=== PATIENT | female | born 1940 | race Caucasian/White ===

== ENCOUNTER 2017-10-08 16:16 | Outpatient (CLI) | payer MEDICARE | END 2017-10-08 16:17 | disposition home or self-care (01) | LOC: BICMAMMO 16:16 | PROVIDERS: ATTEND Internal Medicine Hematology & Oncology | DX: Z12.31 Encounter for screening mammogram for malignant neoplasm of breast (principal); Z85.3 Personal history of malignant neoplasm of breast | CPT/HCPCS: 77063; 77067 ==

== ENCOUNTER 2018-05-03 07:18 | Emergency (ER) | payer MEDICARE ==
[2018-05-03] MEDS ORDERED: Metoclopramide HCl 10 MG/2 ML VIAL ONE (07:42)
[2018-05-03] MEDS ORDERED: diphenhydrAMINE 50 MG/ML VIAL ONE (07:42)
[2018-05-03] MEDS ORDERED: Ketorolac Tromethamine 30 MG/ML VIAL ONE (08:14)
[2018-05-03] MEDS ORDERED: Water For Inject, Bacteriostat 30 ML ONE (08:35)
[2018-05-03] MEDS ORDERED: methylPREDNISolone Sod Succ/PF 125 MG/2 ML VIAL ONE (08:35)
[2018-05-03] MEDS ORDERED: Magnesium Sulfate 2 GM/NS 0.9% 50 ML BAG ONE (08:35)
[2018-05-03] MEDS ORDERED: Acetaminophen 500 MG TAB ONE (09:12)
[2018-05-03] MEDS ORDERED: Valproate Sodium 500 MG/5 ML VIAL ONE (09:13)
== END 2018-05-03 11:00 | disposition home or self-care (01) ==
LOC: SCSER 07:18
DX: R51 Headache (principal); I10 Essential (primary) hypertension; Z79.899 Other long term (current) drug therapy
CPT/HCPCS: 96365; 96367; 96375; J1200; J1885; J2765; J2930; J3475

== ENCOUNTER 2018-10-09 13:57 | Outpatient (CLI) | payer MEDICARE | END 2018-10-09 13:58 | disposition home or self-care (01) | LOC: BICMAMMO 13:57 | PROVIDERS: ATTEND Internal Medicine Hematology & Oncology | DX: Z12.31 Encounter for screening mammogram for malignant neoplasm of breast (principal); Z80.3 Family history of malignant neoplasm of breast; Z85.3 Personal history of malignant neoplasm of breast | CPT/HCPCS: 77063; 77067 ==

== ENCOUNTER 2019-10-11 14:01 | Outpatient (CLI) | payer MEDICARE ==
--- NOTE | 2019-10-14 13:29 | MMO ---
Bilateral MAMMO Bilat Screen [id number]. CLINICAL HISTORY: Patient is 79 years old and is seen for screening. The patient has the following family history of breast cancer: maternal aunt. The patient has a history of right Breast reduction at age 72, left Mastectomy at age 71 - malignant, left Ultrasound Guided Core Biopsy at age 71 - malignant and bilateral Excisional Biopsy at age 55 - benign. VIEWS: The views performed were: right craniocaudal with tomosynthesis and right mediolateral oblique with tomosynthesis. FILMS COMPARED: The present examination has been compared to prior imaging studies performed at [facility] on 07/19/2015, 09/30/2016, 10/08/2017 and 10/09/2018. This study has been interpreted with the assistance of computer-aided detection. MAMMOGRAM FINDINGS: There are scattered fibroglandular densities. Finding 1: There are stable post operative changes seen in the upper-outer region of the right breast. Finding 2: There are stable benign appearing calcifications seen in the right breast. Finding 3: Stable dilated ducts. There are no suspicious masses, suspicious calcifications, or new areas of architectural distortion. IMPRESSION: THERE IS NO MAMMOGRAPHIC EVIDENCE OF MALIGNANCY. A ROUTINE FOLLOW-UP MAMMOGRAM IN 1 YEAR IS RECOMMENDED. THE RESULTS OF THIS EXAM WERE SENT TO THE PATIENT. ACR BI-RADS Category 2 - Benign finding MAMMOGRAPHY NOTE: 1. A negative mammogram report should not delay a biopsy if a dominant of clinically suspicious mass is present. 2. Approximately 10% to 15% of breast cancers are not detected by mammography. 3. Adenosis and dense breasts may obscure an underlying neoplasm. Reported by: RAE MCKNIGHT MD Electonically Signed: [id number]
== END 2019-10-11 14:02 | disposition home or self-care (01) ==
LOC: BICMAMMO 14:01
PROVIDERS: ATTEND Internal Medicine Hematology & Oncology
DX: Z12.31 Encounter for screening mammogram for malignant neoplasm of breast (principal); Z80.3 Family history of malignant neoplasm of breast; Z98.890 Other specified postprocedural states; Z90.12 Acquired absence of left breast and nipple
CPT/HCPCS: 77063; 77067

== ENCOUNTER 2020-08-30 17:16 | Inpatient (IN) | payer MEDICARE, SELFPAY ==
[2020-08-30 18:41] LABS: Hemoglobin 13.8 g/dL (12.0-16.0); Mean Corpuscular HGB CONC 33.1 g/dL (32.0-36.0); Mean Corpuscular Hemoglobin 28.3 pg (27.0-31.0); Mean Corpuscular Volume 85.3 fL (78.0-98.0); RBC Distribution Width 14.8 % (11.5-14.5); Red Blood Cell (RBC) Count 4.86 mill/uL (4.20-5.40); White Blood Cell (WBC) Count 7.4 thou/uL (4.8-10.8)
[2020-08-30 18:52] LABS: ALT (SGPT) 22 U/L (8-55); AST (SGOT) 40 U/L (5-34); Albumin 4.3 g/dL (3.4-4.8); Alkaline Phosphatase 146 U/L (40-110); Anion Gap 16 mmol/L (10-20); BUN (Urea Nitrogen) 19 mg/dL (9.8-20.1); Bilirubin, Total 0.5 mg/dL (0.2-1.2); Calc. Creatinine Clearance 0 mL/min (70-130); Calcium 9.2 mg/dL (7.8-10.44); Carbon Dioxide 23 mmol/L (23-31); Chloride 104 mmol/L (98-107); Globulin 3.2 g/dL (2.4-3.5); Glucose 96 mg/dL (83-110); Potassium 3.9 mmol/L (3.5-5.1); Protein, Total 7.5 g/dL (6.0-8.3); Sodium 139 mmol/L (136-145)
[2020-08-30 19:05] LABS: #Eosinphils 0.1 thou/uL (0.0-0.7); #Neutrophils 5.3 thou/uL (1.40-6.50); %Basophils 0.5 % (0.0-1.0); %Eosinophils 0.8 % (0.0-10.0); %Lymphocytes 13.6 % (21.0-51.0); %Monocytes 14.1 % (0.0-10.0); %Neutrophils 71.1 % (42.0-75.0); Platelet Count 110 thou/uL (130-400)
[2020-08-30 19:09] LABS: Large Platelets SLIGHT; MDiff Complete? YES; Platelet Morphology Comment Appears Decreased; RBC Morphology Normal
--- NOTE | 2020-08-30 20:21 | CT ---
CT BRAIN 08/30/20 PROVIDED CLINICAL HISTORY: Headache. FINDINGS: No comparisons. The ventricular system appears normal in size and morphology. There is no evidence for intracranial h emorrhage or mass effect. The extracranial soft tissues and osseous structures demonstrate an unremar kable CT appearance. IMPRESSION: No evidence for intracranial hemorrhage or mass effect. POS: XAVI
[2020-08-30] MEDS ORDERED: Metoclopramide 10 MG/10 ML UDCUP ONE (21:26)
[2020-08-30] MEDS ORDERED: Metoclopramide HCl 10 MG/2 ML VIAL ONE (21:26)
[2020-08-30] MEDS ORDERED: diphenhydrAMINE 50 MG/ML VIAL ONE (21:26)
[2020-08-30] MEDS ORDERED: Aspirin Chewable 81 MG TAB ONE (21:26)
--- NOTE | 2020-08-30 22:52 | RAD ---
PORTABLE CHEST: 08/30/20 PROVIDED CLINICAL HISTORY: Headache. Altered mental status. FINDINGS: The cardiac and mediastinal silhouette is within normal limits. No focal consolidation, pleural fluid or pneumothorax apparent. IMPRESSION: No evidence for an acute cardiopulmonary process. POS: XAVI
[2020-08-30 23:07] LABS: Troponin I Less than 0.010 ng/mL (< 0.028)
[2020-08-31] MEDS ORDERED: Acetaminophen 650 MG Suppository PR PRN (01:16)
[2020-08-31] MEDS ORDERED: Calcium Carbonate 500 MG ChewTAB PO PRN (01:16)
[2020-08-31] MEDS ORDERED: Ondansetron ODT 4 MG TAB PO PRN (01:16)
--- NOTE | 2020-08-31 01:22 | PDOC.HHP ---
Hospitalist HPI - History of Present Illness l sided weakness History of Present Illness: Case of an 80y/o female with a pmhx of htn and migraines who comes to hospital due to L arm weakness and facil droop. apparently patient was on her usual state of health until this morning around 10 am when she complained of weakeness and numbness of her L arm. apparently at some point that improved and patient later started with L sided facial droop. Patient also noted a headache that has been been ongoing since this morning. also refers that she is not on her neurological base despites been a ox3. during my evaluation still presents with L arm weakness and L facial droop. She has had no fevers chills nausea vomiting diarrhea she has no prior stroke history or TIA history. Hospitalist ROS - Review of Systems All other systems reviewed; all pertinent +/- noted in HPI/Subj Hospitalist History - Past Surgical History Past Surgical History: reports: , Hysterectomy Other Surgical History: b/l mastectomy - Family History Family History: reports: no pertinent history - Social History Smoking Status: Never smoker Alcohol: reports: None Drugs: reports: none - Exam General Appearance: NAD, awake alert Eye: PERRL, anicteric sclera ENT: normocephalic atraumatic, no oropharyngeal lesions ENT - other findings: L facial droop Heart: RRR, no murmur Respiratory: CTAB, no wheezes, no rales Gastrointestinal: soft, non-tender, non-distended Extremities: no cyanosis, no clubbing, no edema Skin: normal turgor, no lesions, no rashes Neurological: cranial nerve grossly intact, normal sensation to touch Musculoskeletal: normal tone, normal strength, no muscle wasting Psychiatric: normal affect, normal behavior, A&O x 3 Hospitalist Results - Labs Result Diagrams: 08/30/20 18:08/30/20 18:19 Lab results: WBC 7.4 thou/uL (4.8-10.8) 08/30/20 18: Hgb 13.8 g/dL (12.0-16.0) 08/30/20 18:19 Hct 41.5 % (36.0-47.0) 08/30/20 18: MCV 85.3 fL (78.0-98.0) 08/30/20 18:19 Plt Count 110 thou/uL (130-400) L 08/30/20 18:19 Neutrophils % 71.1 % (42.0-75.0) 08/30/20 18:19 Sodium 139 mmol/L (136-145) 08/30/20 18:19 Potassium 3.9 mmol/L (3.5-5.1) 08/30/20 18:19 Chloride 104 mmol/L (98-107) 08/30/20 18:19 Carbon Dioxide 23 mmol/L (23-31) 08/30/20 18:19 BUN 19 mg/dL (9.8-20.1) 08/30/20 18:19 Creatinine 0.77 mg/dL (0.6-1.1) 08/30/20 18:19 Glucose 96 mg/dL (83-110) 08/30/20 18:19 Calcium 9.2 mg/dL (7.8-10.44) 08/30/20 18:19 Total Bilirubin 0.5 mg/dL (0.2-1.2) 08/30/20 18:19 AST 40 U/L (5-34) H 08/30/20 18:19 ALT 22 U/L (8-55) 08/30/20 18:19 Alkaline Phosphatase 146 U/L (40-110) H 08/30/20 18:19 Troponin I Less than 0.010 ng/mL (< 0.028) 08/30/20 22:39 Serum Total Protein 7.5 g/dL (6.0-8.3) 08/30/20 18:19 Albumin 4.3 g/dL (3.4-4.8) 08/30/20 18:19 Hospitalist H&P A/P - Problem (1) CVA (cerebral vascular accident) Code(s): I63.9 - CEREBRAL INFARCTION, UNSPECIFIED Status: Acute (2) HTN (hypertension) Code(s): I10 - ESSENTIAL (PRIMARY) HYPERTENSION Status: Acute (3) Hypothyroidism Code(s): E03.9 - HYPOTHYROIDISM, UNSPECIFIED Status: Acute (4) Migraines Code(s): G43.909 - MIGRAINE, UNSP, NOT INTRACTABLE, WITHOUT STATUS MIGRAINOSUS Status: Acute - Plan Plan: case of an 80y/o with the stated pmhx who present with concerns for tia / cva r/ o cva - head ct negative - mri - 2d echo - carotid doppler - neurology evaluation - cardiac monitoring - secondary prevention w asa + statin - evaluation of modifiable risk factor with lipid panel + a1c - pt /ot / st htn -permissive htn hypothyroidism - continue home meds
[2020-08-31 01:48] LABS: Troponin I 0.011 ng/mL (< 0.028)
[2020-08-31] MEDS: Ondansetron PF 4 MG/2 ML Vial IVP PRN ×2 (02:59→19:43)
[2020-08-31 05:19] LABS: SARS-CoV-2 MS2 Positive; SARS-CoV-2 N Gene Negative; SARS-CoV-2 S Gene Negative; SARS-CoV-2 by NAA Not Detected (NotDetected); SARS-CoV-2 orf1ab Negative
[2020-08-31] MEDS: Levothyroxine Sodium 25 MCG TAB PO SCH (05:26)
[2020-08-31 05:27] LABS: Hemoglobin A1c 5.2 % (4.0-6.0)
[2020-08-31 05:28] LABS: Hemoglobin 13.8 g/dL (12.0-16.0); Mean Corpuscular HGB CONC 33.1 g/dL (32.0-36.0); Mean Corpuscular Volume 84.5 fL (78.0-98.0); Mean Platelet Volume 10.5 fL (7.4-10.4); Platelet Count 117 thou/uL (130-400); RBC Distribution Width 14.7 % (11.5-14.5); Red Blood Cell (RBC) Count 4.93 mill/uL (4.20-5.40); White Blood Cell (WBC) Count 8.9 thou/uL (4.8-10.8)
[2020-08-31] MEDS: Acetaminophen 325 MG TAB PO PRN ×4 (05:28→21:50)
[2020-08-31 05:39] LABS: ALT (SGPT) 19 U/L (8-55); AST (SGOT) 42 U/L (5-34); Albumin 4.4 g/dL (3.4-4.8); Alkaline Phosphatase 144 U/L (40-110); Anion Gap 19 mmol/L (10-20); BUN (Urea Nitrogen) 11 mg/dL (9.8-20.1); Bilirubin, Total 0.6 mg/dL (0.2-1.2); Calc. Creatinine Clearance 60 mL/min (70-130); Carbon Dioxide 18 mmol/L (23-31); Cardiac Risk 2.4 (Less than 4.5); Chloride 104 mmol/L (98-107); Cholesterol 166 mg/dl (< 200 Desired); Globulin 3.2 g/dL (2.4-3.5); Glucose 113 mg/dL (83-110); HDL Cholesterol 69 mg/dL (>60 Neg Risk); LDL Cholesterol, Calculated 80 mg/dL; Potassium 3.8 mmol/L (3.5-5.1); Protein, Total 7.6 g/dL (6.0-8.3); Sodium 137 mmol/L (136-145); Triglycerides 83 mg/dL (Less than 150)
[2020-08-31 05:52] LABS: Lymphocytes 15 % (21-51); MDiff Complete? YES; Monocytes 15 % (0-10); Neutrophil 70 % (42-75); Platelet Morphology Comment Appears Adequate; RBC Morphology Normal
[2020-08-31] MEDS: Aspirin 81 mg Enteric Coated Tablet PO SCH (09:26)
[2020-08-31] MEDS: Anastrozole 1 MG TAB PO SCH (09:26)
[2020-08-31] MEDS: Enoxaparin Sodium 40 MG/0.4 ML SYRINGE SC SCH (09:34)
--- NOTE | 2020-08-31 09:36 | PDOC.BPN ---
- Brief Progress Note Encounter Date: 08/31/20 Patient was admitted earlier today on account of left-sided weakness secondary to CVA. She complains of generalized body pain but is generally uncomfortable. Time of my evaluation she was a bit confused which nurse notes have been happening intermittently. We will go ahead and have carotid ultrasound scan, MRI and PT evaluation. Appreciate neurology input
--- NOTE | 2020-08-31 09:38 | ULT ---
Carotid arterial Doppler ultrasound: 08/31/2020 COMPARISON: None HISTORY: Stroke, left-sided paralysis, altered mental status TECHNIQUE: Multiplanar grayscale sonographic imaging of the arterial structures of the neck obtained with Doppler interrogation including color flow and spectral analysis. FINDINGS: Antegrade blood flow and normal arterial waveforms are documented within the carotid and th e vertebral system bilaterally. Peak systolic velocity (centimeters per second) is as follows: Right CCA 106 Right ICA 85 Right ECA 101 Left CCA 118 Left ICA 214 Left ECA 128 The ICA/CCA ratio is 0.8 on the right and 1.8 on the left. IMPRESSION: Elevated velocity within the left internal carotid artery suggesting hemodynamically sign ificant stenosis. Recommend CT angiogram of the neck for full assessment.
--- NOTE | 2020-08-31 13:22 | MRI ---
MRI OF BRAIN PERFORMED WITHOUT CONTRAST ENHANCEMENT: HISTORY: Weakness on entire left side. Unable to move left arm at all. Slurred speech. FINDINGS: There is some mild ventricular and sulcal prominence which is fairly age appropriate. Areas of incre ased T2 and FLAIR signal change within the white matter consistent with some chronic white matter jarrett nge. No hemorrhage or mass effect. On the diffusion weighted sequence, I see no evidence for any acute infarct. IMPRESSION: No acute intracranial abnormalities. POS: AH
--- NOTE | 2020-08-31 13:29 | CON ---
NEUROLOGY CONSULTATION DATE OF CONSULTATION: 08/31/2020 REASON FOR CONSULTATION: Rule out stroke. HISTORY OF PRESENT ILLNESS: Ms. Thacker is a 80-year-old female with medical history significant for hypertension and migraine presented to the hospital because of left upper extremity weakness and right facial droop. The history is obtained from the . The patient seems confused. Per , she was in her usual health until yesterday morning around 10 a.m. when she complained of weakness and paresthesias in her left arm and also had left facial droop. The patient also had headache, which has been ongoing since morning. The symptoms lasted for an hour and when she arrived to the emergency room, most of the symptoms resolved soon afterwards. The patient does have nausea, headache but denies chest pain, blurred vision, double vision, vertigo, dizziness, recent infection or recent exposure to COVID. REVIEW OF SYSTEMS: All systems reviewed and were negative except the pertinent positives and negatives mentioned in the HPI. PAST MEDICAL HISTORY: Hypertension, migraines. PAST SURGICAL HISTORY: section, hysterectomy. FAMILY HISTORY: No significant family history. SOCIAL HISTORY: The patient denies smoking, alcohol, illegal drug use. ALLERGIES: Codeine PHYSICAL EXAMINATION: 142/72 100 16 98 General Appearance: NAD, awake alert Eye: PERRL, anicteric sclera ENT: normocephalic atraumatic, no oropharyngeal lesions ENT - other findings: L facial droop Heart: RRR, no murmur Respiratory: CTAB, no wheezes, no rales Gastrointestinal: soft, non-tender, non-distended Extremities: no cyanosis, no clubbing, no edema Skin: normal turgor, no lesions, no rashes Neurological: Mental status, the patient is alert and oriented to person and place, Recent and remote memory intact. Fund of knowledge is appropriate. Cranial nerves II through XII intact. Motor, muscle tone and bulk are normal. Strength 5/5 bilaterally. Sensory intact. Cerebellar, finger-nose testing intact. Gait deferred due to patient's safety reasons. DATA REVIEWED: I reviewed the labs, which were essentially unremarkable. Lab results: WBC 7.4 thou/uL (4.8-10.8) 08/30/20 18:19 Hgb 13.8 g/dL (12.0-16.0) 08/30/20 18:19 Hct 41.5 % (36.0-47.0) 08/30/20 18:19 MCV 85.3 fL (78.0-98.0) 08/30/20 18:19 Plt Count 110 thou/uL (130-400) L 08/30/20 18:19 Neutrophils % 71.1 % (42.0-75.0) 08/30/20 18:19 Sodium 139 mmol/L (136-145) 08/30/20 18:19 Potassium 3.9 mmol/L (3.5-5.1) 08/30/20 18:19 Chloride 104 mmol/L (98-107) 08/30/20 18:19 Carbon Dioxide 23 mmol/L (23-31) 08/30/20 18:19 BUN 19 mg/dL (9.8-20.1) 08/30/20 18:19 Creatinine 0.77 mg/dL (0.6-1.1) 08/30/20 18:19 Glucose 96 mg/dL (83-110) 08/30/20 18:19 Calcium 9.2 mg/dL (7.8-10.44) 08/30/20 18:19 Total Bilirubin 0.5 mg/dL (0.2-1.2) 08/30/20 18:19 AST 40 U/L (5-34) H 08/30/20 18:19 ALT 22 U/L (8-55) 08/30/20 18:19 Alkaline Phosphatase 146 U/L (40-110) H 08/30/20 18:19 Troponin I Less than 0.010 ng/mL (< 0.028) 08/30/20 22:39 Serum Total Protein 7.5 g/dL (6.0-8.3) 08/30/20 18:19 Albumin 4.3 g/dL (3.4-4.8) 08/30/20 18:19 ASSESSMENT AND PLAN: (1) CVA (cerebral vascular accident) Code(s): I63.9 - CEREBRAL INFARCTION, UNSPECIFIED Status: Acute (2) HTN (hypertension) Code(s): I10 - ESSENTIAL (PRIMARY) HYPERTENSION Status: Acute (3) Hypothyroidism Code(s): E03.9 - HYPOTHYROIDISM, UNSPECIFIED Status: Acute (4) Migraines Code(s): G43.909 - MIGRAINE, UNSP, NOT INTRACTABLE, WITHOUT STATUS MIGRAINOSUS Status: Acute Ms. Thacker is consulted for stroke-like symptoms, which are now resolved, most likely TIA. Continue neuro checks every 4 hours. Continue aspirin, high-intensity statin for secondary stroke prevention. Check hemoglobin A1c, fasting lipid panel, and TSH. Consider MRI of the brain to rule out acute intracranial process. 2D echo to evaluate for left ventricular ejection fraction. Telemetry to rule out arrhythmias. Permissive control of blood pressure at this time. Strict control of blood glucose. Carotid Dopplers completed, which showed hemodynamically significant stenosis in the left internal carotid artery. Consider CTA of the neck for full assessment and consider CV surgery consult for their input. EEG to evaluate for confusion. Continue medical management per primary team. DVT prophylaxis, headache control. We will continue to follow. Thank you for the consult. Plan discussed with the patient and the at bedside. Job ID: [id number] MTDD
--- NOTE | 2020-08-31 18:37 | PDOC.EEG ---
Neurology EEG Report - Report Report: This EEG was performed using 24 channel SVAS Biosana video EEG machine with 24 disc electrodes. This was an extended 2 hours 9 minutes of inpatient video EEG recording. Digital analysis of the EEG was done for spike and seizure detection which revealed no abnormalities. Background: There is a nonsustained posterior background rhythm of 8-9 Hz. Hyperventilation: Not performed. Photic Stimulation: No significant response. Sleep: No stage change is observed. EEG Diagnosis: Occasional irregular theta activity seen during the reording. Nonsustained Posterior background rhythm. Clinical Interpretation: This EEG is consistent with mild to moderate generalized nonspecific cerebral dysfunction.
[2020-08-31] MEDS: Atorvastatin Calcium 40 MG TAB PO SCH (21:51)
[2020-09-01] MEDS: Acetaminophen 325 MG TAB PO PRN (05:27)
[2020-09-01] MEDS: Levothyroxine Sodium 25 MCG TAB PO SCH (05:27)
[2020-09-01] MEDS: Aspirin 81 mg Enteric Coated Tablet PO SCH (08:27)
[2020-09-01] MEDS: Enoxaparin Sodium 40 MG/0.4 ML SYRINGE SC SCH (08:27)
[2020-09-01] MEDS: Anastrozole 1 MG TAB PO SCH (08:27)
--- NOTE | 2020-09-01 08:33 | CT ---
EXAM: CT angiogram of the neck including 3-D rendering: HISTORY: Follow-up abnormal carotid duplex ultrasound COMPARISON: None FINDINGS: There is adequate opacification of the extracranial arterial tree. The origins of the right and left carotid and vertebral arteries demonstrate no significant stenosis. Right common, internal, and external carotid arteries:No evidence for significant stenosis or occlusi ve disease. Left common, internal, and external carotid arteries:There is some minimal focal bending of the left internal carotid artery resulting in a mild, less than 50% stenosis. No associated calcified plaque. Right and left vertebral arteries and basilar artery:No significant stenosis or occlusion. Soft tissue neck demonstrates no evidence for significant adenopathy, mass, or abnormal fluid collect ion. All stenosis measurements use Nascet Criteria. IMPRESSION: Minimal focal bending of the left internal carotid artery resulting in a mild less than 50% stenosis without associated calcified plaque. No evidence for other significant acute process.
--- NOTE | 2020-09-01 09:49 | CON ---
DATE OF CONSULTATION: HISTORY OF PRESENT ILLNESS: A 80-year-old female, who presented with left arm weakness and facial droop. Workup has been rather extensive at this time with initial brain CT scan being negative, carotid ultrasound showing a left carotid stenosis, a normal brain MRI, an unremarkable cardiac echo, and a CT angiogram of the neck showing no atherosclerotic disease of the aortic arch, major branch vessels or either internal carotid artery at any level. She has also had an EEG. EEG was consistent with nonspecific cerebral dysfunction. PAST MEDICAL HISTORY: Notable for a bilateral mastectomy for breast cancer, for which she takes Arimidex. She has no other cardiovascular risk factors. LABORATORY DATA: Laboratory values are relatively unremarkable except for mild decrease in platelet count and negative COVID serology. PHYSICAL EXAMINATION: On examination, she is lethargic and really does not respond to any verbal commands today. Her son is in the room, holding her right arm. The patient's left arm is in a contracted position, and she does not move any extremities at this time. She is breathing comfortably, sitting up in bed with her eyes closed. The patient has no vascular disease that could account for stroke symptoms. Bit confusing as to a normal MRI at least 24 hours into this event; however, we will leave further evaluation to the Neurology Services. There is no indication this is an event related to atherosclerotic vascular disease. Job ID: [id number]
[2020-09-01] MEDS ORDERED: Iopamidol-370 76% 500 ML 1 ML ONE (11:25)
--- NOTE | 2020-09-01 13:44 | PDOC.NEUPN ---
- Subjective Encounter Date: 09/01/20 Subjective: Ms. Thacker continues to have waxing and waning mental status. EEG was completed yesterday which did not reveal any ongoing seizure activity. and son at bedside - Objective Vital Signs & Weight: Vital Signs (12 hours) Temp Pulse Resp BP Pulse Ox 09/01/20 13:01 98.7 F 101 H 14 181/97 H 94 L 09/01/20 09:07 98.2 F 98 14 164/87 H 95 09/01/20 06:34 88 09/01/20 04:00 99.2 F 101 H 20 178/104 H 95 Weight Weight 131 lb 11.2 oz I&O: 08/31/20 09/01/20 09/02/20 06:59 06:59 06:59 Intake Total 300 580 10 Output Total 850 550 Balance -550 30 10 Result Diagrams: 08/31/20 05:03 08/31/20 05:03 Additional Labs: Accuchecks 08/31/20 19:45 POC Glucose 132 H Radiology Reviewed by me: Yes EKG Reviewed by me: Yes ROS - Review of Systems ROS unobtainable: due to mental status (Patient is somnolent but able to answer questions intermittently) - Medication Medications: Active Medications Generic Name Dose Route Start Last Admin Trade Name Freq PRN Reason Stop Dose Admin Acetaminophen 650 mg 08/31/20 01:16 09/01/20 05:27 Acetaminophen 325 Mg Tab PO 650 mg Q4H PRN Administration Headache/Fever/Mild Pain (1-3) Anastrozole 1 mg 08/31/20 09:00 09/01/20 08:27 Anastrozole 1 Mg Tab PO 1 mg DAILY DARIANA Administration Aspirin 81 mg 08/31/20 09:00 09/01/20 08:27 Aspirin 81 Mg Enteric Coated Tablet PO 81 mg DAILY DARIANA Administration Atorvastatin Calcium 40 mg 08/31/20 21:00 08/31/20 21:51 Atorvastatin Calcium 40 Mg Tab PO 40 mg HS DARIANA Administration Enoxaparin Sodium 40 mg 08/31/20 09:00 09/01/20 08:27 Enoxaparin Sodium 40 Mg/0.4 Ml Syringe SC 40 mg 0900 DARIANA Administration Levothyroxine Sodium 25 mcg 08/31/20 06:00 09/01/20 05:27 Levothyroxine Sodium 25 Mcg Tab PO 25 mcg 0600 DARIANA Administration Ondansetron HCl 4 mg 08/31/20 01:16 08/31/20 19:43 Ondansetron Pf 4 Mg/2 Ml Vial IVP 4 mg Q6H PRN Administration Nausea/Vomiting - Exam General Appearance: NAD Eye: PERRL ENT: normocephalic atraumatic Neck: supple Respiratory: CTAB Cardiovascular: RRR Gastrointestinal: soft Extremities: no cyanosis Skin: normal turgor Neurological: no new deficit Musculoskeletal: normal tone, no muscle wasting PSYCH: A&O x 3, somnolent (Patient is somnolent but able to answer questions intermittently and is oriented to person place and year) Results - Labs Result Diagrams: 08/31/20 05:03 08/31/20 05:03 Lab results: WBC 8.9 thou/uL (4.8-10.8) 08/31/20 05:03 Hgb 13.8 g/dL (12.0-16.0) 08/31/20 05:03 Hct 41.7 % (36.0-47.0) 08/31/20 05:03 MCV 84.5 fL (78.0-98.0) 08/31/20 05:03 Plt Count 117 thou/uL (130-400) L 08/31/20 05:03 Neutrophils % 71.1 % (42.0-75.0) 08/30/20 18:19 Sodium 137 mmol/L (136-145) 08/31/20 05:03 Potassium 3.8 mmol/L (3.5-5.1) 08/31/20 05:03 Chloride 104 mmol/L (98-107) 08/31/20 05:03 Carbon Dioxide 18 mmol/L (23-31) L 08/31/20 05:03 BUN 11 mg/dL (9.8-20.1) 08/31/20 05:03 Creatinine 0.72 mg/dL (0.6-1.1) 08/31/20 05:03 Glucose 113 mg/dL (83-110) H 08/31/20 05:03 Calcium 9.0 mg/dL (7.8-10.44) 08/31/20 05:03 Total Bilirubin 0.6 mg/dL (0.2-1.2) 08/31/20 05:03 AST 42 U/L (5-34) H 08/31/20 05:03 ALT 19 U/L (8-55) 08/31/20 05:03 Alkaline Phosphatase 144 U/L (40-110) H 08/31/20 05:03 Troponin I 0.011 ng/mL (< 0.028) 08/31/20 01:04 Serum Total Protein 7.6 g/dL (6.0-8.3) 08/31/20 05:03 Albumin 4.4 g/dL (3.4-4.8) 08/31/20 05:03 - Radiology Interpretation Other Additional Comment: MRI brain did not reveal any acute intracranial pathology. PN A/P (1) CVA (cerebral vascular accident) Code(s): I63.9 - CEREBRAL INFARCTION, UNSPECIFIED Status: Acute (2) HTN (hypertension) Code(s): I10 - ESSENTIAL (PRIMARY) HYPERTENSION Status: Acute (3) Hypothyroidism Code(s): E03.9 - HYPOTHYROIDISM, UNSPECIFIED Status: Acute (4) Migraines Code(s): G43.909 - MIGRAINE, UNSP, NOT INTRACTABLE, WITHOUT STATUS MIGRAINOSUS Status: Acute - Plan Daily Plan: plan discussed w/ family ( and son at bedside), PT/OT, speech therapy, DVT proph w/SCDs Mrs. Thacker is a 80-year-old female with medical history significant for hyper tension, hypothyroidism and migraines presented with left-sided weakness and headache. MRI of the brain reviewed and was negative for acute intracranial pathology. Results were discussed with the . CTA of the head and neck was negative for hemodynamically significant stenosis. Carotid Doppler study showed left carotid artery stenosis but CTA of the neck came back as hemodynamically significant stenosis. Patient has been seen by cardiovascular surgery and they do not feel the need for surgical intervention 2D echo showed left ventricular ejection fraction 60 to 65%. No thrombus or P FO. Neurochecks every 4 hours. Strict control of blood pressure and blood glucose. Continue aspirin and high intensity statin for secondary stroke prevention. Telemetry for rule out arrhythmias. PT/OT/speech. DVT prophylaxis. Continue medical management per primary team. Plan discussed in detail with the patient, patient's son and at bedside and also with the nursing staff.
[2020-09-01] MEDS: Dextrose 5%-Lactated Ringers 1,000 ML IV SCH (15:32)
--- NOTE | 2020-09-01 16:41 | PDOC.HOSPP ---
- Subjective Encounter Date: 09/01/20 Subjective: He was seen and examined in bed. No significant changes overnight. On the time of my evaluation patient was still not communicating. Her son was in the room with her. - Objective Vital Signs & Weight: Vital Signs (12 hours) Temp Pulse Resp BP Pulse Ox 09/01/20 16:00 99.0 F 94 14 157/94 H 96 09/01/20 13:01 98.7 F 101 H 14 181/97 H 94 L 09/01/20 09:07 98.2 F 98 14 164/87 H 95 09/01/20 06:34 88 Weight Weight 131 lb 11.2 oz I&O: 08/31/20 09/01/20 09/02/20 06:59 06:59 06:59 Intake Total 300 580 10 Output Total 850 550 Balance -550 30 10 Result Diagrams: 08/31/20 05:03 08/31/20 05:03 Additional Labs: Accuchecks 08/31/20 19:45 POC Glucose 132 H Hospitalist ROS - Review of Systems ROS unobtainable: due to mental status - Medication Medications: Active Medications Generic Name Dose Route Start Last Admin Trade Name Freq PRN Reason Stop Dose Admin Acetaminophen 650 mg 08/31/20 01:16 09/01/20 05:27 Acetaminophen 325 Mg Tab PO 650 mg Q4H PRN Administration Headache/Fever/Mild Pain (1-3) Anastrozole 1 mg 08/31/20 09:00 09/01/20 08:27 Anastrozole 1 Mg Tab PO 1 mg DAILY DARIANA Administration Aspirin 81 mg 08/31/20 09:00 09/01/20 08:27 Aspirin 81 Mg Enteric Coated Tablet PO 81 mg DAILY DARIANA Administration Atorvastatin Calcium 40 mg 08/31/20 21:00 08/31/20 21:51 Atorvastatin Calcium 40 Mg Tab PO 40 mg HS DARIANA Administration Enoxaparin Sodium 40 mg 08/31/20 09:00 09/01/20 08:27 Enoxaparin Sodium 40 Mg/0.4 Ml Syringe SC 40 mg 0900 DARIANA Administration Dextrose/Lactated Ringer's 1,000 mls @ 100 mls/hr 09/01/20 14:15 09/01/20 15:32 D5 Lr IV 1,000 mls .Q10H DARIANA Administration Levothyroxine Sodium 25 mcg 08/31/20 06:00 09/01/20 05:27 Levothyroxine Sodium 25 Mcg Tab PO 25 mcg 0600 DARIANA Administration Ondansetron HCl 4 mg 08/31/20 01:16 08/31/20 19:43 Ondansetron Pf 4 Mg/2 Ml Vial IVP 4 mg Q6H PRN Administration Nausea/Vomiting - Exam General - other findings: All weeks, not alert and oriented Eye: anicteric sclera Eye - other findings: Pupil reactive symmetrically, will not follow finger movements Neck: supple, symmetric, no JVD, no thyromegaly Heart: RRR, no murmur, no gallops, no rubs Respiratory: CTAB, no wheezes, no rales, no ronchi Gastrointestinal: soft, non-tender, non-distended, normal bowel sounds Extremities: no cyanosis, no clubbing, no edema Neurological - other findings: Mild left facial droop, patient not actively following commands. Psychiatric - other findings: Patient not oriented Hosp A/P - Plan This is a 80-year-old female patient admitted on account of left-sided weakness with concerns for stroke/TIA. CT scan and MRI of her brain however have been negative. EEG also notes no seizure activity. She actually has decline in mental status with no clear etiology with left-sided deficit. Acute encephalopathy Unclear etiology Possible stroke not manifested on MRI We may have to consider repeat MRI TSH within normal limits, B12 ordered Continue monitoring closely. Neurology following Possible stroke Nothing noted on brain imaging Carotid Doppler shows stenosis however CTA showed no significant abnormality. Cardiovascular surgery consultednotes no intervention now. Echocardiogram shows EF of greater than 60 to 65% PT OT evaluation Hypertension Blood pressures controlled Continue home medications. Hypothyroidism Continue levothyroxine Migraines Continue home medications. VT prophylaxis Lovenox CODE STATUS full code
[2020-09-01 17:49] LABS: Bacteria/HPF None Seen HPF (None Seen); Bilirubin Negative (Negative); Blood, Urine Negative (Negative); Calcium Oxalate Crystals 1+ HPF (None Seen); Clarity Clear (Clear); Glucose, Urine (Dipstick) Normal (Negative); Ketone, Urine 100 mg/dL (Negative); Leukocyte Negative Leu/uL (Negative); Nitrite Negative (Negative); Protein, Urine (Dipstick) 100 mg/dL (Neg-Trace); RBC/HPF 0-3 HPF (0-3); Squamous Epithelial 0-3 HPF (0-3); Urobilinogen 3 mg/dL (Less than 2); WBC/HPF 0-3 HPF (0-3); pH, Urine 6.5 (5.0-9.0)
[2020-09-01 17:50] LABS: Specific Gravity, Urine Greater than 1.060 (1.002-1.036)
[2020-09-01 17:52] LABS: Urine Culture Reflex No No
[2020-09-01] MEDS: Atorvastatin Calcium 40 MG TAB PO SCH (20:48)
[2020-09-02] MEDS: Acetaminophen 325 MG TAB PO PRN (00:03)
[2020-09-02] MEDS: Dextrose 5%-Lactated Ringers 1,000 ML IV SCH ×2 (01:33→13:55)
[2020-09-02 05:33] LABS: Anion Gap 15 mmol/L (10-20); BUN (Urea Nitrogen) 14 mg/dL (9.8-20.1); Calc. Creatinine Clearance 59 mL/min (70-130); Calcium 8.6 mg/dL (7.8-10.44); Carbon Dioxide 21 mmol/L (23-31); Chloride 102 mmol/L (98-107); Glucose 127 mg/dL (83-110); Potassium 3.4 mmol/L (3.5-5.1); Sodium 135 mmol/L (136-145)
[2020-09-02] MEDS: Levothyroxine Sodium 25 MCG TAB PO SCH (05:56)
[2020-09-02 06:03] LABS: Band 10 % (5-11); Hemoglobin 12.2 g/dL (12.0-16.0); Lymphocytes 17 % (21-51); MDiff Complete? YES; Mean Corpuscular HGB CONC 32.4 g/dL (32.0-36.0); Mean Corpuscular Volume 83.2 fL (78.0-98.0); Mean Platelet Volume 11.1 fL (7.4-10.4); Monocytes 14 % (0-10); Neutrophil 59 % (42-75); Platelet Count 105 thou/uL (130-400); Platelet Morphology Comment Appears Decreased; RBC Distribution Width 14.8 % (11.5-14.5); Red Blood Cell (RBC) Count 4.51 mill/uL (4.20-5.40); White Blood Cell (WBC) Count 8.3 thou/uL (4.8-10.8)
[2020-09-02] MEDS: Magnesium 2 GM/50 ML 2 GM in Premix Bag 1 BAG IVPB SCH ×2 (06:35→09:13)
[2020-09-02] MEDS ORDERED: Potassium Chloride 20 MEQ in Premix Bag 1 BAG IVPB SCH (07:15)
[2020-09-02] MEDS: Aspirin 81 mg Enteric Coated Tablet PO SCH (09:08)
[2020-09-02] MEDS: Anastrozole 1 MG TAB PO SCH (09:08)
[2020-09-02] MEDS: Enoxaparin Sodium 40 MG/0.4 ML SYRINGE SC SCH (09:08)
[2020-09-02] MEDS ORDERED: diphenhydrAMINE 50 MG/ML VIAL IVP SCH (14:15)
[2020-09-02] MEDS: Ketorolac Tromethamine 30 MG/ML VIAL IVP PRN (14:33)
--- NOTE | 2020-09-02 14:59 | PDOC.NEUPN ---
- Subjective Encounter Date: 09/02/20 Subjective: Kedar continues to remain somnolent and complains of headache. Daughter at bedside. - Objective Vital Signs & Weight: Vital Signs (12 hours) Temp Pulse Resp BP Pulse Ox 09/02/20 11:37 97.6 F 67 16 109/60 97 09/02/20 07:25 98.7 F 81 18 142/76 H 96 09/02/20 03:58 98.9 F 91 20 184/87 H 92 L Weight Weight 131 lb 11.2 oz I&O: 09/01/20 09/02/20 09/03/20 06:59 06:59 06:59 Intake Total 580 929 300 Output Total 550 475 Balance 30 454 300 Result Diagrams: 09/02/20 04:44 09/02/20 04:44 Radiology Reviewed by me: Yes EKG Reviewed by me: Yes ROS - Review of Systems ROS unobtainable: due to mental status (Somnolent) - Medication Medications: Active Medications Generic Name Dose Route Start Last Admin Trade Name Freq PRN Reason Stop Dose Admin Acetaminophen 650 mg 08/31/20 01:16 09/02/20 00:03 Acetaminophen 325 Mg Tab PO 650 mg Q4H PRN Administration Headache/Fever/Mild Pain (1-3) Aspirin 81 mg 08/31/20 09:00 09/02/20 09:08 Aspirin 81 Mg Enteric Coated Tablet PO 81 mg DAILY DARIANA Administration Atorvastatin Calcium 40 mg 08/31/20 21:00 09/01/20 20:48 Atorvastatin Calcium 40 Mg Tab PO 40 mg HS DARIANA Administration Diphenhydramine HCl 25 mg 09/02/20 14:15 09/02/20 14:33 Diphenhydramine 50 Mg/Ml Vial IVP 09/02/20 16:15 25 mg NOW DARIANA Administration Prochlorperazine Edisylate 5 51 mls @ 150 mls/hr 09/02/20 14:04 09/02/20 14:37 mg/ Sodium Chloride IVPB 51 mls Q6H PRN Administration Nausea/Vomiting Ketorolac Tromethamine 15 mg 09/02/20 14:05 09/02/20 14:33 Ketorolac Tromethamine 30 Mg/Ml Vial IVP 09/07/20 14:06 15 mg Q6H PRN Administration Pain Levothyroxine Sodium 25 mcg 08/31/20 06:00 09/02/20 05:56 Levothyroxine Sodium 25 Mcg Tab PO 25 mcg 0600 DARIANA Administration Ondansetron HCl 4 mg 08/31/20 01:16 08/31/20 19:43 Ondansetron Pf 4 Mg/2 Ml Vial IVP 4 mg Q6H PRN Administration Nausea/Vomiting - Exam General Appearance: NAD Eye: PERRL ENT: normocephalic atraumatic Neck: supple Respiratory: CTAB Cardiovascular: RRR Gastrointestinal: soft Extremities: no cyanosis Skin: normal turgor Neurological: no new deficit Musculoskeletal: normal tone, no muscle wasting PSYCH: somnolent, lethargic Results - Labs Result Diagrams: 09/02/20 04:44 09/02/20 04:44 Lab results: WBC 8.3 thou/uL (4.8-10.8) 09/02/20 04:44 Hgb 12.2 g/dL (12.0-16.0) 09/02/20 04:44 Hct 37.5 % (36.0-47.0) 09/02/20 04:44 MCV 83.2 fL (78.0-98.0) 09/02/20 04:44 Plt Count 105 thou/uL (130-400) L 09/02/20 04:44 Neutrophils % 71.1 % (42.0-75.0) 08/30/20 18:19 Band Neuts % (Manual) 10 % (5-11) 09/02/20 04:44 Sodium 135 mmol/L (136-145) L 09/02/20 04:44 Potassium 3.4 mmol/L (3.5-5.1) L 09/02/20 04:44 Chloride 102 mmol/L (98-107) 09/02/20 04:44 Carbon Dioxide 21 mmol/L (23-31) L 09/02/20 04:44 BUN 14 mg/dL (9.8-20.1) 09/02/20 04:44 Creatinine 0.73 mg/dL (0.6-1.1) 09/02/20 04:44 Glucose 127 mg/dL (83-110) H 09/02/20 04:44 Calcium 8.6 mg/dL (7.8-10.44) 09/02/20 04:44 Total Bilirubin 0.6 mg/dL (0.2-1.2) 08/31/20 05:03 AST 42 U/L (5-34) H 08/31/20 05:03 ALT 19 U/L (8-55) 08/31/20 05:03 Alkaline Phosphatase 144 U/L (40-110) H 08/31/20 05:03 Troponin I 0.011 ng/mL (< 0.028) 08/31/20 01:04 Serum Total Protein 7.6 g/dL (6.0-8.3) 08/31/20 05:03 Albumin 4.4 g/dL (3.4-4.8) 08/31/20 05:03 Urine Ketones 100 mg/dL (Negative) A 09/01/20 17:15 Urine Blood Negative (Negative) 09/01/20 17:15 Urine Nitrite Negative (Negative) 09/01/20 17:15 Ur Leukocyte Esterase Negative Kurt/uL (Negative) 09/01/20 17:15 Urine RBC 0-3 HPF (0-3) 09/01/20 17:15 Urine WBC 0-3 HPF (0-3) 09/01/20 17:15 Ur Squamous Epith Cells 0-3 HPF (0-3) 09/01/20 17:15 Urine Bacteria None Seen HPF (None Seen) 09/01/20 17:15 - EKG Interpretation EKG: Normal sinus rhythm - Radiology Interpretation MRI - head Additional Comment: MRI of the head was negative for acute intracranial pathology PN A/P (1) CVA (cerebral vascular accident) Code(s): I63.9 - CEREBRAL INFARCTION, UNSPECIFIED Status: Acute (2) HTN (hypertension) Code(s): I10 - ESSENTIAL (PRIMARY) HYPERTENSION Status: Acute (3) Hypothyroidism Code(s): E03.9 - HYPOTHYROIDISM, UNSPECIFIED Status: Acute (4) Migraines Code(s): G43.909 - MIGRAINE, UNSP, NOT INTRACTABLE, WITHOUT STATUS MIGRAINOSUS Status: Acute - Plan Daily Plan: plan discussed w/ family (Daughter at bedside), PT/OT, speech therapy, DVT proph w/SCDs Mrs. Thacker is a 80-year-old female with medical history significant for hypertension, hypothyroidism and migraines presented with left-sided weakness and headache. She continues to complain of headache and also neck stiffness. Start headache cocktail with Toradol, Benadryl and Compazine x4 doses every 6 hours to abort the migraine. Patient also had fever so consider lumbar puncture to rule out infectious etiology. Patient is on Lovenox so consider holding Lovenox for another 24 hours so spinal tap can be done under fluoroscopy. Repeat MRI of the brain with and without contrast and also MRI of the cervical spine with and without contrast. MRI of the brain reviewed and was negative for acute intracranial pathology. CTA of the head and neck was negative for hemodynamically significant stenosis. Carotid Doppler study showed left carotid artery stenosis but CTA of the neck came back as hemodynamically significant stenosis. Patient has been seen by cardiovascular surgery and they do not feel the need for surgical intervention 2D echo showed left ventricular ejection fraction 60 to 65%. No thrombus or PFO. Neurochecks every 4 hours. Strict control of blood pressure and blood glucose. Continue aspirin and high intensity statin for secondary stroke prevention. Telemetry for rule out arrhythmias. PT/OT/speech. DVT prophylaxis. Continue medical management per primary team. Plan discussed in detail with the patient's daughter and also with the primary attending Dr. Gaitan.
[2020-09-02 16:39] LABS: SARS-CoV-2 IgG Ab Non-Reactive (NonReactive); SARS-CoV-2 IgG Index 0.01 S/CO (< 1.40)
--- NOTE | 2020-09-02 17:42 | PDOC.HOSPP ---
- Subjective Encounter Date: 09/02/20 Encounter Time: 13:00 Subjective: F/u: encephalopathy Patient states that her mother originally had complained of left arm numbness. She then developed severe headache and noticed a left facial droop and came to the emergency room. Her stroke work-up has been negative so far. Patient does complain of a moderate headache. She reports some nausea and some photophobia. She does have a history of chronic migraines for which she has seen multiple neurologist in the past. Reports using a medicine called "Stadol" She spiked fever to 100.5 today - Objective Vital Signs & Weight: Vital Signs (12 hours) Temp Pulse Resp BP Pulse Ox 09/02/20 15:04 98.9 F 79 20 128/71 95 09/02/20 11:37 97.6 F 67 16 109/60 97 09/02/20 07:25 98.7 F 81 18 142/76 H 96 Weight Weight 131 lb 11.2 oz I&O: 09/01/20 09/02/20 09/03/20 06:59 06:59 06:59 Intake Total 580 929 300 Output Total 550 475 Balance 30 454 300 Result Diagrams: 09/02/20 04:44 09/02/20 04:44 Hospitalist ROS - Review of Systems Constitutional: denies: fever, chills - Medication Medications: Active Medications Generic Name Dose Route Start Last Admin Trade Name Freq PRN Reason Stop Dose Admin Acetaminophen 650 mg 08/31/20 01:16 09/02/20 00:03 Acetaminophen 325 Mg Tab PO 650 mg Q4H PRN Administration Headache/Fever/Mild Pain (1-3) Aspirin 81 mg 08/31/20 09:00 09/02/20 09:08 Aspirin 81 Mg Enteric Coated Tablet PO 81 mg DAILY DARIANA Administration Atorvastatin Calcium 40 mg 08/31/20 21:00 09/01/20 20:48 Atorvastatin Calcium 40 Mg Tab PO 40 mg HS DARIANA Administration Prochlorperazine Edisylate 5 51 mls @ 150 mls/hr 09/02/20 14:04 09/02/20 14:37 mg/ Sodium Chloride IVPB 51 mls Q6H PRN Administration Nausea/Vomiting Ketorolac Tromethamine 15 mg 09/02/20 14:05 09/02/20 14:33 Ketorolac Tromethamine 30 Mg/Ml Vial IVP 09/07/20 14:06 15 mg Q6H PRN Administration Pain Levothyroxine Sodium 25 mcg 08/31/20 06:00 09/02/20 05:56 Levothyroxine Sodium 25 Mcg Tab PO 25 mcg 0600 DARIANA Administration Ondansetron HCl 4 mg 08/31/20 01:16 08/31/20 19:43 Ondansetron Pf 4 Mg/2 Ml Vial IVP 4 mg Q6H PRN Administration Nausea/Vomiting - Exam General Appearance: NAD, awake alert Eye: PERRL, anicteric sclera Eye - other findings: Eyes do not track to the left side. ENT: normocephalic atraumatic, no oropharyngeal lesions Neck: no JVD Neck - other findings: Neck appears very tense when turning her head to the left. Heart: RRR, no murmur, no gallops, no rubs Respiratory: CTAB, no wheezes, no rales, no ronchi Gastrointestinal: soft, non-tender, non-distended, normal bowel sounds Extremities: no cyanosis, no clubbing, no edema Skin: normal turgor, no lesions, no rashes Neurological: normal sensation to touch, no weakness, facial droop (Left facial droop), hemiplegia (Left side), speech deficit (Mild dysarthria), vision deficit (Left-sided homonymous hemianopia) Neurological - other findings: She is complete left-sided neglect. Negative Kernig and Brezinski sign Musculoskeletal: normal tone, normal strength, no muscle wasting Hosp A/P - Plan MRI brain: No stroke Echo: Diastolic dysfunction with EF 60 to 65% Carotid Doppler: Left carotid artery stenosis CTA of the neck: Less than 50% stenosis the carotid artery This 80-year-old female who presented with left-sided facial droop and left- sided weakness. MRI brain negative for stroke #Severe headache with left-sided weakness -possibly from complicated migraine ve rsus stroke versus meningitis/encephalitis #Fever -MRI of the brain negative for stroke however has the hemiplegia and visual field deficit which is consistent with a stroke. She did spike a fever to 100.5. Will check MRI of the brain with and without contrast, MRI cervical spine. I discussed this with neurology -We will order lumbar puncture for tomorrow since patient is to be off anticoagulation for 24 hours. Hold aspirin for 24 hours as well Hypothyroidismcontinue levothyroxine Breast cancer-we will discontinue anastrozole due to request from family. She would like to discuss the risks of holding off of this medicine with Dr. Moeller on Friday Hypokalemia - potassium 3.4, replaced, will recheck tomorrow
[2020-09-02 18:27] LABS: SARS-CoV-2 MS2 Positive; SARS-CoV-2 N Gene Negative; SARS-CoV-2 S Gene Negative; SARS-CoV-2 by NAA Not Detected (NotDetected); SARS-CoV-2 orf1ab Negative
[2020-09-02] MEDS: Atorvastatin Calcium 40 MG TAB PO SCH (21:45)
[2020-09-03 05:37] LABS: INR-International Normal Ratio 1.1
[2020-09-03] MEDS: Levothyroxine Sodium 25 MCG TAB PO SCH (05:41)
[2020-09-03 05:43] LABS: Anion Gap 15 mmol/L (10-20); BUN (Urea Nitrogen) 14 mg/dL (9.8-20.1); Calc. Creatinine Clearance 57 mL/min (70-130); Calcium 8.8 mg/dL (7.8-10.44); Carbon Dioxide 21 mmol/L (23-31); Chloride 107 mmol/L (98-107); Glucose 93 mg/dL (83-110); Potassium 3.4 mmol/L (3.5-5.1); Sodium 140 mmol/L (136-145)
[2020-09-03 05:50] LABS: Hemoglobin 12.7 g/dL (12.0-16.0); Mean Corpuscular HGB CONC 32.1 g/dL (32.0-36.0); Mean Platelet Volume 11.3 fL (7.4-10.4); Platelet Count 100 thou/uL (130-400); RBC Distribution Width 14.9 % (11.5-14.5); White Blood Cell (WBC) Count 8.4 thou/uL (4.8-10.8)
[2020-09-03] MEDS: Ketorolac Tromethamine 30 MG/ML VIAL IVP PRN ×3 (05:57→22:53)
[2020-09-03] MEDS ORDERED: Potassium Chloride 10 MEQ in Premix Bag 1 BAG IVPB SCH (09:45)
--- NOTE | 2020-09-03 11:47 | RAD ---
Lumbar puncture fluoroscopic guided HISTORY: Altered mental status. Headache. Fever. FINDINGS: After explaining the procedure and answering all questions, the lower back was prepped and draped in usual sterile fashion. Sterile technique, buffered local anesthesia, fluoroscopic guidance, and a right posterolateral L4-5 approach were used to carefully advance the tip of a 20-gauge spinal needle to the thecal sac. A total of 6 cc clear CSF was collected and submitted to pathology. Patient tolerated the procedure w ell and was returned in unchanged condition. IMPRESSION : Technically successful fluoroscopic guided lumbar puncture.
[2020-09-03] MEDS: Labetalol HCl 100 MG/20 ML VIAL SLOW IVP PRN (12:40)
[2020-09-03 13:34] LABS: CSF, Glucose 51 mg/dl (40-70); CSF, Protein 71 mg/dL (15-40)
--- NOTE | 2020-09-03 14:02 | PDOC.NEUPN ---
- Subjective Encounter Date: 09/03/20 Subjective: No acute events in the last 24 hours. Headache is better and rates it . Headache cocktail did help with the headache per daughter - Objective Vital Signs & Weight: Vital Signs (12 hours) Temp Pulse Resp BP Pulse Ox 09/03/20 13:13 76 177/88 H 09/03/20 12:40 100 09/03/20 12:28 97.6 F 100 16 185/104 H 95 09/03/20 07:48 98.2 F 96 20 176/107 H 97 09/03/20 04:00 98.2 F 80 16 172/81 H 93 L Weight Weight 131 lb 11.2 oz I&O: 09/02/20 09/03/20 09/04/20 06:59 06:59 06:59 Intake Total 929 600 300 Output Total 475 300 Balance 454 300 300 Result Diagrams: 09/03/20 04:48 09/03/20 04:48 Radiology Reviewed by me: Yes EKG Reviewed by me: Yes ROS - Review of Systems ROS unobtainable: due to mental status - Medication Medications: Active Medications Generic Name Dose Route Start Last Admin Trade Name Freq PRN Reason Stop Dose Admin Acetaminophen 650 mg 08/31/20 01:16 09/02/20 00:03 Acetaminophen 325 Mg Tab PO 650 mg Q4H PRN Administration Headache/Fever/Mild Pain (1-3) Atorvastatin Calcium 40 mg 08/31/20 21:00 09/02/20 21:45 Atorvastatin Calcium 40 Mg Tab PO 40 mg HS DARIANA Administration Prochlorperazine Edisylate 5 51 mls @ 150 mls/hr 09/02/20 14:04 09/03/20 06:47 mg/ Sodium Chloride IVPB 51 mls Q6H PRN Administration Nausea/Vomiting Ketorolac Tromethamine 15 mg 09/02/20 14:05 09/03/20 05:57 Ketorolac Tromethamine 30 Mg/Ml Vial IVP 09/07/20 14:06 15 mg Q6H PRN Administration Pain Labetalol HCl 10 mg 09/03/20 09:36 09/03/20 12:40 Labetalol Hcl 100 Mg/20 Ml Vial SLOW IVP 10 mg Q4H PRN Administration SBP Greater Than 180 Levothyroxine Sodium 25 mcg 08/31/20 06:00 09/03/20 05:41 Levothyroxine Sodium 25 Mcg Tab PO 25 mcg 0600 DARIANA Administration Ondansetron HCl 4 mg 08/31/20 01:16 08/31/20 19:43 Ondansetron Pf 4 Mg/2 Ml Vial IVP 4 mg Q6H PRN Administration Nausea/Vomiting - Exam General Appearance: NAD Eye: PERRL ENT: normocephalic atraumatic Neck: supple Respiratory: CTAB Cardiovascular: RRR Gastrointestinal: soft Extremities: no cyanosis Skin: normal turgor Neurological: no new deficit Musculoskeletal: normal tone, no muscle wasting PSYCH: somnolent Results - Labs Result Diagrams: 09/03/20 04:48 09/03/20 04:48 Lab results: WBC 8.4 thou/uL (4.8-10.8) 09/03/20 04:48 Hgb 12.7 g/dL (12.0-16.0) 09/03/20 04:48 Hct 39.5 % (36.0-47.0) 09/03/20 04:48 MCV 84.0 fL (78.0-98.0) 09/03/20 04:48 Plt Count 100 thou/uL (130-400) L 09/03/20 04:48 Neutrophils % 71.1 % (42.0-75.0) 08/30/20 18:19 Band Neuts % (Manual) 10 % (5-11) 09/02/20 04:44 Sodium 140 mmol/L (136-145) 09/03/20 04:48 Potassium 3.4 mmol/L (3.5-5.1) L 09/03/20 04:48 Chloride 107 mmol/L (98-107) 09/03/20 04:48 Carbon Dioxide 21 mmol/L (23-31) L 09/03/20 04:48 BUN 14 mg/dL (9.8-20.1) 09/03/20 04:48 Creatinine 0.75 mg/dL (0.6-1.1) 09/03/20 04:48 Glucose 93 mg/dL (83-110) 09/03/20 04:48 Calcium 8.8 mg/dL (7.8-10.44) 09/03/20 04:48 Total Bilirubin 0.6 mg/dL (0.2-1.2) 08/31/20 05:03 AST 42 U/L (5-34) H 08/31/20 05:03 ALT 19 U/L (8-55) 08/31/20 05:03 Alkaline Phosphatase 144 U/L (40-110) H 08/31/20 05:03 Troponin I 0.011 ng/mL (< 0.028) 08/31/20 01:04 Serum Total Protein 7.6 g/dL (6.0-8.3) 08/31/20 05:03 Albumin 4.4 g/dL (3.4-4.8) 08/31/20 05:03 Urine Ketones 100 mg/dL (Negative) A 09/01/20 17:15 Urine Blood Negative (Negative) 09/01/20 17:15 Urine Nitrite Negative (Negative) 09/01/20 17:15 Ur Leukocyte Esterase Negative Kurt/uL (Negative) 09/01/20 17:15 Urine RBC 0-3 HPF (0-3) 09/01/20 17:15 Urine WBC 0-3 HPF (0-3) 09/01/20 17:15 Ur Squamous Epith Cells 0-3 HPF (0-3) 09/01/20 17:15 Urine Bacteria None Seen HPF (None Seen) 09/01/20 17:15 PN A/P (1) CVA (cerebral vascular accident) Code(s): I63.9 - CEREBRAL INFARCTION, UNSPECIFIED Status: Acute (2) HTN (hypertension) Code(s): I10 - ESSENTIAL (PRIMARY) HYPERTENSION Status: Acute (3) Hypothyroidism Code(s): E03.9 - HYPOTHYROIDISM, UNSPECIFIED Status: Acute (4) Migraines Code(s): G43.909 - MIGRAINE, UNSP, NOT INTRACTABLE, WITHOUT STATUS MIGRAINOSUS Status: Acute - Plan Daily Plan: plan discussed w/ family (Daughter at bedside), PT/OT, speech therapy, DVT proph w/SCDs Mrs. Thacker is a 80-year-old female with medical history significant for hypertension, hypothyroidism and migraines presented with left-sided weakness and headache. She continues to complain of headache and also neck stiffness. Headache is better since the patient received headache cocktail. Continue Toradol Benadryl and Compazine time for 6 doses every 6 hours for another 24 hours to abort the headache Lumbar puncture under fluoroscopy was completed today. We will follow up on the results Repeat MRI of the brain with and without contrast and also MRI of the cervical spine with and without contrast is pending at this time. Previous MRI of the brain reviewed and was negative for acute intracranial pathology. CTA of the head and neck was negative for hemodynamically significant stenosis. Carotid Doppler study showed left carotid artery stenosis but CTA of the neck came back as hemodynamically significant stenosis. Patient has been seen by cardiovascular surgery and they do not feel the need for surgical intervention 2D echo showed left ventricular ejection fraction 60 to 65%. No thrombus or PFO. Neurochecks every 4 hours. Strict control of blood pressure and blood glucose. Continue aspirin and high intensity statin for secondary stroke prevention. Telemetry for rule out arrhythmias. PT/OT/speech. DVT prophylaxis. Continue medical management per primary team. Plan discussed in detail with the patient, patient's daughter and also with the primary attending Dr. Gaitan.
[2020-09-03 14:07] LABS: CSF Source CSF; Clarity Clear (Clear); Tube # EDTA
[2020-09-03 14:15] LABS: Cell Count Non Hematic 16 %; Lymphocytes 8 %; Segmented Neutrophils 76 %
[2020-09-03] MEDS ORDERED: cefTRIAXone\\ROCEPHIN 2 GM in Sodium Chloride 0.9% 100 ML IVPB SCH (15:00)
[2020-09-03] MEDS ORDERED: Vancomycin 1 GM in Premix Bag 1 BAG IVPB SCH ×2 (15:00→15:30)
--- NOTE | 2020-09-03 15:32 | MRI ---
MRI cervical spine without and with gadolinium contrast HISTORY: Neck pain. Fever. Hemiplegia. FINDINGS: There is gentle reversal of the normal lordotic curvature of the cervical spine with desicc ation of all of the discs. Bone marrow is diffusely abnormal, with diminished T1 signal and increased fluid signal. The most conspicuous masslike abnormality involves most of the T3 vertebral b kev, where contrast enhancement is present. There is no significant collapse. The same signal abnormality is scattered, to a lesser degree, throughout the cervical spine. Discogenic endplate veronica ges are superimposed upon the bone marrow abnormality most pronounced at the C5-6 level. C2-3: Osteophytosis. Central canal and neural foramina are patent. C3-4: Posterior osteophyte/disc complex and circumferential degenerative changes. Mild stenosis of th e central canal. Moderate right and mild left foraminal stenoses. C3-4: Disc space narrowing. Minimal degenerative spondylolisthesis. Circumferential degenerative veronica ges. Thecal sac and neural foramina are patent. C5-6: Disc space narrowing. Posterior osteophyte/disc complex and circumferential degenerative change s. Mild stenosis of the central canal. Neural foramina are patent. C6-7: Mild posterior osteophyte/disc complex and circumferential degenerative changes. Thecal sac is patent. Mild stenosis of each neural foramen. C7-T1: Central canal and neural foramina are patent. No focal spinal cord abnormalities are evident. IMPRESSION : Severe bone marrow abnormalities as detailed above, most conspicuous at the T3 vertebral body. Enhanc ement and edema suggestive of diffuse osseous metastatic disease. Degenerative changes throughout the cervical spine as detailed above. No focal nerve root compression or disc herniation.
[2020-09-03] MEDS: diphenhydrAMINE 25 MG CAP PO PRN ×2 (15:54→22:51)
--- NOTE | 2020-09-03 16:04 | MRI ---
MRI brain without and with gadolinium contrast HISTORY: Left and reviewed. Headache. Fever. FINDINGS: There is no evidence of acute intracranial hemorrhage or infarct. Ventricles are unremarkab le. Mild chronic ischemic small vessel disease within the periventricular white matter of each cerebral hemisphere. There is no mass effect or shift of midline structures. No enhancing brain lesions are apparent. Subt le enhancement along the meninges is noted but not felt to be pathologic. Visualized paranasal sinuses are well aerated. Calvarial bone marrow abnormalities are much less conspicuous than on the MRI cervical spine. IMPRESSION : No enhancing brain lesions. No acute abnormalities are demonstrated. Bone marrow abnormality (metastatic disease) is much better visualized on MRI cervical spine.
--- NOTE | 2020-09-03 18:23 | PDOC.HOSPP ---
- Subjective Encounter Date: 09/03/20 Encounter Time: 15:00 Subjective: F/u: headache, weakness The patient still has a headache, states it is about a 9/10. This morning she had toradol prior to her other studies and brought it down to a 6. Yesterday the benadryl brought her headache down to a zero and she is asking for more benadryl. Daughter states the patient is able to look more to the left side with effort. She was able to lift up her left leg today, but still can't lift up left arm LP concerning for 76% neutrophils. MRi cervical spine showing osseous metastatic disease. Patient has a history of breast cancer, but no history of metastases. Dr. Moeller is her oncologist - Objective Vital Signs & Weight: Vital Signs (12 hours) Temp Pulse Resp BP Pulse Ox 09/03/20 15:39 97.6 F 80 20 170/95 H 94 L 09/03/20 13:13 76 177/88 H 09/03/20 12:40 100 09/03/20 12:28 97.6 F 100 16 185/104 H 95 09/03/20 07:48 98.2 F 96 20 176/107 H 97 Weight Weight 131 lb 11.2 oz I&O: 09/02/20 09/03/20 09/04/20 06:59 06:59 06:59 Intake Total 929 600 300 Output Total 475 300 Balance 454 300 300 Result Diagrams: 09/03/20 04:48 09/03/20 04:48 Hospitalist ROS - Review of Systems Constitutional: denies: fever, chills - Medication Medications: Active Medications Generic Name Dose Route Start Last Admin Trade Name Freq PRN Reason Stop Dose Admin Acetaminophen 650 mg 08/31/20 01:16 09/02/20 00:03 Acetaminophen 325 Mg Tab PO 650 mg Q4H PRN Administration Headache/Fever/Mild Pain (1-3) Atorvastatin Calcium 40 mg 08/31/20 21:00 09/02/20 21:45 Atorvastatin Calcium 40 Mg Tab PO 40 mg HS DARIANA Administration Diphenhydramine HCl 25 mg 09/03/20 09:34 09/03/20 15:54 Diphenhydramine 25 Mg Cap PO 25 mg Q6H PRN Administration Fever>101/(Mi/Mod/Sev) Pain Prochlorperazine Edisylate 5 51 mls @ 150 mls/hr 09/02/20 14:04 09/03/20 15:55 mg/ Sodium Chloride IVPB 51 mls Q6H PRN Administration Nausea/Vomiting Ketorolac Tromethamine 15 mg 09/02/20 14:05 09/03/20 15:54 Ketorolac Tromethamine 30 Mg/Ml Vial IVP 09/07/20 14:06 15 mg Q6H PRN Administration Pain Labetalol HCl 10 mg 09/03/20 09:36 09/03/20 12:40 Labetalol Hcl 100 Mg/20 Ml Vial SLOW IVP 10 mg Q4H PRN Administration SBP Greater Than 180 Levothyroxine Sodium 25 mcg 08/31/20 06:00 09/03/20 05:41 Levothyroxine Sodium 25 Mcg Tab PO 25 mcg 0600 DARIANA Administration Ondansetron HCl 4 mg 08/31/20 01:16 08/31/20 19:43 Ondansetron Pf 4 Mg/2 Ml Vial IVP 4 mg Q6H PRN Administration Nausea/Vomiting - Exam General Appearance: NAD, awake alert Eye: PERRL, anicteric sclera Eye - other findings: impaired lateral gaze to the left and cannot see fingers to the left ENT: normocephalic atraumatic, no oropharyngeal lesions Neck: no JVD Heart: RRR, no murmur, no gallops Respiratory: CTAB, no wheezes, no rales, no ronchi Gastrointestinal: soft, non-tender, non-distended, normal bowel sounds Extremities: no cyanosis, no clubbing, no edema Skin: normal turgor, no lesions, no rashes Neurological: facial droop (mild left facial droop), speech deficit (mild dysarthria) Neurological - other findings: mild dysarthria, left arm weakness. Diminished s trength bilaterally Musculoskeletal: normal tone, normal strength, no muscle wasting Psychiatric: A&O x 3 Hosp A/P - Plan MRI brain: No stroke Echo: Diastolic dysfunction with EF 60 to 65% Carotid Doppler: Left carotid artery stenosis CTA of the neck: Less than 50% stenosis the carotid artery MRI cervical spine: severe bone marrow abnormalities, most conspicuous at T3, enhancement and edema consistent with diffuse osseous metastatic disease. Discogenic changes most pronounced at C5-C6 This 80-year-old female who presented with left-sided facial droop and left-marko ed weakness. MRI brain negative for stroke #Severe headache with left-sided weakness -possibly from meningitis/encephalitis vs complicated migraine #Fever -MRI of the brain negative for stroke on two occasions. LP done today shows high protein, 76% neutrophils, glucose of 51. Infectious disease consulted and did not think this was bacterial meningitis - CSF sent for HSV, syphilis, cryptococcus, West Nile Virus. Cytology sent as well . IV acyclovir has been started empirically. - MRI cervical spine showing severe bone marrow abnormality most conspicuous at T3 with enhancement and edema. Will check CT abdomen and CT chest for metastatic workup given patient's history of breast cancer. Consider MRI thoracic spine and L-spine as well, but hold off 24 hours since she got contrast today - continue migraine cocktail with benadryl/compazine/toradol Hypothyroidismcontinue levothyroxine Breast cancer-we will discontinue anastrozole due to request from family. She would like to discuss the risks of holding off of this medicine with Dr. Moeller on Friday Hypokalemia - potassium 3.4, replaced, will recheck tomorrow
[2020-09-03] MEDS ORDERED: Potassium Chloride 20 MEQ TAB PO SCH (18:30)
--- NOTE | 2020-09-03 21:19 | CON ---
DATE OF CONSULTATION: 09/03/2020 REASON FOR CONSULT: Evaluate changes in CSF in association with abnormal neurological exam. HISTORY OF PRESENT ILLNESS: A 80-year-old who has a chronic history of migraine headaches, hypothyroidism. She has been in the past three times to the emergency room for management of migraine headaches. The last one was in May 2018. She presented then with right-sided headache, sharp, constant, which she manages usually with Cambia but ran out of medication. She was moderately hypertensive when she came in with low-grade temperature elevation. Neuro examination was described as normal. She had normal strength, and then this time, she developed sudden left facial droop with left-sided weakness, and the same day, she came to the emergency room, and vascular evaluation was completely normal. The MRI did not show any evidence of stroke. Cerebrospinal fluid evaluation is described below. Currently, Ms. Thacker is back in the room after a 2nd MRI, and she is kind of drowsy, but she is awake, and she has left-sided neglect, and she focuses on her [id number]. She states to me that she is having a headache, which she rates at 9/10. No visual symptoms, sore throat, odynophagia, or dysphagia. She has a hard time in moving her head to the left side. Her voice is kind of halting and monotone and sometimes it is hard to enunciate words. No neck pain. No respiratory symptoms. No abdominal pain. She apparently is hesitant to urinate in her diapers, but she does not feel that she has urine in her bladder. She has weakness on the left side as she is unable to walk anymore, she used to yesterday. Her strength particularly in the left lower extremity has improved overnight, but left upper extremity weakness is quite pronounced. MEDICAL HISTORY: Hypothyroidism, migraine headaches for many years, hypertension. PAST SURGICAL HISTORY: , hysterectomy, mastectomy with breast reconstruction. SOCIAL HISTORY: Never smoker. [place] [address] [place]. ALLERGIES: Codeine (hallucinations not true hypersensitivity reaction) MEDICATION LIST: At the moment includes, 1. Rocephin. 2. Diphenhydramine. 3. Ketorolac. 4. Labetalol. 5. Levothyroxine. 6. Ondansetron. 7. Vancomycin. PHYSICAL EXAMINATION: VITAL SIGNS: With a T-max 100.7, she is now 97.6, BP 170/95, heart rate 80, respiratory rate 20, O2 saturation 94 on room air. She desats to 92 once, that's it. SKIN: No areas of skin breakdown. She has a peripheral IV access, and voiding in the diaper. No lymphadenopathy. HEENT: She has a hard time in conjugate gaze to the left side but is normal to the right. No nystagmus noted. Pupils are equal and reactive. Sclerae white. Oral cavity is moist. Numerous teeth in place with some decay and gum disease. She has a hard time in opening her mouth. She sticks out her tongue a little bit. NECK: Appears to be supple. LUNGS: Symmetric. Clear breath sounds. S1, S2, regular rate without murmurs. No S3 or S4. ABDOMEN: Soft, not distended or tender. No ascites. No organomegaly. There is a question of bladder distention. NEUROLOGIC: No joint inflammatory activity or edema. Pulses 1+ in dorsalis pedis. She has quite pronounced left hemiparesis, though the arm is more involved than the left lower extremity. Right side is normal. Reflexes on the right side are normal. The reflexes on the left side are absent. She has no clonus. She is awake, knows her name, recognized her daughter in-law, but her speech is very limited, halting, kind of speaks with a monotone, and has a hard time in recalling words. LABORATORY DATA: White cell count 7.4, now is 8.4, hemoglobin has been normal throughout. Platelet count is down to 100. Total lymphocyte count is 1.0. INR 1.1, sodium 135, creatinine 0.73, and AST was 42, ALT 144, albumin normal, globulin 3.2. Urinalysis with 0-3 wbc's and CSF with 48 wbc's with predominance of segmented neutrophils and the glucose 51, protein was 71. SARS-CoV-2 PCR x2 negative. Three days apart actually, the SARS-CoV-2 antibody index was 0.01 on September 02. The patient had the first brain MRI and did not show anything of significance. She had a CT angiogram which was not remarkable. Echocardiogram also not remarkable. No PFO or ASD. She had another MRI, which has not yet been read. I have looked at the images. I did not see any restricted diffusion but waiting on the final interpretation. ASSESSMENT: Hypothyroidism, chronic migraines with now new onset of left-sided hemiparesis with abnormal CSF with mild elevation and neutrophil count with mild elevation in protein and a normal MRI with the second one pending interpretation and 2 negative SARS-CoV-2 PCR and antibody test x1 negative. DISCUSSION: The differential diagnosis includes migraine associated with hemiparesis or hemiplegic migraine versus viral infection, for example herpes simplex encephalitis or Cryptococcus neoformans infection. CVA does not appear likely, but we are waiting on the 2nd MRI read out, malignancy less likely, SARS-CoV-2 has been tested and retested. We may want to send another antibody to just be on the safe side in a few days. We will go ahead and start her acyclovir, submit CSF for testing for crypto antigen and HSV DNA PCR. Addendum: the C spine mri shows abnormal marrow density concerning for infiltrative pro- cess, will add CSF cytology to rule out carcinomatous meningitis. Job ID: [id number] MTDD
[2020-09-03] MEDS: Atorvastatin Calcium 40 MG TAB PO SCH (22:48)
[2020-09-04] MEDS: Labetalol HCl 100 MG/20 ML VIAL SLOW IVP PRN ×2 (03:56→22:34)
[2020-09-04] MEDS: Levothyroxine Sodium 25 MCG TAB PO SCH (05:43)
[2020-09-04 05:46] LABS: Anion Gap 15 mmol/L (10-20); BUN (Urea Nitrogen) 13 mg/dL (9.8-20.1); Calc. Creatinine Clearance 59 mL/min (70-130); Calcium 8.5 mg/dL (7.8-10.44); Carbon Dioxide 22 mmol/L (23-31); Chloride 108 mmol/L (98-107); Glucose 103 mg/dL (83-110); Potassium 3.7 mmol/L (3.5-5.1); Sodium 141 mmol/L (136-145)
--- NOTE | 2020-09-04 08:05 | PDOC.NEUPN ---
- Subjective Encounter Date: 09/04/20 Subjective: No acute events overnight. She continues to have left-sided neglect and weakness. Son at bedside. - Objective Vital Signs & Weight: Vital Signs (12 hours) Temp Pulse Resp BP BP Pulse Ox 09/04/20 07:20 99.0 F 72 16 121/61 98 09/04/20 05:44 82 178/90 H 09/04/20 03:56 89 200/88 H 09/04/20 03:16 98.1 F 89 16 200/88 H 98 09/03/20 23:36 98.3 F 82 16 156/84 H 92 L Weight Weight 131 lb 11.2 oz I&O: 09/03/20 09/04/20 09/05/20 06:59 06:59 06:59 Intake Total 600 300 Output Total 300 50 Balance 300 250 Result Diagrams: 09/03/20 04:48 09/04/20 04:52 Radiology Reviewed by me: Yes EKG Reviewed by me: Yes ROS - Review of Systems ROS unobtainable: due to mental status (Somnolent) - Medication Medications: Active Medications Generic Name Dose Route Start Last Admin Trade Name Freq PRN Reason Stop Dose Admin Acetaminophen 650 mg 08/31/20 01:16 09/02/20 00:03 Acetaminophen 325 Mg Tab PO 650 mg Q4H PRN Administration Headache/Fever/Mild Pain (1-3) Atorvastatin Calcium 40 mg 08/31/20 21:00 09/03/20 22:48 Atorvastatin Calcium 40 Mg Tab PO 40 mg HS DARIANA Administration Diphenhydramine HCl 25 mg 09/03/20 09:34 09/03/20 22:51 Diphenhydramine 25 Mg Cap PO 25 mg Q6H PRN Administration Fever>101/(Mi/Mod/Sev) Pain Prochlorperazine Edisylate 5 51 mls @ 150 mls/hr 09/02/20 14:04 09/03/20 23:08 mg/ Sodium Chloride IVPB 51 mls Q6H PRN Administration Nausea/Vomiting Acyclovir Sodium 550 mg/ 111 mls @ 111 mls/hr 09/03/20 18:00 09/04/20 02:42 Sodium Chloride IVPB 111 mls 0200,1000,1800 DARIANA Administration Ketorolac Tromethamine 15 mg 09/02/20 14:05 09/03/20 22:53 Ketorolac Tromethamine 30 Mg/Ml Vial IVP 09/07/20 14:06 15 mg Q6H PRN Administration Pain Labetalol HCl 10 mg 09/03/20 09:36 09/04/20 03:56 Labetalol Hcl 100 Mg/20 Ml Vial SLOW IVP 10 mg Q4H PRN Administration SBP Greater Than 180 Levothyroxine Sodium 25 mcg 08/31/20 06:00 09/04/20 05:43 Levothyroxine Sodium 25 Mcg Tab PO 25 mcg 0600 DARIANA Administration Ondansetron HCl 4 mg 08/31/20 01:16 08/31/20 19:43 Ondansetron Pf 4 Mg/2 Ml Vial IVP 4 mg Q6H PRN Administration Nausea/Vomiting - Exam General Appearance: NAD Eye: PERRL ENT: normocephalic atraumatic Neck: supple Respiratory: CTAB Cardiovascular: RRR Gastrointestinal: soft Extremities: no cyanosis Skin: normal turgor Neurological: no new deficit, facial droop Neurological - other findings: Left-sided weakness and neglect Musculoskeletal: normal tone, no muscle wasting PSYCH: somnolent Results - Labs Result Diagrams: 09/03/20 04:48 09/04/20 04:52 Lab results: WBC 8.4 thou/uL (4.8-10.8) 09/03/20 04:48 Hgb 12.7 g/dL (12.0-16.0) 09/03/20 04:48 Hct 39.5 % (36.0-47.0) 09/03/20 04:48 MCV 84.0 fL (78.0-98.0) 09/03/20 04:48 Plt Count 100 thou/uL (130-400) L 09/03/20 04:48 Neutrophils % 71.1 % (42.0-75.0) 08/30/20 18:19 Band Neuts % (Manual) 10 % (5-11) 09/02/20 04:44 Sodium 141 mmol/L (136-145) 09/04/20 04:52 Potassium 3.7 mmol/L (3.5-5.1) 09/04/20 04:52 Chloride 108 mmol/L (98-107) H 09/04/20 04:52 Carbon Dioxide 22 mmol/L (23-31) L 09/04/20 04:52 BUN 13 mg/dL (9.8-20.1) 09/04/20 04:52 Creatinine 0.73 mg/dL (0.6-1.1) 09/04/20 04:52 Glucose 103 mg/dL (83-110) 09/04/20 04:52 Calcium 8.5 mg/dL (7.8-10.44) 09/04/20 04:52 Total Bilirubin 0.6 mg/dL (0.2-1.2) 08/31/20 05:03 AST 42 U/L (5-34) H 08/31/20 05:03 ALT 19 U/L (8-55) 08/31/20 05:03 Alkaline Phosphatase 144 U/L (40-110) H 08/31/20 05:03 Troponin I 0.011 ng/mL (< 0.028) 08/31/20 01:04 Serum Total Protein 7.6 g/dL (6.0-8.3) 08/31/20 05:03 Albumin 4.4 g/dL (3.4-4.8) 08/31/20 05:03 Urine Ketones 100 mg/dL (Negative) A 09/01/20 17:15 Urine Blood Negative (Negative) 09/01/20 17:15 Urine Nitrite Negative (Negative) 09/01/20 17:15 Ur Leukocyte Esterase Negative Kurt/uL (Negative) 09/01/20 17:15 Urine RBC 0-3 HPF (0-3) 09/01/20 17:15 Urine WBC 0-3 HPF (0-3) 09/01/20 17:15 Ur Squamous Epith Cells 0-3 HPF (0-3) 09/01/20 17:15 Urine Bacteria None Seen HPF (None Seen) 09/01/20 17:15 - EKG Interpretation EKG: NSR - Radiology Interpretation MRI - head Additional Comment: Repeat MRI brain with and without contrast did not show acute intacranial pathology or contrast enhancing lesion. Other Additional Comment: MRI cervical spine showed severe bone marrow abnormalities, most conspicuous at T3, enhancement and edema consistent with diffuse osseous metastatic disease and Discogenic changes most pronounced at C5-C6 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 - SECONDARY MALIGNANT NEOPLASM OF OTH PARTS OF NERVOUS SYSTEM; C80.1 - MALIGNANT (PRIMARY) NEOPLASM, UNSPECIFIED Status: Acute (2) CVA (cerebral vascular accident) Code(s): I63.9 - CEREBRAL INFARCTION, UNSPECIFIED Status: Acute (3) HTN (hypertension) Code(s): I10 - ESSENTIAL (PRIMARY) HYPERTENSION Status: Acute (4) Hypothyroidism Code(s): E03.9 - HYPOTHYROIDISM, UNSPECIFIED Status: Acute (5) Migraines Code(s): G43.909 - MIGRAINE, UNSP, NOT INTRACTABLE, WITHOUT STATUS MIGRAINOSUS Status: Acute - Plan Daily Plan: plan discussed w/ family (Son at bedside), PT/OT, speech therapy, DVT proph w/lovenox Mrs. Thacker is a 80-year-old female with medical history significant for hypertension, hypothyroidism and migraines presented with left-sided weakness and headache. She continues to complain of headache with neck stiffness. Left sided weakness improved briefly on the day of admission with headache treatment and she was able to walk but then worsened with more pronounced left facial droop, left sided focal weakness and left sided neglect associated with severe headache. Initial MRI brain was negative for acute intracranial process but focal left sided deficits continued and she developed fever. Repeated MRI Brain with contrast yesterday which did not reveal any contrast enhancing lesion, or stroke. MRI cervical spine showed severe bone marrow abnormalities, most conspicuous at T3, enhancement and edema consistent with diffuse osseous metastatic disease. Discogenic changes most pronounced at C5-C6 Patient does have history of brain cancer, so consider imaging thoracic and lumbar spine with contrast and consider Oncology input. Lumbar puncture was completed yesterday which showed yesterday which showed elevated protein, 76% neutrophils, glucose of 51. Infectious disease is on board and based on imaging of the cervical spine and concern for metastatic disease, carcinomatous meningitis is in the differential. CSF sent for HSV, syphilis, cryptococcus, West Nile Virus and cytology as per ID recommendations. Continue empiric acyclovir. Continue headache cocktail. CTA of the head and neck was negative for hemodynamically significant stenosis. Carotid Doppler study showed left carotid artery stenosis but CTA of the neck came back as hemodynamically significant stenosis. Patient has been seen by cardiovascular surgery and they do not feel the need for surgical intervention 2D echo showed left ventricular ejection fraction 60 to 65%. No thrombus or PFO. Neurochecks every 4 hours. Strict control of blood pressure and blood glucose. Continue aspirin and high intensity statin for secondary stroke prevention. Continue telemetry for rule out arrhythmias. PT/OT/speech. DVT prophylaxis. Continue medical management per primary team. Plan discussed in detail with the son at bedside and also with the nursing staff.
[2020-09-04] MEDS ORDERED: Amlodipine 5 MG TAB PO SCH (09:30)
[2020-09-04] MEDS: Ketorolac Tromethamine 30 MG/ML VIAL IVP PRN (11:05)
[2020-09-04] MEDS: Sodium Chloride 0.9% 1,000 ML IV SCH (11:05)
[2020-09-04] MEDS ORDERED: Iopamidol 370 76% 100 ML VIAL ONE (12:15)
[2020-09-04] MEDS: Loratadine 10 MG TAB PO PRN (14:38)
--- NOTE | 2020-09-04 15:46 | CT ---
EXAM: CT Chest Abd Pelvis W Con PROVIDED CLINICAL HISTORY: History of breast cancer, bone lesions on cervical spine MRI COMPARISON: 07/09/2013 FINDINGS: The heart, pericardium and great vessels demonstrate an unremarkable CT appearance. There is no evide nce for thoracic lymph node enlargement. The airway appears patent and of normal caliber. The lungs are free of significant opacity. There is no pleural fluid or pneumothorax apparent. The liver, spleen, pancreas, kidneys and adrenal glands demonstrate no significant abnormality, with limitations due to patient respiratory motion. There is no bowel dilatation, inflammatory fat stranding, free fluid or lymph node enlargement apparent. The regional major vascular structures appear unremarkable with the exception of occasional vascular calcification. There are innumerable subcentimeter sclerotic foci throughout the visualized axial skeleton. These ar e new with respect to the prior CT examination. IMPRESSION: 1. Widespread osseous metastatic disease. 2. No additional acute abnormality is evident.
--- NOTE | 2020-09-04 18:01 | PDOC.HOSPP ---
- Subjective Encounter Date: 09/04/20 Encounter Time: 08:00 Subjective: F/u: headache, left sided weakness The patient had difficulty moving her left leg today but per son, she worked with physical therapy and was able to lift her left leg up 6 inches. She cannot lift left arm and still does not look to the left side. Her headache is about 7/10 today The patient failed swallow evaluation, was unable to take oral contrast. CT abdomen/pelvis done with IV contrast, showed no metastatic or cancerous lesions. CSF cytology is pending - Objective Vital Signs & Weight: Vital Signs (12 hours) Temp Pulse Pulse Pulse Resp BP BP 09/04/20 15:44 97.9 F 84 20 09/04/20 11:06 98.8 F 80 20 09/04/20 11:04 80 136/64 09/04/20 09:04 89 84 143/83 H 09/04/20 08:00 09/04/20 07:20 99.0 F 72 16 BP BP Pulse Ox 09/04/20 15:44 144/62 H 97 09/04/20 11:06 136/64 98 09/04/20 11:04 09/04/20 09:04 160/70 H 09/04/20 08:00 98 09/04/20 07:20 121/61 98 Weight Weight 131 lb 11.2 oz I&O: 09/03/20 09/04/20 09/05/20 06:59 06:59 06:59 Intake Total 600 300 Output Total 300 50 Balance 300 250 Result Diagrams: 09/03/20 04:48 09/04/20 04:52 Hospitalist ROS - Review of Systems Constitutional: denies: fever, chills - Medication Medications: Active Medications Generic Name Dose Route Start Last Admin Trade Name Freq PRN Reason Stop Dose Admin Acetaminophen 650 mg 08/31/20 01:16 09/02/20 00:03 Acetaminophen 325 Mg Tab PO 650 mg Q4H PRN Administration Headache/Fever/Mild Pain (1-3) Atorvastatin Calcium 40 mg 08/31/20 21:00 09/03/20 22:48 Atorvastatin Calcium 40 Mg Tab PO 40 mg HS DARIANA Administration Diphenhydramine HCl 25 mg 09/03/20 09:34 09/03/20 22:51 Diphenhydramine 25 Mg Cap PO 25 mg Q6H PRN Administration Fever>101/(Mi/Mod/Sev) Pain Prochlorperazine Edisylate 5 51 mls @ 150 mls/hr 09/02/20 14:04 09/03/20 23:08 mg/ Sodium Chloride IVPB 51 mls Q6H PRN Administration Nausea/Vomiting Acyclovir Sodium 550 mg/ 111 mls @ 111 mls/hr 09/03/20 18:00 09/04/20 17:05 Sodium Chloride IVPB 111 mls 0200,1000,1800 DARIANA Administration Sodium Chloride 1,000 mls @ 50 mls/hr 09/04/20 11:00 09/04/20 11:05 Normal Saline 0.9% IV 1,000 mls .Q20H DARIANA Administration Ketorolac Tromethamine 15 mg 09/02/20 14:05 09/04/20 11:05 Ketorolac Tromethamine 30 Mg/Ml Vial IVP 09/07/20 14:06 15 mg Q6H PRN Administration Pain Labetalol HCl 10 mg 09/03/20 09:36 09/04/20 03:56 Labetalol Hcl 100 Mg/20 Ml Vial SLOW IVP 10 mg Q4H PRN Administration SBP Greater Than 180 Levothyroxine Sodium 25 mcg 08/31/20 06:00 09/04/20 05:43 Levothyroxine Sodium 25 Mcg Tab PO 25 mcg 0600 DARIANA Administration Loratadine 10 mg 09/04/20 14:11 09/04/20 14:38 Loratadine 10 Mg Tab PO 10 mg DAILYPRN PRN Administration Allergies Ondansetron HCl 4 mg 08/31/20 01:16 08/31/20 19:43 Ondansetron Pf 4 Mg/2 Ml Vial IVP 4 mg Q6H PRN Administration Nausea/Vomiting Sodium Chloride 10 ml 08/31/20 01:16 09/04/20 11:11 Flush - Normal Saline 10 Ml Syringe IVF 10 ml PRN PRN Administration Saline Flush - Exam General Appearance: NAD, awake alert Eye: PERRL, anicteric sclera ENT: normocephalic atraumatic, no oropharyngeal lesions Neck: no JVD Heart: RRR, no murmur, no gallops, no rubs Respiratory: CTAB, no wheezes, no rales, no ronchi Gastrointestinal: soft, non-tender, non-distended, normal bowel sounds Extremities: no cyanosis, no clubbing, no edema Neurological: hemiplegia (cannot lift left leg much. Cannot lift left arm.), vision deficit (left homonoymous hemianopia) Musculoskeletal - other findings: decreased strength left leg. 2/5 right leg Psychiatric: A&O x 3 Hosp A/P - Plan MRI brain: No stroke Echo: Diastolic dysfunction with EF 60 to 65% Carotid Doppler: Left carotid artery stenosis CTA of the neck: Less than 50% stenosis the carotid artery MRI cervical spine: severe bone marrow abnormalities, most conspicuous at T3, enhancement and edema consistent with diffuse osseous metastatic disease. Discogenic changes most pronounced at C5-C6 CT chest/abdomen/pelvis: widespread osseous metastatic disease This 80-year-old female who presented with left-sided facial droop and left- sided weakness. MRI brain negative for stroke #Severe headache with left-sided weakness -possibly from meningitis/encephalitis vs complicated migraine #Fever -MRI of the brain negative for stroke on two occasions. LP done today shows high protein, 76% neutrophils, glucose of 51. Infectious disease consulted and did not think this was bacterial meningitis - CSF sent for HSV, syphilis, cryptococcus, West Nile Virus. Cytology is pending. She has been started on IV acyclovir by infectious disease. Continue for now - MRI cervical spine showing severe bone marrow abnormality most conspicuous at T3 with enhancement and edema. CT chest/abdomen/pelvis showed widespread metastatic disease osseous. No other lesions. Check MRI thoracic and lumbar spine - continue migraine cocktail with benadryl/compazine/toradol. Hypothyroidismcontinue levothyroxine Breast cancer-we will discontinue anastrozole due to request from family. She would like to discuss the risks of holding off of this medicine with Dr. Moeller on Friday Hypokalemia - potassium up to 3.7
--- NOTE | 2020-09-04 18:29 | CON ---
DATE OF CONSULTATION: REASON FOR CONSULT: Breast cancer. HISTORY OF PRESENT ILLNESS: Ms. 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 She underwent treatment with Arimidex and radiation. She had a left mastectomy with sentinel node biopsy and reconstruction. She had 3 of 3 nodes positive. She was on Arimidex for the last 9 years and has been in remission. She presented to the hospital on August 30 with hypertension, headache, left arm and facial droop. She has had 2 MRIs that showed no evidence of stroke. She did have a cervical spine MRI that showed possible bone metastatic disease, so she had a CT of the chest, abdomen, and pelvis. There was no evidence of mass or lymphadenopathy, however, she had widespread bone mets. The patient was started on steroids for her headache with improvement in her left extremity weakness. She has also had a lumbar puncture for CSF to rule out meningitis. The patient was seen at bedside. She is somewhat confused. Her family is present. PAST MEDICAL HISTORY: 1. T3, N1, M0, ER/IA positive, HER2 negative breast cancer diagnosed in 2011. 2. Hypothyroidism. 3. Hypertension. 4. Migraine headaches. 5. High cholesterol. 6. Anxiety and depression. PAST SURGICAL HISTORY: 1. . 2. Hysterectomy. 3. Mastectomy. ALLERGIES: TO CODEINE. HOME MEDICATIONS: 1. Anastrozole. 2. Cambia. 3. Lipitor. 4. Reglan. 5. Synthroid. FAMILY HISTORY: Noncontributory. SOCIAL HISTORY: , lives with her spouse, 2 children. No alcohol, tobacco, or illicit drug use. REVIEW OF SYSTEMS: 10-point review of systems is negative except for noted in HPI. PHYSICAL EXAMINATION: VITAL SIGNS: Temperature is 97.9, pulse is 84, respiratory rate 20, blood pressure is 144/62. She is 97% on 2 L. GENERAL: A well-developed, well-nourished female, in no acute distress. HEENT: Normocephalic, atraumatic. Pupils are equal and reactive to light. NECK: Supple. CARDIOVASCULAR: Regular rate and rhythm. LUNGS: Clear. ABDOMEN: Soft. EXTREMITIES: There is no clubbing or cyanosis. SKIN: No rash. NEUROLOGICAL: She has 3/5 strength on her left side, 5/5 on her right, slight confusion. PERTINENT LABORATORY DATA AND X-RAYS: WBCs are 8.4, hemoglobin 12.7, hematocrit 39.5, platelet count is 100,000. PT is 14, INR is 1.1, PTT is 30. Sodium 141, potassium 3.7, chloride 108, CO2 is 22, BUN is 13, creatinine 0.73, calcium 8.5, bilirubin 0.6, AST is 42, ALT is 19, alkaline phosphatase is 144. Serum total protein 7.6, albumin 4.4, globulin 3.2. COVID PCR not detected. RADIOLOGY DATA: Per HPI. ASSESSMENT: 1. History of breast cancer with new metastatic bone disease. 2. Left-sided weakness. DISCUSSION: The patient's weakness has improved with steroids. CSF is currently pending for meningitis as well as malignant CSF. The patient will likely need a biopsy since this is her first recurrence since diagnosis. We will need biochemical markers, including hormone receptors and HER2 positivity. Case has been discussed at length with her son and who understand the plan. Case will be discussed with Dr. Moeller. Thank you for the consult. We will follow along with her hospitalization. Job ID: [id number] [facility]
[2020-09-04] MEDS: Atorvastatin Calcium 40 MG TAB PO SCH (22:32)
[2020-09-05] MEDS: Levothyroxine Sodium 25 MCG TAB PO SCH (05:40)
[2020-09-05 07:21] LABS: Hemoglobin 13.4 g/dL (12.0-16.0); Mean Corpuscular HGB CONC 33.1 g/dL (32.0-36.0); Mean Corpuscular Hemoglobin 27.9 pg (27.0-31.0); Mean Corpuscular Volume 84.2 fL (78.0-98.0); Mean Platelet Volume 11.4 fL (7.4-10.4); Platelet Count 106 thou/uL (130-400); Red Blood Cell (RBC) Count 4.82 mill/uL (4.20-5.40); White Blood Cell (WBC) Count 8.8 thou/uL (4.8-10.8)
[2020-09-05 07:41] LABS: Anion Gap 19 mmol/L (10-20); BUN (Urea Nitrogen) 14 mg/dL (9.8-20.1); Calc. Creatinine Clearance 56 mL/min (70-130); Calcium 8.9 mg/dL (7.8-10.44); Carbon Dioxide 18 mmol/L (23-31); Chloride 109 mmol/L (98-107); Glucose 99 mg/dL (83-110); Potassium 3.6 mmol/L (3.5-5.1); Sodium 142 mmol/L (136-145)
--- NOTE | 2020-09-05 10:10 | MRI ---
MRI thoracic spine with and without contrast: 09/05/2020 HISTORY: 80-year-old female with metastatic breast cancer. Left hemiplegia and fever. "Concern for metastatic disease of thoracic spine" COMPARISON: None FINDINGS: There is diffusely heterogeneous bone marrow signal, with heterogeneous abnormal enhancement, through out the vertebral bodies, pedicles, and posterior elements, as well as ribs, throughout every visualized level. Vertebral body heights are maintained. No bony retropulsion or significant soft tis shubham tumor component encroaching upon spinal canal. No obvious soft tissue mass in the neural foramina or perivertebral spaces. No central spinal canal stenosis or cord impingement at any level. Low-grade discogenic degenerative changes at several levels, including small/tiny disc protrusions mi nimally encroaching upon spinal canal. No signal abnormality, abnormal enhancement, or mass, in the intramedullary, extramedullary-intradura l, or extradural, spaces. IMPRESSION: 1. Severe osseous metastatic disease throughout every level. 2. No pathologic compression fracture, central spinal canal stenosis, or cord impingement, at any lev el.
--- NOTE | 2020-09-05 10:26 | MRI ---
MRI cervical spine with and without contrast: 09/05/2020 HISTORY: 80-year-old female with metastatic breast cancer presents with left hemiplegia, neck stiffness, and f ever. COMPARISON: 09/03/2020 Findings: There is diffusely heterogeneous bone marrow signal, with heterogeneous abnormal enhancement, through out the vertebral bodies, pedicles, and posterior elements, as well as ribs, throughout every visualized level. This also includes the skull base. Vertebral body heights are maintained. No bony r etropulsion or significant soft tissue tumor component encroaching upon spinal canal. No obvious soft tissue mass in the neural foramina or perivertebral spaces. Facet DJD and discogenic degenerative changes at all levels, including high-grade. No signal abnormality, abnormal enhancement, or mass, in the intramedullary, extramedullary-intradura l, or extradural, spaces. Reversal of curvature with apex of kyphosis at approximately C5. Minimal grade 1 anterolisthesis of C3 on C4, and mild grade 1 anterolisthesis of C4 on C5, due to fac et DJD. Mild retrolisthesis of C5 on C6, and C6 on C7 due to degenerative disc disease. Uncinate process osteophytes encroach upon neural foramina causing neural foraminal stenosis of varyi ng degrees. C1-2: No central spinal canal stenosis. C2-3: Moderate right and no left neural foraminal stenosis. No central stenosis. C3-4: Severe bilateral neural foraminal stenosis. Moderate central spinal canal stenosis. The disc-os teophyte complex abuts ventral surface of spinal cord. C4-5: Mild central spinal canal stenosis. Moderate right neural foraminal stenosis. No left neural fo raminal stenosis. C5-6:Severe right and moderate left neural foraminal stenosis. Moderate central spinal canal stenosis . Broad-based disc-osteophyte complex mildly indents ventral surface of spinal chronically. C6-7: Moderate central spinal canal stenosis. Moderate bilateral neural foraminal stenosis. C7-T1: No central spinal canal stenosis. Mild bilateral neural foraminal stenosis. There has been no interval change overall. IMPRESSION: 1. Severe osseous metastatic disease throughout every level. 2. No pathologic compression fracture, central spinal canal stenosis, or rajiv cord compression by tu mor, at any level. 3. High-grade cervical spondylosis, with multilevel degenerative disc disease and facet osteoarthrosi s of varying degrees, including severe. 4. several levels of severe bilateral neural foraminal stenosis. 5. No interval change compared to 2 days ago.
[2020-09-05] MEDS: Sodium Chloride 0.9% 1,000 ML IV SCH (10:41)
[2020-09-05] MEDS: Amlodipine 5 MG TAB PO SCH (10:42)
[2020-09-05] MEDS ORDERED: Magnevist 469MG/ML 20 ML VIAL ONE ×2 (12:56)
[2020-09-05] MEDS ORDERED: Sodium Bicarbonate 2.5 MEQ/5 ML VIAL ONE (14:36)
[2020-09-05] MEDS ORDERED: Fentanyl 100 MCG/2 ML VIAL ONE (14:36)
[2020-09-05] MEDS ORDERED: Midazolam HCl 2 mg/2 ml Vial ONE (14:37)
--- NOTE | 2020-09-05 14:45 | PDOC.NEUPN ---
- Subjective Encounter Date: 09/05/20 Subjective: Patient is somnolent but according to the son she was better this morning and headache is under control. EEG completed today which did not reveal any seizure activity. - Objective Vital Signs & Weight: Vital Signs (12 hours) Temp Pulse Resp BP BP Pulse Ox 09/05/20 13:42 102 H 144/52 H 09/05/20 11:15 98.2 F 93 20 191/77 H 95 09/05/20 10:42 91 191/77 H 09/05/20 07:12 98.5 F 90 16 151/79 H 93 L 09/05/20 04:00 98.2 F 86 20 173/85 H 92 L 09/05/20 03:01 86 16 173/85 H Weight Weight 131 lb 11.2 oz I&O: 09/04/20 09/05/20 09/06/20 06:59 06:59 06:59 Intake Total 300 Output Total 50 500 Balance 250 -500 Result Diagrams: 09/05/20 06:39 09/05/20 06:39 Radiology Reviewed by me: Yes EKG Reviewed by me: Yes ROS - Review of Systems ROS unobtainable: due to mental status (Somnolent) - Medication Medications: Active Medications Generic Name Dose Route Start Last Admin Trade Name Freq PRN Reason Stop Dose Admin Acetaminophen 650 mg 08/31/20 01:16 09/02/20 00:03 Acetaminophen 325 Mg Tab PO 650 mg Q4H PRN Administration Headache/Fever/Mild Pain (1-3) Amlodipine Besylate 5 mg 09/05/20 09:00 09/05/20 10:42 Amlodipine 5 Mg Tab PO 5 mg DAILY DARIANA Administration Atorvastatin Calcium 40 mg 08/31/20 21:00 09/04/20 22:32 Atorvastatin Calcium 40 Mg Tab PO 40 mg HS DARIANA Administration Diphenhydramine HCl 25 mg 09/03/20 09:34 09/03/20 22:51 Diphenhydramine 25 Mg Cap PO 25 mg Q6H PRN Administration Fever>101/(Mi/Mod/Sev) Pain Prochlorperazine Edisylate 5 51 mls @ 150 mls/hr 09/02/20 14:04 09/03/20 23:08 mg/ Sodium Chloride IVPB 51 mls Q6H PRN Administration Nausea/Vomiting Acyclovir Sodium 550 mg/ 111 mls @ 111 mls/hr 09/03/20 18:00 09/05/20 10:32 Sodium Chloride IVPB 111 mls 0200,1000,1800 DARIANA Administration Sodium Chloride 1,000 mls @ 50 mls/hr 09/04/20 11:00 09/05/20 10:41 Normal Saline 0.9% IV 1,000 mls .Q20H DARIANA Administration Ketorolac Tromethamine 15 mg 09/02/20 14:05 09/04/20 11:05 Ketorolac Tromethamine 30 Mg/Ml Vial IVP 09/07/20 14:06 15 mg Q6H PRN Administration Pain Labetalol HCl 10 mg 09/03/20 09:36 09/04/20 22:34 Labetalol Hcl 100 Mg/20 Ml Vial SLOW IVP 10 mg Q4H PRN Administration SBP Greater Than 180 Levothyroxine Sodium 25 mcg 08/31/20 06:00 09/05/20 05:40 Levothyroxine Sodium 25 Mcg Tab PO 25 mcg 0600 DARIANA Administration Loratadine 10 mg 09/04/20 14:11 09/04/20 14:38 Loratadine 10 Mg Tab PO 10 mg DAILYPRN PRN Administration Allergies Ondansetron HCl 4 mg 08/31/20 01:16 08/31/20 19:43 Ondansetron Pf 4 Mg/2 Ml Vial IVP 4 mg Q6H PRN Administration Nausea/Vomiting Sodium Chloride 10 ml 08/31/20 01:16 09/04/20 11:11 Flush - Normal Saline 10 Ml Syringe IVF 10 ml PRN PRN Administration Saline Flush - Exam General Appearance: NAD Eye: PERRL ENT: normocephalic atraumatic Neck: supple Respiratory: CTAB Cardiovascular: RRR Gastrointestinal: soft Extremities: no cyanosis Skin: normal turgor Neurological: no new deficit Neurological - other findings: Left-sided weakness and left facial droop Musculoskeletal: normal tone, no muscle wasting PSYCH: somnolent Results - Labs Result Diagrams: 09/05/20 06:39 09/05/20 06:39 Lab results: WBC 8.8 thou/uL (4.8-10.8) 09/05/20 06:39 Hgb 13.4 g/dL (12.0-16.0) 09/05/20 06:39 Hct 40.5 % (36.0-47.0) 09/05/20 06:39 MCV 84.2 fL (78.0-98.0) 09/05/20 06:39 Plt Count 106 thou/uL (130-400) L 09/05/20 06:39 Neutrophils % 71.1 % (42.0-75.0) 08/30/20 18:19 Band Neuts % (Manual) 10 % (5-11) 09/02/20 04:44 Sodium 142 mmol/L (136-145) 09/05/20 06:39 Potassium 3.6 mmol/L (3.5-5.1) 09/05/20 06:39 Chloride 109 mmol/L (98-107) H 09/05/20 06:39 Carbon Dioxide 18 mmol/L (23-31) L 09/05/20 06:39 BUN 14 mg/dL (9.8-20.1) 09/05/20 06:39 Creatinine 0.77 mg/dL (0.6-1.1) 09/05/20 06:39 Glucose 99 mg/dL (83-110) 09/05/20 06:39 Calcium 8.9 mg/dL (7.8-10.44) 09/05/20 06:39 Total Bilirubin 0.6 mg/dL (0.2-1.2) 08/31/20 05:03 AST 42 U/L (5-34) H 08/31/20 05:03 ALT 19 U/L (8-55) 08/31/20 05:03 Alkaline Phosphatase 144 U/L (40-110) H 08/31/20 05:03 Troponin I 0.011 ng/mL (< 0.028) 08/31/20 01:04 Serum Total Protein 7.6 g/dL (6.0-8.3) 08/31/20 05:03 Albumin 4.4 g/dL (3.4-4.8) 08/31/20 05:03 Urine Ketones 100 mg/dL (Negative) A 09/01/20 17:15 Urine Blood Negative (Negative) 09/01/20 17:15 Urine Nitrite Negative (Negative) 09/01/20 17:15 Ur Leukocyte Esterase Negative Kurt/uL (Negative) 09/01/20 17:15 Urine RBC 0-3 HPF (0-3) 09/01/20 17:15 Urine WBC 0-3 HPF (0-3) 09/01/20 17:15 Ur Squamous Epith Cells 0-3 HPF (0-3) 09/01/20 17:15 Urine Bacteria None Seen HPF (None Seen) 09/01/20 17:15 - Radiology Interpretation MRI - head Additional Comment: MRI head x2 did not reveal acute intracranial pathology 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 - SECONDARY MALIGNANT NEOPLASM OF OTH PARTS OF NERVOUS SYSTEM; C80.1 - MALIGNANT (PRIMARY) NEOPLASM, UNSPECIFIED Status: Acute (2) CVA (cerebral vascular accident) Code(s): I63.9 - CEREBRAL INFARCTION, UNSPECIFIED Status: Acute (3) HTN (hypertension) Code(s): I10 - ESSENTIAL (PRIMARY) HYPERTENSION Status: Acute (4) Hypothyroidism Code(s): E03.9 - HYPOTHYROIDISM, UNSPECIFIED Status: Acute (5) Migraines Code(s): G43.909 - MIGRAINE, UNSP, NOT INTRACTABLE, WITHOUT STATUS MIGRAINOSUS Status: Acute - Plan Daily Plan: plan discussed w/ family (Son at bedside), PT/OT, speech therapy (Son at bedside), DVT proph w/lovenox Mrs. Thacker is a 80-year-old female with medical history significant for hypertension, hypothyroidism and migraines presented with left-sided weakness and headache. She continues to complain of headache with neck stiffness. Left sided weakness improved briefly on the day of admission with headache treatment and she was able to walk but then worsened with more pronounced left facial droop, left sided focal weakness and left sided neglect associated with severe headache. Initial MRI brain was negative for acute intracranial process but focal left sided deficits continued and she developed fever. CT of the abdomen pelvis and chest revealed widespread osseous metastatic disease. Dr. Moeller is on board. Repeated MRI Brain with contrast did not reveal any contrast enhancing lesion, or stroke. MRI cervical spine showed severe bone marrow abnormalities, most conspicuous at T3, enhancement and edema consistent with diffuse osseous metastatic disease. Discogenic changes most pronounced at C5-C6 Patient does have history of brain cancer, so consider imaging thoracic and lumbar spine with contrast and consider Oncology input. Lumbar puncture was completed yesterday which showed yesterday which showed elevated protein, 76% neutrophils, glucose of 51. Infectious disease is on board and based on imaging of the cervical spine and concern for metastatic disease, carcinomatous meningitis is in the differential. However, CSF cytology was essentially unremarkable. Results reviewed CSF sent for HSV, syphilis, cryptococcus, West Nile Virus and cytology as per ID recommendations. Continue empiric acyclovir. Continue headache cocktail. EEG repeated today to rule out cortical irritability or seizure which was negative for seizure activity. CTA of the head and neck was negative for hemodynamically significant stenosis. Carotid Doppler study showed left carotid artery stenosis but CTA of the neck came back as hemodynamically significant stenosis. Patient has been seen by cardiovascular surgery and they do not feel the need for surgical intervention 2D echo showed left ventricular ejection fraction 60 to 65%. No thrombus or PFO. Neurochecks every 4 hours. Strict control of blood pressure and blood glucose. Continue aspirin and high intensity statin for secondary stroke prevention. Continue telemetry for rule out arrhythmias. PT/OT/speech. DVT prophylaxis. Continue medical management per primary team. Plan discussed in detail with the son at bedside and also with the nursing staff.
--- NOTE | 2020-09-05 15:56 | CT ---
EXAM: CT Limited Exam PROVIDED CLINICAL HISTORY: Diffuse osseous metastatic disease in a patient with history of breast cancer. Bone biopsy was reques lee ann. COMPARISON: CT pelvis on 09/04/2020 FINDINGS: This examination was performed prior to CT-guided biopsy of the iliac bones for evaluation of metasta tic disease. However, the patient refused biopsy after initial imaging. Limited images through the pelvis demonstrate multiple subcentimeter sclerotic lesions within the vis ualized osseous structures including bilateral iliac bones, sacrum, and lower lumbar vertebral bodies. There is contrast seen in the most superiorly imaged portion urinary bladder related to recent contra sted exam.. IMPRESSION: 1. Limited examination demonstrating osseous metastatic disease. 2. As noted above, this exam was was scheduled as a bone biopsy of metastatic lesions. However, patie nt refused the biopsy after initial imaging.
--- NOTE | 2020-09-05 16:10 | PDOC.EEG ---
Neurology EEG Report - Report Report: This EEG was performed using 24 channel Pad[employer] video EEG machine with 24 disc electrodes. This was an extended 2 hours 3 minutes of inpatient video EEG recording. Digital analysis of the EEG was done for spike and seizure detection which revealed no abnormalities. Background: There is a nonsustained posterior background rhythm of 8-9 Hz. Hyperventilation: Not performed. Photic Stimulation: No significant response. Sleep: Drowsiness and sleep are observed EEG Diagnosis: Occasional irregular theta activity seen during the reording. Nonsustained Posterior background rhythm. Clinical Interpretation: This EEG is consistent with mild to moderate generalized nonspecific cerebral dysfunction.
--- NOTE | 2020-09-05 16:13 | PDOC.MOPN ---
Interval History: patient in CT getting biopsy. Son and spouse at bedside and updated. - Vital Signs Vital Signs: Vital Signs (12 hours) Temp Pulse Resp BP BP Pulse Ox 09/05/20 15:28 98.9 F 102 H 17 158/81 H 09/05/20 13:42 102 H 144/52 H 09/05/20 11:15 98.2 F 93 20 191/77 H 95 09/05/20 10:42 91 191/77 H 09/05/20 07:12 98.5 F 90 16 151/79 H 93 L Weight Weight 131 lb 11.2 oz - Physical Exam General: Cooperative Neurological: Other (continued weakness left side) - Labs Result Diagrams: 09/05/20 06:39 09/05/20 06:39 Lab results: Laboratory Results - last 24 hr 09/05/20 06:39: WBC 8.8, RBC 4.82, Hgb 13.4, Hct 40.5, MCV 84.2, MCH 27.9, MCHC 33.1, RDW 15.0 H, Plt Count 106 L, MPV 11.4 H 09/05/20 06:39: Sodium 142, Potassium 3.6, Chloride 109 H, Carbon Dioxide 18 L, Anion Gap 19, BUN 14, Creatinine 0.77, Estimated GFR (MDRD) 72, Glucose 99, Calcium 8.9 Status: lab reviewed by me A/P - Problem (1) Hx of breast cancer Current Visit: Yes Code(s): Z85.3 - PERSONAL HISTORY OF MALIGNANT NEOPLASM OF BREAST Status: Acute (2) Metastatic disease Current Visit: Yes Code(s): C79.9 - SECONDARY MALIGNANT NEOPLASM OF UNSPECIFIED SITE Status: Acute - Plan Plan: 1. CSF showed no malignancy 2. need biospy of bone lesion 3. further recs after pathology resulted 4. family updated.
--- NOTE | 2020-09-05 19:28 | PDOC.HOSPP ---
- Subjective Encounter Date: 09/05/20 Encounter Time: 17:00 Subjective: F/u: headaches, left sided weakness THe patient reports no headache today. She was able to look at me on the left side for the first time. She denies nausea or vomiting. She says she was able to walk today. She was moving all four extremities She states she was able to swallow pills in apple sauce today She refused CT guided bone biopsy today but refused when she got down there because she didn't know why she was doing it. She got scared, but will try again tomorrow - Objective Vital Signs & Weight: Vital Signs (12 hours) Temp Pulse Resp BP BP Pulse Ox 09/05/20 15:28 98.9 F 102 H 17 158/81 H 09/05/20 13:42 102 H 144/52 H 09/05/20 11:15 98.2 F 93 20 191/77 H 95 09/05/20 10:42 91 191/77 H Weight Weight 131 lb 11.2 oz I&O: 09/04/20 09/05/20 09/06/20 06:59 06:59 06:59 Intake Total 300 429 Output Total 50 500 550 Balance 250 -500 -121 Result Diagrams: 09/05/20 06:39 09/05/20 06:39 Hospitalist ROS - Review of Systems Constitutional: denies: fever, chills - Medication Medications: Active Medications Generic Name Dose Route Start Last Admin Trade Name Freq PRN Reason Stop Dose Admin Acetaminophen 650 mg 08/31/20 01:16 09/02/20 00:03 Acetaminophen 325 Mg Tab PO 650 mg Q4H PRN Administration Headache/Fever/Mild Pain (1-3) Amlodipine Besylate 5 mg 09/05/20 09:00 09/05/20 10:42 Amlodipine 5 Mg Tab PO 5 mg DAILY DARIANA Administration Atorvastatin Calcium 40 mg 08/31/20 21:00 09/04/20 22:32 Atorvastatin Calcium 40 Mg Tab PO 40 mg HS DARIANA Administration Diphenhydramine HCl 25 mg 09/03/20 09:34 09/03/20 22:51 Diphenhydramine 25 Mg Cap PO 25 mg Q6H PRN Administration Fever>101/(Mi/Mod/Sev) Pain Prochlorperazine Edisylate 5 51 mls @ 150 mls/hr 09/02/20 14:04 09/03/20 23:08 mg/ Sodium Chloride IVPB 51 mls Q6H PRN Administration Nausea/Vomiting Acyclovir Sodium 550 mg/ 111 mls @ 111 mls/hr 09/03/20 18:00 09/05/20 18:14 Sodium Chloride IVPB 111 mls 0200,1000,1800 DARIANA Administration Sodium Chloride 1,000 mls @ 50 mls/hr 09/04/20 11:00 09/05/20 10:41 Normal Saline 0.9% IV 1,000 mls .Q20H DARIANA Administration Ketorolac Tromethamine 15 mg 09/02/20 14:05 09/04/20 11:05 Ketorolac Tromethamine 30 Mg/Ml Vial IVP 09/07/20 14:06 15 mg Q6H PRN Administration Pain Labetalol HCl 10 mg 09/03/20 09:36 09/04/20 22:34 Labetalol Hcl 100 Mg/20 Ml Vial SLOW IVP 10 mg Q4H PRN Administration SBP Greater Than 180 Levothyroxine Sodium 25 mcg 08/31/20 06:00 09/05/20 05:40 Levothyroxine Sodium 25 Mcg Tab PO 25 mcg 0600 DARIANA Administration Loratadine 10 mg 09/04/20 14:11 09/04/20 14:38 Loratadine 10 Mg Tab PO 10 mg DAILYPRN PRN Administration Allergies Ondansetron HCl 4 mg 08/31/20 01:16 08/31/20 19:43 Ondansetron Pf 4 Mg/2 Ml Vial IVP 4 mg Q6H PRN Administration Nausea/Vomiting Sodium Chloride 10 ml 08/31/20 01:16 09/04/20 11:11 Flush - Normal Saline 10 Ml Syringe IVF 10 ml PRN PRN Administration Saline Flush - Exam General Appearance: NAD, awake alert Eye: PERRL, anicteric sclera ENT: normocephalic atraumatic, no oropharyngeal lesions Neck: no JVD Heart: RRR, no murmur, no gallops, no rubs Respiratory: CTAB, no wheezes, no rales, no ronchi Gastrointestinal: soft, non-tender, non-distended, normal bowel sounds, no splenomegaly Extremities: no cyanosis, no clubbing, no edema Neurological: negative: facial droop, hemiplegia, speech deficit, vision deficit Musculoskeletal: normal tone Musculoskeletal - other findings: decreased strength lower extremities Psychiatric: A&O x 3 Hosp A/P - Plan MRI brain: No stroke Echo: Diastolic dysfunction with EF 60 to 65% Carotid Doppler: Left carotid artery stenosis CTA of the neck: Less than 50% stenosis the carotid artery MRI cervical spine: severe bone marrow abnormalities, most conspicuous at T3, enhancement and edema consistent with diffuse osseous metastatic disease. Discogenic changes most pronounced at C5-C6 CT chest/abdomen/pelvis: widespread osseous metastatic disease This 80-year-old female who presented with left-sided facial droop and left- sided weakness. MRI brain negative for stroke #Severe headache with left-sided weakness -possibly from meningitis/encephalitis vs complicated migraine #Fever -MRI of the brain negative for stroke on two occasions. LP done today shows high protein, 76% neutrophils, glucose of 51. Infectious disease consulted and did not think this was bacterial meningitis - CSF sent for HSV, syphilis, cryptococcus, West Nile Virus which is pending. She has been started on IV acyclovir by infectious disease. Will switch to oral valtrex - CSF cytology is negative. MRI cervical spine showing severe bone marrow abnormality most conspicuous at T3 with enhancement and edema. MRI thoracic spine showing diffuse osseous metastases. CT chest/abdomen/pelvis showed wide spread metastatic disease osseous. - bone biopsy has been ordered for tomorrow. -will discontinue benadryl for headache. Try gabapentin for prophylaxis if needed per neurology Hypothyroidismcontinue levothyroxine Breast cancer- treatment is pending bone biopsy results Hypokalemia - potassium up to 3.7
[2020-09-05] MEDS: Atorvastatin Calcium 40 MG TAB PO SCH (21:40)
[2020-09-05] MEDS: Acetaminophen 325 MG TAB PO PRN (21:44)
[2020-09-06] MEDS: valACYclovir 500 MG TAB PO SCH ×3 (00:12→17:01)
[2020-09-06] MEDS: Sodium Chloride 0.9% 1,000 ML IV SCH (05:14)
[2020-09-06] MEDS: Levothyroxine Sodium 25 MCG TAB PO SCH (05:14)
[2020-09-06] MEDS: Amlodipine 5 MG TAB PO SCH (10:11)
--- NOTE | 2020-09-06 10:22 | MRI ---
MRI LUMBAR SPINE WITH AND WITHOUT CONTRAST: DATE: 09/06/2020 HISTORY: 80-year-old female with metastatic breast cancer. Evaluate status of metastatic disease of lumbar spi ne. COMPARISON: 02/15/2011 TECHNIQUE: Multiple sequences obtained in axial and sagittal planes, pre and post IV injection of gadolinium-bas ed contrast agent. FINDINGS: There are 5 lumbar-type vertebrae. Vertebral body heights are maintained. Conus medullaris terminates at L1-2. There is a new finding of heterogeneous bone marrow signal consisting of infiltration of nodular patc hy hypointense signal, with heterogeneous bone marrow enhancement, throughout all visualized osseous structures, including the lumbar spine, iliac bones, and sacrum. There is another new finding of a layer of fluid in the presacral space of the pelvic cavity, incompl etely imaged. Urinary bladder is distended. There is no evidence of soft tissue tumor component in the neural foramina, perivertebral spaces, or spinal canal No abnormal enhancement of the lower intramedullary, extramedullary-intradural, extradural, or perive rtebral, spaces. Cauda equina is arranged in a symmetrical, normal distribution throughout the thecal sac. T12-L1:Disc space maintained. Tiny right paracentral disc protrusion with annular fissure. No central or neural foraminal stenosis. L1-2:Interval significant narrowing, now moderate to severe, of the disc space. New moderate diffuse disc bulge. New superimposed central, left paracentral, and left lateral, moderate size disc extrusion deeply indenting the ventral aspect of the thecal sac. Despite this, the degree of central spinal canal stenosis is only mild. Mild to moderate right and moderate left neural foraminal stenosis. L2-3:Interval worsening of now severe disc space narrowing. Mild retrolisthesis of L2 on L3. Prominen t broad-based disc bulge-osteophytic bar complex indents ventral surface of thecal sac, but only causes mild central spinal canal stenosis. Mild to moderate right and mild left neural foraminal sten osis. L3-4:Moderate to severe disc space narrowing, similar to previous MRI. Minimal retrolisthesis of L3 o n L4. Diffuse disc bulge. No central spinal canal stenosis. Mild right and mild to moderate left neural foraminal stenosis. L4-5:Disc space maintained. Mild disc bulge. Generous caliber of spinal canal and thecal sac. Mild bi lateral neural foraminal stenosis. L5-S1:Disc space maintained. Generous caliber of spinal canal and thecal sac. No neural foraminal anabela nosis. IMPRESSION: 1) very extensive osseous metastatic disease throughout all visualized portions of skeleton. 2) fluid in the presacral space. 3) interval worsening of moderate to severe degenerative disc disease at L1-2, L2-3, and stable degen erative disc disease at L3-4, since 02/15/2011. 4) no pathologic lumbar compression fracture. 5) no high-grade central spinal canal stenosis at any level. 6) moderate sized left paracentral disc herniation at L1-2
[2020-09-06] MEDS ORDERED: Gabapentin 100 MG CAP PO SCH (10:30)
--- NOTE | 2020-09-06 12:30 | PDOC.NEUPN ---
- Subjective Encounter Date: 09/06/20 Subjective: Patient much better, Alert and awake and following commands. Able to lift her left UE and LE and facial froop improved. Headache resolved. - Objective Vital Signs & Weight: Vital Signs (12 hours) Temp Pulse Resp BP Pulse Ox 09/06/20 11:05 98.0 F 90 21 H 146/70 H 93 L 09/06/20 10:11 90 09/06/20 08:00 93 L 09/06/20 07:56 97.9 F 90 16 152/78 H 93 L 09/06/20 03:44 98.0 F 89 16 149/65 H 95 Weight Weight 131 lb 11.2 oz I&O: 09/05/20 09/06/20 09/07/20 06:59 06:59 06:59 Intake Total 679 Output Total 500 950 Balance -500 -271 Result Diagrams: 09/05/20 06:39 09/05/20 06:39 Radiology Reviewed by me: Yes EKG Reviewed by me: Yes ROS - Review of Systems Constitutional: denies: fever, chills, sweats, weakness, malaise, other Gastrointestinal: denies: nausea, vomiting, abdominal pain, diarrhea, constipation, melena, hematochezia, other Genitourinary: denies: dysuria, frequency, incontinence, hematuria, retention, other Musculoskeletal: denies: neck pain, shoulder pain, arm pain, back pain, hand pain, leg pain, foot pain, other - Medication Medications: Active Medications Generic Name Dose Route Start Last Admin Trade Name Freq PRN Reason Stop Dose Admin Acetaminophen 650 mg 08/31/20 01:16 09/05/20 21:44 Acetaminophen 325 Mg Tab PO 650 mg Q4H PRN Administration Headache/Fever/Mild Pain (1-3) Amlodipine Besylate 5 mg 09/05/20 09:00 09/06/20 10:11 Amlodipine 5 Mg Tab PO 5 mg DAILY DARIANA Administration Atorvastatin Calcium 40 mg 08/31/20 21:00 09/05/20 21:40 Atorvastatin Calcium 40 Mg Tab PO 40 mg HS DARIANA Administration Gabapentin 100 mg 09/06/20 10:30 09/06/20 11:57 Gabapentin 100 Mg Cap PO 09/06/20 12:30 100 mg NOW DARIANA Administration Prochlorperazine Edisylate 5 51 mls @ 150 mls/hr 09/02/20 14:04 09/03/20 23:08 mg/ Sodium Chloride IVPB 51 mls Q6H PRN Administration Nausea/Vomiting Sodium Chloride 1,000 mls @ 50 mls/hr 09/04/20 11:00 09/06/20 05:14 Normal Saline 0.9% IV 1,000 mls .Q20H DARIANA Administration Ketorolac Tromethamine 15 mg 09/02/20 14:05 09/04/20 11:05 Ketorolac Tromethamine 30 Mg/Ml Vial IVP 09/07/20 14:06 15 mg Q6H PRN Administration Pain Labetalol HCl 10 mg 09/03/20 09:36 09/04/20 22:34 Labetalol Hcl 100 Mg/20 Ml Vial SLOW IVP 10 mg Q4H PRN Administration SBP Greater Than 180 Levothyroxine Sodium 25 mcg 08/31/20 06:00 09/06/20 05:14 Levothyroxine Sodium 25 Mcg Tab PO 25 mcg 0600 DARIANA Administration Loratadine 10 mg 09/04/20 14:11 09/04/20 14:38 Loratadine 10 Mg Tab PO 10 mg DAILYPRN PRN Administration Allergies Ondansetron HCl 4 mg 08/31/20 01:16 08/31/20 19:43 Ondansetron Pf 4 Mg/2 Ml Vial IVP 4 mg Q6H PRN Administration Nausea/Vomiting Sodium Chloride 10 ml 08/31/20 01:16 09/04/20 11:11 Flush - Normal Saline 10 Ml Syringe IVF 10 ml PRN PRN Administration Saline Flush Valacyclovir HCl 1,000 mg 09/05/20 23:59 09/06/20 10:10 Valacyclovir 500 Mg Tab PO 1,000 mg 0800,1600,2359 DARIANA Administration - Exam General Appearance: awake alert Eye: PERRL ENT: normocephalic atraumatic Neck: supple Respiratory: CTAB Cardiovascular: RRR Gastrointestinal: soft Extremities: no cyanosis Skin: normal turgor Neurological: no new deficit Neurological - other findings: weakness improved PSYCH: normal affect, normal behavior, oriented to person, oriented to place Results - Labs Result Diagrams: 09/05/20 06:39 09/05/20 06:39 Lab results: WBC 8.8 thou/uL (4.8-10.8) 09/05/20 06:39 Hgb 13.4 g/dL (12.0-16.0) 09/05/20 06:39 Hct 40.5 % (36.0-47.0) 09/05/20 06:39 MCV 84.2 fL (78.0-98.0) 09/05/20 06:39 Plt Count 106 thou/uL (130-400) L 09/05/20 06:39 Neutrophils % 71.1 % (42.0-75.0) 08/30/20 18:19 Band Neuts % (Manual) 10 % (5-11) 09/02/20 04:44 Sodium 142 mmol/L (136-145) 09/05/20 06:39 Potassium 3.6 mmol/L (3.5-5.1) 09/05/20 06:39 Chloride 109 mmol/L (98-107) H 09/05/20 06:39 Carbon Dioxide 18 mmol/L (23-31) L 09/05/20 06:39 BUN 14 mg/dL (9.8-20.1) 09/05/20 06:39 Creatinine 0.77 mg/dL (0.6-1.1) 09/05/20 06:39 Glucose 99 mg/dL (83-110) 09/05/20 06:39 Calcium 8.9 mg/dL (7.8-10.44) 09/05/20 06:39 Total Bilirubin 0.6 mg/dL (0.2-1.2) 08/31/20 05:03 AST 42 U/L (5-34) H 08/31/20 05:03 ALT 19 U/L (8-55) 08/31/20 05:03 Alkaline Phosphatase 144 U/L (40-110) H 08/31/20 05:03 Troponin I 0.011 ng/mL (< 0.028) 08/31/20 01:04 Serum Total Protein 7.6 g/dL (6.0-8.3) 08/31/20 05:03 Albumin 4.4 g/dL (3.4-4.8) 08/31/20 05:03 Urine Ketones 100 mg/dL (Negative) A 09/01/20 17:15 Urine Blood Negative (Negative) 09/01/20 17:15 Urine Nitrite Negative (Negative) 09/01/20 17:15 Ur Leukocyte Esterase Negative Kurt/uL (Negative) 09/01/20 17:15 Urine RBC 0-3 HPF (0-3) 09/01/20 17:15 Urine WBC 0-3 HPF (0-3) 09/01/20 17:15 Ur Squamous Epith Cells 0-3 HPF (0-3) 09/01/20 17:15 Urine Bacteria None Seen HPF (None Seen) 09/01/20 17:15 - Radiology Interpretation Other Additional Comment: Lumbar spine MRI showed osseus metastatic disease. 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 - SECONDARY MALIGNANT NEOPLASM OF OTH PARTS OF NERVOUS SYSTEM; C80.1 - MALIGNANT (PRIMARY) NEOPLASM, UNSPECIFIED Status: Acute (2) CVA (cerebral vascular accident) Code(s): I63.9 - CEREBRAL INFARCTION, UNSPECIFIED Status: Acute (3) HTN (hypertension) Code(s): I10 - ESSENTIAL (PRIMARY) HYPERTENSION Status: Acute (4) Hypothyroidism Code(s): E03.9 - HYPOTHYROIDISM, UNSPECIFIED Status: Acute (5) Migraines Code(s): G43.909 - MIGRAINE, UNSP, NOT INTRACTABLE, WITHOUT STATUS MIGRAINOSUS Status: Acute - Plan Daily Plan: plan discussed w/ family (Daughter at bedside.), PT/OT, speech therapy, DVT proph w/lovenox Mrs. Thacker is a 80-year-old female with medical history significant for hyp ertension, hypothyroidism and migraines presented with left-sided weakness and headache. She continues to complain of headache with neck stiffness. Left sided weakness improved briefly on the day of admission with headache treatment and she was able to walk but then worsened with more pronounced left facial droop, left sided focal weakness and left sided neglect associated with severe headache. Initial MRI brain was negative for acute intracranial process but focal left sided deficits continued and she developed fever. Patient much better today. Weakness improved and following commands appropriately. Headache resolved. Discontinue VENTURA cocktail. Repeated MRI Brain with contrast did not reveal any contrast enhancing lesion, or stroke. MRI cervical spine showed severe bone marrow abnormalities, most conspicuous at T3, enhancement and edema consistent with diffuse osseous metastatic disease. Discogenic changes most pronounced at C5-C6 CT of the abdomen pelvis and chest revealed widespread osseous metastatic disease. and also lumabar spine MRI Dr. Moeller is on board.Awaiting bone biopsy Lumbar puncture was completed which showed elevated protein, 76% neutrophils, glucose of 51. Infectious disease is on board and based on imaging of the cervical spine and concern for metastatic disease, carcinomatous meningitis is in the differential. However, CSF cytology was essentially unremarkable. Results reviewed CSF sent for HSV, syphilis, cryptococcus, West Nile Virus and cytology as per ID recommendations. ID on board EEG repeated today to rule out cortical irritability or seizure which was negative for seizure activity. CTA of the head and neck was negative for hemodynamically significant stenosis. Carotid Doppler study showed left carotid artery stenosis but CTA of the neck came back as hemodynamically significant stenosis. Patient has been seen by cardiovascular surgery and they do not feel the need for surgical intervention 2D echo showed left ventricular ejection fraction 60 to 65%. No thrombus or PFO. Neurochecks every 4 hours. Strict control of blood pressure and blood glucose. Continue aspirin and high intensity statin for secondary stroke prevention. Continue telemetry for rule out arrhythmias. PT/OT/speech. DVT prophylaxis. Continue medical management per primary team. Plan discussed in detail with the patient, daughter at bedside and also with the nursing staff.
[2020-09-06] MEDS ORDERED: Midazolam HCl 2 mg/2 ml Vial ONE (12:49)
[2020-09-06] MEDS ORDERED: Fentanyl 100 MCG/2 ML VIAL ONE (12:50)
[2020-09-06] MEDS ORDERED: Magnevist 469MG/ML 20 ML VIAL ONE (13:17)
--- NOTE | 2020-09-06 14:02 | CT ---
CT GUIDED RIGHT ILIAC BONE MARROW ASPIRATION AND BIOPSY: CLINICAL HISTORY: Innumerable subcentimeter sclerotic metastatic lesions throughout the osseous stru ctures including pelvis/iliac bones.. PROCEDURE: The procedure including the risks and complications were explained to the patient, and informed conse nt was obtained. The patient was placed on the CT scan table in the prone position. Noncontrasted CT images were obtained through the pelvis. An area was marked overlying the RIGHT kevin c bone, and the area was meticulously prepped and draped in usual sterile fashion. The skin and subcutaneous tissues were infiltrated with buffered 1% lidocaine for local anesthesia. After a small skin incision was made, an 11-gauge needle was advanced and positioning was confirmed w ith axial CT images. Approximately 10 milliliters of bone marrow aspirate was obtained. The needle was then further advanced, and a bone marrow biopsy was performed. The needle was removed, and hemost asis was achieved with direct pressure. The patient tolerated the procedure well and without immediate complication. The patient was transported to radiology nurses holding area for further carrie toring prior to discharge. IMPRESSION: Technically successful percutaneous bone marrow aspiration and biopsy. Pathology results are pending.
[2020-09-06 14:15] LABS: West Nile Virus IgG Ab - CSF Positive (Negative); West Nile Virus IgM Ab - CSF Negative (Negative)
--- NOTE | 2020-09-06 17:21 | PDOC.HOSPP ---
- Subjective Encounter Date: 09/06/20 Encounter Time: 09:00 Subjective: F/u: headache, left sided weakness THe patient has a headache again today about 04/10. She is asking for diclofenac. Discussed that this is not prophylactic and she needs something more preventative. Denies nausea or vomiting. She is moving her left arm and tracking to the left side Daughter in law was wondering whether gabapentin had been tried before for migraines. Per Dr. Sesay, only depakote, topamax and ellabell have been tried . 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 I discussed that this can cause migraines Osseous mets - patient scheduled for bone biopsy today . She denies significant back pain - Objective Vital Signs & Weight: Vital Signs (12 hours) Temp Pulse Pulse Resp BP BP Pulse Ox 09/06/20 16:07 98.0 F 95 19 168/61 H 97 09/06/20 14:40 91 167/79 H 09/06/20 11:05 98.0 F 90 21 H 146/70 H 93 L 09/06/20 10:11 90 09/06/20 08:00 93 L 09/06/20 07:56 97.9 F 90 16 152/78 H 93 L Weight Weight 131 lb 11.2 oz I&O: 09/05/20 09/06/20 09/07/20 06:59 06:59 06:59 Intake Total 679 Output Total 500 950 Balance -500 -271 Result Diagrams: 09/05/20 06:39 09/05/20 06:39 Hospitalist ROS - Review of Systems Constitutional: denies: fever, chills - Medication Medications: Active Medications Generic Name Dose Route Start Last Admin Trade Name Freq PRN Reason Stop Dose Admin Acetaminophen 650 mg 08/31/20 01:16 09/05/20 21:44 Acetaminophen 325 Mg Tab PO 650 mg Q4H PRN Administration Headache/Fever/Mild Pain (1-3) Amlodipine Besylate 5 mg 09/05/20 09:00 09/06/20 10:11 Amlodipine 5 Mg Tab PO 5 mg DAILY DARIANA Administration Atorvastatin Calcium 40 mg 08/31/20 21:00 09/05/20 21:40 Atorvastatin Calcium 40 Mg Tab PO 40 mg HS DARIANA Administration Prochlorperazine Edisylate 5 51 mls @ 150 mls/hr 09/02/20 14:04 09/03/20 23:08 mg/ Sodium Chloride IVPB 51 mls Q6H PRN Administration Nausea/Vomiting Sodium Chloride 1,000 mls @ 50 mls/hr 09/04/20 11:00 09/06/20 05:14 Normal Saline 0.9% IV 1,000 mls .Q20H DARIANA Administration Ketorolac Tromethamine 15 mg 09/02/20 14:05 09/04/20 11:05 Ketorolac Tromethamine 30 Mg/Ml Vial IVP 09/07/20 14:06 15 mg Q6H PRN Administration Pain Labetalol HCl 10 mg 09/03/20 09:36 09/04/20 22:34 Labetalol Hcl 100 Mg/20 Ml Vial SLOW IVP 10 mg Q4H PRN Administration SBP Greater Than 180 Levothyroxine Sodium 25 mcg 08/31/20 06:00 09/06/20 05:14 Levothyroxine Sodium 25 Mcg Tab PO 25 mcg 0600 DARIANA Administration Loratadine 10 mg 09/04/20 14:11 09/04/20 14:38 Loratadine 10 Mg Tab PO 10 mg DAILYPRN PRN Administration Allergies Ondansetron HCl 4 mg 08/31/20 01:16 08/31/20 19:43 Ondansetron Pf 4 Mg/2 Ml Vial IVP 4 mg Q6H PRN Administration Nausea/Vomiting Sodium Chloride 10 ml 08/31/20 01:16 09/04/20 11:11 Flush - Normal Saline 10 Ml Syringe IVF 10 ml PRN PRN Administration Saline Flush Valacyclovir HCl 1,000 mg 09/05/20 23:59 09/06/20 17:01 Valacyclovir 500 Mg Tab PO 1,000 mg 0800,1600,2359 DARIANA Administration - Exam General Appearance: NAD, awake alert Eye: PERRL, anicteric sclera ENT: normocephalic atraumatic, no oropharyngeal lesions Neck: no JVD Heart: RRR, no murmur, no gallops, no rubs Respiratory: CTAB, no wheezes, no rales, no ronchi Gastrointestinal: soft, non-tender, non-distended, normal bowel sounds, no palpable masses, no hepatomegaly, no splenomegaly, no bruit Extremities: no cyanosis, no clubbing, no edema Skin: normal turgor, no lesions, no rashes Neurological: normal sensation to touch, no weakness Neurological - other findings: 5/5 strenth upper and lower extremities Hosp A/P - Plan MRI brain: No stroke Echo: Diastolic dysfunction with EF 60 to 65% Carotid Doppler: Left carotid artery stenosis CTA of the neck: Less than 50% stenosis the carotid artery MRI cervical spine: severe bone marrow abnormalities, most conspicuous at T3, enhancement and edema consistent with diffuse osseous metastatic disease. Discogenic changes most pronounced at C5-C6 CT chest/abdomen/pelvis: widespread osseous metastatic disease MRI lumbar spine: very extensive osseous metastatic disease. Worsening of moderate to severe degenerative changes at L1-L2, L2-L3 and stable disease at L3-L4. Left paracentral disc herniation at L1-L2 This 80-year-old female who presented with left-sided facial droop and left- sided weakness. MRI brain negative for stroke #Severe headache with left-sided weakness -possibly from meningitis/encephalitis vs complicated migraine #Fever -MRI of the brain negative for stroke on two occasions. LP done today shows high protein, 76% neutrophils, glucose of 51. Infectious disease consulted and did not think this was bacterial meningitis - CSF sent for HSV, syphilis, West Nile Virus which is pending. Cryptococcus is negative. CSF cytology negative - she was on IV acyclovir empirically, converted to oral valtrex 1000 mg TID /. - MRI cervical spine showing severe bone marrow abnormality most conspicuous at T3 with enhancement and edema. MRI thoracic spine showing diffuse osseous metastases. CT chest/abdomen/pelvis showed widespread metastatic disease osseous. MRI lumbar spine showing DJD and diffuse osseous metastases - bone biopsy ordered today , will await pathology results - start gabapentin 100 mg bid for headache prophylaxis. Continue migraine cocktail prn . Possibly d/c tomorrow? Appreciate PT re-evaluation to see whether she still needs rehab Hypothyroidismcontinue levothyroxine Breast cancer- treatment is pending bone biopsy results Hypokalemia - potassium up to 3.7
[2020-09-06] MEDS: Atorvastatin Calcium 40 MG TAB PO SCH (21:16)
[2020-09-07] MEDS: valACYclovir 500 MG TAB PO SCH ×4 (00:52→23:38)
[2020-09-07] MEDS: Levothyroxine Sodium 25 MCG TAB PO SCH (05:47)
[2020-09-07] MEDS: Gabapentin 100 MG CAP PO SCH (08:23)
[2020-09-07] MEDS: Amlodipine 5 MG TAB PO SCH (08:24)
--- NOTE | 2020-09-07 10:51 | CT ---
CT GUIDED RIGHT ILIAC BONE MARROW ASPIRATION AND BIOPSY: CLINICAL HISTORY: Innumerable subcentimeter sclerotic metastatic lesions throughout the osseous stru ctures including pelvis/iliac bones.. PROCEDURE: The procedure including the risks and complications were explained to the patient, and informed conse nt was obtained. The patient was placed on the CT scan table in the prone position. Noncontrasted CT images were obtained through the pelvis. An area was marked overlying the RIGHT kevin c bone, and the area was meticulously prepped and draped in usual sterile fashion. The skin and subcutaneous tissues were infiltrated with buffered 1% lidocaine for local anesthesia. After a small skin incision was made, an 11-gauge needle was advanced and positioning was confirmed w ith axial CT images. Approximately 10 milliliters of bone marrow aspirate was obtained. The needle was then further advanced, and a bone marrow biopsy was performed. The needle was removed, and hemost asis was achieved with direct pressure. The patient tolerated the procedure well and without immediate complication. The patient was transported to radiology nurses holding area for further carrie toring prior to discharge. IMPRESSION: Technically successful percutaneous bone marrow aspiration and biopsy. Pathology results are pending. Transcribed Date/Time: 09/07/2020 10:51 AM
[2020-09-07] MEDS: Sodium Chloride 0.9% 1,000 ML IV SCH (10:56)
[2020-09-07 14:14] LABS: VDRL, CSF Non Reactive (Non Rea:<1:1)
--- NOTE | 2020-09-07 14:27 | PDOC.MOPN ---
Interval History: patient alert, improved left sided weakness - Vital Signs Vital Signs: Vital Signs (12 hours) Temp Pulse Resp BP BP Pulse Ox 09/07/20 12:00 97.9 F 94 16 159/67 H 97 09/07/20 08:24 97 165/85 H 09/07/20 08:23 96 09/07/20 08:00 98.2 F 98 16 165/85 H 96 09/07/20 04:46 98.4 F 90 18 143/75 H 94 L Weight Admit Weight 131 lb 11.2 oz Weight 131 lb 11.2 oz - Physical Exam General: Alert HEENT: Atraumatic Lungs: Clear to auscultation Cardiovascular: Regular rate Abdomen: Normal bowel sounds Neurological: Normal speech Psych/Mental Status: Mental status NL - Labs Result Diagrams: 09/05/20 06:39 09/05/20 06:39 Lab results: Laboratory Results - last 24 hr 09/03/20 11:12: CSF VDRL Non Reactive 09/03/20 11:12: HSV I DNA PCR Negative, HSV II DNA PCR Negative Status: lab reviewed by me A/P - Problem (1) Hx of breast cancer Current Visit: Yes Code(s): Z85.3 - PERSONAL HISTORY OF MALIGNANT NEOPLASM OF BREAST Status: Acute (2) Metastatic disease Current Visit: Yes Code(s): C79.9 - SECONDARY MALIGNANT NEOPLASM OF UNSPECIFIED SITE Status: Acute - Plan Plan: Bone biopsy shows metastatic breast cancer, await breast profile ok to go to rehab from our perspective she will follow-up in clinic to discuss treatment options.
--- NOTE | 2020-09-07 15:25 | PDOC.HOSPP ---
- Subjective Encounter Date: 09/07/20 Encounter Time: 10:30 Subjective: F/U: severe headache, left sided weakness Mrs. Thacker states her headache is "fair" today and that it is better than normal. Movement is intact and she was able to walk. Discussed positive West Nile Virus IgG and negative IgM in CSF. Patient and family denied any recent travel or known tick bite, but did note some mosquitos in home. Patient and family interested in inpatient rehab options. Discussed options. Osseous mets: bone biopsy pathology pending. Per nursing, while ambulating she would lean over to one side - Objective Vital Signs & Weight: Vital Signs (12 hours) Temp Pulse Resp BP BP Pulse Ox 09/07/20 12:00 97.9 F 94 16 159/67 H 97 09/07/20 08:24 97 165/85 H 09/07/20 08:23 96 09/07/20 08:00 98.2 F 98 16 165/85 H 96 09/07/20 04:46 98.4 F 90 18 143/75 H 94 L Weight Admit Weight 131 lb 11.2 oz Weight 131 lb 11.2 oz I&O: 09/06/20 09/07/20 09/08/20 06:59 06:59 06:59 Intake Total 679 640 Output Total 950 300 Balance -271 340 Result Diagrams: 09/05/20 06:39 09/05/20 06:39 Hospitalist ROS - Review of Systems Constitutional: denies: fever, chills - Medication Medications: Active Medications Generic Name Dose Route Start Last Admin Trade Name Freq PRN Reason Stop Dose Admin Acetaminophen 650 mg 08/31/20 01:16 09/05/20 21:44 Acetaminophen 325 Mg Tab PO 650 mg Q4H PRN Administration Headache/Fever/Mild Pain (1-3) Amlodipine Besylate 5 mg 09/05/20 09:00 09/07/20 08:24 Amlodipine 5 Mg Tab PO 5 mg DAILY DARIANA Administration Atorvastatin Calcium 40 mg 08/31/20 21:00 09/06/20 21:16 Atorvastatin Calcium 40 Mg Tab PO 40 mg HS DARIANA Administration Gabapentin 100 mg 09/07/20 09:00 09/07/20 08:23 Gabapentin 100 Mg Cap PO 100 mg DAILY DARIANA Administration Prochlorperazine Edisylate 5 51 mls @ 150 mls/hr 09/02/20 14:04 09/03/20 23:08 mg/ Sodium Chloride IVPB 51 mls Q6H PRN Administration Nausea/Vomiting Sodium Chloride 1,000 mls @ 50 mls/hr 09/04/20 11:00 09/07/20 10:56 Normal Saline 0.9% IV 1,000 mls .Q20H DARIANA Administration Labetalol HCl 10 mg 09/03/20 09:36 09/04/20 22:34 Labetalol Hcl 100 Mg/20 Ml Vial SLOW IVP 10 mg Q4H PRN Administration SBP Greater Than 180 Levothyroxine Sodium 25 mcg 08/31/20 06:00 09/07/20 05:47 Levothyroxine Sodium 25 Mcg Tab PO 25 mcg 0600 DARIANA Administration Loratadine 10 mg 09/04/20 14:11 09/04/20 14:38 Loratadine 10 Mg Tab PO 10 mg DAILYPRN PRN Administration Allergies Ondansetron HCl 4 mg 08/31/20 01:16 08/31/20 19:43 Ondansetron Pf 4 Mg/2 Ml Vial IVP 4 mg Q6H PRN Administration Nausea/Vomiting Sodium Chloride 10 ml 08/31/20 01:16 09/04/20 11:11 Flush - Normal Saline 10 Ml Syringe IVF 10 ml PRN PRN Administration Saline Flush Valacyclovir HCl 1,000 mg 09/05/20 23:59 09/07/20 08:24 Valacyclovir 500 Mg Tab PO 1,000 mg 0800,1600,2359 DARIANA Administration - Exam General Appearance: NAD, awake alert Eye: PERRL, anicteric sclera ENT: normocephalic atraumatic, no oropharyngeal lesions Neck: no JVD Heart: RRR, no murmur, no gallops, no rubs Respiratory: CTAB, no wheezes, no rales, no ronchi Gastrointestinal: soft, non-tender, non-distended, normal bowel sounds Extremities: no cyanosis, no clubbing, no edema Skin: normal turgor, no lesions, no rashes Neurological: normal sensation to touch, no weakness Neurological - other findings: 5/5 strength all extremities, some spasticity & pronator drift in left arm Hosp A/P - Plan MRI brain: No stroke Echo: Diastolic dysfunction with EF 60 to 65% Carotid Doppler: Left carotid artery stenosis CTA of the neck: Less than 50% stenosis the carotid artery MRI cervical spine: severe bone marrow abnormalities, most conspicuous at T3, enhancement and edema consistent with diffuse osseous metastatic disease. Discogenic changes most pronounced at C5-C6 CT chest/abdomen/pelvis: widespread osseous metastatic disease MRI lumbar spine: very extensive osseous metastatic disease. Worsening of moderate to severe degenerative changes at L1-L2, L2-L3 and stable disease at L3-L4. Left paracentral disc herniation at L1-L2 This 80-year-old female who presented with left-sided facial droop and left- sided weakness. MRI brain negative for stroke #Severe headache with left-sided weakness -possibly from meningitis/encephalitis vs complicated migraine #Fever -MRI of the brain negative for stroke on two occasions. LP done 09/03/20 shows high protein, 76% neutrophils, glucose of 51. Infectious disease consulted and did not think this was bacterial meningitis - CSF negative for HSV and syphilis. Cryptococcus is negative. CSF cytology negative. Positive for West Nile Virus IgG Antibodies and negative for IgM Antibodies. - she was on IV acyclovir empirically, converted to oral valtrex 1000 mg TID on 09/05. Will continue for total of 7 days -given gabapentin 100 mg bid for headache prophylaxis. Continue migraine cocktail prn . - PT had recommended rehab . Case management consulted for rehab options #Diffuse osseous bone metastases - MRI cervical spine showing severe bone marrow abnormality most conspicuous at T3 with enhancement and edema. MRI thoracic spine showing diffuse osseous metastases. CT chest/abdomen/pelvis showed widespread metastatic disease osseous. MRI lumbar spine showing DJD and diffuse osseous metastases - Awaiting results of bone biopsy done 09/06/20 PAT/Vtach noted on telemetry -Asymptomatic, prior Echo on 08/31/20 found no concerns -will monitor electrolytes Hypothyroidismcontinue levothyroxine Breast cancer- treatment is pending bone biopsy results Hypokalemia - potassium up to 3.6 Attending attestation: I have seen and examined patient with the medical student and agree with the plan Patient reports mild headache. She does have some weakness on left arm but can lift it up which she wasn't able to do on admission. She is still weak ambulating. She still has poor appetite Neuro: left pronator drift, left arm slightly flaccid. Can lift right arm higher than left. EOMI. Reflexes 1+ patella bilaterally. Strength 5/5 in upper and lower extremities Impression: 1. Meningitis vs complicated migraine 2. Diffuse osseous bone metastases 3. History of breast cancer Plan: will await bone biopsy results and will place case management consult for rehab
[2020-09-07] MEDS: Atorvastatin Calcium 40 MG TAB PO SCH (20:32)
[2020-09-08] MEDS: Levothyroxine Sodium 25 MCG TAB PO SCH (05:16)
[2020-09-08] MEDS: valACYclovir 500 MG TAB PO SCH ×2 (08:40→17:12)
[2020-09-08] MEDS: Amlodipine 5 MG TAB PO SCH (08:40)
[2020-09-08] MEDS: Gabapentin 100 MG CAP PO SCH (08:40)
[2020-09-08] MEDS: Sodium Chloride 0.9% 1,000 ML IV SCH (09:56)
[2020-09-08 12:14] LABS: CSF IgG Index 0.4 (0.0-0.7); CSF IgG Synthesis Rate -3.3 mg/day (-9.9 TO +3.3); IgG/Alb CSF 0.07 (0.00-0.25)
[2020-09-08] MEDS ORDERED: Ketorolac Tromethamine 30 MG/ML VIAL IVP PRN (17:42)
--- NOTE | 2020-09-08 17:45 | PDOC.HOSPP ---
- Subjective Encounter Date: 09/08/20 Encounter Time: 08:00 Subjective: F/u: meningitis, headache, weakness The patient has zero headache this am. She denies nausea or vomiting. She is able to lift all four arms and legs. She is interested in rehab. [facility] Referral is pending - Objective Vital Signs & Weight: Vital Signs (12 hours) Temp Pulse Resp BP Pulse Ox 09/08/20 16:00 98.0 F 86 14 153/70 H 96 09/08/20 11:24 98.3 F 88 16 147/63 H 96 09/08/20 08:33 87 162/71 H 09/08/20 07:26 97.6 F 80 20 145/60 H 95 Weight Admit Weight 131 lb 11.2 oz Weight 131 lb 11.2 oz I&O: 09/07/20 09/08/20 09/09/20 06:59 06:59 06:59 Intake Total 640 1750 480 Output Total 300 Balance 340 1750 480 Result Diagrams: 09/05/20 06:39 09/05/20 06:39 Hospitalist ROS - Review of Systems Constitutional: denies: fever, chills - Medication Medications: Active Medications Generic Name Dose Route Start Last Admin Trade Name Freq PRN Reason Stop Dose Admin Acetaminophen 650 mg 08/31/20 01:16 09/05/20 21:44 Acetaminophen 325 Mg Tab PO 650 mg Q4H PRN Administration Headache/Fever/Mild Pain (1-3) Amlodipine Besylate 5 mg 09/05/20 09:00 09/08/20 08:40 Amlodipine 5 Mg Tab PO 5 mg DAILY DARIANA Administration Atorvastatin Calcium 40 mg 08/31/20 21:00 09/07/20 20:32 Atorvastatin Calcium 40 Mg Tab PO 40 mg HS DARIANA Administration Gabapentin 100 mg 09/07/20 09:00 09/08/20 08:40 Gabapentin 100 Mg Cap PO 100 mg DAILY DARIANA Administration Prochlorperazine Edisylate 5 51 mls @ 150 mls/hr 09/02/20 14:04 09/03/20 23:08 mg/ Sodium Chloride IVPB 51 mls Q6H PRN Administration Nausea/Vomiting Labetalol HCl 10 mg 09/03/20 09:36 09/04/20 22:34 Labetalol Hcl 100 Mg/20 Ml Vial SLOW IVP 10 mg Q4H PRN Administration SBP Greater Than 180 Levothyroxine Sodium 25 mcg 08/31/20 06:00 09/08/20 05:16 Levothyroxine Sodium 25 Mcg Tab PO 25 mcg 0600 DARIANA Administration Loratadine 10 mg 09/04/20 14:11 09/04/20 14:38 Loratadine 10 Mg Tab PO 10 mg DAILYPRN PRN Administration Allergies Ondansetron HCl 4 mg 08/31/20 01:16 08/31/20 19:43 Ondansetron Pf 4 Mg/2 Ml Vial IVP 4 mg Q6H PRN Administration Nausea/Vomiting Sodium Chloride 10 ml 08/31/20 01:16 09/04/20 11:11 Flush - Normal Saline 10 Ml Syringe IVF 10 ml PRN PRN Administration Saline Flush Valacyclovir HCl 1,000 mg 09/05/20 23:59 09/08/20 17:12 Valacyclovir 500 Mg Tab PO 1,000 mg 0800,1600,2359 DARIANA Administration - Exam General Appearance: NAD, awake alert Eye: PERRL, anicteric sclera ENT: normocephalic atraumatic, no oropharyngeal lesions Neck: supple, no JVD Heart: RRR, no murmur, no gallops, no rubs Respiratory: CTAB, no rales Gastrointestinal: non-tender, normal bowel sounds Extremities: no cyanosis, no clubbing, no edema Skin: normal turgor, no lesions, no rashes Neurological - other findings: 5/5 strength upper and lower extremities. Mild weakness left arm Psychiatric: normal affect, normal behavior, A&O x 3 Hosp A/P - Plan MRI brain: No stroke Echo: Diastolic dysfunction with EF 60 to 65% Carotid Doppler: Left carotid artery stenosis CTA of the neck: Less than 50% stenosis the carotid artery MRI cervical spine: severe bone marrow abnormalities, most conspicuous at T3, enhancement and edema consistent with diffuse osseous metastatic disease. Discogenic changes most pronounced at C5-C6 CT chest/abdomen/pelvis: widespread osseous metastatic disease MRI lumbar spine: very extensive osseous metastatic disease. Worsening of moderate to severe degenerative changes at L1-L2, L2-L3 and stable disease at L 3-L4. Left paracentral disc herniation at L1-L2 This 80-year-old female who presented with left-sided facial droop and left- sided weakness. MRI brain negative for stroke #Severe headache with left-sided weakness -possibly from viral meningitis/encephalitis vs complicated migraine #Fever -MRI of the brain negative for stroke on two occasions. LP done 09/03/20 shows high protein, 76% neutrophils, glucose of 51. Infectious disease consulted and did not think this was bacterial meningitis - CSF negative for HSV and syphilis. Cryptococcus is negative. CSF cytology neg ative. Positive for West Nile Virus IgG Antibodies and negative for IgM Anti bodies. - she was on IV acyclovir empirically, converted to oral valtrex 1000 mg TID on 09/05. Will continue for total of 7 days -given gabapentin 100 mg bid for headache prophylaxis. Continue toradol, compazine prn for migraines - 09/07: CSF myelin basic protein is elevated , but no oligoclonal bands. Per neurology, unlikely MS but can follow up with a neuroimmunologist as an outpatient - PT had recommended rehab . Pending placement currently #Metastatic breast cancer with osseous bone metastases - MRI cervical spine showing severe bone marrow abnormality most conspicuous at T3 with enhancement and edema. MRI thoracic spine showing diffuse osseous metastases. CT chest/abdomen/pelvis showed widespread metastatic disease osseous. MRI lumbar spine showing DJD and diffuse osseous metastases -Bone biopsy done shows metastatic breast cancer. Discussed with oncology. They will follow up with her as an outpatient. Recommended not restarting irimidex currently PAT/Vtach noted on telemetry -Asymptomatic, prior Echo on 08/31/20 found no concerns -will check magnesium level Hypothyroidismcontinue levothyroxine
[2020-09-08] MEDS: Loratadine 10 MG TAB PO PRN (18:02)
[2020-09-08 19:17] LABS: Hemoglobin 12.7 g/dL (12.0-16.0); Mean Corpuscular HGB CONC 32.6 g/dL (32.0-36.0); Mean Corpuscular Hemoglobin 27.1 pg (27.0-31.0); Mean Corpuscular Volume 83.1 fL (78.0-98.0); Mean Platelet Volume 10.9 fL (7.4-10.4); Platelet Count 120 thou/uL (130-400); RBC Distribution Width 14.8 % (11.5-14.5); Red Blood Cell (RBC) Count 4.68 mill/uL (4.20-5.40); White Blood Cell (WBC) Count 7.9 thou/uL (4.8-10.8)
[2020-09-08 19:38] LABS: Anion Gap 15 mmol/L (10-20); BUN (Urea Nitrogen) 8 mg/dL (9.8-20.1); Calc. Creatinine Clearance 67 mL/min (70-130); Calcium 8.7 mg/dL (7.8-10.44); Carbon Dioxide 20 mmol/L (23-31); Chloride 108 mmol/L (98-107); Glucose 99 mg/dL (83-110); Magnesium 1.9 mg/dL (1.6-2.6); Sodium 140 mmol/L (136-145)
[2020-09-08 20:09] LABS: Potassium 2.9 mmol/L (3.5-5.1)
[2020-09-08] MEDS ORDERED: Potassium Chloride 20 MEQ TAB PO SCH (20:45)
[2020-09-08] MEDS: Atorvastatin Calcium 40 MG TAB PO SCH (20:48)
[2020-09-08] MEDS ORDERED: Potassium Phosphate 30 MMOL in Sodium Chloride 0.9% 250 ML 250 ML IVPB SCH (21:00)
[2020-09-09] MEDS: valACYclovir 500 MG TAB PO SCH ×3 (00:01→16:18)
[2020-09-09] MEDS: Levothyroxine Sodium 25 MCG TAB PO SCH (05:09)
[2020-09-09 05:37] LABS: Anion Gap 16 mmol/L (10-20); BUN (Urea Nitrogen) 11 mg/dL (9.8-20.1); Calc. Creatinine Clearance 67 mL/min (70-130); Calcium 8.2 mg/dL (7.8-10.44); Carbon Dioxide 19 mmol/L (23-31); Chloride 112 mmol/L (98-107); Glucose 89 mg/dL (83-110); Potassium 3.9 mmol/L (3.5-5.1); Sodium 143 mmol/L (136-145)
[2020-09-09 05:46] LABS: Hemoglobin 13.1 g/dL (12.0-16.0); Mean Corpuscular HGB CONC 33.1 g/dL (32.0-36.0); Mean Corpuscular Hemoglobin 27.9 pg (27.0-31.0); Mean Corpuscular Volume 84.4 fL (78.0-98.0); Platelet Count 103 thou/uL (130-400); RBC Distribution Width 14.9 % (11.5-14.5); Red Blood Cell (RBC) Count 4.68 mill/uL (4.20-5.40); White Blood Cell (WBC) Count 6.8 thou/uL (4.8-10.8)
[2020-09-09] MEDS: Amlodipine 5 MG TAB PO SCH (08:19)
[2020-09-09] MEDS: Gabapentin 100 MG CAP PO SCH (08:19)
[2020-09-09] MEDS: Loratadine 10 MG TAB PO PRN (12:40)
--- NOTE | 2020-09-09 14:45 | PDOC.HOSPP ---
- Subjective Encounter Date: 09/09/20 Encounter Time: 12:00 Subjective: F/u: The patient is doing well. SHe has only a mild headache. No nausea or vomiting. No photophobia. She is still pending a bed - Objective Vital Signs & Weight: Vital Signs (12 hours) Temp Pulse Resp BP Pulse Ox 09/09/20 12:00 98.5 F 90 16 131/66 99 09/09/20 07:23 98 F 85 14 133/66 96 09/09/20 03:33 97.5 F L 86 20 122/55 L 94 L Weight Admit Weight 131 lb 11.2 oz Weight 131 lb 11.2 oz I&O: 09/08/20 09/09/20 09/10/20 06:59 06:59 06:59 Intake Total 1750 840 30 Balance 1750 840 30 Result Diagrams: 09/09/20 05:16 09/09/20 05:16 Hospitalist ROS - Review of Systems Constitutional: denies: fever, chills - Medication Medications: Active Medications Generic Name Dose Route Start Last Admin Trade Name Freq PRN Reason Stop Dose Admin Acetaminophen 650 mg 08/31/20 01:16 09/05/20 21:44 Acetaminophen 325 Mg Tab PO 650 mg Q4H PRN Administration Headache/Fever/Mild Pain (1-3) Amlodipine Besylate 5 mg 09/05/20 09:00 09/09/20 08:19 Amlodipine 5 Mg Tab PO 5 mg DAILY DARIANA Administration Atorvastatin Calcium 40 mg 08/31/20 21:00 09/08/20 20:48 Atorvastatin Calcium 40 Mg Tab PO 40 mg HS DARIANA Administration Gabapentin 100 mg 09/07/20 09:00 09/09/20 08:19 Gabapentin 100 Mg Cap PO 100 mg DAILY DARIANA Administration Prochlorperazine Edisylate 5 51 mls @ 150 mls/hr 09/02/20 14:04 09/03/20 23:08 mg/ Sodium Chloride IVPB 51 mls Q6H PRN Administration Nausea/Vomiting Ketorolac Tromethamine 15 mg 09/08/20 17:42 09/08/20 18:02 Ketorolac Tromethamine 30 Mg/Ml Vial IVP 09/13/20 18:01 15 mg Q6HR PRN Administration Headache Labetalol HCl 10 mg 09/03/20 09:36 09/04/20 22:34 Labetalol Hcl 100 Mg/20 Ml Vial SLOW IVP 10 mg Q4H PRN Administration SBP Greater Than 180 Levothyroxine Sodium 25 mcg 08/31/20 06:00 09/09/20 05:09 Levothyroxine Sodium 25 Mcg Tab PO 25 mcg 0600 DARIANA Administration Loratadine 10 mg 09/04/20 14:11 09/09/20 12:40 Loratadine 10 Mg Tab PO 10 mg DAILYPRN PRN Administration Allergies Ondansetron HCl 4 mg 08/31/20 01:16 08/31/20 19:43 Ondansetron Pf 4 Mg/2 Ml Vial IVP 4 mg Q6H PRN Administration Nausea/Vomiting Sodium Chloride 10 ml 08/31/20 01:16 09/04/20 11:11 Flush - Normal Saline 10 Ml Syringe IVF 10 ml PRN PRN Administration Saline Flush Valacyclovir HCl 1,000 mg 09/05/20 23:59 09/09/20 08:19 Valacyclovir 500 Mg Tab PO 1,000 mg 0800,1600,2359 DARIANA Administration - Exam General Appearance: NAD, awake alert Eye: PERRL, anicteric sclera ENT: normocephalic atraumatic, no oropharyngeal lesions Neck: no JVD Heart: RRR, no murmur, no gallops, no rubs Respiratory: CTAB, no wheezes, no rales, no ronchi Gastrointestinal: negative: soft, non-tender, non-distended, normal bowel sounds, no palpable masses, no hepatomegaly, no splenomegaly, no bruit, no guarding, no rigidity, tender to palpation, distended, diminished bowl sounds, voluntary guarding Extremities: no cyanosis, no clubbing, no edema Neurological: cranial nerve grossly intact, normal sensation to touch Musculoskeletal: normal tone, normal strength, no muscle wasting Psychiatric: normal affect, normal behavior, A&O x 3 Hosp A/P - Plan MRI brain: No stroke Echo: Diastolic dysfunction with EF 60 to 65% Carotid Doppler: Left carotid artery stenosis CTA of the neck: Less than 50% stenosis the carotid artery MRI cervical spine: severe bone marrow abnormalities, most conspicuous at T3, enhancement and edema consistent with diffuse osseous metastatic disease. Discogenic changes most pronounced at C5-C6 CT chest/abdomen/pelvis: widespread osseous metastatic disease MRI lumbar spine: very extensive osseous metastatic disease. Worsening of moderate to severe degenerative changes at L1-L2, L2-L3 and stable disease at L3-L4. Left paracentral disc herniation at L1-L2 This 80-year-old female who presented with left-sided facial droop and left- sided weakness. MRI brain negative for stroke #Severe headache with left-sided weakness -possibly from viral meningitis/encephalitis vs complicated migraine #Fever -MRI of the brain negative for stroke on two occasions. LP done 09/03/20 shows high protein, 76% neutrophils, glucose of 51. Infectious disease consulted and did not think this was bacterial meningitis - CSF negative for HSV and syphilis. Cryptococcus is negative. CSF cytology ne gative. Positive for West Nile Virus IgG Antibodies and negative for IgM Ant ibodies. - she was on IV acyclovir empirically, converted to oral valtrex 1000 mg TID on 09/05. Will continue for total of 7 days -given gabapentin 100 mg bid for headache prophylaxis. Continue toradol, compazine prn for migraines - 09/07: CSF myelin basic protein is elevated , but no oligoclonal bands. Per neurology, unlikely MS but can follow up with a neuroimmunologist as an outpatient - PT had recommended rehab . Pending placement currently #Metastatic breast cancer with osseous bone metastases - MRI cervical spine showing severe bone marrow abnormality most conspicuous at T3 with enhancement and edema. MRI thoracic spine showing diffuse osseous metastases. CT chest/abdomen/pelvis showed widespread metastatic disease osseous. MRI lumbar spine showing DJD and diffuse osseous metastases -Bone biopsy done shows metastatic breast cancer. Discussed with oncology. They will follow up with her as an outpatient. Recommended not restarting irimidex currently PAT/Vtach noted on telemetry -Asymptomatic, prior Echo on 08/31/20 found no concerns -magnesium level normal Hypothyroidismcontinue levothyroxine
[2020-09-09] MEDS: Atorvastatin Calcium 40 MG TAB PO SCH (20:51)
[2020-09-10] MEDS: valACYclovir 500 MG TAB PO SCH ×4 (00:06→23:31)
[2020-09-10] MEDS: Levothyroxine Sodium 25 MCG TAB PO SCH (06:09)
[2020-09-10] MEDS: Amlodipine 5 MG TAB PO SCH (09:25)
[2020-09-10] MEDS: Gabapentin 100 MG CAP PO SCH (09:26)
--- NOTE | 2020-09-10 14:05 | PDOC.HOSPP ---
- Subjective Encounter Date: 09/10/20 Subjective: Patient reports she is doing very well. She has no headache presently. Does not have significant amount of weakness at this time. She was able to get up and ambulate about 250 feet with therapy. - Objective Vital Signs & Weight: Vital Signs (12 hours) Temp Pulse Resp BP Pulse Ox 09/10/20 12:00 97.9 F 91 16 126/63 97 09/10/20 09:25 79 09/10/20 08:00 97.2 F L 81 17 145/68 H 96 09/10/20 04:00 97.7 F 79 16 139/69 99 Weight Admit Weight 131 lb 11.2 oz Weight 131 lb 11.2 oz I&O: 09/09/20 09/10/20 09/11/20 06:59 06:59 06:59 Intake Total 840 650 Balance 840 650 Result Diagrams: 09/09/20 05:16 09/09/20 05:16 Hospitalist ROS - Medication Medications: Active Medications Generic Name Dose Route Start Last Admin Trade Name Freq PRN Reason Stop Dose Admin Acetaminophen 650 mg 08/31/20 01:16 09/05/20 21:44 Acetaminophen 325 Mg Tab PO 650 mg Q4H PRN Administration Headache/Fever/Mild Pain (1-3) Amlodipine Besylate 5 mg 09/05/20 09:00 09/10/20 09:25 Amlodipine 5 Mg Tab PO 5 mg DAILY DARIANA Administration Atorvastatin Calcium 40 mg 08/31/20 21:00 09/09/20 20:51 Atorvastatin Calcium 40 Mg Tab PO 40 mg HS DARIANA Administration Gabapentin 100 mg 09/07/20 09:00 09/10/20 09:26 Gabapentin 100 Mg Cap PO 100 mg DAILY DARIANA Administration Prochlorperazine Edisylate 5 51 mls @ 150 mls/hr 09/02/20 14:04 09/03/20 23:08 mg/ Sodium Chloride IVPB 51 mls Q6H PRN Administration Nausea/Vomiting Ketorolac Tromethamine 15 mg 09/08/20 17:42 09/08/20 18:02 Ketorolac Tromethamine 30 Mg/Ml Vial IVP 09/13/20 18:01 15 mg Q6HR PRN Administration Headache Labetalol HCl 10 mg 09/03/20 09:36 09/04/20 22:34 Labetalol Hcl 100 Mg/20 Ml Vial SLOW IVP 10 mg Q4H PRN Administration SBP Greater Than 180 Levothyroxine Sodium 25 mcg 08/31/20 06:00 09/10/20 06:09 Levothyroxine Sodium 25 Mcg Tab PO 25 mcg 0600 DARIANA Administration Loratadine 10 mg 09/04/20 14:11 09/09/20 12:40 Loratadine 10 Mg Tab PO 10 mg DAILYPRN PRN Administration Allergies Ondansetron HCl 4 mg 08/31/20 01:16 08/31/20 19:43 Ondansetron Pf 4 Mg/2 Ml Vial IVP 4 mg Q6H PRN Administration Nausea/Vomiting Sodium Chloride 10 ml 08/31/20 01:16 09/04/20 11:11 Flush - Normal Saline 10 Ml Syringe IVF 10 ml PRN PRN Administration Saline Flush Valacyclovir HCl 1,000 mg 09/05/20 23:59 09/10/20 09:25 Valacyclovir 500 Mg Tab PO 1,000 mg 0800,1600,2359 DARIANA Administration - Exam General Appearance: NAD, awake alert Heart: RRR, no murmur, no gallops, no rubs, normal peripheral pulses Respiratory: CTAB, no wheezes, no rales, no ronchi, normal chest expansion, no tachypnea, normal percussion Gastrointestinal: soft, non-tender, non-distended, normal bowel sounds, no palpable masses, no hepatomegaly, no splenomegaly, no bruit Extremities: no cyanosis, no clubbing, no edema Skin: normal turgor, no lesions, no rashes Neurological: cranial nerve grossly intact, normal sensation to touch, no weakness, no focal deficits, no new deficit Musculoskeletal: normal tone Psychiatric: normal affect, normal behavior, A&O x 3 Hosp A/P (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 - SECONDARY MALIGNANT NEOPLASM OF OTH PARTS OF NERVOUS SYSTEM; C80.1 - MALIGNANT (PRIMARY) NEOPLASM, UNSPECIFIED Status: Acute (2) Metastatic breast cancer Code(s): C50.919 - MALIGNANT NEOPLASM OF UNSP SITE OF UNSPECIFIED FEMALE BREAST Status: Acute (3) HTN (hypertension) Code(s): I10 - ESSENTIAL (PRIMARY) HYPERTENSION Status: Acute (4) Hypothyroidism Code(s): E03.9 - HYPOTHYROIDISM, UNSPECIFIED Status: Acute - Plan MRI brain: No stroke Echo: Diastolic dysfunction with EF 60 to 65% Carotid Doppler: Left carotid artery stenosis CTA of the neck: Less than 50% stenosis the carotid artery MRI cervical spine: severe bone marrow abnormalities, most conspicuous at T3, enhancement and edema consistent with diffuse osseous metastatic disease. Discogenic changes most pronounced at C5-C6 CT chest/abdomen/pelvis: widespread osseous metastatic disease MRI lumbar spine: very extensive osseous metastatic disease. Worsening of moderate to severe degenerative changes at L1-L2, L2-L3 and stable disease at L3-L4. Left paracentral disc herniation at L1-L2 This 80-year-old female who presented with left-sided facial droop and left- sided weakness. Carcinomatous meningitis: -MRI of the brain negative for stroke on two occasions. LP done 09/03/20 shows high protein, 76% neutrophils, glucose of 51. Infectious disease consulted and did not think this was bacterial meningitis -CSF negative for HSV and syphilis. Cryptococcus is negative. CSF cytology negative. Positive for West Nile Virus IgG Antibodies and negative for IgM Antibodies. - she was on IV acyclovir empirically, converted to oral valtrex 1000 mg TID on 09/05. Will continue for total of 7 days -given gabapentin 100 mg bid for headache prophylaxis. Continue toradol, co mpazine prn for migraines - 09/07: CSF myelin basic protein is elevated , but no oligoclonal bands. 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 Appears to be significantly improved symptomatically. Metastatic breast cancer with osseous bone metastases: - MRI cervical spine showing severe bone marrow abnormality most conspicuous at T3 with enhancement and edema. MRI thoracic spine showing diffuse osseous metastases. CT chest/abdomen/pelvis showed widespread metastatic disease osseous. MRI lumbar spine showing DJD and diffuse osseous metastases -Bone biopsy done shows metastatic breast cancer. Discussed with oncology. They will follow up with her as an outpatient. Recommended not restarting irimidex currently PAT/Vtach noted on telemetry: -Asymptomatic, prior Echo on 08/31/20 found no concerns -magnesium level normal Hypothyroidism: continue levothyroxine Disposition: Patient was able to ambulate pretty well with physical therapy. Had a long conversation with with her and her who is at the bedside today. Discussed potential options for disposition including home with home health and physical therapy. Currently the patient and her are between homes. They are waiting on their new place to be finished. They will discuss their potential options as they will likely be going to a hotel in the interim.
[2020-09-10] MEDS: Atorvastatin Calcium 40 MG TAB PO SCH (20:15)
[2020-09-10] MEDS: Loratadine 10 MG TAB PO PRN (20:15)
[2020-09-11] MEDS: Levothyroxine Sodium 25 MCG TAB PO SCH (05:37)
[2020-09-11] MEDS: Acetaminophen 325 MG TAB PO PRN (06:13)
[2020-09-11] MEDS: Gabapentin 100 MG CAP PO SCH (08:07)
[2020-09-11] MEDS: Amlodipine 5 MG TAB PO SCH (08:08)
[2020-09-11] MEDS: valACYclovir 500 MG TAB PO SCH ×2 (10:40→18:01)
--- NOTE | 2020-09-11 10:50 | PDOC.HOSPP ---
- Subjective Encounter Date: 09/11/20 Subjective: Continues to feel very well. She has some mild headache that resolves fairly quickly with modest treatments. - Objective Vital Signs & Weight: Vital Signs (12 hours) Temp Pulse Resp BP Pulse Ox 09/11/20 07:30 98.2 F 82 15 143/67 H 95 09/11/20 03:51 98.0 F 93 16 117/73 96 09/10/20 23:32 88 18 122/53 L Weight Admit Weight 131 lb 11.2 oz Weight 123 lb 3.2 oz I&O: 09/10/20 09/11/20 09/12/20 06:59 06:59 06:59 Intake Total 650 680 Balance 650 680 Result Diagrams: 09/09/20 05:16 09/09/20 05:16 Hospitalist ROS - Medication Medications: Active Medications Generic Name Dose Route Start Last Admin Trade Name Freq PRN Reason Stop Dose Admin Acetaminophen 650 mg 08/31/20 01:16 09/11/20 06:13 Acetaminophen 325 Mg Tab PO 650 mg Q4H PRN Administration Headache/Fever/Mild Pain (1-3) Amlodipine Besylate 5 mg 09/05/20 09:00 09/11/20 08:08 Amlodipine 5 Mg Tab PO 5 mg DAILY DARIANA Administration Atorvastatin Calcium 40 mg 08/31/20 21:00 09/10/20 20:15 Atorvastatin Calcium 40 Mg Tab PO 40 mg HS DARIANA Administration Gabapentin 100 mg 09/07/20 09:00 09/11/20 08:07 Gabapentin 100 Mg Cap PO 100 mg DAILY DARIANA Administration Prochlorperazine Edisylate 5 51 mls @ 150 mls/hr 09/02/20 14:04 09/03/20 23:08 mg/ Sodium Chloride IVPB 51 mls Q6H PRN Administration Nausea/Vomiting Ketorolac Tromethamine 15 mg 09/08/20 17:42 09/08/20 18:02 Ketorolac Tromethamine 30 Mg/Ml Vial IVP 09/13/20 18:01 15 mg Q6HR PRN Administration Headache Labetalol HCl 10 mg 09/03/20 09:36 09/04/20 22:34 Labetalol Hcl 100 Mg/20 Ml Vial SLOW IVP 10 mg Q4H PRN Administration SBP Greater Than 180 Levothyroxine Sodium 25 mcg 08/31/20 06:00 09/11/20 05:37 Levothyroxine Sodium 25 Mcg Tab PO 25 mcg 0600 DARIANA Administration Loratadine 10 mg 09/04/20 14:11 09/10/20 20:15 Loratadine 10 Mg Tab PO 10 mg DAILYPRN PRN Administration Allergies Ondansetron HCl 4 mg 08/31/20 01:16 08/31/20 19:43 Ondansetron Pf 4 Mg/2 Ml Vial IVP 4 mg Q6H PRN Administration Nausea/Vomiting Sodium Chloride 10 ml 08/31/20 01:16 09/04/20 11:11 Flush - Normal Saline 10 Ml Syringe IVF 10 ml PRN PRN Administration Saline Flush Valacyclovir HCl 1,000 mg 09/05/20 23:59 09/10/20 23:31 Valacyclovir 500 Mg Tab PO 1,000 mg 0800,1600,2359 DARIANA Administration - Exam General Appearance: NAD, awake alert Heart: RRR, no murmur, no gallops, no rubs, normal peripheral pulses Respiratory: CTAB, no wheezes, no rales, no ronchi, normal chest expansion, no tachypnea, normal percussion Gastrointestinal: soft, non-tender, non-distended, normal bowel sounds, no palpable masses, no hepatomegaly, no splenomegaly, no bruit Extremities: no cyanosis, no clubbing, no edema Skin: normal turgor Neurological: cranial nerve grossly intact, normal sensation to touch, no weakness, no focal deficits, no new deficit Musculoskeletal: normal tone, normal strength Psychiatric: normal affect, normal behavior, A&O x 3 Hosp A/P (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 - SECONDARY MALIGNANT NEOPLASM OF OTH PARTS OF NERVOUS SYSTEM; C80.1 - MALIGNANT (PRIMARY) NEOPLASM, UNSPECIFIED Status: Acute (2) Metastatic breast cancer Code(s): C50.919 - MALIGNANT NEOPLASM OF UNSP SITE OF UNSPECIFIED FEMALE BREAST Status: Acute (3) HTN (hypertension) Code(s): I10 - ESSENTIAL (PRIMARY) HYPERTENSION Status: Acute (4) Hypothyroidism Code(s): E03.9 - HYPOTHYROIDISM, UNSPECIFIED Status: Acute - Plan MRI brain: No stroke Echo: Diastolic dysfunction with EF 60 to 65% Carotid Doppler: Left carotid artery stenosis CTA of the neck: Less than 50% stenosis the carotid artery MRI cervical spine: severe bone marrow abnormalities, most conspicuous at T3, enhancement and edema consistent with diffuse osseous metastatic disease. Dis cogenic changes most pronounced at C5-C6 CT chest/abdomen/pelvis: widespread osseous metastatic disease MRI lumbar spine: very extensive osseous metastatic disease. Worsening of moderate to severe degenerative changes at L1-L2, L2-L3 and stable disease at L3-L4. Left paracentral disc herniation at L1-L2 This 80-year-old female who presented with left-sided facial droop and left- sided weakness. Carcinomatous meningitis: -MRI of the brain negative for stroke on two occasions. LP done 09/03/20 shows high protein, 76% neutrophils, glucose of 51. Infectious disease consulted and did not think this was bacterial meningitis -CSF negative for HSV and syphilis. Cryptococcus is negative. CSF cytology negat delgado. Positive for West Nile Virus IgG Antibodies and negative for IgM Antibodies. - she was on IV acyclovir empirically, converted to oral valtrex 1000 mg TID on 09/05. Will continue for total of 7 days -given gabapentin 100 mg bid for headache prophylaxis. Continue toradol, compazine prn for migraines - 09/07: CSF myelin basic protein is elevated , but no oligoclonal bands. Per neurology, unlikely MS. -With the findings of significant metastatic disease to the spine this most likely represents carcinomatous meningitis. Appears to be significantly improved symptomatically. Metastatic breast cancer with osseous bone metastases: -MRI cervical spine showing severe bone marrow abnormality most conspicuous at T3 with enhancement and edema. MRI thoracic spine showing diffuse osseous metastases. CT chest/abdomen/pelvis showed widespread metastatic disease osseous. MRI lumbar spine showing DJD and diffuse osseous metastases Bone biopsy done shows metastatic breast cancer. Discussed with oncology. They will follow up with her as an outpatient. Recommended not restarting irimidex currently PAT/Vtach noted on telemetry: Asymptomatic, prior Echo on 08/31/20 found no concerns magnesium level normal Hypothyroidism: continue levothyroxine Disposition: Awaiting approval for rehab.
[2020-09-11 11:37] LABS: Lyme IgG/IgM AB <0.91 ISR (0.00-0.90)
--- NOTE | 2020-09-11 15:38 | PDOC.MOPN ---
Interval History: dozing, no distress - Vital Signs Vital Signs: Vital Signs (12 hours) Temp Pulse Pulse Pulse Resp BP BP 09/11/20 14:02 81 90 132/63 139/57 L 09/11/20 11:45 97.7 F 82 20 09/11/20 07:30 98.2 F 82 15 09/11/20 03:51 98.0 F 93 16 BP Pulse Ox 09/11/20 14:02 09/11/20 11:45 137/67 95 09/11/20 07:30 143/67 H 95 09/11/20 03:51 117/73 96 Weight Admit Weight 131 lb 11.2 oz Weight 123 lb 3.2 oz - Physical Exam General: No acute distress HEENT: Atraumatic Lungs: Clear to auscultation Cardiovascular: Regular rate Psych/Mental Status: Mental status NL - Labs Result Diagrams: 09/09/20 05:16 09/09/20 05:16 Lab results: Laboratory Results - last 24 hr 09/07/20 11:13: Lyme Disease IgG/IgM <0.91 09/03/20 11:12: CSF Myelin Basic Protein 6.3 H Status: lab reviewed by me A/P - Problem (1) Hx of breast cancer Current Visit: Yes Code(s): Z85.3 - PERSONAL HISTORY OF MALIGNANT NEOPLASM OF BREAST Status: Acute (2) Metastatic disease Current Visit: Yes Code(s): C79.9 - SECONDARY MALIGNANT NEOPLASM OF UNSPECIFIED SITE Status: Acute - Plan Plan: 1. bone biopsy shows metastatic breast cancer 2. ER+/DC-/HER2- 3. will resume Arimidex 4. To rehab to get stronger prior to starting new treatment 5. Follow-up in Clinic with Dr. Moeller.
[2020-09-11] MEDS: Atorvastatin Calcium 40 MG TAB PO SCH (21:24)
[2020-09-12] MEDS: Loratadine 10 MG TAB PO PRN (01:00)
[2020-09-12] MEDS: valACYclovir 500 MG TAB PO SCH ×4 (01:00→23:28)
[2020-09-12] MEDS: Levothyroxine Sodium 25 MCG TAB PO SCH (05:56)
[2020-09-12] MEDS: Gabapentin 100 MG CAP PO SCH (10:25)
[2020-09-12] MEDS: Amlodipine 5 MG TAB PO SCH (10:26)
[2020-09-12] MEDS: Anastrozole 1 MG TAB PO SCH (10:27)
--- NOTE | 2020-09-12 10:40 | PDOC.HOSPP ---
- Subjective Encounter Date: 09/12/20 Subjective: Well. No complaints. Denies any headache. - Objective Vital Signs & Weight: Vital Signs (12 hours) Temp Pulse Resp BP BP Pulse Ox 09/12/20 10:26 89 132/60 09/12/20 07:39 98.2 F 88 16 114/71 97 09/12/20 04:00 98.2 F 82 16 122/54 L 95 09/12/20 00:00 98.2 F 87 17 129/63 97 Weight Admit Weight 131 lb 11.2 oz Weight 123 lb 3.2 oz I&O: 09/11/20 09/12/20 09/13/20 06:59 06:59 06:59 Intake Total 680 120 Balance 680 120 Result Diagrams: 09/09/20 05:16 09/09/20 05:16 Hospitalist ROS - Medication Medications: Active Medications Generic Name Dose Route Start Last Admin Trade Name Freq PRN Reason Stop Dose Admin Acetaminophen 650 mg 08/31/20 01:16 09/11/20 06:13 Acetaminophen 325 Mg Tab PO 650 mg Q4H PRN Administration Headache/Fever/Mild Pain (1-3) Amlodipine Besylate 5 mg 09/05/20 09:00 09/12/20 10:26 Amlodipine 5 Mg Tab PO 5 mg DAILY DARIANA Administration Anastrozole 1 mg 09/12/20 09:00 09/12/20 10:27 Anastrozole 1 Mg Tab PO 1 mg DAILY DARIANA Administration Atorvastatin Calcium 40 mg 08/31/20 21:00 09/11/20 21:24 Atorvastatin Calcium 40 Mg Tab PO 40 mg HS DARIANA Administration Gabapentin 100 mg 09/07/20 09:00 09/12/20 10:25 Gabapentin 100 Mg Cap PO 100 mg DAILY DARIANA Administration Prochlorperazine Edisylate 5 51 mls @ 150 mls/hr 09/02/20 14:04 09/03/20 23:08 mg/ Sodium Chloride IVPB 51 mls Q6H PRN Administration Nausea/Vomiting Ketorolac Tromethamine 15 mg 09/08/20 17:42 09/08/20 18:02 Ketorolac Tromethamine 30 Mg/Ml Vial IVP 09/13/20 18:01 15 mg Q6HR PRN Administration Headache Labetalol HCl 10 mg 09/03/20 09:36 01/04/21 22:34 Labetalol Hcl 100 Mg/20 Ml Vial SLOW IVP 10 mg Q4H PRN Administration SBP Greater Than 180 Levothyroxine Sodium 25 mcg 08/31/20 06:00 09/12/20 05:56 Levothyroxine Sodium 25 Mcg Tab PO 25 mcg 0600 DARIANA Administration Loratadine 10 mg 09/04/20 14:11 09/12/20 01:00 Loratadine 10 Mg Tab PO 10 mg DAILYPRN PRN Administration Allergies Ondansetron HCl 4 mg 08/31/20 01:16 08/31/20 19:43 Ondansetron Pf 4 Mg/2 Ml Vial IVP 4 mg Q6H PRN Administration Nausea/Vomiting Sodium Chloride 10 ml 08/31/20 01:16 09/04/20 11:11 Flush - Normal Saline 10 Ml Syringe IVF 10 ml PRN PRN Administration Saline Flush Valacyclovir HCl 1,000 mg 09/05/20 23:59 09/12/20 10:25 Valacyclovir 500 Mg Tab PO 1,000 mg 0800,1600,2359 DARIANA Administration - Exam General Appearance: NAD, awake alert Neck: supple, symmetric, no JVD, no thyromegaly, no lymphadenopathy, no carotid bruit Heart: RRR, no murmur, no gallops, no rubs, normal peripheral pulses Respiratory: CTAB, no wheezes, no rales, no ronchi, normal chest expansion, no tachypnea, normal percussion Gastrointestinal: soft, non-tender, non-distended, normal bowel sounds, no pal pable masses, no hepatomegaly, no splenomegaly, no bruit Extremities: no cyanosis, no clubbing, no edema Neurological: no focal deficits Musculoskeletal: normal strength Psychiatric: normal affect, normal behavior, A&O x 3 Hosp A/P (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 - SECONDARY MALIGNANT NEOPLASM OF OTH PARTS OF NERVOUS SYSTEM; C80.1 - MALIGNANT (PRIMARY) NEOPLASM, UNSPECIFIED Status: Acute (2) Metastatic breast cancer Code(s): C50.919 - MALIGNANT NEOPLASM OF UNSP SITE OF UNSPECIFIED FEMALE BREAST Status: Acute (3) HTN (hypertension) Code(s): I10 - ESSENTIAL (PRIMARY) HYPERTENSION Status: Acute (4) Hypothyroidism Code(s): E03.9 - HYPOTHYROIDISM, UNSPECIFIED Status: Acute - Plan MRI brain: No stroke Echo: Diastolic dysfunction with EF 60 to 65% Carotid Doppler: Left carotid artery stenosis CTA of the neck: Less than 50% stenosis the carotid artery MRI cervical spine: severe bone marrow abnormalities, most conspicuous at T3, enhancement and edema consistent with diffuse osseous metastatic disease. Discogenic changes most pronounced at C5-C6 CT chest/abdomen/pelvis: widespread osseous metastatic disease MRI lumbar spine: very extensive osseous metastatic disease. Worsening of mode rate to severe degenerative changes at L1-L2, L2-L3 and stable disease at L3-L4. Left paracentral disc herniation at L1-L2 This 80-year-old female who presented with left-sided facial droop and left- sided weakness. Carcinomatous meningitis: -MRI of the brain negative for stroke on two occasions. LP done 09/03/20 shows high protein, 76% neutrophils, glucose of 51. Infectious disease consulted and did not think this was bacterial meningitis -CSF negative for HSV and syphilis. Cryptococcus is negative. CSF cytology negative. Positive for West Nile Virus IgG Antibodies and negative for IgM Antibodies. - she was on IV acyclovir empirically, converted to oral valtrex 1000 mg TID on 09/05. Will continue for total of 7 days -given gabapentin 100 mg bid for headache prophylaxis. Continue toradol, compazine prn for migraines - 09/07: CSF myelin basic protein is elevated , but no oligoclonal bands. Per neurology, unlikely MS. -With the findings of significant metastatic disease to the spine this most likely represents carcinomatous meningitis. Appears to be significantly improved symptomatically. Metastatic breast cancer with osseous bone metastases: -MRI cervical spine showing severe bone marrow abnormality most conspicuous at T3 with enhancement and edema. MRI thoracic spine showing diffuse osseous m etastases. CT chest/abdomen/pelvis showed widespread metastatic disease osseous. MRI lumbar spine showing DJD and diffuse osseous metastases Bone biopsy done shows metastatic breast cancer. Discussed with oncology. They will follow up with her as an outpatient. Her breast panel did return indicating ER positive, CO negative, HER-2 negative. Arimidex has been reinitiated. PAT/Vtach noted on telemetry: Asymptomatic, prior Echo on 08/31/20 found no concerns magnesium level normal Hypothyroidism: continue levothyroxine Disposition: Awaiting approval for rehab.
[2020-09-12] MEDS ORDERED: Ibuprofen 200 MG TAB PO PRN (11:30)
--- NOTE | 2020-09-12 17:10 | RAD ---
Portable frontal chest radiograph: 09/12/2020 COMPARISON: 08/30/2020 HISTORY: Shortness of breath FINDINGS: Heart and mediastinal contours are stable. Stable postoperative clips overlie the left ches t. No pneumothorax or pleural fluid. No focal consolidation or alveolar edema. IMPRESSION: Stable appearance of the chest-no acute findings.
--- NOTE | 2020-09-12 18:12 | PDOC.EVN ---
Event Note - Event Note Event Note: Was notified this morning patient had some PAT. Said a bit of that previously. She also had a short run of nonsustained V. tach this evening. It appears to be narrow complex and monomorphic. She has had an echocardiogram showing essentially normal ventricular function with only some evidence of diastolic dysfunction. She did have an episode of hypokalemia a few days ago. I will repeat a CBC and BMP now. I do not see any medications that she is on right now that would likely precipitate any arrhythmias.
[2020-09-12 19:06] LABS: #Eosinphils 0.1 thou/uL (0.0-0.7); #Lymphocytes 1.4 thou/uL (1.20-3.40); #Monocytes 1.4 thou/uL (0.11-0.59); #Neutrophils 6.5 thou/uL (1.40-6.50); %Basophils 0.4 % (0.0-1.0); %Eosinophils 1.4 % (0.0-10.0); %Lymphocytes 14.8 % (21.0-51.0); %Monocytes 14.7 % (0.0-10.0); %Neutrophils 68.6 % (42.0-75.0); Hemoglobin 12.6 g/dL (12.0-16.0); Mean Corpuscular HGB CONC 33.1 g/dL (32.0-36.0); Mean Corpuscular Hemoglobin 27.7 pg (27.0-31.0); Mean Corpuscular Volume 83.6 fL (78.0-98.0); Mean Platelet Volume 10.5 fL (7.4-10.4); Platelet Count 136 thou/uL (130-400); RBC Distribution Width 15.3 % (11.5-14.5); Red Blood Cell (RBC) Count 4.55 mill/uL (4.20-5.40); White Blood Cell (WBC) Count 9.5 thou/uL (4.8-10.8)
[2020-09-12 19:18] LABS: Anion Gap 13 mmol/L (10-20); BUN (Urea Nitrogen) 13 mg/dL (9.8-20.1); Calc. Creatinine Clearance 47 mL/min (70-130); Calcium 9.1 mg/dL (7.8-10.44); Carbon Dioxide 22 mmol/L (23-31); Chloride 109 mmol/L (98-107); Glucose 126 mg/dL (83-110); Potassium 3.3 mmol/L (3.5-5.1); Sodium 141 mmol/L (136-145)
[2020-09-12] MEDS: Atorvastatin Calcium 40 MG TAB PO SCH (21:10)
[2020-09-13] MEDS: Levothyroxine Sodium 25 MCG TAB PO SCH (06:19)
[2020-09-13 08:57] LABS: #Eosinphils 0.2 thou/uL (0.0-0.7); #Monocytes 1.2 thou/uL (0.11-0.59); #Neutrophils 6.7 thou/uL (1.40-6.50); %Basophils 0.4 % (0.0-1.0); %Eosinophils 1.7 % (0.0-10.0); %Lymphocytes 10.9 % (21.0-51.0); %Monocytes 13.6 % (0.0-10.0); %Neutrophils 73.4 % (42.0-75.0); Hemoglobin 12.1 g/dL (12.0-16.0); Mean Corpuscular HGB CONC 32.6 g/dL (32.0-36.0); Mean Corpuscular Hemoglobin 27.2 pg (27.0-31.0); Mean Corpuscular Volume 83.4 fL (78.0-98.0); Mean Platelet Volume 10.7 fL (7.4-10.4); Platelet Count 135 thou/uL (130-400); RBC Distribution Width 15.2 % (11.5-14.5); Red Blood Cell (RBC) Count 4.45 mill/uL (4.20-5.40); White Blood Cell (WBC) Count 9.1 thou/uL (4.8-10.8)
[2020-09-13 09:18] LABS: Anion Gap 14 mmol/L (10-20); BUN (Urea Nitrogen) 12 mg/dL (9.8-20.1); Calc. Creatinine Clearance 52 mL/min (70-130); Calcium 9.2 mg/dL (7.8-10.44); Carbon Dioxide 23 mmol/L (23-31); Chloride 111 mmol/L (98-107); Glucose 124 mg/dL (83-110); Magnesium 1.9 mg/dL (1.6-2.6); Potassium 3.5 mmol/L (3.5-5.1); Sodium 144 mmol/L (136-145)
[2020-09-13] MEDS: valACYclovir 500 MG TAB PO SCH (10:37)
[2020-09-13] MEDS: Anastrozole 1 MG TAB PO SCH (10:38)
[2020-09-13] MEDS: Amlodipine 5 MG TAB PO SCH (10:38)
[2020-09-13] MEDS: Gabapentin 100 MG CAP PO SCH (10:39)
[2020-09-13 14:10] VITALS: BMI 21.1
--- NOTE | 2020-09-13 14:32 | CON ---
DATE OF CONSULTATION: HISTORY OF PRESENT ILLNESS: Denise Thacker is a 80-year-old white female patient with previous history of breast cancer, however, she has appeared to be disease free over the last 11 years until now. She presented complaining of left arm weakness and left-sided facial droop. She also complained of headache. She was admitted on August 30 and has undergone extensive evaluation. 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 On the monitor, she has been noted to have episodes of tachycardia. Some of these certainly appear to be a paroxysmal atrial tachycardia. Also at times there is some aberrancy and I feel that this is probably aberrancy with the PAT and not ventricular tachycardia. Ms. Thacker states she has never had problems with feeling rapid heartbeat or palpitations. PAST MEDICAL HISTORY: History of breast cancer and hypertension, hypothyroidism, hypercholesterolemia. ALLERGIES: MONOSODIUM GLUTAMATE AND CODEINE. OPERATIONS: Hysterectomy, , mastectomy. SOCIAL HISTORY: She does not smoke or drink. PHYSICAL EXAMINATION: VITAL SIGNS: Blood pressure 120/56, pulse of 84. HEENT: PERRL. NECK: Supple. CHEST: Clear. CARDIAC: S1 and S2 normal without any S3, S4, or murmurs. ABDOMEN: Normal bowel sounds without tenderness or organomegaly. EXTREMITIES: Revealed no clubbing, cyanosis, or edema. NEUROLOGIC: Grossly intact. SKIN: Warm and dry. LABORATORY DATA: EKG reveals normal sinus rhythm with nonspecific T-wave changes. CBC is unremarkable. Sodium 144, potassium 3.5, chloride 111, carbon dioxide 23, BUN 12, creatinine 0.77. TSH and free T4 are normal. Cholesterol 166, triglycerides 83, HDL 69, LDL 80. IMPRESSION: 1. Recurrence of metastatic breast CA to the bone. 2. Carcinomatous meningitis. 3. Episodes of paroxysmal atrial tachycardia, which are asymptomatic. At times, she has aberrancy with this. 4. Hypertension. 5. Hypercholesterolemia. 6. Hypothyroidism. RECOMMENDATIONS: Amlodipine dose will be reduced and she will be placed on low- dose beta haley. She will undergo adenosine Cardiolite testing to rule out significant coronary artery disease. If the nuclear scan is unremarkable, I feel that she may be discharged and we will place a 30-day monitor to continue to watch her arrhythmia. Once again, she is totally asymptomatic with this. Job ID: [id number] MTDD
--- NOTE | 2020-09-13 14:48 | PDOC.HOSPP ---
- Subjective Encounter Date: 09/13/20 Subjective: Patient is feeling well this morning. Overnight event marked by paroxysmal atrial tachycardia. - Objective Vital Signs & Weight: Vital Signs (12 hours) Temp Pulse Pulse Pulse Resp BP BP 09/13/20 12:22 98.1 F 84 16 09/13/20 10:38 85 09/13/20 09:10 86 84 136/63 138/61 09/13/20 07:44 97.9 F 86 16 09/13/20 04:00 97.8 F 78 16 BP Pulse Ox 09/13/20 12:22 120/56 L 99 09/13/20 10:38 09/13/20 09:10 09/13/20 07:44 136/66 98 09/13/20 04:00 136/56 L 95 Weight Admit Weight 131 lb 11.2 oz Weight 123 lb 3.2 oz I&O: 09/12/20 09/13/20 09/14/20 06:59 06:59 06:59 Intake Total 120 285 240 Balance 120 285 240 Result Diagrams: 09/13/20 08:47 09/13/20 08:47 Hospitalist ROS - Medication Medications: Active Medications Generic Name Dose Route Start Last Admin Trade Name Freq PRN Reason Stop Dose Admin Acetaminophen 650 mg 08/31/20 01:16 09/11/20 06:13 Acetaminophen 325 Mg Tab PO 650 mg Q4H PRN Administration Headache/Fever/Mild Pain (1-3) Anastrozole 1 mg 09/12/20 09:00 09/13/20 10:38 Anastrozole 1 Mg Tab PO 1 mg DAILY DARIANA Administration Atorvastatin Calcium 40 mg 08/31/20 21:00 09/12/20 21:10 Atorvastatin Calcium 40 Mg Tab PO 40 mg HS DARIANA Administration Gabapentin 100 mg 09/07/20 09:00 09/13/20 10:39 Gabapentin 100 Mg Cap PO 100 mg DAILY DARIANA Administration Prochlorperazine Edisylate 5 51 mls @ 150 mls/hr 09/02/20 14:04 09/03/20 23:08 mg/ Sodium Chloride IVPB 51 mls Q6H PRN Administration Nausea/Vomiting Labetalol HCl 10 mg 09/03/20 09:36 09/04/20 22:34 Labetalol Hcl 100 Mg/20 Ml Vial SLOW IVP 10 mg Q4H PRN Administration SBP Greater Than 180 Levothyroxine Sodium 25 mcg 08/31/20 06:00 09/13/20 06:19 Levothyroxine Sodium 25 Mcg Tab PO 25 mcg 0600 DARIANA Administration Loratadine 10 mg 09/04/20 14:11 09/12/20 01:00 Loratadine 10 Mg Tab PO 10 mg DAILYPRN PRN Administration Allergies Ondansetron HCl 4 mg 08/31/20 01:16 08/31/20 19:43 Ondansetron Pf 4 Mg/2 Ml Vial IVP 4 mg Q6H PRN Administration Nausea/Vomiting Pantoprazole Sodium 40 mg 09/13/20 09:00 09/13/20 10:39 Pantoprazole 40 Mg Tab PO 40 mg DAILY DARIANA Administration Sodium Chloride 10 ml 08/31/20 01:16 09/04/20 11:11 Flush - Normal Saline 10 Ml Syringe IVF 10 ml PRN PRN Administration Saline Flush - Exam General Appearance: NAD, awake alert Eye: PERRL, anicteric sclera ENT: normocephalic atraumatic Neck: supple, symmetric Heart: RRR, no murmur Respiratory: CTAB, no wheezes, no rales, no ronchi Gastrointestinal: soft, non-tender, non-distended, normal bowel sounds Extremities: no cyanosis, no clubbing, no edema Neurological: cranial nerve grossly intact Neurological - other findings: 5/5 STRENGHT in all 4 extremity Musculoskeletal: normal tone, normal strength Psychiatric: normal affect, normal behavior Hosp A/P (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 - SECONDARY MALIGNANT NEOPLASM OF OTH PARTS OF NERVOUS SYSTEM; C80.1 - MALIGNANT (PRIMARY) NEOPLASM, UNSPECIFIED Status: Acute (2) HTN (hypertension) Code(s): I10 - ESSENTIAL (PRIMARY) HYPERTENSION Status: Acute (3) Hx of breast cancer Code(s): Z85.3 - PERSONAL HISTORY OF MALIGNANT NEOPLASM OF BREAST Status: Acute (4) Metastatic breast cancer Code(s): C50.919 - MALIGNANT NEOPLASM OF UNSP SITE OF UNSPECIFIED FEMALE BREAST Status: Acute (5) Metastatic disease Code(s): C79.9 - SECONDARY MALIGNANT NEOPLASM OF UNSPECIFIED SITE Status: Acute - Plan Assessment Patient is a 80 year old female with a known PMH of breast cancer diagnosed 10 years ago, s/p L mastectomy and XRT, followed by breast implant which had to be removed and replaced due to an infection. She presented to the hospital with acute Left arm weakness and facial numbness. She underwent an extensive work up which include MRI of brain and total spine. CVA was ruled out and CSF analysis was without malignant cells. Additional work up included a 2-D echo, carotid dopplers also could not explain her presentation. However, MRI spine showed osseous metastatic disease at most notable at T3 and extensive in the lumbar spine. She also had bone osseous disease to her R iliac bone. Bone marrow biopsy and pathology was consistent with metastatic breast cancer. She has been resumed on Arimidex by Oncology. She is ER (+), [place] (-) and HER-2 negative. Her neurological function is back to baseline PENDING acceptance to [facility] rehab. On 09/13, she developed paroxysmal atrial tachycardia. Cardiology has been consulted PLAN: Cardiology recommends adenosine cardiolite to r/o significant CAD Also recommends cutting back on norvasc and introducing beta blockers. She is currently on norvasc 2.5 mg and Toprol 50 mg. Continue telemetry monitoring Continue Arimedex Arrange for outpatient follow up with Oncology upon discharge Otherwise, PT/OT while in house Patient has been accepted to [facility] pending medical clearance
[2020-09-13] MEDS: Atorvastatin Calcium 40 MG TAB PO SCH (20:33)
[2020-09-14] MEDS: Levothyroxine Sodium 25 MCG TAB PO SCH (05:59)
[2020-09-14] MEDS: Anastrozole 1 MG TAB PO SCH (09:02)
[2020-09-14] MEDS: Loratadine 10 MG TAB PO PRN (09:02)
[2020-09-14] MEDS: Gabapentin 100 MG CAP PO SCH (09:02)
[2020-09-14] MEDS: Amlodipine 5 MG TAB PO SCH (09:02)
--- NOTE | 2020-09-14 13:08 | NM ---
EXAM: CARDIAC SPECT HISTORY: Short runs of paroxysmal atrial tachycardia and ventricular tachycardia. Hypertension, hypot hyroidism. TECHNIQUE: A myocardial perfusion scan was performed using the single isotope 1 day protocol with ortiz hnetium 99m sestamibi. [10 mCi] was injected intravenously for the rest exam followed by 30 mCi for the stress study. Pharmacologic stress with adenosine was monitored and interpreted by Dr. Monge FINDINGS: There is a small fixed defect in the distal anteroseptal wall with normal contractility and wall thickening. This is most likely artifactual. A small reversible defect is seen in the anterolateral wall. The TID ratio measures 1.43. Gated SPECT LVEF: 83% Wall motion exam: Normal IMPRESSION: 1. Findings are suspicious for small area of reversible anterolateral wall ischemia 2. TID ratio is 1.43.
[2020-09-14] MEDS ORDERED: ADENOSINE 60 MG/20 ML VIAL ONE (13:22)
[2020-09-14] MEDS ORDERED: Communication Order-Pharmacy FS SCH (15:45)
--- NOTE | 2020-09-14 15:59 | PDOC.HOSPP ---
- Subjective Encounter Date: 09/14/20 Subjective: Patient seen after her stress test. Comfortable without cardiopulmonary symptoms. - Objective Vital Signs & Weight: Vital Signs (12 hours) Temp Pulse Resp BP BP Pulse Ox 09/14/20 13:00 97.2 F L 09/14/20 12:00 78 20 98/58 L 98 09/14/20 09:02 79 135/66 09/14/20 07:50 98.7 F 79 16 135/66 97 Weight Admit Weight 131 lb 11.2 oz Weight 123 lb 3.2 oz I&O: 09/13/20 09/14/20 09/15/20 06:59 06:59 06:59 Intake Total 285 620 Balance 285 620 Result Diagrams: 09/13/20 08:47 09/13/20 08:47 Hospitalist ROS - Medication Medications: Active Medications Generic Name Dose Route Start Last Admin Trade Name Freq PRN Reason Stop Dose Admin Acetaminophen 650 mg 08/31/20 01:16 09/11/20 06:13 Acetaminophen 325 Mg Tab PO 650 mg Q4H PRN Administration Headache/Fever/Mild Pain (1-3) Amlodipine Besylate 2.5 mg 09/14/20 09:00 09/14/20 09:02 Amlodipine 5 Mg Tab PO 2.5 mg DAILY DARIANA Administration Anastrozole 1 mg 09/12/20 09:00 09/14/20 09:02 Anastrozole 1 Mg Tab PO 1 mg DAILY DARIANA Administration Atorvastatin Calcium 40 mg 08/31/20 21:00 09/13/20 20:33 Atorvastatin Calcium 40 Mg Tab PO 40 mg HS DARIANA Administration Gabapentin 100 mg 09/07/20 09:00 09/14/20 09:02 Gabapentin 100 Mg Cap PO 100 mg DAILY DARIANA Administration Prochlorperazine Edisylate 5 51 mls @ 150 mls/hr 09/02/20 14:04 09/03/20 23:08 mg/ Sodium Chloride IVPB 51 mls Q6H PRN Administration Nausea/Vomiting Labetalol HCl 10 mg 09/03/20 09:36 09/04/20 22:34 Labetalol Hcl 100 Mg/20 Ml Vial SLOW IVP 10 mg Q4H PRN Administration SBP Greater Than 180 Levothyroxine Sodium 25 mcg 08/31/20 06:00 09/14/20 05:59 Levothyroxine Sodium 25 Mcg Tab PO 25 mcg 0600 DARIANA Administration Loratadine 10 mg 09/04/20 14:11 09/14/20 09:02 Loratadine 10 Mg Tab PO 10 mg DAILYPRN PRN Administration Allergies Metoprolol Succinate 50 mg 09/14/20 09:00 09/14/20 09:02 Metoprolol Succinate Xl 50 Mg Tab PO 50 mg DAILY DARIANA Administration Ondansetron HCl 4 mg 08/31/20 01:16 08/31/20 19:43 Ondansetron Pf 4 Mg/2 Ml Vial IVP 4 mg Q6H PRN Administration Nausea/Vomiting Pantoprazole Sodium 40 mg 09/13/20 09:00 09/14/20 09:02 Pantoprazole 40 Mg Tab PO 40 mg DAILY DARIANA Administration Sodium Chloride 10 ml 08/31/20 01:16 09/04/20 11:11 Flush - Normal Saline 10 Ml Syringe IVF 10 ml PRN PRN Administration Saline Flush - Exam General Appearance: NAD, awake alert Eye: anicteric sclera Neck: supple, symmetric Heart: no murmur, no gallops, no rubs Respiratory: CTAB, no wheezes, no rales, no ronchi Gastrointestinal: soft, non-tender, non-distended, normal bowel sounds Extremities: no cyanosis, no clubbing, no edema Neurological: cranial nerve grossly intact Musculoskeletal: normal tone, normal strength Psychiatric: normal affect, normal behavior Hosp A/P (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 - SECONDARY MALIGNANT NEOPLASM OF OTH PARTS OF NERVOUS SYSTEM; C80.1 - MALIGNANT (PRIMARY) NEOPLASM, UNSPECIFIED Status: Acute (2) HTN (hypertension) Code(s): I10 - ESSENTIAL (PRIMARY) HYPERTENSION Status: Acute (3) Hx of breast cancer Code(s): Z85.3 - PERSONAL HISTORY OF MALIGNANT NEOPLASM OF BREAST Status: Acute (4) Metastatic breast cancer Code(s): C50.919 - MALIGNANT NEOPLASM OF UNSP SITE OF UNSPECIFIED FEMALE BREAST Status: Acute (5) Metastatic disease Code(s): C79.9 - SECONDARY MALIGNANT NEOPLASM OF UNSPECIFIED SITE Status: Acute - Plan Assessment Patient is a 80 year old female with a known PMH of breast cancer diagnosed 10 years ago, s/p L mastectomy and XRT, followed by breast implant wh ich had to be removed and replaced due to an infection. She presented to the hospital with acute Left arm weakness and facial numbness. She underwent an extensive work up which include MRI of brain and total spine. CVA was ruled out and CSF analysis was without malignant cells. Additional work up included a 2-D echo, carotid dopplers also could not explain her presentation. However, MRI spine showed osseous metastatic disease at most notable at T3 and extensive in the lumbar spine. She also had bone osseous disease to her R iliac bone. Bone marrow biopsy and pathology was consistent with metastatic breast cancer. She has been resumed on Arimidex by Oncology. She is ER (+), [place] (-) and HER-2 negative. Her neurological function is back to baseline PENDING acceptance to [facility] reh. On 09/13, she developed paroxysmal atrial tachycardia. Stress test on 09/14 showed a small area of reversible ischemia in the anterolateral region. PLAN: Follow up cardiology recommendations Continue norvasc 2.5 mg and Toprol 50 mg. Continue telemetry monitoring Continue Arimedex as MedOnc Arrange for outpatient follow up with Oncology upon discharge Otherwise, PT/OT while in house Patient has been accepted to [facility] pending medical clearance
[2020-09-14] MEDS: Atorvastatin Calcium 40 MG TAB PO SCH (20:57)
[2020-09-15] MEDS: Gabapentin 100 MG CAP PO SCH (05:24)
[2020-09-15] MEDS: Amlodipine 5 MG TAB PO SCH (05:25)
[2020-09-15] MEDS: Levothyroxine Sodium 25 MCG TAB PO SCH (05:25)
[2020-09-15] MEDS: Anastrozole 1 MG TAB PO SCH (05:27)
[2020-09-15 05:28] LABS: Anion Gap 19 mmol/L (10-20); BUN (Urea Nitrogen) 18 mg/dL (9.8-20.1); Calc. Creatinine Clearance 44 mL/min (70-130); Calcium 9.4 mg/dL (7.8-10.44); Carbon Dioxide 21 mmol/L (23-31); Chloride 108 mmol/L (98-107); Glucose 97 mg/dL (83-110); Potassium 3.8 mmol/L (3.5-5.1); Sodium 144 mmol/L (136-145)
[2020-09-15] MEDS ORDERED: Sodium Chloride 0.9% 1,000 ML IV SCH (06:00)
[2020-09-15] MEDS ORDERED: Fentanyl 100 MCG/2 ML VIAL ONE (07:16)
[2020-09-15] MEDS ORDERED: Midazolam HCl 2 mg/2 ml Vial ONE (07:16)
[2020-09-15] MEDS ORDERED: Heparin 10,000 UNITS/ 10 ML VIAL ONE (07:21)
[2020-09-15] MEDS ORDERED: Protamine Sulfate 50 MG/5 ML VIAL ONE (07:41)
[2020-09-15] MEDS ORDERED: Nitroglycerin 0.4 MG TAB (25 Tab Bottle) SL PRN (07:54)
[2020-09-15] MEDS ORDERED: Sodium Chloride 0.9% 200 ML IV PRN (07:54)
[2020-09-15 11:32] VITALS: BP 102/77; TEMP 97.7
[2020-09-15] MEDS: Acetaminophen 325 MG TAB PO PRN (11:38)
--- NOTE | 2020-09-15 11:50 | PDOC.DS.DS ---
Provider - Provider Date of Admission: 08/30/20 21:51 Admitting Provider: Silvio Perea Consultations: Cardiology Primary Care Physician: Dulce Pinedo Course - Hospital Course Hospital Course: Patient is a 80 year old female with a known PMH of breast cancer diagnosed 10 years ago, s/p L mastectomy and XRT, followed by breast implant which had to be removed and replaced due to an infection. She presented to the hospital with acute Left arm weakness and facial numbness. She underwent an extensive work up which included MRI of brain and total spine. CVA was ruled out and CSF analysis was without malignant cells to suggest leptomeningeal di sease. However, MRI spine showed osseous metastatic disease at most notable at T3 and extensive in the lumbar spine. She also had osseous disease to her R iliac bone, which was biopsied. Bone marrow biopsy and pathology was consistent with metastatic breast cancer. She has been resumed on Arimidex by Oncology. She is ER (+), [place] (-) and HER-2 negative. The rest of her hospital course was complicated by episodes of paroxysmal atrial tachycardia. Cardiology recommended nuclear stress test which showed a small area of reversible ischemia in the anterolateral region. She underwent coronary angiogram on 09/15 which ruled out CAD. . Resuscitation Status: 08/31/20 01:16 Resuscitation Status Routine Resuscitation Status: FULL: Full Resuscitation - Labs Lab Results: 09/13/20 08:47 09/15/20 04:45 Abnormal Lab Results - Last 48 hrs 09/15/20 04:45: Chloride 108 H, Carbon Dioxide 21 L Microbiology - Entire Visit 09/03/20 16:47 Venous blood - Right Hand Blood Culture - Final NO GROWTH IN 5 DAYS 09/03/20 16:47 Venous blood - Left Hand Blood Culture - Final NO GROWTH IN 5 DAYS 09/03/20 09:36 Spinal Fluid Body Fluid Culture - Final 09/03/20 16:00 Spinal Fluid Culture Cryptococcal Antigen - Final - Physical Exam Vitals: Vital Signs (12 hours) Temp Pulse Resp BP BP BP Pulse Ox 09/15/20 11:31 97.7 F 77 20 102/77 99 09/15/20 08:11 98.1 F 72 16 133/55 L 97 09/15/20 07:54 73 16 133/55 L 09/15/20 05:25 74 09/15/20 03:49 98.1 F 74 22 H 128/63 97 09/15/20 00:00 98.2 F 72 16 132/69 97 Weight Admit Weight 131 lb 11.2 oz Weight 123 lb 3.2 oz Physical Exam: The patient was seen and examined on the day of discharge. General: Not in acute distress. Alert and awake HEENT: Head atraumatic, normocephalic. EOM intact Pulmonary: Lungs are clear to auscultation bilaterally CVS: Normal S1 and S2. Regular rate. Abdomen: Soft, nontender, nondistended Extremities: Without edema. Good range of motion in all extremities Skin: Warm and well perfused Psych: Mood and affect appropriate. 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 - SECONDARY MALIGNANT NEOPLASM OF OTH PARTS OF NERVOUS SYSTEM; C80.1 - MALIGNANT (PRIMARY) NEOPLASM, UNSPECIFIED Status: Acute (2) HTN (hypertension) Code(s): I10 - ESSENTIAL (PRIMARY) HYPERTENSION Status: Acute (3) Hx of breast cancer Code(s): Z85.3 - PERSONAL HISTORY OF MALIGNANT NEOPLASM OF BREAST Status: Acute (4) Metastatic breast cancer Code(s): C50.919 - MALIGNANT NEOPLASM OF UNSP SITE OF UNSPECIFIED FEMALE BREAST Status: Acute (5) Metastatic disease Code(s): C79.9 - SECONDARY MALIGNANT NEOPLASM OF UNSPECIFIED SITE Status: Acute Plan - Discharge Medications Prescriptions: Aspirin [Aspirin EC] 81 mg PO DAILY #30 tablet.dr Home Medications: Medication Instructions Recorded Confirmed Type Anastrozole 1 mg PO DAILY 08/31/20 08/31/20 History Atorvastatin Calcium [Lipitor] 10 mg PO HS 08/31/20 08/31/20 History Diclofenac Potassium [Cambia] 50 mg PO BID PRN 08/31/20 08/31/20 History Levothyroxine Sodium [Synthroid] 25 mcg PO DAILY 08/31/20 08/31/20 History Metoclopramide HCl 10 mg PO Q8HR PRN 08/31/20 08/31/20 History Acetaminophen [Tylenol Regular 650 mg PO Q4H PRN tab 09/13/20 Rx Strength] Amlodipine [Norvasc] 5 mg PO DAILY tab 09/13/20 Rx Anastrozole [Arimidex] 1 mg PO DAILY tab 09/13/20 Rx Atorvastatin Calcium [Lipitor] 40 mg PO HS tab 09/13/20 Rx Calcium Carbonate [Tums] 1,000 mg PO Q4H PRN tab 09/13/20 Rx Gabapentin [Neurontin] 100 mg PO DAILY cap 09/13/20 Rx Loratadine [Claritin] 10 mg PO DAILYPRN PRN tab 09/13/20 Rx Pantoprazole [Protonix] 40 mg PO DAILY tab 09/13/20 Rx valACYclovir [Valtrex] 1,000 mg PO 0800,1600,2359 #15 tab 09/13/20 Rx Amlodipine [Norvasc] 2.5 mg PO DAILY tab 09/15/20 Rx Aspirin [Aspirin EC] 81 mg PO DAILY #30 tablet.dr 09/15/20 Rx Metoprolol Succinate [Toprol XL] 50 mg PO DAILY tab 09/15/20 Rx Nitroglycerin [Nitrostat] 0.4 mg SL Q5MIN PRN tab 09/15/20 Rx Allergies: monosodium glutamate Allergy (Mild, Verified 09/11/20 08:12) headache codeine Allergy (Verified 08/31/20 00:30) - Follow up Plan Referrals: [facility] [Outside] Theresa Bethea MD [Primary Care Provider] - Disposition: SNF FACILITY Quality - Care Measures CORE MEASURES:: Stroke/TIA, N/A - Stroke/TIA Did you prescribe antithrombotic therapy?: Yes Did you prescribe anticoagulant for A Fib/Flutter?: No Specify reason for no DC anticoagulant: Treatment not indicated Did you prescribe a statin medication?: Yes
[2020-09-15] MEDS ORDERED: Ketorolac Tromethamine 30 MG/ML VIAL IVP SCH (14:00)
--- NOTE | 2020-09-19 12:39 | PQF ---
CLINICAL DOCUMENTATION CLARIFICATION FORM: Dear : Prince Terry Fuller MD Date / Time: 09/19/2020 Please exercise your independent, professional judgment in responding to the clarification form. Clinical indicators are provided on the bottom of this form for your review Please check appropriate box(es): [ ] Encephalopathy: Type: [x] Acute [ ] Subacute [ ] Chronic Etiology: [ ] Hypertensive [x] Metabolic [ ] Toxic [ ] Hepatic with Coma [ ] Hepatic w/o Coma [ ] Hypoxic [ ] Septic [ ] Wernickes [ ] Drug induced: [ ] In the setting of underlying dementia [ ] Unspecified [ ] Other (please specify) [ ] Other diagnosis (Please specify if any) [ ] Unable to determine In addition, please specify: Present on Admission (POA): [x] Yes [ ] No [ ] Unable to determine Physician Signature: Date/Time: For continuity of documentation, please document condition throughout progress notes and discharge summary. Thank You. To be completed by CDI/Coding staff for physician review: Present Clinical Indicators - Signs / Symptoms / Labs Results and Location in Medical Record [ ] Altered mental status / confusion (i.e.: improving once underlying cause is corrected) [x] She is lethargic & really does not respond to any verbal commands today Consult on 09/01 [x] Acute encephalopathy Hospitalist PN on 09/01 [x] Metabolic / electrolyte abnormality -Hypokalemia Hospitalist PN on 09/03 [ ] Hypoxia for prolonged period [ ] Sepsis/Infectious process [ ] Severe Hypertension [ ] IV meds that can cause altered mental state [ ] Cerebral Edema [ ] Severe malnutrition [ ] EEG Present Risk Factors Results and Location in Medical Record [ ] Hypertension - uncontrolled [ ] Toxic substances / poisoning [ ] Cirrhosis/ Liver disease [x] Meningitis Neurology PN on 09/05 [ ] Brain tumor / elevated ICP [ ] DKA or hypoglycemia Present Treatments Results and Location in Medical Record [x] Neuro checks for every 4 hours Neurology PN on 09/03 [x] Neuro consult Consult on 08/31 [ ] Underlying cause corrected, encephalopathy resolved [ ] Antihypertensives (IV) [ ] Lactulose and Liver studies [ ] Oxygen therapy [ ] Nutritional supplements-TPN/TF [x] Potassium chloride Medication on 09/03 [ ] IV antibiotics CDS/Wood Sawyer Signature: AAS Phone #: Date/Time: 09/19/2020 This is a permanent part of the Medical Record [facility]
--- NOTE | 2020-10-28 20:24 | STRESS ---
Acquisition Time: 2020-09-14 11:07:43 Total Exercise Time: 00:04:00 Test Indications: SHORT RUNS OF TONY DE LA O Medications: Protocol: ADENOSINE Max HR: 097 BPM 68% of Pred: 141 BPM Max BP: 120/076 mmHG Max Work Load: 1.0 METS RESTING ECG: NORMAL SINUSRHYTHM WITH NON SPECIFIC ST SEGMENT T WAVE CHANGES AT 77 BPM SYMPTONS: SHORTNESS OF BREATH NORMAL BP RESPONSE ECTOPY: NONE ECG STRESS: NO SIGNIFICANT CHANGES INTERPRETAION: INDETERMINATE/ AWAIT NUCLEAR IMAGES FOR DEFINITIVE DIAGNOSIS Confirmed by SUKHWINDER NERI M.D. ([id number]) on 10/28/2020 8:23:54 PM Referred By: MD Charisse JOSEPH Confirmed By:SUKHWINDER NERI M.D.
== END 2020-09-15 14:27 | DRG 542 ==
LOC: ERS 17:16 → 2SE 21:51 → OBSVTOIN 21:51
PROVIDERS: ADMIT Internal Medicine; ATTEND Internal Medicine
PROC: 009U3ZX Drainage of Spinal Canal, Percutaneous Approach, Diagnostic (ICD-10-PCS; 2020-09-03)
PROC: B01BZZZ Fluoroscopy of Spinal Cord (ICD-10-PCS; 2020-09-03)
PROC: 07DR3ZX Extraction of Iliac Bone Marrow, Percutaneous Approach, Diagnostic (ICD-10-PCS; 2020-09-03)
PROC: B2111ZZ Fluoroscopy of Multiple Coronary Arteries using Low Osmolar Contrast (ICD-10-PCS; principal; 2020-09-15)
PROC: B2151ZZ Fluoroscopy of Left Heart using Low Osmolar Contrast (ICD-10-PCS; 2020-09-15)
PROC: 4A023N7 Measurement of Cardiac Sampling and Pressure, Left Heart, Percutaneous Approach (ICD-10-PCS; 2020-09-15)
DX: C79.51 Secondary malignant neoplasm of bone (principal); G03.8 Meningitis due to other specified causes; G93.41 Metabolic encephalopathy; G45.9 Transient cerebral ischemic attack, unspecified; G93.40 Encephalopathy, unspecified; G81.94 Hemiplegia, unspecified affecting left nondominant side; I47.2 Ventricular tachycardia; I10 Essential (primary) hypertension; R29.810 Facial weakness; G43.909 Migraine, unspecified, not intractable, without status migrainosus; E03.9 Hypothyroidism, unspecified; Z20.822 Contact with and (suspected) exposure to COVID-19; E87.6 Hypokalemia; E78.00 Pure hypercholesterolemia, unspecified; F41.9 Anxiety disorder, unspecified; F32.9 Major depressive disorder, single episode, unspecified; Z90.710 Acquired absence of both cervix and uterus; Z90.13 Acquired absence of bilateral breasts and nipples; Z79.899 Other long term (current) drug therapy; Z88.6 Allergy status to analgesic agent; Z88.8 Allergy status to other drugs, medicaments and biological substances; Z85.3 Personal history of malignant neoplasm of breast; C50.912 Malignant neoplasm of unspecified site of left female breast; Z17.0 Estrogen receptor positive status [ER+]
CPT/HCPCS: 20225; 36415; 36416; 62270; 70450; 70498; 70551; 70553; 71045; 71260; 72156; 72157; 72158; 74177; 76380; 77012; 78452; 80048; 80053; 80061; 81001; 82040; 82042; 82607; 82784; 82945; 83036; 83735; 83873; 83916; 84157; 84443; 84484; 85007; 85025; 85027; 85060; 85097; 85347; 85610; 85730; 86592; 86618; 86769; 86788; 86789; 87040; 87070; 87205; 87529; 87635; 87899; 88112; 88305; 88311; 88313; 88341; 88342; 88361; 89051; 90471; 90732; 93005; 93017; 93306; 93458; 93880; 94760; 95712; 95819; 95957; 96365; 96372; 96375; 99152; A9500; A9579; G0009; G0378; J0133; J0153; J0780; J1200; J1644; J1650; J1885; J2250; J2405; J2720; J2765; J3010; J3475; J3480; J3490; J7050; Q0162; Q0163; Q9967; U0003

== ENCOUNTER 2020-09-16 14:26 | Inpatient (IN) | payer MEDICARE ==
[~2020-09-16 14:26] MED LIST: Magnevist 469MG/ML 20 ML VIAL ONE
[2020-09-16 14:54] LABS: #Eosinphils 0.1 thou/uL (0.0-0.7); #Lymphocytes 1.7 thou/uL (1.20-3.40); #Monocytes 1.7 thou/uL (0.11-0.59); #Neutrophils 8.6 thou/uL (1.40-6.50); %Basophils 0.2 % (0.0-1.0); %Eosinophils 0.6 % (0.0-10.0); %Lymphocytes 13.9 % (21.0-51.0); %Neutrophils 71.3 % (42.0-75.0); Hemoglobin 13.1 g/dL (12.0-16.0); Mean Corpuscular HGB CONC 33.3 g/dL (32.0-36.0); Mean Corpuscular Hemoglobin 27.8 pg (27.0-31.0); Mean Corpuscular Volume 83.5 fL (78.0-98.0); Mean Platelet Volume 10.7 fL (7.4-10.4); Platelet Count 153 thou/uL (130-400); White Blood Cell (WBC) Count 12.1 thou/uL (4.8-10.8)
[2020-09-16 14:58] LABS: INR-International Normal Ratio 1.1; PTT 30.6 sec (22.9-36.1)
[2020-09-16 15:05] LABS: ALT (SGPT) 18 U/L (8-55); AST (SGOT) 42 U/L (5-34); Albumin 4.1 g/dL (3.4-4.8); Alkaline Phosphatase 168 U/L (40-110); Anion Gap 21 mmol/L (10-20); BUN (Urea Nitrogen) 11 mg/dL (9.8-20.1); Bilirubin, Total 0.7 mg/dL (0.2-1.2); CK (CPK) 48 U/L (29-168); Calc. Creatinine Clearance 0 mL/min (70-130); Calcium 9.6 mg/dL (7.8-10.44); Carbon Dioxide 21 mmol/L (23-31); Chloride 102 mmol/L (98-107); Globulin 3.3 g/dL (2.4-3.5); Glucose 110 mg/dL (83-110); Potassium 4.3 mmol/L (3.5-5.1); Protein, Total 7.4 g/dL (6.0-8.3); Sodium 140 mmol/L (136-145)
--- NOTE | 2020-09-16 15:05 | CT ---
CT HEAD WITHOUT IV CONTRAST COMPARISON: 08/30/2020 HISTORY: Altered mental status. TECHNIQUE: Axial CT imaging at 5 mm intervals from vertex through skull base without contrast FINDINGS: Mild cerebral volume loss is present not unexpected for patient's age. Scattered low attenuation area s are seen in periventricular white matter which are nonspecific but likely reflective of mild chronic small vessel ischemic changes. There is no evidence of an acute infarction, hemorrhage, mass effect, or midline shift. The ventricular system is normal in size, shape, and position. Skull base has a normal CT appearance. Visualized paranasal sinuses are clear. Few subcentimeter sclerotic densities are seen in the clivus.No other interval change from prior exam . IMPRESSION: 1. No acute intracranial abnormality demonstrated. 2. Subcentimeter sclerotic densities in the region of the clivus not seen on prior exam and suspiciou s for multiple tiny sclerotic metastatic lesions.
[2020-09-16 15:44] LABS: Bilirubin Negative (Negative); Blood, Urine Negative (Negative); Clarity Clear (Clear); Glucose, Urine (Dipstick) Normal (Negative); Ketone, Urine Negative (Negative); Leukocyte Negative Leu/uL (Negative); Nitrite Negative (Negative); Protein, Urine (Dipstick) 10 mg/dL (Neg-Trace); Specific Gravity, Urine 1.019 (1.002-1.036); Urobilinogen Normal mg/dL (Less than 2)
--- NOTE | 2020-09-16 16:15 | RAD ---
EXAM: CHEST ONE VIEW HISTORY: Altered mental status. COMPARISON: 09/12/2020 FINDINGS: The cardiac silhouette and pulmonary vasculature are within normal limits. The lungs are clear. Surgi laura clips again overlie the left chest and medial left arm. Chest is overall stable compared to prior exam. IMPRESSION: No acute cardiopulmonary process.
--- NOTE | 2020-09-16 17:27 | PDOC.HHP ---
Hospitalist HPI - History of Present Illness Altered mental status History of Present Illness: Patient is a 80-year-old female with a past medical history of breast cancer previously treated with left mastectomy and radiation therapy. She returns to the hospital with altered mental status 1 day after discharge following a prolonged hospitalization for stroke-like symptoms. She was admitted from August 30 to September 15. She underwent extensive work-up including MRI brain and lumbar puncture. Results were negative for the most part, and could not explain her presentation. She had no malignant cells on CSF analysis. Her symptoms resolved spontaneously. Additional work-up, however, revealed incidental findings of metastatic disease notable at T3 and extensively in the lumbar spine. She also had metastatic disease to the right iliac bone, which was biopsied and was consistent with metastatic breast cancer. She has been on Arimidex as per recommendation from medical oncology. Her hospital course was complicated by paroxysmal atrial tachycardia for which he underwent a nuclear test. Due to presence of a small region of reversible ischemia, a coronary angiogram was done on September 15, 2020 and revealed clean coronaries. Since her discharge on September 15 to [facility] rehab, patient's mental status has declined. She is awake but not answering questions ap propriately. She is answering thank you to all questions. She is inattentive and incoherent. ED Course: Arrived in the ER hemodynamically stable. She is awake and alert but confused CT head in the ER showed new subcentimeter sclerotic density in the region of the clivus Chest x-ray and urine analysis are within normal limits Hospitalist History - Past Surgical History Past Surgical History: reports: , Hysterectomy - Social History Alcohol: reports: None Drugs: reports: none - Exam General - other findings: Confused Eye: anicteric sclera ENT: normocephalic atraumatic Heart: RRR, no murmur, no gallops Respiratory: CTAB, no wheezes, no rales, no ronchi Gastrointestinal: soft, non-tender, non-distended Extremities: no clubbing, no edema Neurological - other findings: Confused Hospitalist Results - Labs Result Diagrams: 09/16/20 14:34 09/16/20 14:34 Lab results: WBC 12.1 thou/uL (4.8-10.8) H 09/16/20 14:34 Hgb 13.1 g/dL (12.0-16.0) 09/16/20 14:34 Hct 39.3 % (36.0-47.0) 09/16/20 14:34 MCV 83.5 fL (78.0-98.0) 09/16/20 14:34 Plt Count 153 thou/uL (130-400) 09/16/20 14:34 Neutrophils % 71.3 % (42.0-75.0) 09/16/20 14:34 Sodium 140 mmol/L (136-145) 09/16/20 14:34 Potassium 4.3 mmol/L (3.5-5.1) 09/16/20 14:34 Chloride 102 mmol/L (98-107) 09/16/20 14:34 Carbon Dioxide 21 mmol/L (23-31) L 09/16/20 14:34 BUN 11 mg/dL (9.8-20.1) 09/16/20 14:34 Creatinine 0.94 mg/dL (0.6-1.1) 09/16/20 14:34 Glucose 110 mg/dL (83-110) 09/16/20 14:34 Lactic Acid 1.7 mmol/L (0.5-2.2) 09/16/20 14:57 Calcium 9.6 mg/dL (7.8-10.44) 09/16/20 14:34 Total Bilirubin 0.7 mg/dL (0.2-1.2) 09/16/20 14:34 AST 42 U/L (5-34) H 09/16/20 14:34 ALT 18 U/L (8-55) 09/16/20 14:34 Alkaline Phosphatase 168 U/L (40-110) H 09/16/20 14:34 Creatine Kinase 48 U/L (29-168) 09/16/20 14:34 Troponin I 0.016 ng/mL (< 0.028) 09/16/20 14:34 Serum Total Protein 7.4 g/dL (6.0-8.3) 09/16/20 14:34 Albumin 4.1 g/dL (3.4-4.8) 09/16/20 14:34 Urine Ketones Negative mg/dL (Negative) 09/16/20 15:18 Urine Blood Negative (Negative) 09/16/20 15:18 Urine Nitrite Negative (Negative) 09/16/20 15:18 Ur Leukocyte Esterase Negative Kurt/uL (Negative) 09/16/20 15:18 Hospitalist H&P A/P - Problem (1) Metabolic encephalopathy Code(s): G93.41 - METABOLIC ENCEPHALOPATHY Status: Acute (2) HTN (hypertension) Code(s): I10 - ESSENTIAL (PRIMARY) HYPERTENSION Status: Acute (3) Hypothyroidism Code(s): E03.9 - HYPOTHYROIDISM, UNSPECIFIED Status: Acute (4) Metastatic breast cancer Code(s): C50.919 - MALIGNANT NEOPLASM OF UNSP SITE OF UNSPECIFIED FEMALE BREAST Status: Acute (5) Metastatic disease Code(s): C79.9 - SECONDARY MALIGNANT NEOPLASM OF UNSPECIFIED SITE Status: Acute (6) Migraines Code(s): G43.909 - MIGRAINE, UNSP, NOT INTRACTABLE, WITHOUT STATUS MIGRAINOSUS Status: Acute - Plan Plan: Assessment Patient is a 80-year-old female with a known past medical history of breast cancer with metastasis to thoracolumbar spine and the right iliac bone. She presents to the hospital with altered mental status 1 day after discharge following a prolonged hospitalization during which she presented with left arm weakness and facial numbness. She underwent extensive work-up including MRI of brain and lumbar puncture. No acute findings on MRI or malignant cells found in CSF analysis to suggest leptomeningeal disease. However, her spine MRI showed metastatic disease notable at T3 and extensively in the lumbar spine. She also had osseous disease of her right iliac bone with subsequent biopsy confirming metastatic breast disease. Her hospital course at that time was complicated by paroxysmal atrial tachycardia for which she underwent a nuclear stress test which was positive a small area of reversible ischemia. She underwent a coronary angiogram on 09/15 which revealed clean coronaries. She was discharged but returned 1 day after with altered mental status. Work-up in the ER is c oncerning for multiple lesions on CT head. I am suspecting an embolic CVA rather than metastatic brain disease given her recent procedure and negative MRI during her recent hospitalization. UA is negative. Prolactin is negative. Metabolic encephalopathy Possible embolic CVA versus metastatic disease Metastatic breast cancer with the thoracolumbar spine and right iliac bone Plan: Obtain MRI brain with contrast to better characterize the abnormal findings Continue telemetry monitoring I will also obtain a baseline EKG for underlying rhythm Start patient on IV Keppra seizure prophylaxis I will resume her dose of Arimidex as was recommended by oncology Resume Norvasc 2.5 mg and Toprol 50 mg Follow-up urine toxicology Will also go ahead and reorder PT/OT/speech therapy
[2020-09-16] MEDS ORDERED: DICLOFENAC POTASSIUM 50 MG PO PRN (17:40)
--- NOTE | 2020-09-16 19:25 | MRI ---
MRI OF THE BRAIN WITH AND WITHOUT IV CONTRAST: 09/16/20 HISTORY: Altered mental status. COMPARISON: MRI of 09/03/20. CORRELATION: CT brain from earlier today. FINDINGS: Exam is somewhat limited due to motion artifact. No restricted diffusion is seen. Changes of mild cortical atrophy and chronic small vessel ischemic d isease are again seen. No evidence of infarct, hemorrhage, mass, midline shift, or abnormal extra-axi al fluid collections are seen. The ventricular size is normal and the basilar cisterns patent. The vi sualized paranasal sinuses and mastoid air cells are well aerated. Calvarial bone marrow abnormalitie s are much less conspicuous than on the MRIs of the cervical spine of 09/03/20 and 09/05/20. IMPRESSION: No evidence of acute intracranial process or brain metastases. POS: OFF
[2020-09-16] MEDS: levETIRAcetam in NS 500 MG in Premix Bag 1 BAG IVPB SCH (20:51)
[2020-09-16] MEDS: Atorvastatin Calcium 10 MG TAB PO SCH (21:46)
[2020-09-17 02:30] LABS: Amphetamine Not Detected (NotDetected); Barbiturates Screen Not Detected (NotDetected); Benzodiazepine Screen Not Detected (NotDetected); Cocaine Metabolite Screen Not Detected (NotDetected); Medtox Control Line Valid? VALID (VALID); Medtox Reader # READER 4; Methadone Not Detected (NotDetected); Methamphetamine Not Detected (NotDetected); Opiate Screen Not Detected (NotDetected); Oxycodone Screen Not Detected (NotDetected); Phencyclidine (PCP) Not Detected (NotDetected); THC/Cannabinoid Screen Not Detected (NotDetected); Tricyclic Screen Not Detected (NotDetected)
[2020-09-17] MEDS ORDERED: Acetaminophen 325 MG TAB PO PRN (04:05)
[2020-09-17] MEDS: Levothyroxine Sodium 25 MCG TAB PO SCH (04:50)
[2020-09-17] MEDS: levETIRAcetam in NS 500 MG in Premix Bag 1 BAG IVPB SCH (05:10)
[2020-09-17 05:36] LABS: Hemoglobin 11.4 g/dL (12.0-16.0); Mean Corpuscular HGB CONC 34.2 g/dL (32.0-36.0); Mean Corpuscular Hemoglobin 28.2 pg (27.0-31.0); Mean Corpuscular Volume 82.6 fL (78.0-98.0); Mean Platelet Volume 10.5 fL (7.4-10.4); Platelet Count 139 thou/uL (130-400); RBC Distribution Width 15.7 % (11.5-14.5); Red Blood Cell (RBC) Count 4.03 mill/uL (4.20-5.40)
[2020-09-17 05:44] LABS: Band 4 % (5-11); Lymphocytes 10 % (21-51); MDiff Complete? YES; Metamyelocyte 3 % (0-0); Monocytes 12 % (0-10); Myelocyte 1 % (0-0); Neutrophil 70 % (42-75)
[2020-09-17] MEDS: Acetaminophen 650 MG Suppository PR PRN ×2 (08:23→14:22)
[2020-09-17 08:26] LABS: Lactic Acid 1.2 mmol/L (0.5-2.2)
[2020-09-17] MEDS: Amlodipine 5 MG TAB PO SCH (10:01)
[2020-09-17] MEDS: Anastrozole 1 MG TAB PO SCH (10:02)
[2020-09-17] MEDS: Aspirin 81 mg Enteric Coated Tablet PO SCH (10:02)
--- NOTE | 2020-09-17 13:04 | PDOC.HOSPP ---
- Subjective Encounter Date: 09/17/20 Subjective: Multiple fever spikes overnight with Tmax 101.9 degrees. Patient is drowsy this morning. Sleeping for the most part. Also received IV keppra last evening and this morning - Objective Vital Signs & Weight: Vital Signs (12 hours) Temp Pulse Resp BP Pulse Ox 09/17/20 11:47 101 F H 97 24 H 134/68 94 L 09/17/20 09:20 100.6 F H 09/17/20 08:23 101.9 F H 09/17/20 07:50 101.9 F H 98 24 H 122/65 99 09/17/20 04:45 98.4 F 09/17/20 03:51 101.8 F H 99 22 H 124/78 90 L Weight Weight 123 lb 9.6 oz I&O: 09/16/20 09/17/20 09/18/20 06:59 06:59 06:59 Output Total 125 Balance -125 Result Diagrams: 09/17/20 04:06 09/16/20 14:34 Hospitalist ROS - Medication Medications: Active Medications Generic Name Dose Route Start Last Admin Trade Name Freq PRN Reason Stop Dose Admin Acetaminophen 650 mg 09/17/20 04:05 09/17/20 08:23 Acetaminophen 650 Mg Suppository SC 650 mg Q6H PRN Administration Headache/Fever or Pain Amlodipine Besylate 2.5 mg 09/17/20 09:00 09/17/20 10:01 Amlodipine 5 Mg Tab PO Not Given DAILY DARIANA Anastrozole 1 mg 09/17/20 09:00 09/17/20 10:02 Anastrozole 1 Mg Tab PO Not Given DAILY DARIANA Aspirin 81 mg 09/17/20 09:00 09/17/20 10:02 Aspirin 81 Mg Enteric Coated Tablet PO Not Given DAILY DARIANA Atorvastatin Calcium 10 mg 09/16/20 21:00 09/16/20 21:46 Atorvastatin Calcium 10 Mg Tab PO Not Given HS DARIANA Levothyroxine Sodium 25 mcg 09/17/20 06:00 09/17/20 04:50 Levothyroxine Sodium 25 Mcg Tab PO Not Given 0600 DARIANA Metoprolol Succinate 50 mg 09/17/20 09:00 09/17/20 10:02 Metoprolol Succinate Xl 50 Mg Tab PO Not Given DAILY DARIANA Pantoprazole Sodium 40 mg 09/17/20 09:00 09/17/20 10:03 Pantoprazole 40 Mg Tab PO Not Given DAILY DARIANA - Exam General - other findings: Somnolent Eye: PERRL ENT: normocephalic atraumatic Heart: RRR, no murmur, no gallops Respiratory: CTAB, no wheezes, no rales, no ronchi Gastrointestinal: soft, non-tender, non-distended, normal bowel sounds Extremities: no clubbing, no edema Psychiatric: somnolent Hosp A/P (1) Metabolic encephalopathy Code(s): G93.41 - METABOLIC ENCEPHALOPATHY Status: Acute (2) HTN (hypertension) Code(s): I10 - ESSENTIAL (PRIMARY) HYPERTENSION Status: Acute (3) Hypothyroidism Code(s): E03.9 - HYPOTHYROIDISM, UNSPECIFIED Status: Acute (4) Metastatic breast cancer Code(s): C50.919 - MALIGNANT NEOPLASM OF UNSP SITE OF UNSPECIFIED FEMALE BREAST Status: Acute (5) Metastatic disease Code(s): C79.9 - SECONDARY MALIGNANT NEOPLASM OF UNSPECIFIED SITE Status: Acute (6) Migraines Code(s): G43.909 - MIGRAINE, UNSP, NOT INTRACTABLE, WITHOUT STATUS MIGRAINOSUS Status: Acute - Plan Assessment Denise Thacker is a 80-year-old female with a known past medical history of breast cancer with metastasis to thoracolumbar spine and right iliac bone. She returned to the hospital with AMS 1 day after discharge following a prolonged hospitalization during which she presented with left arm weakness and facial numbness. During her last hospitalization (Aug 30 - 09/15), she had a negative MRI Brain. LP was performed and CSF analysis was significant for IgG west jay virus, myelin protein and elevated protein. No malignant cells to suggest leptomeningeal carcinomatosis. She is now back with altered mental status and having multiple fever on HD#1. MRI brain was repeated on this admission because her CT head on presentation was concerning for new widespread sclerotic lesions in the region of clivus. Therefore, keppra was ordered for seizure prophylaxis until MRI brain for better characterization. MRI brain was without intracranial abnormalities. Work up underway will focus on infectious (encephalitis) and non-infectious etiologies (auto-immune encephalitis vs. Drug fever). OF NOTE, patient's is also suspicious of the medications given during her angiogram. She has a historically of post angiogram adverse reactions, as well as her father. Possible sepsis Metabolic encephalopathy Possible embolic CVA versus metastatic disease Metastatic breast cancer with the thoracolumbar spine and right iliac bone Plan: Discontinue Keppra LP puncture with Radiology CSF orders placed. 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
--- NOTE | 2020-09-17 13:45 | RAD ---
XR Lumbar Punct Only W/Fluoro History: Encephalitis Comparison: Lumbar puncture September 03, 2020 Findings: Patient was brought to the fluoroscopy suite. Informed consent was artery performed. The patient's back was prepped and draped in normal sterile fashion. After adequate local anesthesia with lidocaine, the L4/L5 interspaces accessed with a 22-gauge spinal needle. 12 mL of clear CSF was removed. The opening pressure was 11 cm of water. Impression: 1. Technically successful lumbar puncture with removal of 12 mL clear CSF. 2. Opening pressure 11 cm water.
[2020-09-17 14:39] LABS: Color Of CSF Supernatant COLORLESS (Colorless); Unspun CSF Color COLORLESS (Colorless)
[2020-09-17 14:40] LABS: Tube # 1
[2020-09-17 14:51] LABS: CSF, Glucose 41 mg/dl (40-70); CSF, Protein 68 mg/dL (15-40)
[2020-09-17 14:55] LABS: CSF Source CSF; Clarity Clear (Clear); Tube # 4
[2020-09-17 14:58] LABS: Cell Count Non Hematic 28 %; Lymphocytes 25 %
[2020-09-17 15:03] LABS: Segmented Neutrophils 47 %
[2020-09-17] MEDS: Dextrose 5 %-0.45 % NaCl 1,000 ML IV SCH (15:46)
[2020-09-17] MEDS ORDERED: Prochlorperazine Edisylate 10 MG in Sodium Chloride 0.9% 50 ML IVPB SCH (18:30)
[2020-09-17] MEDS ORDERED: Ketorolac Tromethamine 30 MG/ML VIAL IVP SCH (18:30)
[2020-09-17] MEDS ORDERED: diphenhydrAMINE 12.5 MG in Sodium Chloride 0.9% 50 ML IVPB SCH (18:30)
[2020-09-17] MEDS: Atorvastatin Calcium 10 MG TAB PO SCH (19:32)
[2020-09-17] MEDS: Acyclovir Sodium 600 MG in Sodium Chloride 0.9% 100 ML IVPB SCH (20:13)
[2020-09-18] MEDS: Acyclovir Sodium 600 MG in Sodium Chloride 0.9% 100 ML IVPB SCH ×2 (05:09→13:13)
[2020-09-18] MEDS: Dextrose 5 %-0.45 % NaCl 1,000 ML IV SCH ×2 (05:12→20:32)
[2020-09-18] MEDS: Levothyroxine Sodium 25 MCG TAB PO SCH (05:13)
[2020-09-18 05:46] LABS: Band 5 % (5-11); Eosinophils 2 % (0-10); Hemoglobin 10.8 g/dL (12.0-16.0); Lymphocytes 11 % (21-51); MDiff Complete? YES; Mean Corpuscular HGB CONC 33.2 g/dL (32.0-36.0); Mean Corpuscular Hemoglobin 27.5 pg (27.0-31.0); Mean Platelet Volume 10.6 fL (7.4-10.4); Metamyelocyte 1 % (0-0); Monocytes 27 % (0-10); Myelocyte 1 % (0-0); Neutrophil 53 % (42-75); Platelet Count 130 thou/uL (130-400); RBC Distribution Width 15.5 % (11.5-14.5); Red Blood Cell (RBC) Count 3.93 mill/uL (4.20-5.40); White Blood Cell (WBC) Count 12.1 thou/uL (4.8-10.8)
[2020-09-18] MEDS: Aspirin 81 mg Enteric Coated Tablet PO SCH (09:42)
[2020-09-18] MEDS: Amlodipine 5 MG TAB PO SCH (09:42)
[2020-09-18] MEDS: Anastrozole 1 MG TAB PO SCH (09:42)
[2020-09-18 11:39] LABS: Sodium 138 mmol/L (136-145)
[2020-09-18 11:40] LABS: Anion Gap 15 mmol/L (10-20); BUN (Urea Nitrogen) 22 mg/dL (9.8-20.1); Calc. Creatinine Clearance 27 mL/min (70-130); Calcium 8.7 mg/dL (7.8-10.44); Carbon Dioxide 23 mmol/L (23-31); Chloride 103 mmol/L (98-107); Glucose 114 mg/dL (83-110); Potassium 3.2 mmol/L (3.5-5.1)
[2020-09-18] MEDS: Pantoprazole 40 MG VIAL IVP SCH (13:07)
--- NOTE | 2020-09-18 16:09 | PDOC.HOSPP ---
- Subjective Encounter Date: 09/18/20 Subjective: Patient is slightly more alert today. She is still not interacting verbally. She is not cooperating with simple tasks like opening her mouth. However, she is doing some things by herself like lifting her arm to scratch her head if she needs to. - Objective Vital Signs & Weight: Vital Signs (12 hours) Temp Pulse Resp BP BP Pulse Ox 09/18/20 14:06 146/79 H 09/18/20 11:48 98.3 F 85 18 131/68 98 09/18/20 07:51 98.4 F 79 17 145/66 H 92 L Weight Admit Weight 123 lb 9.6 oz Weight 123 lb 9.6 oz I&O: 09/17/20 09/18/20 09/19/20 06:59 06:59 06:59 Intake Total 300 Output Total 125 550 Balance -125 -250 Result Diagrams: 09/18/20 04:09 09/18/20 10:39 Hospitalist ROS - Medication Medications: Active Medications Generic Name Dose Route Start Last Admin Trade Name Freq PRN Reason Stop Dose Admin Acetaminophen 650 mg 09/17/20 04:05 09/17/20 14:22 Acetaminophen 650 Mg Suppository [place] 650 mg Q6H PRN Administration Headache/Fever or Pain Amlodipine Besylate 2.5 mg 09/17/20 09:00 09/18/20 09:42 Amlodipine 5 Mg Tab PO Not Given DAILY [facility] Anastrozole 1 mg 09/17/20 09:00 09/18/20 09:42 Anastrozole 1 Mg Tab PO Not Given DAILY [facility] Aspirin 81 mg 09/17/20 09:00 09/18/20 09:42 Aspirin 81 Mg Enteric Coated Tablet PO Not Given DAILY [facility] Atorvastatin Calcium 10 mg 09/16/20 21:00 09/17/20 19:32 Atorvastatin Calcium 10 Mg Tab PO Not Given HS [facility] Dextrose/Sodium Chloride 1,000 mls @ 75 mls/hr 09/17/20 15:15 09/18/20 05:12 D5 1/2 Ns IV 1,000 mls .[id number] DARIANA Administration Levothyroxine Sodium 25 mcg 09/17/20 06:00 09/18/20 05:13 Levothyroxine Sodium 25 Mcg Tab PO Not Given 0600 [facility] Metoprolol Succinate 50 mg 09/17/20 09:00 09/18/20 09:42 Metoprolol Succinate Xl 50 Mg Tab PO Not Given DAILY [facility] Pantoprazole Sodium 40 mg 09/18/20 09:00 09/18/20 13:07 Pantoprazole 40 Mg Vial IVP 40 mg DAILY [facility] Administration - Exam General - other findings: More awake but still lethargic. Nonverbal. Slightly pale Eye: anicteric sclera ENT: normocephalic atraumatic Heart: RRR, no murmur, no gallops, no rubs Respiratory: CTAB, no wheezes, no rales, no ronchi Gastrointestinal: soft, non-tender, non-distended, normal bowel sounds Extremities: no clubbing, no edema Psychiatric: flat affect Hosp A/P (1) Metabolic encephalopathy Code(s): G93.41 - METABOLIC ENCEPHALOPATHY Status: Acute (2) HTN (hypertension) Code(s): I10 - ESSENTIAL (PRIMARY) HYPERTENSION Status: Acute (3) Hypothyroidism Code(s): E03.9 - HYPOTHYROIDISM, UNSPECIFIED Status: Acute (4) Metastatic breast cancer Code(s): C50.919 - MALIGNANT NEOPLASM OF UNSP SITE OF UNSPECIFIED FEMALE BREAST Status: Acute (5) Metastatic disease Code(s): C79.9 - SECONDARY MALIGNANT NEOPLASM OF UNSPECIFIED SITE Status: Acute (6) Migraines Code(s): G43.909 - MIGRAINE, UNSP, NOT INTRACTABLE, WITHOUT STATUS MIGRAINOSUS Status: Acute - Plan Assessment Denise Thacker is a 80-year-old female with a known past medical history of breast cancer with metastasis to thoracolumbar spine and right iliac bone. She returned to the hospital with AMS 1 day after discharge following a prolonged hospitalization during which she presented with left arm weakness and facial numbness. During her last hospitalization (Aug 30 - 09/15), she had a negative MRI Brain. LP was performed and CSF analysis was significant for IgG west jay virus, myelin protein and elevated protein. No definite malignant cells to suggest leptomeningeal carcinomatosis. She is now back with altered mental status and having multiple fever on HD#1. MRI brain was repeated on this admission because her CT head on presentation was concerning for new widespread sclerotic lesions in the region of clivus. It was negative. Work up underway will focus on infectious (encephalitis) and non-infectious etiologies (auto- immune encephalitis vs. Drug fever). OF NOTE, patient's is also suspicious of the medications given during her angiogram. She has a history of post angiogram adverse reactions, which also happen in her father. Repeat lumbar puncture during this admission showed total cell count of 10, with 47% neutrophils, total protein of 68 and glucose of 41. She has been afebrile for the past 24 hours. I had a conversation with infectious disease and was told that she tested negative for HSV. Family inquired about paraneoplastic and autoimmune encephalitis. I have yet to test for them. They are most likely a send-out lab and will need to have a discussion with oncology and neurology regarding how to proceed with testing. Possible sepsis Metabolic encephalopathy BARRIE Metastatic breast cancer with the thoracolumbar spine and right iliac bone Plan: Discontinue acyclovir Continue volume repletion with D5 half NS until she passes swallow evaluation Ordered repeat cytology of CSF analysis Ketorolac for headache As needed IV labetalol for blood pressure control Keep NPO for now until mental status improves PT/OT/speech therapy have been ordered
[2020-09-18] MEDS ORDERED: Labetalol HCl 100 MG/20 ML VIAL SLOW IVP PRN (16:24)
[2020-09-18] MEDS ORDERED: Ketorolac Tromethamine 30 MG/ML VIAL IVP SCH (18:00)
[2020-09-18] MEDS ORDERED: diphenhydrAMINE 50 MG/ML VIAL IVP SCH (19:00)
[2020-09-18] MEDS: Atorvastatin Calcium 10 MG TAB PO SCH (20:32)
[2020-09-18] MEDS ORDERED: methylPREDNISolone Sod Succ/PF 125 MG/2 ML VIAL IVP SCH (21:00)
--- NOTE | 2020-09-18 21:35 | CON ---
DATE OF CONSULTATION: 09/18/2020 REASON FOR CONSULTATION: Altered mental state recurrence. HISTORY OF PRESENT ILLNESS: A 80-year-old whom I had seen recently at the beginning of September 2020 when she presented with a history of migraine headaches, hypothyroidism, and breast cancer. She arrived with right-sided headache, constant and low-grade temperature elevation and then developed sudden left facial droop and left-sided weakness, came to the emergency room. Vascular evaluation was completely normal. The MRI did not show any evidence of CVA. The CSF showed 48 WBCs with predominance of lymphocytes. When I saw her, she was drowsy, but awake, had a left-sided neglect, and was focusing on her daughter and wall. She rated her headache at 9/10. She will her voice was kind of halting and monotone, sometimes hard to enunciate words. She did not have any neck issues. White cell count 7.4 and hemoglobin was normal. The impression was hypothyroidism, chronic migraines, new onset of left-sided hemiparesis with abnormal CSF, mild elevation of neutrophil count and borderline glucose and SARS-CoV PCR negative, so the patient had an infectious workup including HSV DNA PCR, West Nile, cryptococcus antigen, all those were negative except West Nile IgG positive, which is likely to represent old infection and not new. The C-spine MRI showed abnormal marrow density, so we will also add CSF cytology to rule out carcinomatous meningitis. The CSF evaluation was not conclusive and there were some cells that were too degenerated to be able to be interpreted, but the pathologist could not give a conclusive statement as to the presence or absence of carcinomatous meningitis. In the end, there was a clear- cut evidence of widespread bone metastatic disease from breast cancer, so she got actually improved. She was treated with various medications including gabapentin, Keppra. She received Versed for 2 doses and anti-inflammatories, did not receive corticosteroids though, so she improved and was able to walk around and she was pretty much back to baseline as her [id number] states and then she had a catheterization, which was followed by somewhat recrudescence of altered mental state not to the full extent that she had presented initially. So, she was transferred that way to, I believe, to rehab and came right back and returned with mental state changes again and very confused. She was breathing well though, did not have any O2 saturation problems, and initial exam showed BP 120/80, heart rate 90, respirations 18, and O2 saturation 95%, and she was confused, responsive to verbal stimuli, and she had no pain on palpation. Lungs, heart exam, abdomen examination normal. The neuro examination is partly described here in the note. The gait was described as abnormal, unable to ambulate, that is the extent of neuro examination. MRI of the brain was performed and that showed no evidence of acute intracranial process or brain metastasis. She had another CSF evaluation, which showed a total WBC count of 10 with a glucose of 41, protein 68, and creatinine 1.47, which is a bit higher than her baseline. Her bilirubin normal, AST 42, ALT 18, alkaline phosphatase 168, CK 48, albumin 4.1. The HSV DNA PCR from the previous CSF evaluation was negative again as I stated before. Currently, Ms. Thacker is awake. Has her neck turned towards the left side and neck is too stiff and there is no way that one can turn her head to the right side or even to the midline or neutral position. She does not seem to have nystagmus. She seems to be aware of things, but has a hard time communicating. She has diffuse stiffness of upper and lower extremities. She seems to have motion in all 4 extremities. Other elements of the review of systems are of limited information potential because of her mental state, but she has not had diarrhea. No respiratory symptoms identified. PAST MEDICAL HISTORY: Includes hypothyroidism, migraine headaches, breast cancer in remission, but now with recurrence with widespread bone metastatic disease, hypertension, hysterectomy, mastectomy, breast reconstruction, and now there are recurrent episodes of abnormal mental state with some motion abnormalities. SOCIAL HISTORY: Never smoker. She lives in [facility]. ALLERGIES: CODEINE. CURRENT MEDICATIONS: 1. Norvasc. 2. Anastrozole. 3. Aspirin. 4. Atorvastatin. 5. Diphenhydramine. 6. Metoprolol. 7. Diclofenac. 8. Pantoprazole. FAMILY HISTORY: Noncontributory. PHYSICAL EXAMINATION: CURRENT VITAL SIGNS: She had a temperature 102.2 on arrival, she is now down to 98.3, and BP is 140/70, heart rate 94, saturating 99% on room air. GENERAL: When I saw her in the room, she has her neck turned to the left side and is stiff in position. It is impossible to mobilize her neck towards the neutral or to the right side. The sternocleidomastoid is obviously tense on visualization. All 4 extremities are stiff. It is hard to flex the muscles of the extremities. She has a peripheral IV access, and voiding looks like in the diaper. The ocular movements have deviation to left side or the preferable side, but I think she is able to move them around. Oral cavity was hard to evaluate. She would not open her mouth. LUNGS: Symmetric. Clear breath sounds. HEART: S1 and S2. Regular rate. ABDOMEN: Soft, not distended or tender. No ascites. No bladder distention. EXTREMITIES: No joint inflammatory activity. Pulses 1+ in dorsalis pedis. NEUROLOGIC: She is awake, but unable to interact with examiner. She appears to be somewhat either drowsy or had a hard time to understand questions or even follow simple commands and more motility abnormality noted. Diffuse stiffness. LABORATORY DATA: Sodium 140, creatinine 0.94. The other findings have been discussed. Prolactin 4.83. INR 1.1. White cell count was 12.1, hemoglobin 13, platelets 153. Urinalysis was normal. Two sets of blood cultures pending. Cryptococcus antigen was negative in the latest spinal fluid evaluation. IMAGING STUDIES: Noted above. The patient had a chest x-ray on admission, which demonstrated no acute cardiopulmonary process. ASSESSMENT: Migraine headaches with recurrent episodes of abnormal mental state with motility abnormalities associated with normal MRI x3 and evidence of widespread metastatic disease to bone and a nonconclusive CSF examination for carcinomatous meningitis. She has diffuse stiffness particularly center around the neck area, but also in the appendicular structures. DISCUSSION: The differential diagnosis includes a still not yet ruled out carcinomatous meningitis versus stiff-person syndrome caused by paraneoplastic syndrome associated with breast cancer. In this case, associated with amphiphysin antibodies. This syndrome is typically manifested in older women with recrudescence of breast cancer and with stiffness pattern with particular cervical involvement. In this case, the management with benzodiazepines or high-dose corticosteroids or obviously effective chemotherapy usually produce marked clinical improvement, so I am going to give her short of Solu-Medrol IV for a couple of days and see if that helps. I would encourage also submission of tests for amphiphysin autoantibodies and more samples of CSF were submitted for repeat cytology also, which will be helpful. Infectious syndrome is unlikely in this case. She was febrile and that is why she needs to have the usual workup and antimicrobial coverage until this is clarified. Job ID: [id number] MARVIN
[2020-09-19] MEDS: Levothyroxine Sodium 25 MCG TAB PO SCH (00:28)
--- NOTE | 2020-09-19 03:46 | PDOC.EVN ---
Event Note - Event Note Event Note: Nursing called, multiple blood clots from nares during shift. Now reports continuous bleeding after discharging blood clot. Patient appears to be swallowing blood? Discussed holding pressure bridge nose. Discussed BP readings. Will hold pressure and give 1 dose afrin if bleeding does not stop with manual pressure. INR and platelets WNL. If bleeding persists, may consider ENT consultation. morning labs ordered.
[2020-09-19 04:29] LABS: #Lymphocytes 0.3 thou/uL (1.20-3.40); #Monocytes 0.4 thou/uL (0.11-0.59); #Neutrophils 10.6 thou/uL (1.40-6.50); %Basophils 0.1 % (0.0-1.0); %Eosinophils 0.3 % (0.0-10.0); %Lymphocytes 2.6 % (21.0-51.0); %Monocytes 3.5 % (0.0-10.0); %Neutrophils 93.5 % (42.0-75.0); Mean Corpuscular HGB CONC 33.8 g/dL (32.0-36.0); Mean Corpuscular Hemoglobin 27.8 pg (27.0-31.0); Mean Corpuscular Volume 82.2 fL (78.0-98.0); Mean Platelet Volume 10.7 fL (7.4-10.4); Platelet Count 128 thou/uL (130-400); RBC Distribution Width 15.8 % (11.5-14.5); Red Blood Cell (RBC) Count 4.32 mill/uL (4.20-5.40); White Blood Cell (WBC) Count 11.3 thou/uL (4.8-10.8)
[2020-09-19] MEDS ORDERED: Oxymetazoline HCl 0.05% (30 ML BOT) NS SCH ×2 (04:30→10:15)
--- NOTE | 2020-09-19 08:31 | RAD ---
XR Chest 1 View History: Evaluate for aspiration Comparison: Radiograph September 16, 2020 Findings: Lungs are clear. No pneumothorax or effusion. Iliac silhouette and mediastinal contours are within normal limits. No acute osseous abnormality. Impression: No acute intrathoracic abnormality.
[2020-09-19] MEDS ORDERED: methylPREDNISolone Sod Succ/PF 125 MG/2 ML VIAL IVP SCH (09:00)
[2020-09-19] MEDS: Amlodipine 5 MG TAB PO SCH (09:07)
[2020-09-19] MEDS: Pantoprazole 40 MG VIAL IVP SCH (09:07)
[2020-09-19] MEDS: Aspirin 81 mg Enteric Coated Tablet PO SCH (09:07)
[2020-09-19] MEDS: Anastrozole 1 MG TAB PO SCH (09:07)
[2020-09-19] MEDS ORDERED: diphenhydrAMINE 50 MG/ML VIAL IVP SCH (10:15)
[2020-09-19] MEDS ORDERED: Sodium Chloride 0.65% Nasal 44 ML BOT EA NARE SCH (11:15)
--- NOTE | 2020-09-19 12:04 | PDOC.HOSPP ---
- Subjective Encounter Date: 09/19/20 Subjective: Episodes of epistaxis overnight and this morning. Patient failed nasal compression and Afrin therapy. ENT consulted. Changes over the last 24 hours of of ketorolac injections overnight for headache and trial of Solu-Medrol for possible stiff person syndrome - Objective Vital Signs & Weight: Vital Signs (12 hours) Temp Pulse Resp BP Pulse Ox 09/19/20 04:55 99 175/88 H 09/19/20 04:00 98.5 F 100 18 186/85 H 97 Weight Admit Weight 123 lb 9.6 oz Weight 123 lb 9.6 oz I&O: 09/18/20 09/19/20 09/20/20 06:59 06:59 06:59 Intake Total 300 Output Total 550 700 Balance -250 -700 Result Diagrams: 09/19/20 04:18 09/18/20 10:39 Hospitalist ROS - Medication Medications: Active Medications Generic Name Dose Route Start Last Admin Trade Name Freq PRN Reason Stop Dose Admin Acetaminophen 650 mg 09/17/20 04:05 09/17/20 14:22 Acetaminophen 650 Mg Suppository [place] 650 mg Q6H PRN Administration Headache/Fever or Pain Amlodipine Besylate 2.5 mg 09/17/20 09:00 09/19/20 09:07 Amlodipine 5 Mg Tab PO Not Given DAILY [facility] Anastrozole 1 mg 09/17/20 09:00 09/19/20 09:07 Anastrozole 1 Mg Tab PO Not Given DAILY [facility] Aspirin 81 mg 09/17/20 09:00 09/19/20 09:07 Aspirin 81 Mg Enteric Coated Tablet PO Not Given DAILY [facility] Atorvastatin Calcium 10 mg 09/16/20 21:00 09/18/20 20:32 Atorvastatin Calcium 10 Mg Tab PO Not Given HS [facility] Dextrose/Sodium Chloride 1,000 mls @ 75 mls/hr 09/17/20 15:15 09/18/20 20:32 D5 1/2 Ns IV 1,000 mls .[id number] DARIANA Administration Levothyroxine Sodium 25 mcg 09/17/20 06:00 09/19/20 00:28 Levothyroxine Sodium 25 Mcg Tab PO Not Given 0600 [facility] Methylprednisolone Sodium Succinate 125 mg 09/18/20 21:00 09/18/20 20:30 Methylprednisolone Sod Succ/Pf 125 Mg/2 Ml Vial IVP 125 mg HS DAR[facility]NA Administration Metoprolol Succinate 50 mg 09/17/20 09:00 09/19/20 09:08 Metoprolol Succinate Xl 50 Mg Tab PO Not Given DAILY [facility] Pantoprazole Sodium 40 mg 09/18/20 09:00 09/19/20 09:07 Pantoprazole 40 Mg Vial IVP 40 mg DAILY [facility] Administration Sodium Chloride 10 ml 09/19/20 09:00 09/19/20 09:04 Flush - Normal Saline 10 Ml Syringe IVF 10 ml Q12HR DARIANA Administration - Exam General - other findings: Awake but not verbally interacting ENT: normocephalic atraumatic Neck - other findings: Torticollis Heart: RRR, no murmur, no gallops, no rubs Respiratory: CTAB, no wheezes, no rales, no ronchi Gastrointestinal: soft, non-tender, non-distended, normal bowel sounds Extremities: no clubbing, no edema Skin - other findings: Pale Psychiatric: flat affect Hosp A/P (1) Metabolic encephalopathy Code(s): G93.41 - METABOLIC ENCEPHALOPATHY Status: Acute (2) HTN (hypertension) Code(s): I10 - ESSENTIAL (PRIMARY) HYPERTENSION Status: Acute (3) Hypothyroidism Code(s): E03.9 - HYPOTHYROIDISM, UNSPECIFIED Status: Acute (4) Metastatic breast cancer Code(s): C50.919 - MALIGNANT NEOPLASM OF UNSP SITE OF UNSPECIFIED FEMALE BREAST Status: Acute (5) Metastatic disease Code(s): C79.9 - SECONDARY MALIGNANT NEOPLASM OF UNSPECIFIED SITE Status: Acute (6) Migraines Code(s): G43.909 - MIGRAINE, UNSP, NOT INTRACTABLE, WITHOUT STATUS MIGRAINOSUS Status: Acute - Plan Assessment Denise Thacker is a 80-year-old female with a known past medical history of breast cancer with metastasis to thoracolumbar spine and right iliac bone. She returned to the hospital with AMS 1 day after discharge following a prolonged hospitalization during which she presented with left arm weakness and facial numbness. During her last hospitalization (Aug 30 - 09/15), she had a negative MRI Brain. LP was performed and CSF analysis was significant for IgG west jay virus, myelin protein and elevated protein. She was negative for oligoclonal bands. No definite malignant cells to suggest leptomeningeal carcinomatosis. She however had a trial of acyclovir then transition to valacyclovir. She also was given migraine cocktail for headache. Her symptoms improved and her mental status returned to baseline. She was well for several days until the day she underwent coronary angiogram. At that time she was having paroxysmal atrial tachycardia for which cardiology was consulted. She underwent a nuclear stress test which showed a small region of reversible ischemia. A subsequent coronary angiogram revealed patent vessels. Since her angiogram, patient has been very lethargic and aphasic. OF NOTE, patient's is also suspicious of the medications given during her angiogram. She has a history of post angiogram adverse reactions, which also happen in her father. She is now back on 09/16/2020 with altered mental status and had multiple fever spikes on HD#1. MRI brain ruled out intracranial abnormalities. Repeat lumbar puncture during this admission showed total cell count of 10, with 47% neutrophils, total protein of 68 and glucose of 41. Acyclovir was discontinued due to negative HSV PCR. This was per ID recommendation. There has been a concern for autoimmune encephalitis versus paraneoplastic syndrome. Infectious disease is concerned about stiff person syndrome which is a paraneoplastic disease is very common in elderly female with breast cancer. Started a trial of Solu-Medrol on 09/18. Over the past 24 hours patient has had epistaxis as described in the subjective portion of the above. She was also being given ketorolac for headache. Epistaxis Acute blood loss anemia Metabolic encephalopathy Torticollis BARRIE -resolved Metastatic breast cancer with the thoracolumbar spine and right iliac bone Possible sepsis -ruled out Plan: Hold Solu-Medrol, hold ketorolac Give a dose of Afrin Consult ENT for persistent epistaxis Hold chemoprophylaxis with Lovenox Repeat CBC in the afternoon and transfuse if hemoglobin is less than 7 Continue volume repletion with D5 half NS until she passes swallow evaluation Patient is getting another trial of Benadryl today which seems to be helping with her dystonic reaction. I believe she is having this from a Compazine, which was part of the migraine cocktail. Follow-up repeat cell cytology on CSF analysis Continue as needed IV labetalol for blood pressure control Keep NPO for now until mental status improves PT/OT/speech therapy have been ordered Note: I have also discussed the patient's case with Dr. Carl Sesay from neurology, and Dr. Jorgito Guerrero and Charline Aparicio from oncology. Please feel free to reach out if you have questions
[2020-09-19] MEDS: Dextrose 5 %-0.45 % NaCl 1,000 ML IV SCH ×2 (12:48→21:08)
[2020-09-19] MEDS: CEFAZOLIN 0.5 GM in Sodium Chloride 0.9% 100 ML IVPB SCH ×2 (12:49→21:08)
[2020-09-19 14:31] LABS: Anion Gap 16 mmol/L (10-20); BUN (Urea Nitrogen) 29 mg/dL (9.8-20.1); Calc. Creatinine Clearance 22 mL/min (70-130); Carbon Dioxide 22 mmol/L (23-31); Chloride 109 mmol/L (98-107); Glucose 116 mg/dL (83-110); Potassium 3.5 mmol/L (3.5-5.1); Sodium 143 mmol/L (136-145)
[2020-09-19 14:34] LABS: Anisocytosis SLIGHT = 6-15 cells (100X) (0-5/hpf); Band 14 % (5-11); Helmet Cells SLIGHT = 2-5 cells (100X) (0-1/hpf); Hemoglobin 10.8 g/dL (12.0-16.0); Hypochromia SLIGHT = 6-15 cells (100X) (0-5/hpf); Lymphocytes 3 % (21-51); MDiff Complete? YES; Mean Corpuscular HGB CONC 33.6 g/dL (32.0-36.0); Mean Corpuscular Hemoglobin 28.2 pg (27.0-31.0); Mean Corpuscular Volume 83.8 fL (78.0-98.0); Mean Platelet Volume 10.5 fL (7.4-10.4); Metamyelocyte 1 % (0-0); Monocytes 14 % (0-10); Neutrophil 68 % (42-75); Platelet Count 134 thou/uL (130-400); Platelet Morphology Comment Appears Adequate; Polychromasia MODERATE = 3-4 cells (100X) (0-2/hpf); RBC Distribution Width 15.6 % (11.5-14.5); Red Blood Cell (RBC) Count 3.83 mill/uL (4.20-5.40); Schistocytes SLIGHT = 2-5 cells (100X) (0-1/hpf); Tear Drops SLIGHT = 2-5 cells (100X) (0-1/hpf); White Blood Cell (WBC) Count 14.1 thou/uL (4.8-10.8)
[2020-09-19 14:40] LABS: West Nile Virus IgG Ab - CSF Positive (Negative); West Nile Virus IgM Ab - CSF Negative (Negative)
--- NOTE | 2020-09-19 16:48 | CON ---
DATE OF CONSULTATION: REASON FOR CONSULTATION: Breast cancer. HISTORY OF PRESENT ILLNESS: Ms. Thacker is a 80-year-old female who was diagnosed with stage IIIA, ER/GA positive, HER-2 negative lobular carcinoma in 2011. She underwent treatment with Arimidex and radiation. She had a mastectomy with sentinel node biopsy. She has been in remission on Arimidex for the last 9 years. She presented to the hospital early this month with confusion and facial droop. She underwent evaluation for a stroke with multiple scans, all were negative. She had a lumbar puncture to rule out encephalitis. All workup was negative. During her scanning, she was noted to have some abnormalities in her bone and underwent a biopsy of her right iliac bone. It was positive for recurrent breast cancer, had a low Ki67 of 13.7, ER positive, GA negative, HER-2 negative. She underwent a cardiac workup during her previous stay and then went to the [facility] where she once again developed altered mental status and was brought back to this facility. She was confused and had an MRI of the brain, which again showed no evidence of intracranial process. She had another lumbar puncture, cytology currently pending. She did have elevated neutrophils and protein in both samples. She was seen at bedside with her and son present. She is somnolent, but apparently has been given some Benadryl. Family states she has not eaten in several days. PAST MEDICAL HISTORY: 1. Recurrent breast cancer with bone metastatic disease. 2. Hypothyroidism. 3. Hypertension. 4. Migraine headaches. 5. High cholesterol. 6. Anxiety and depression. PAST SURGICAL HISTORY: 1. . 2. Hysterectomy. 3. Mastectomy. 4. Lumbar puncture. ALLERGIES: CODEINE. CURRENT MEDICATIONS: 1. Norvasc. 2. Arimidex. 3. Ecotrin. 4. Lipitor. 5. Cefazolin. 6. Synthroid. 7. Solu-Medrol. 8. Toprol. 9. Cambia. 10. Protonix. FAMILY HISTORY: Noncontributory. SOCIAL HISTORY: , lives with her spouse and 2 children. No alcohol, tobacco, or illicit drug use. REVIEW OF SYSTEMS: Unable to obtain secondary to somnolence. PHYSICAL EXAMINATION: VITAL SIGNS: Temperature 98.9, pulse 102, respiratory rate 20, blood pressure is 154/90, and she is 100% on room air. GENERAL: This is a frail female, in no acute distress. HEENT: Normocephalic and atraumatic. CV: Regular rate and rhythm. LUNGS: Respirations are unlabored. ABDOMEN: Soft. EXTREMITIES: There is no clubbing or cyanosis. PERTINENT LABORATORY DATA AND X-RAYS: WBCs 14.1, hemoglobin 10.8, hematocrit 32.1, platelet count 134,000, 68% neutrophils, 14% bands, 3% lymphocytes, and 14% monocytes. PT is 14, INR is 1.1, and PTT is 30.6. Sodium 143, potassium 3.5, chloride 109, CO2 is 22, BUN is 29, creatinine 1.86, and calcium 9. Bilirubin 0.7, AST is 42, ALT is 18, and alkaline phosphatase is 168. Creatine kinase is 48 and troponin is negative. Serum total protein is 7.4, albumin 4.1, and globulin 3.3. Urine is negative. CSF showed 47% neutrophils, 25% lymphocytes, total protein of 68. COVID PCR negative. Radiology per HPI. ASSESSMENT: 1. Recurrent metastatic breast cancer with bone mets. 2. Intermittent altered mental status. DISCUSSION: The patient is undergoing workup for possible stiff-person syndrome. She has been started on high-dose steroids. The plan is to start oral chemotherapy with Ibrance once she has recovered. Recommend feeding tube for nutrition. I discussed with the family that all care is palliative. I am concerned with her quick decline. They wish to be aggressive with care. Will rule out infectious process and treat neurological symptoms. Case has been discussed with Dr. Moeller. Thank you for the consult. Job ID: [id number] [facility]
[2020-09-19 17:09] LABS: VDRL, CSF Non Reactive (Non Rea:<1:1)
[2020-09-19] MEDS: Sodium Chloride 0.65% Nasal 44 ML BOT EA NARE SCH ×2 (17:18→21:13)
--- NOTE | 2020-09-19 18:31 | CON ---
NEUROLOGY CONSULTATION DATE OF CONSULTATION: 09/19/2020 REASON FOR CONSULTATION: Altered mental status. HISTORY OF PRESENT ILLNESS: Ms. Thacker is a 80-year-old female with medical history significant for breast cancer with metastasis to the bones, status post left mastectomy and radiation therapy, presented again to the hospital with altered mental status one day after discharge from a prolonged hospitalization because of stroke-like symptoms characterized by waxing and waning mental status and also left-sided weakness with left facial droop with headache, which completely resolved at the time of discharge. She was admitted to the [facility] from August 30 to September 15 and underwent extensive workup including MRI of the brain which was negative and CSF cytology was also negative. Her symptoms improved and she was also found to have metastatic disease at T3 and extensive involvement of right iliac bone, which were biopsied and was consistent with metastatic breast cancer. She has been on Arimidex per Medical Oncology recommendation, but at this time she had a cardiac catheterization and according to the son since then she has been stiffness of the left and the right side which alternates and she does not follow commands . She was admitted on 09/16/2020 and in the emergency room, head CT was done, which did not reveal acute intracranial pathology. LP repeated and CSF cytology is pending. REVIEW OF SYSTEMS: Unobtainable due to the patient's mental status. PAST SURGICAL HISTORY: section, hysterectomy. PAST MEDICAL HISTORY: Significant for breast cancer, metastasis to the bones, left mastectomy. SOCIAL HISTORY: The patient lives in a long-term facility. Denies smoking, alcohol, or illegal drug use. ALLERGIES: Monosodium glutamate and codeine. Objective Vital Signs & Weight: Vital Signs (12 hours) Temp Pulse Resp BP Pulse Ox 09/19/20 04:55 99 175/88 H 09/19/20 04:00 98.5 F 100 18 186/85 H 97 Weight Admit Weight 123 lb 9.6 oz Weight 123 lb 9.6 oz I&O: 09/18/20 09/19/20 09/20/20 06:59 06:59 06:59 Intake Total 300 Output Total 550 700 Balance -250 -700 Active Medications Generic Name Dose Route Start Last Admin Trade Name Freq PRN Reason Stop Dose Admin Acetaminophen 650 mg 09/17/20 04:05 09/17/20 14:22 Acetaminophen 650 Mg Suppository [place] 650 mg Q6H PRN Administration Headache/Fever or Pain Amlodipine Besylate 2.5 mg 09/17/20 09:00 09/19/20 09:07 Amlodipine 5 Mg Tab PO Not Given DAILY [facility] Anastrozole 1 mg 09/17/20 09:00 09/19/20 09:07 Anastrozole 1 Mg Tab PO Not Given DAILY [facility] Aspirin 81 mg 09/17/20 09:00 09/19/20 09:07 Aspirin 81 Mg Enteric Coated Tablet PO Not Given DAILY [facility] Atorvastatin Calcium 10 mg 09/16/20 21:00 09/18/20 20:32 Atorvastatin Calcium 10 Mg Tab PO Not Given HS DARIANA Dextrose/Sodium Chloride 1,000 mls @ 75 mls/hr 09/17/20 15:15 09/18/20 20:32 D5 1/2 Ns IV 1,000 mls .[id number] DARIANA Administration Levothyroxine Sodium 25 mcg 09/17/20 06:00 09/19/20 00:28 Levothyroxine Sodium 25 Mcg Tab PO Not Given 0600 [facility] Methylprednisolone Sodium Succinate 125 mg 09/18/20 21:00 09/18/20 20:30 Methylprednisolone Sod Succ/Pf 125 Mg/2 Ml Vial IVP 125 mg HS DARIANA Administration Metoprolol Succinate 50 mg 09/17/20 09:00 09/19/20 09:08 Metoprolol Succinate Xl 50 Mg Tab PO Not Given DAILY [facility] Pantoprazole Sodium 40 mg 09/18/20 09:00 09/19/20 09:07 Pantoprazole 40 Mg Vial IVP 40 mg DAILY [facility] Administration Sodium Chloride 10 ml 09/19/20 09:00 09/19/20 09:04 Flush - Normal Saline 10 Ml Syringe IVF 10 ml Q12HR DARIANA Administration PHYSICAL EXAMINATION: General - other findings: Awake but not verbally interacting ENT: normocephalic atraumatic Neck - other findings: Torticollis Heart: RRR, no murmur, no gallops, no rubs Respiratory: CTAB, no wheezes, no rales, no ronchi Gastrointestinal: soft, non-tender, non-distended, normal bowel sounds Extremities: no clubbing, no edema Skin - other findings: Pale Psychiatric: flat affect Neurological: Mental status: she does not follow commands. She does not maintain eye contact. Does not follow commands. Cranial nerves; pupils 4 mm, round and reactive to light. Face symmetric. Tongue midline. Strength :. Motor; muscle tone is increased. Bulk is normal. Sensory; withdraws to nailbed pressure bilaterally. Cerebellar; did not follow commands. Gait; deferred due to the patient's safety. DATA REVIEWED: I reviewed the labs, which are essentially unremarkable. ASSESSMENT AND PLAN: (1) Metabolic encephalopathy Code(s): G93.41 - METABOLIC ENCEPHALOPATHY Status: Acute (2) HTN (hypertension) Code(s): I10 - ESSENTIAL (PRIMARY) HYPERTENSION Status: Acute (3) Hypothyroidism Code(s): E03.9 - HYPOTHYROIDISM, UNSPECIFIED Status: Acute (4) Metastatic breast cancer Code(s): C50.919 - MALIGNANT NEOPLASM OF UNSP SITE OF UNSPECIFIED FEMALE BREAST Status: Acute (5) Metastatic disease Code(s): C79.9 - SECONDARY MALIGNANT NEOPLASM OF UNSPECIFIED SITE Status: Acute (6) Migraines Code(s): G43.909 - MIGRAINE, UNSP, NOT INTRACTABLE, WITHOUT STATUS MIGRAINOSUS Status: Acute Ms. Denise Thacker is a 80-year-old female well known to us from the last admission with medical history significant for the breast cancer with bone metastasis, presented with altered mental status and focal stiffness, which has fluctuated from the right to the left side. This is totally different presentation for the last time, where she has focal left-sided weakness with left facial droop, which resolved on its own. She already had MRI brain done, which did not reveal any acute intracranial pathology and current CSF cytology is pending. Consider paraneoplastic syndrome and oncology input regarding further testing. Stiff person is also in the differential.Will proceed with further testing. Neuro checks every 4 hours. Continue Keppra for seizure prophylaxis. EEG to rule out underlying cortical irritability. Continue medical management per Primary Team. PT/OT/Speech. We will continue to follow. Plan discussed in detail with the patient's son at bedside. Thank you for the consult. Job ID: [id number] [facility]
--- NOTE | 2020-09-19 18:37 | RAD ---
KUB: 09/19/20 HISTORY: Abdominal pain. The bowel gas pattern is nonobstructive. Marked arthritic changes of the spine are seen. No renal laura culi. IMPRESSION: No acute findings. POS: OFF
[2020-09-19 19:12] LABS: Lactic Acid 1.3 mmol/L (0.5-2.2)
--- NOTE | 2020-09-19 20:27 | CT ---
CT ABDOMEN AND PELVIS PERFORMED WITHOUT CONTRAST ENHANCEMENT: 09/19/20 HISTORY: GI bleed. History of breast cancer and bone metastases. The lung bases are clear of any infiltrative process. No pulmonary nodules are identified. A left calin ast prosthesis is partially visualized. The liver and spleen are within normal limits of size. There is a vague hypodensity within the latera l segment of the left lobe. This may just represent some breathing artifact. In reviewing a CT exami nation of 09/04/20, I do not see a definite abnormality in this region on the contrast study. The pancreas and gallbladder regions appear unremarkable. Right and left adrenal glands are normal. Right and left kidneys are normal in size. Punctate calcifi cation is seen in the upper pole region of the right kidney. Right extrarenal pelvis is prominent but this is a similar finding to the previous exam with no obstructing calculi. No significant periaorti c or mesenteric adenopathy. I do no appreciate any bowel wall edema changes or evidence for obstructi on. CT OF PELVIS PERFORMED WITHOUT CONTRAST ENHANCEMENT: No adenopathy, mass or free fluid. Review of osseous structures show diffuse bony metastatic disease. IMPRESSION: 1. Osseous metastases. 2. No acute findings of the abdomen or pelvis. POS: OFF
[2020-09-19] MEDS: Atorvastatin Calcium 10 MG TAB PO SCH (21:07)
[2020-09-20 01:43] LABS: Band 3 % (5-11); Hemoglobin 10.3 g/dL (12.0-16.0); Lymphocytes 11 % (21-51); MDiff Complete? YES; Mean Corpuscular Hemoglobin 28.1 pg (27.0-31.0); Mean Corpuscular Volume 82.6 fL (78.0-98.0); Mean Platelet Volume 11.4 fL (7.4-10.4); Metamyelocyte 1 % (0-0); Monocytes 16 % (0-10); Myelocyte 1 % (0-0); Neutrophil 68 % (42-75); Nucleated RBC 1 % (0); Platelet Count 84 thou/uL (130-400); Platelet Morphology Comment Appears Decreased; RBC Distribution Width 15.7 % (11.5-14.5); Red Blood Cell (RBC) Count 3.68 mill/uL (4.20-5.40); White Blood Cell (WBC) Count 12.2 thou/uL (4.8-10.8)
[2020-09-20] MEDS: CEFAZOLIN 0.5 GM in Sodium Chloride 0.9% 100 ML IVPB SCH ×3 (04:00→21:28)
[2020-09-20] MEDS: Levothyroxine Sodium 25 MCG TAB PO SCH (04:04)
[2020-09-20] MEDS: Amlodipine 5 MG TAB PO SCH (08:17)
[2020-09-20] MEDS: Anastrozole 1 MG TAB PO SCH (08:18)
[2020-09-20] MEDS: Aspirin 81 mg Enteric Coated Tablet PO SCH (08:18)
[2020-09-20] MEDS: Sodium Chloride 0.65% Nasal 44 ML BOT EA NARE SCH ×3 (08:35→21:48)
[2020-09-20] MEDS: Pantoprazole 40 MG VIAL IVP SCH ×2 (08:35→21:47)
[2020-09-20 08:59] LABS: Mean Corpuscular HGB CONC 31.3 g/dL (32.0-36.0); Mean Corpuscular Hemoglobin 25.9 pg (27.0-31.0); Mean Corpuscular Volume 82.9 fL (78.0-98.0); Platelet Count 125 thou/uL (130-400); RBC Distribution Width 15.8 % (11.5-14.5); Red Blood Cell (RBC) Count 3.84 mill/uL (4.20-5.40); White Blood Cell (WBC) Count 11.1 thou/uL (4.8-10.8)
[2020-09-20] MEDS ORDERED: methylPREDNISolone Sod Succ/PF 125 MG/2 ML VIAL IVP SCH (09:00)
[2020-09-20] MEDS ORDERED: Bacteriostatic Water 30 ML VIAL FS PRN (09:15)
[2020-09-20] MEDS: methylPREDNISolone Sod Succ/PF 125 MG/2 ML VIAL IVP SCH (10:20)
[2020-09-20] MEDS: Dextrose 5 %-0.45 % NaCl 1,000 ML IV SCH ×2 (10:34→22:43)
[2020-09-20 11:16] LABS: Band 7 % (5-11); Bite Cells SLIGHT = 2-5 cells (100X) (0-1/hpf); Eosinophils 1 % (0-10); Lymphocytes 9 % (21-51); MDiff Complete? YES; Monocytes 16 % (0-10); Neutrophil 68 % (42-75); Nucleated RBC 1 % (0); Platelet Morphology Comment Appears Decreased; Polychromasia SLIGHT = 2-3 cells (100X) (0-2/hpf)
--- NOTE | 2020-09-20 12:02 | CON ---
DATE OF CONSULTATION: CHIEF COMPLAINT: Profuse epistaxis. HISTORY OF PRESENT ILLNESS: A 80-year-old female patient presenting with past medical history of metastatic breast cancer with metastases to the thoracolumbar spine and the right iliac. She was brought into the hospital with altered mental status and discharged after hospitalization. However, she developed weakness and left facial numbness. Given current altered mental status, she was brought into the hospital for continual workup. During her workup, she has been placed on aspirin and ketorolac and developed overnight profuse bleeding that was focused on the left side. The patient has had a significant drop in hemoglobin and bedside guaiac stool that was negative for GI bleeding. Given her nasal bleeding and given her need for blood transfusion, ENT consultation was placed in order to stop nasal bleeding. PAST SURGICAL HISTORY: and hysterectomy. PAST MEDICAL HISTORY: Please see HPI. Otherwise, migraines, hypothyroidism, hypertension. SOCIAL HISTORY: Alcohol, tobacco, or drug use denies. Currently, son is at bedside. REVIEW OF SYSTEMS: Unable to obtain given the patient's mental status. PHYSICAL EXAMINATION: GENERAL: The patient is alert and responsive to noxious stimuli or sound, however, is nonverbal. HEAD AND FACE: Normocephalic, atraumatic. No facial skin lesions. No maxillary swelling, frontal sinus swelling or parotid gland masses or tenderness or swelling. EYES: Pupils are equally round and reactive to light. Extraocular movements are intact. However, the patient is not following commands. EARS: Right and left pinnae are intact. EACs are clear. No evidence of infection or purulent drainage. NOSE: External nose is normal. On the right side, nasal mucosa is healthy. There is no significant bleeding. On the left side, there is a large clot obstructing the nasal cavity. ORAL CAVITY: Mucous membranes are tacky. Tongue is soft. Lips, teeth and tongue were normal without erythema or edema. The oropharynx is clear. NECK: No significant lymphadenopathy. Trachea is midline. Thyroid appears to be normal in size. NEURO: The patient has altered mental status, is not responsive. PROCEDURE: Nasal packing placed first. The left nasal clot was removed and a suction was used to remove some of the blood in the nasal cavity. Afrin was sprayed in the nasal cavity and then more blood was suctioned. There was a slow drip of blood and given the patient's mental status, aspirin and ketorolac use, a left-sided Merocel nonabsorbable packing was placed and inserted and then Afrin spray used to dilate the foam. ASSESSMENT AND PLAN: A 80-year-old female patient with active bleeding with aspirin and ketorolac, altered mental status and history of metastatic breast cancer. Continuing further workup with anemia and an active bleed. Given the patient's mental status, need for further workup and possible anticoagulation, recommend nonabsorbable nasal packing in the left side remain for a minimum of 5 days. Given nonabsorbable packing placement, we will recommend IV Ancef for gram-positive coverage as prophylaxis to avoid staphylococcal scalded skin syndrome or other sinus infections or cellulitis. Recommend that the nasal packing stay moist with nasal saline sprays bilaterally 3 to 5 times a day and 3 to 5 sprays in each naris. Recommend all O2 be humidified and then recommend decreasing antiplatelet and anticoagulation as much as possible. Also recommend continuing monitoring hemoglobin and hematocrit. Given patient's significant issues, if any other questions arise, please do not hesitate to call. If the patient is to be hospitalized further past day 5, the nasal packing may be removed by simply pulling the string attached at the left side of the face without any other intervention and antibiotics may be discontinued, but nasal saline sprays should continue in order to keep the nasal cavity moist and avoid future bleeding. If the patient has any other bleeding, please notify the ENT service. Job ID: [id number]
--- NOTE | 2020-09-20 13:40 | PDOC.NEUPN ---
- Subjective Encounter Date: 09/20/20 Subjective: Mrs. Thacker is awake today and feels better per son at bedside. - Objective Vital Signs & Weight: Vital Signs (12 hours) Temp Pulse Resp BP Pulse Ox 09/20/20 12:22 98.7 F 95 18 143/85 H 94 L 09/20/20 08:00 98.1 F 84 18 163/77 H 99 09/20/20 03:52 98.1 F 81 16 119/67 99 Weight Admit Weight 123 lb 9.6 oz Weight 123 lb 9.6 oz I&O: 09/19/20 09/20/20 09/21/20 06:59 06:59 06:59 Intake Total 900 Output Total 700 999 Balance -700 -99 Result Diagrams: 09/20/20 08:20 09/19/20 14:01 Radiology Reviewed by me: Yes EKG Reviewed by me: Yes ROS - Review of Systems ROS unobtainable: due to mental status - Medication Medications: Active Medications Generic Name Dose Route Start Last Admin Trade Name Freq PRN Reason Stop Dose Admin Acetaminophen 650 mg 09/17/20 04:05 09/17/20 14:22 Acetaminophen 650 Mg Suppository [place] 650 mg Q6H PRN Administration Headache/Fever or Pain Amlodipine Besylate 2.5 mg 09/17/20 09:00 09/20/20 08:17 Amlodipine 5 Mg Tab PO Not Given DAILY [facility] Anastrozole 1 mg 09/17/20 09:00 09/20/20 08:18 Anastrozole 1 Mg Tab PO Not Given DAILY [facility] Aspirin 81 mg 09/17/20 09:00 09/20/20 08:18 Aspirin 81 Mg Enteric Coated Tablet PO Not Given DAILY [facility] Atorvastatin Calcium 10 mg 09/16/20 21:00 09/19/20 21:07 Atorvastatin Calcium 10 Mg Tab PO 10 mg HS DARIANA Administration Dextrose/Sodium Chloride 1,000 mls @ 75 mls/hr 09/17/20 15:15 09/20/20 10:34 D5 1/2 Ns IV Not Given .[id number] [facility] Cefazolin Sodium 0.5 gm/ 100 mls @ 200 mls/hr 09/19/20 12:00 09/20/20 12:23 Sodium Chloride IVPB 100 mls Q8H D[facility]IA[facility] Administration Levothyroxine Sodium 25 mcg 09/17/20 06:00 09/20/20 04:04 Levothyroxine Sodium 25 Mcg Tab PO Not Given 0600 [facility] Methylprednisolone Sodium Succinate 125 mg 09/20/20 09:00 09/20/20 10:20 Methylprednisolone Sod Succ/Pf 125 Mg/2 Ml Vial IVP 125 mg DAILY [facility] Administration Metoprolol Succinate 50 mg 09/17/20 09:00 09/20/20 08:18 Metoprolol Succinate Xl 50 Mg Tab PO Not Given DAILY [facility] Pantoprazole Sodium 40 mg 09/18/20 09:00 09/20/20 08:35 Pantoprazole 40 Mg Vial IVP 40 mg DAILY [facility] Administration Sodium Chloride 10 ml 09/19/20 09:00 09/20/20 08:35 Flush - Normal Saline 10 Ml Syringe IVF 10 ml Q12HR D[facility] Administration Sodium Chloride 0 ml 09/19/20 15:00 09/20/20 08:35 Sodium Chloride 0.65% Nasal 44 Ml Bot EA NARE 5 spr TID DARIANA Administration Sterile Water 1 ml 09/20/20 09:15 09/20/20 10:25 Bacteriostatic Water 30 Ml Vial FS 1 ml PRN PRN Administration RECONSTITUTION - Exam General Appearance: NAD Eye: PERRL ENT: normocephalic atraumatic Neck: supple Respiratory: CTAB Cardiovascular: RRR Gastrointestinal: soft Extremities: no cyanosis Skin: normal turgor Neurological: no focal deficits, no new deficit Musculoskeletal: normal tone, no muscle wasting PSYCH: flat affect Results - Labs Result Diagrams: 09/20/20 08:20 09/19/20 14:01 Lab results: WBC 11.1 thou/uL (4.8-10.8) H 09/20/20 08:20 Hgb 10.0 g/dL (12.0-16.0) L 09/20/20 08:20 Hct 31.8 % (36.0-47.0) L 09/20/20 08:20 MCV 82.9 fL (78.0-98.0) 09/20/20 08:20 Plt Count 125 thou/uL (130-400) L 09/20/20 08:20 Neutrophils % 93.5 % (42.0-75.0) H 09/19/20 04:18 Band Neuts % (Manual) 7 % (5-11) 09/20/20 08:20 Sodium 143 mmol/L (136-145) 09/19/20 14:01 Potassium 3.5 mmol/L (3.5-5.1) 09/19/20 14:01 Chloride 109 mmol/L (98-107) H 09/19/20 14:01 Carbon Dioxide 22 mmol/L (23-31) L 09/19/20 14:01 BUN 29 mg/dL (9.8-20.1) H 09/19/20 14:01 Creatinine 1.86 mg/dL (0.6-1.1) H 09/19/20 14:01 Glucose 116 mg/dL (83-110) H 09/19/20 14:01 Lactic Acid 1.3 mmol/L (0.5-2.2) 09/19/20 18:48 Calcium 9.0 mg/dL (7.8-10.44) 09/19/20 14:01 Total Bilirubin 0.7 mg/dL (0.2-1.2) 09/16/20 14:34 AST 42 U/L (5-34) H 09/16/20 14:34 ALT 18 U/L (8-55) 09/16/20 14:34 Alkaline Phosphatase 168 U/L (40-110) H 09/16/20 14:34 Creatine Kinase 48 U/L (29-168) 09/16/20 14:34 Troponin I 0.016 ng/mL (< 0.028) 09/16/20 14:34 Serum Total Protein 7.4 g/dL (6.0-8.3) 09/16/20 14:34 Albumin 4.1 g/dL (3.4-4.8) 09/16/20 14:34 Urine Ketones Negative mg/dL (Negative) 09/16/20 15:18 Urine Blood Negative (Negative) 09/16/20 15:18 Urine Nitrite Negative (Negative) 09/16/20 15:18 Ur Leukocyte Esterase Negative Kurt/uL (Negative) 09/16/20 15:18 - Radiology Interpretation MRI - head Additional Comment: MRI of the brain did not reveal any acute intracranial pathology PN A/P (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 - OTHER DISORDERS OF NERVOUS SYSTEM; C80.1 - MALIGNANT (PRIMARY) NEOPLASM, UNSPECIFIED Status: Acute (2) Metabolic encephalopathy Code(s): G93.41 - METABOLIC ENCEPHALOPATHY Status: Acute (3) Seizure Code(s): R56.9 - UNSPECIFIED CONVULSIONS Status: Acute (4) HTN (hypertension) Code(s): I10 - ESSENTIAL (PRIMARY) HYPERTENSION Status: Acute (5) Hx of breast cancer Code(s): Z85.3 - PERSONAL HISTORY OF MALIGNANT NEOPLASM OF BREAST Status: Acute (6) Hypothyroidism Code(s): E03.9 - HYPOTHYROIDISM, UNSPECIFIED Status: Acute (7) Metastatic breast cancer Code(s): C50.919 - MALIGNANT NEOPLASM OF UNSP SITE OF UNSPECIFIED FEMALE BREAST Status: Acute (8) Metastatic disease Code(s): C79.9 - SECONDARY MALIGNANT NEOPLASM OF UNSPECIFIED SITE Status: Acute (9) Migraines Code(s): G43.909 - MIGRAINE, UNSP, NOT INTRACTABLE, WITHOUT STATUS MIGRAINOSUS Status: Acute - Plan Daily Plan: plan discussed w/ family (Son at bedside), PT/OT, speech therapy Mrs. Thacker is a 80-year-old female with history significant for breast cancer with metastasis to the bone presented with altered mental status with stiffness initially on the left side of the body but then shifted to right sided focal states stiffness seems to be resolved today. 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 Repeat MRI brain did not show any evidence of acute intracranial pathology or signs of infection. EEG performed today showed sharps emanating from the left and 1 clinical seizure witnessed by the son. We will start her on Keppra 1 g IV every 12 hours to suppress cortical irritability and prevent seizures. Neurochecks every 4 hours. Observe seizure precautions. Ativan 2 mg IV for seizure greater than 2 minutes. Continue home medications. Concern about stiff person syndrome so antigad antibodies and paraneoplastic panel sent. Continue medical management per primary team, oncology and ID PT/OT/speech DVT prophylaxis. Plan discussed in detail with the patient and the son at bedside including the test results.
--- NOTE | 2020-09-20 14:24 | RAD ---
Exam: Abdomen one view COMPARISON: 09/19/2020 HISTORY: Tube placement verification. FINDINGS: There is a Dobbhoff feeding tube with the distal tip in the gastric antrum. Nonspecific bow el gas pattern. IMPRESSION: Dobbhoff feeding tube terminating in the gastric antrum. Advancement is recommended.
[2020-09-20 14:51] LABS: Ref Lab Test Ordered PAVAL
--- NOTE | 2020-09-20 14:59 | PDOC.EEG ---
Neurology EEG Report - Report Report: This EEG was performed using 24 channel OpenEd video EEG machine with 24 disc electrodes. This was an extended 2 hours 7 minutes of inpatient video EEG recording. Digital analysis of the EEG was done for spike and seizure detection which revealed no abnormalities. Background: The posterior background rhythm is not observed. Hyperventilation: Not performed. Photic Stimulation: No significant response. Sleep: No stage change is observed. EEG Diagnosis: Occasional sharps which does not involve seen emanating from the left frontal parietal and occipital region. Generalized irregular theta delta activity seen during the recording. Absence of posterior background rhythm. Clinical Interpretation: This EEG is consistent interictal expression of epilepsy in the setting of moderate generalized nonspecific cerebral dysfunction. No electrographic seizures captured during the recording
[2020-09-20 15:14] LABS: Myelin Basic Protein, CSF 3.3 ng/mL (0.0-5.6)
--- NOTE | 2020-09-20 15:35 | RAD ---
EXAM: XR Abdomen 1 View/KUB PROVIDED CLINICAL HISTORY: Post tube placement. COMPARISON: 09/20/2020 at 1410 hours. FINDINGS: There is been interval advancement of the Dobbhoff feeding tube. The tip of the Dobbhoff feeding tube overlies the expected location of the first portion of the duodenum. Gaseous distention of loops of bowel are seen, but the bowel gas pattern is overall nonspecific. No other interval change. IMPRESSION: Interval mild advancement of the Dobbhoff feeding tube with tip overlying expected location of the fi rst portion of the duodenum.
--- NOTE | 2020-09-20 15:50 | PDOC.MOPN ---
Interval History: eyes open today, not tracking. - Vital Signs Vital Signs: Vital Signs (12 hours) Temp Pulse Resp BP Pulse Ox 09/20/20 12:22 98.7 F 95 18 143/85 H 94 L 09/20/20 08:00 98.1 F 84 18 163/77 H 99 09/20/20 03:52 98.1 F 81 16 119/67 99 Weight Admit Weight 123 lb 9.6 oz Weight 123 lb 9.6 oz - Physical Exam General: No acute distress Lungs: Clear to auscultation Cardiovascular: Regular rate Neurological: Other - Labs Result Diagrams: 09/20/20 08:20 09/19/20 14:01 Lab results: Laboratory Results - last 24 hr 09/20/20 13:43: Miscellaneous Test [facility], Ref Lab Test Name ANGÉLICA 09/20/20 08:20: WBC 11.1 H, RBC 3.84 L, Hgb 10.0 L, Hct 31.8 L, MCV 82.9, MCH 25.9 L, MCHC 31.3 L, RDW 15.8 H, Plt Count 125 L, MPV 11.0 H, Neutrophils % (Manual) 68, Band Neuts % (Manual) 7, Lymphocytes % (Manual) 9 L, Monocytes % (Manual) 16 H, Eosinophils % (Manual) 1, Lymphocytes # Not Reportable, Nucleated RBCs # (Man) 1 H, Plt Morphology Comment Appears Decreased L, Polychromasia SLIGHT = 2-3 cells, Bite Cells SLIGHT = 2-5 cells 09/20/20 00:54: WBC 12.2 H, RBC 3.68 L, Hgb 10.3 L, Hct 30.4 L, MCV 82.6, MCH 28.1, MCHC 34.0, RDW 15.7 H, Plt Count 84 L, MPV 11.4 H, Neutrophils % (Manual) 68, Band Neuts % (Manual) 3 L, Lymphocytes % (Manual) 11 L, Monocytes % (Manual) 16 H, Metamyelocytes % (Man) 1 H, Myelocytes % 1 H, Nucleated RBCs # (Man) 1 H, Plt Morphology Comment Appears Decreased L 09/19/20 18:48: Lactic Acid 1.3 09/19/20 18:21: Blood Type A POSITIVE 09/19/20 17:55: Blood Type A POSITIVE, Antibody Screen NEGATIVE, Crossmatch See Detail 09/17/20 13:13: CSF Myelin Basic Protein 3.3, CSF VDRL Non Reactive 09/17/20 13:10: Herpes Simplex Culture Status: lab reviewed by me A/P - Problem (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 Patient awake today but does not track with eyes 2. CSF negative for malignancy 3. 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 agree with transfer to [facility] for their opinion and treatment.
--- NOTE | 2020-09-20 17:13 | PDOC.HOSPP ---
- Subjective Encounter Date: 09/20/20 Encounter Time: 09:45 Subjective: Up in bed speaks a few words however unable to have a conversation - Objective Vital Signs & Weight: Vital Signs (12 hours) Temp Pulse Resp BP Pulse Ox 09/20/20 16:35 89 18 164/74 H 98 09/20/20 12:22 98.7 F 95 18 143/85 H 94 L 09/20/20 08:00 98.1 F 84 18 163/77 H 99 Weight Admit Weight 123 lb 9.6 oz Weight 123 lb 9.6 oz I&O: 09/19/20 09/20/20 09/21/20 06:59 06:59 06:59 Intake Total 900 220 Output Total 700 999 Balance -700 -99 220 Result Diagrams: 09/20/20 08:20 09/19/20 14:01 Hospitalist ROS - Review of Systems Other: Unable to obtain - Medication Medications: Active Medications Generic Name Dose Route Start Last Admin Trade Name Freq PRN Reason Stop Dose Admin Acetaminophen 650 mg 09/17/20 04:05 09/17/20 14:22 Acetaminophen 650 Mg Suppository MT 650 mg Q6H PRN Administration Headache/Fever or Pain Amlodipine Besylate 2.5 mg 09/17/20 09:00 09/20/20 08:17 Amlodipine 5 Mg Tab PO Not Given DAILY DARIANA Anastrozole 1 mg 09/17/20 09:00 09/20/20 08:18 Anastrozole 1 Mg Tab PO Not Given DAILY DARIANA Aspirin 81 mg 09/17/20 09:00 09/20/20 08:18 Aspirin 81 Mg Enteric Coated Tablet PO Not Given DAILY DARIANA Atorvastatin Calcium 10 mg 09/16/20 21:00 09/19/20 21:07 Atorvastatin Calcium 10 Mg Tab PO 10 mg HS DARIANA Administration Dextrose/Sodium Chloride 1,000 mls @ 75 mls/hr 09/17/20 15:15 09/20/20 10:34 D5 1/2 Ns IV Not Given .[id number] DARIANA Cefazolin Sodium 0.5 gm/ 100 mls @ 200 mls/hr 09/19/20 12:00 09/20/20 12:23 Sodium Chloride IVPB 100 mls Q8H DARIANA Administration Levothyroxine Sodium 25 mcg 09/17/20 06:00 09/20/20 04:04 Levothyroxine Sodium 25 Mcg Tab PO Not Given 0600 DARIANA Methylprednisolone Sodium Succinate 125 mg 09/20/20 09:00 09/20/20 10:20 Methylprednisolone Sod Succ/Pf 125 Mg/2 Ml Vial IVP 125 mg DAILY DARIANA Administration Metoprolol Succinate 50 mg 09/17/20 09:00 09/20/20 08:18 Metoprolol Succinate Xl 50 Mg Tab PO Not Given DAILY DARIANA Pantoprazole Sodium 40 mg 09/18/20 09:00 09/20/20 08:35 Pantoprazole 40 Mg Vial IVP 40 mg DAILY DARIANA Administration Sodium Chloride 10 ml 09/19/20 09:00 09/20/20 08:35 Flush - Normal Saline 10 Ml Syringe IVF 10 ml Q12HR DARIANA Administration Sodium Chloride 0 ml 09/19/20 15:00 09/20/20 16:43 Sodium Chloride 0.65% Nasal 44 Ml Bot EA NARE 3 spr TID DARIANA Administration Sterile Water 1 ml 09/20/20 09:15 09/20/20 10:25 Bacteriostatic Water 30 Ml Vial FS 1 ml PRN PRN Administration RECONSTITUTION - Exam Neck: negative: supple, symmetric, no JVD, no thyromegaly, no lymphadenopathy, no carotid bruit, JVD Heart: negative: RRR, no murmur, no gallops, no rubs, normal peripheral pulses, irregular, diminshed peripheral pulses, murmur present, II/IV, III/IV Respiratory: negative: CTAB, no wheezes, no rales, no ronchi, normal chest expansion, no tachypnea, normal percussion, rales, rhonchi, tachypneic, wheezes Gastrointestinal: negative: soft, non-tender, non-distended, normal bowel sounds, no palpable masses, no hepatomegaly, no splenomegaly, no bruit, no guarding, no rigidity, tender to palpation, distended, diminished bowl sounds, voluntary guarding Hosp A/P (1) Metabolic encephalopathy Code(s): G93.41 - METABOLIC ENCEPHALOPATHY Status: Acute (2) Seizure Code(s): R56.9 - UNSPECIFIED CONVULSIONS Status: Acute (3) HTN (hypertension) Code(s): I10 - ESSENTIAL (PRIMARY) HYPERTENSION Status: Acute (4) Hx of breast cancer Code(s): Z85.3 - PERSONAL HISTORY OF MALIGNANT NEOPLASM OF BREAST Status: Acute (5) Metastatic breast cancer Code(s): C50.919 - MALIGNANT NEOPLASM OF UNSP SITE OF UNSPECIFIED FEMALE BREAST Status: Acute (6) Metastatic disease Code(s): C79.9 - SECONDARY MALIGNANT NEOPLASM OF UNSPECIFIED SITE Status: Acute - Plan Three 10-year-old female with a history of lobular left breast cancer about 10 years ago status post mastectomy and radiation therapy currently on Arimidex pr esents to the hospital with change in mental status. Patient was initially hospitalized from August 30 2 September 15 for left arm weakness. At that time her MRI brain was negative. She had atrial tachycardia at this time cardiology was consulted. Patient underwent a cardiac catheterization which indicated normal coronaries. Patient was then discharged. Comes back the following day with change in mental status. Per patient's family prior to her cardiac cath she was talking and walking. LP done x2 - I did speak with MD Judge however they declined the transfer. Try and see if we can transfer this patient to [facility] or [facility].
--- NOTE | 2020-09-20 17:59 | PRG ---
DATE OF SERVICE: 09/20/2020 SUBJECTIVE: The patient has seemingly improved since admission. She is now able to respond somewhat to her . She smiles sometimes and her neck is not turn to the left in a tense stiff position, it had been before. She is able to turn towards the right and her eyes do not have a gaze preference anymore like they did. She will smile from time to time. Still not able to fully engage the examiner and she will follow some commands. OBJECTIVE: HEENT: Pupils are reactive. LUNGS: Clear. HEART: S1 and S2. Regular rate. ABDOMEN: Soft. She seems to be able to move extremities. VITAL SIGNS: The patient has defervesced, BP 160/74, heart rate 89, respiratory rate 18, and O2 saturation 98. LABORATORY STUDIES: White cell count is 11.1, hemoglobin 10, and platelets 125,000, and 68% neutrophils. Chemistry, creatinine 1.86 and apparently she is being transferred to [facility], [place] for further evaluation and management. ASSESSMENT AND DISCUSSION: Migraine headaches, recurrent episodes of abnormal mental state, motility abnormalities with stiffness, normal MRI x3 and evidence of widespread metastatic disease to bone from likely breast cancer. CSF did not show any evidence of carcinomatosis meningitis and the work up for infectious etiologies was negative, so the possibility of paraneoplastic syndrome is at the top of the list of the differential diagnosis and corticosteroids were started and there seemed to be a response, so she is going to continue on it and then have an MD Alfie evaluate her further there, hopefully. Job ID: [id number] MTDD
[2020-09-20] MEDS: Atorvastatin Calcium 10 MG TAB PO SCH (21:47)
[2020-09-20] MEDS: levETIRAcetam in NS 1,000 MG in Premix Bag 1 BAG IVPB SCH (21:47)
[2020-09-21] MEDS: CEFAZOLIN 0.5 GM in Sodium Chloride 0.9% 100 ML IVPB SCH ×2 (03:28→14:32)
[2020-09-21 04:43] LABS: ALT (SGPT) 13 U/L (8-55); AST (SGOT) 46 U/L (5-34); Albumin 3.6 g/dL (3.4-4.8); Alkaline Phosphatase 125 U/L (40-110); Anion Gap 16 mmol/L (10-20); BUN (Urea Nitrogen) 31 mg/dL (9.8-20.1); Bilirubin, Total 0.4 mg/dL (0.2-1.2); Calc. Creatinine Clearance 31 mL/min (70-130); Calcium 8.3 mg/dL (7.8-10.44); Carbon Dioxide 18 mmol/L (23-31); Chloride 110 mmol/L (98-107); Globulin 2.9 g/dL (2.4-3.5); Glucose 91 mg/dL (83-110); Magnesium 1.8 mg/dL (1.6-2.6); Phosphorus 2.7 mg/dL (2.3-4.7); Protein, Total 6.5 g/dL (6.0-8.3); Sodium 141 mmol/L (136-145)
[2020-09-21 04:44] LABS: Potassium 2.8 mmol/L (3.5-5.1)
[2020-09-21] MEDS: Potassium Chloride 20 MEQ in Premix Bag 1 BAG IVPB SCH ×2 (04:58→09:03)
[2020-09-21] MEDS ORDERED: Magnesium 2 GM/50 ML 2 GM in Premix Bag 1 BAG IVPB SCH (05:00)
[2020-09-21 05:44] LABS: Band 9 % (5-11); Hemoglobin 10.7 g/dL (12.0-16.0); Lymphocytes 4 % (21-51); MDiff Complete? YES; Mean Corpuscular Hemoglobin 27.4 pg (27.0-31.0); Mean Corpuscular Volume 83.2 fL (78.0-98.0); Mean Platelet Volume 10.5 fL (7.4-10.4); Monocytes 8 % (0-10); Neutrophil 79 % (42-75); Platelet Count 119 thou/uL (130-400); Platelet Morphology Comment Appears Decreased; RBC Distribution Width 15.9 % (11.5-14.5); Red Blood Cell (RBC) Count 3.91 mill/uL (4.20-5.40); White Blood Cell (WBC) Count 14.1 thou/uL (4.8-10.8)
[2020-09-21] MEDS: Levothyroxine Sodium 25 MCG TAB PO SCH (07:11)
--- NOTE | 2020-09-21 08:13 | RAD ---
Exam: 1 view abdomen COMPARISON: 09/20/2020 HISTORY: Confirm Dobbhoff feeding tube placement FINDINGS: Portable supine view of the abdomen demonstrates a Dobbhoff feeding tube. Dobbhoff feeding tube is curled in the gastric cardia. Repositioning and advancement is recommended IMPRESSION: Dobbhoff feeding tube in the gastric cardia. Repositioning and advancement is recommended .
[2020-09-21] MEDS ORDERED: Electrolyte Replacement Protocol 1 EACH FS SCH (08:45)
[2020-09-21] MEDS: methylPREDNISolone Sod Succ/PF 125 MG/2 ML VIAL IVP SCH (09:03)
[2020-09-21] MEDS: levETIRAcetam in NS 1,000 MG in Premix Bag 1 BAG IVPB SCH ×2 (09:03→21:37)
[2020-09-21] MEDS: Sodium Chloride 0.65% Nasal 44 ML BOT EA NARE SCH ×3 (09:04→22:50)
[2020-09-21] MEDS: Pantoprazole 40 MG VIAL IVP SCH ×2 (09:04→21:37)
--- NOTE | 2020-09-21 09:34 | RAD ---
KUB INDICATION: NG tube placement COMPARISON: Prior exam dated September 21, 2020 at 3:56 AM FINDINGS: Bowel gas: Gas-filled loops of small and large bowel appear similar. The Dobbhoff feeding tube is now coiled in the region of the gastric body with the tip projecting in the region of the fundus. Lung bases: Clear. Additional findings: Surgical clips within the left axillary region and right axillary region are sta ble Osseous structures: There is scattered degenerative and osteoarthritic change present. IMPRESSION: 1. Dobbhoff feeding tube as above
[2020-09-21 11:43] LABS: Reference Lab Name LABCORP
--- NOTE | 2020-09-21 13:39 | PDOC.NEUPN ---
- Subjective Encounter Date: 09/21/20 Subjective: Mrs. Thacker seems better today and is sitting up in bed. She still has some baseline confusion. at bedside. - Objective Vital Signs & Weight: Vital Signs (12 hours) Temp Pulse Resp BP Pulse Ox 09/21/20 12:00 98.1 F 81 18 164/70 H 95 09/21/20 08:00 100 09/21/20 07:43 97.7 F 80 19 133/63 100 09/21/20 03:42 97.3 F L 79 24 H 125/68 100 Weight Admit Weight 123 lb 9.6 oz Weight 123 lb 9.6 oz I&O: 09/20/20 09/21/20 09/22/20 06:59 06:59 06:59 Intake Total 900 3305 Output Total 999 1450 Balance -99 1855 Result Diagrams: 09/21/20 04:11 09/21/20 04:11 Radiology Reviewed by me: Yes EKG Reviewed by me: Yes ROS - Review of Systems ROS unobtainable: due to mental status - Medication Medications: Active Medications Generic Name Dose Route Start Last Admin Trade Name Freq PRN Reason Stop Dose Admin Acetaminophen 650 mg 09/17/20 04:05 09/17/20 14:22 Acetaminophen [address] 650 mg Q6H PRN Administration Headache/Fever or Pain Amlodipine Besylate 2.5 mg 09/17/20 09:00 09/20/20 08:17 Amlodipine 5 Mg Tab PO Not Given DAILY DARIANA Anastrozole 1 mg 09/17/20 09:00 09/20/20 08:18 Anastrozole 1 Mg Tab PO Not Given DAILY DARINAA Aspirin 81 mg 09/17/20 09:00 09/20/20 08:18 Aspirin 81 Mg Enteric Coated Tablet PO Not Given DAILY DARIANA Atorvastatin Calcium 10 mg 09/16/20 21:00 09/20/20 21:47 Atorvastatin Calcium 10 Mg Tab PO 10 mg HS DARIANA Administration Dextrose/Sodium Chloride 1,000 mls @ 75 mls/hr 09/17/20 15:15 09/20/20 22:43 D5 1/2 Ns IV 1,000 mls .[id number] DARIANA Administration Cefazolin Sodium 0.5 gm/ 100 mls @ 200 mls/hr 09/19/20 12:00 09/21/20 03:28 Sodium Chloride IVPB 100 mls Q8H DARIANA Administration Levetiracetam 1,000 mg/ Device 100 mls @ 200 mls/hr 09/20/20 21:00 09/21/20 09:03 IVPB 100 mls BID DARIANA Administration Levothyroxine Sodium 25 mcg 09/17/20 06:00 09/21/20 07:11 Levothyroxine Sodium 25 Mcg Tab PO Not Given 0600 DARIANA Methylprednisolone Sodium Succinate 125 mg 09/20/20 09:00 09/21/20 09:03 Methylprednisolone Sod Succ/Pf 125 Mg/2 Ml Vial IVP 125 mg DAILY DARIANA Administration Metoprolol Succinate 50 mg 09/17/20 09:00 09/20/20 08:18 Metoprolol Succinate Xl 50 Mg Tab PO Not Given DAILY DARIANA Pantoprazole Sodium 40 mg 09/20/20 21:00 09/21/20 09:04 Pantoprazole 40 Mg Vial IVP 40 mg BID DARIANA Administration Sodium Chloride 10 ml 09/19/20 09:00 09/20/20 21:56 Flush - Normal Saline 10 Ml Syringe IVF Not Given Q12HR DARIANA Sodium Chloride 0 ml 09/19/20 15:00 09/21/20 09:04 Sodium Chloride 0.65% Nasal 44 Ml Bot EA NARE 5 spr TID DARIANA Administration Sterile Water 1 ml 09/20/20 09:15 09/20/20 10:25 Bacteriostatic Water 30 Ml Vial FS 1 ml PRN PRN Administration RECONSTITUTION - Exam General Appearance: NAD Eye: PERRL ENT: normocephalic atraumatic Neck: supple Respiratory: CTAB Cardiovascular: RRR Gastrointestinal: soft Extremities: no cyanosis Skin: normal turgor Neurological: no new deficit Musculoskeletal: normal tone PSYCH: flat affect Results - Labs Result Diagrams: 09/21/20 04:11 09/21/20 04:11 Lab results: WBC 14.1 thou/uL (4.8-10.8) H 09/21/20 04:11 Hgb 10.7 g/dL (12.0-16.0) L 09/21/20 04:11 Hct 32.5 % (36.0-47.0) L 09/21/20 04:11 MCV 83.2 fL (78.0-98.0) 09/21/20 04:11 Plt Count 119 thou/uL (130-400) L 09/21/20 04:11 Neutrophils % 93.5 % (42.0-75.0) H 09/19/20 04:18 Band Neuts % (Manual) 9 % (5-11) 09/21/20 04:11 Sodium 141 mmol/L (136-145) 09/21/20 04:11 Potassium 2.8 mmol/L (3.5-5.1) L* 09/21/20 04:11 Chloride 110 mmol/L (98-107) H 09/21/20 04:11 Carbon Dioxide 18 mmol/L (23-31) L 09/21/20 04:11 BUN 31 mg/dL (9.8-20.1) H 09/21/20 04:11 Creatinine 1.30 mg/dL (0.6-1.1) H 09/21/20 04:11 Glucose 91 mg/dL (83-110) 09/21/20 04:11 Lactic Acid 1.3 mmol/L (0.5-2.2) 09/19/20 18:48 Calcium 8.3 mg/dL (7.8-10.44) 09/21/20 04:11 Total Bilirubin 0.4 mg/dL (0.2-1.2) 09/21/20 04:11 AST 46 U/L (5-34) H 09/21/20 04:11 ALT 13 U/L (8-55) 09/21/20 04:11 Alkaline Phosphatase 125 U/L (40-110) H 09/21/20 04:11 Creatine Kinase 48 U/L (29-168) 09/16/20 14:34 Troponin I 0.016 ng/mL (< 0.028) 09/16/20 14:34 Serum Total Protein 6.5 g/dL (6.0-8.3) 09/21/20 04:11 Albumin 3.6 g/dL (3.4-4.8) 09/21/20 04:11 Urine Ketones Negative mg/dL (Negative) 09/16/20 15:18 Urine Blood Negative (Negative) 09/16/20 15:18 Urine Nitrite Negative (Negative) 09/16/20 15:18 Ur Leukocyte Esterase Negative Kurt/uL (Negative) 09/16/20 15:18 - Radiology Interpretation MRI - head Additional Comment: No acute intracranial pathology PN A/P (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 - OTHER DISORDERS OF NERVOUS SYSTEM; C80.1 - MALIGNANT (PRIMARY) NEOPLASM, UNSPECIFIED Status: Acute (2) Metabolic encephalopathy Code(s): G93.41 - METABOLIC ENCEPHALOPATHY Status: Acute (3) Seizure Code(s): R56.9 - UNSPECIFIED CONVULSIONS Status: Acute (4) HTN (hypertension) Code(s): I10 - ESSENTIAL (PRIMARY) HYPERTENSION Status: Acute (5) Hx of breast cancer Code(s): Z85.3 - PERSONAL HISTORY OF MALIGNANT NEOPLASM OF BREAST Status: Acute (6) Hypothyroidism Code(s): E03.9 - HYPOTHYROIDISM, UNSPECIFIED Status: Acute (7) Metastatic breast cancer Code(s): C50.919 - MALIGNANT NEOPLASM OF UNSP SITE OF UNSPECIFIED FEMALE BREAST Status: Acute (8) Metastatic disease Code(s): C79.9 - SECONDARY MALIGNANT NEOPLASM OF UNSPECIFIED SITE Status: Acute (9) Migraines Code(s): G43.909 - MIGRAINE, UNSP, NOT INTRACTABLE, WITHOUT STATUS MIGRAINOSUS Status: Acute - Plan Daily Plan: plan discussed w/ family ( at bedside), PT/OT, speech therapy, DVT proph w/SCDs Mrs. Thacker is a 80-year-old female with history significant for breast cancer with metastasis to the bone presented with altered mental status with stiffness initially on the left side of the body but then shifted to right sided focal states stiffness seems to be resolved today. 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 Repeat MRI brain did not show any evidence of acute intracranial pathology or signs of infection. EEG repeated today which showed interval improvement. Yesterday EEG showed sharps emanating from the left and 1 clinical seizure witnessed by the son. She was started on Keppra 1 g IV every 12 hours to suppress cortical irritability and prevent seizures yesterday which she tolerated well. Neurochecks every 4 hours. Observe seizure precautions. Ativan 2 mg IV for seizure greater than 2 minutes. Continue home medications. Concern about stiff person syndrome so antigad antibodies and paraneoplastic panel sent. Continue medical management per primary team, oncology and ID PT/OT/speech DVT prophylaxis. Plan discussed in detail with the patient and the at bedside including the test results. Awaiting transfer to another hospital in [place].
--- NOTE | 2020-09-21 13:40 | PDOC.HOSPP ---
- Subjective Encounter Date: 09/21/20 Encounter Time: 09:00 Subjective: pt up in bed awake but unable to have a conversation with me. she does mumble at times. - Objective Vital Signs & Weight: Vital Signs (12 hours) Temp Pulse Resp BP Pulse Ox 09/21/20 12:00 98.1 F 81 18 164/70 H 95 09/21/20 08:00 100 09/21/20 07:43 97.7 F 80 19 133/63 100 09/21/20 03:42 97.3 F L 79 24 H 125/68 100 Weight Admit Weight 123 lb 9.6 oz Weight 123 lb 9.6 oz I&O: 09/20/20 09/21/20 09/22/20 06:59 06:59 06:59 Intake Total 900 3305 Output Total 999 1450 Balance -99 1855 Result Diagrams: 09/21/20 04:11 09/21/20 04:11 Hospitalist ROS - Review of Systems Other: unable to obtain - Medication Medications: Active Medications Generic Name Dose Route Start Last Admin Trade Name Freq PRN Reason Stop Dose Admin Acetaminophen 650 mg 09/17/20 04:05 09/17/20 14:22 Acetaminophen 650 Mg Suppository [place] 650 mg Q6H PRN Administration Headache/Fever or Pain Amlodipine Besylate 2.5 mg 09/17/20 09:00 09/20/20 08:17 Amlodipine 5 Mg Tab PO Not Given DAILY [facility] Anastrozole 1 mg 09/17/20 09:00 09/20/20 08:18 Anastrozole 1 Mg Tab PO Not Given DAILY DARIANA Aspirin 81 mg 09/17/20 09:00 09/20/20 08:18 Aspirin 81 Mg Enteric Coated Tablet PO Not Given DAILY DARIANA Atorvastatin Calcium 10 mg 09/16/20 21:00 09/20/20 21:47 Atorvastatin Calcium 10 Mg Tab PO 10 mg HS DARIANA Administration Dextrose/Sodium Chloride 1,000 mls @ 75 mls/hr 09/17/20 15:15 09/20/20 22:43 D5 1/2 Ns IV 1,000 mls .[id number] DARIANA Administration Cefazolin Sodium 0.5 gm/ 100 mls @ 200 mls/hr 09/19/20 12:00 09/21/20 03:28 Sodium Chloride IVPB 100 mls Q8H DARIANA Administration Levetiracetam 1,000 mg/ Device 100 mls @ 200 mls/hr 09/20/20 21:00 09/21/20 09:03 IVPB 100 mls BID DARIANA Administration Levothyroxine Sodium 25 mcg 09/17/20 06:00 09/21/20 07:11 Levothyroxine Sodium 25 Mcg Tab PO Not Given 0600 DARIANA Methylprednisolone Sodium Succinate 125 mg 09/20/20 09:00 09/21/20 09:03 Methylprednisolone Sod Succ/Pf 125 Mg/2 Ml Vial IVP 125 mg DAILY DARIANA Administration Metoprolol Succinate 50 mg 09/17/20 09:00 09/20/20 08:18 Metoprolol Succinate Xl 50 Mg Tab PO Not Given DAILY DARIANA Pantoprazole Sodium 40 mg 09/20/20 21:00 09/21/20 09:04 Pantoprazole 40 Mg Vial IVP 40 mg BID DARIANA Administration Sodium Chloride 10 ml 09/19/20 09:00 09/20/20 21:56 Flush - Normal Saline 10 Ml Syringe IVF Not Given Q12HR DARIANA Sodium Chloride 0 ml 09/19/20 15:00 09/21/20 09:04 Sodium Chloride 0.65% Nasal 44 Ml Bot EA NARE 5 spr TID DARIANA Administration Sterile Water 1 ml 09/20/20 09:15 09/20/20 10:25 Bacteriostatic Water 30 Ml Vial FS 1 ml PRN PRN Administration RECONSTITUTION - Exam Neck: negative: supple, symmetric, no JVD, no thyromegaly, no lymphadenopathy, no carotid bruit, JVD Heart: negative: RRR, no murmur, no gallops, no rubs, normal peripheral pulses, irregular, diminshed peripheral pulses, murmur present, II/IV, III/IV Respiratory: negative: CTAB, no wheezes, no rales, no ronchi, normal chest expansion, no tachypnea, normal percussion, rales, rhonchi, tachypneic, wheezes Gastrointestinal: negative: soft, non-tender, non-distended, normal bowel sounds, no palpable masses, no hepatomegaly, no splenomegaly, no bruit, no guar ding, no rigidity, tender to palpation, distended, diminished bowl sounds, voluntary guarding Neurological - other findings: awake but does not follow commands Hosp A/P (1) Metabolic encephalopathy Code(s): G93.41 - METABOLIC ENCEPHALOPATHY Status: Acute (2) Seizure Code(s): R56.9 - UNSPECIFIED CONVULSIONS Status: Acute (3) HTN (hypertension) Code(s): I10 - ESSENTIAL (PRIMARY) HYPERTENSION Status: Acute (4) Hx of breast cancer Code(s): Z85.3 - PERSONAL HISTORY OF MALIGNANT NEOPLASM OF BREAST Status: Acute (5) Metastatic breast cancer Code(s): C50.919 - MALIGNANT NEOPLASM OF UNSP SITE OF UNSPECIFIED FEMALE BREAST Status: Acute (6) Metastatic disease Code(s): C79.9 - SECONDARY MALIGNANT NEOPLASM OF UNSPECIFIED SITE Status: Acute - Plan Three 10-year-old female with a history of lobular left breast cancer about 10 years ago status post mastectomy and radiation therapy currently on Arimidex presents to the hospital with change in mental status. Patient was initially hospitalized from August 30 2 September 15 for left arm weakness. At that time her MRI brain was negative. She had atrial tachycardia at this time cardiology was consulted. Patient underwent a cardiac catheterization which indicated normal coronaries. Patient was then discharged. Comes back the following day with change in mental status. Per patient's family prior to her cardiac cath she was talking and walking. LP done x2 - I did speak with MD Judge however they declined the transfer. Try and see if we can transfer this patient to [facility]. 09/21 will continue steroids for now. she is awake but does not follow commands. will order paraneoplastic syndrome workup. MD Judge refused the transfer will transfer pt to [facility]. Pt tolerating tube feeds well.
[2020-09-21] MEDS: Anastrozole 1 MG TAB PO SCH (14:11)
[2020-09-21] MEDS: Amlodipine 5 MG TAB PO SCH (14:11)
[2020-09-21] MEDS: Aspirin 81 mg Enteric Coated Tablet PO SCH (14:11)
--- NOTE | 2020-09-21 14:20 | PDOC.EEG ---
Neurology EEG Report - Report Report: This EEG was performed using 24 channel [employer] video EEG machine with 24 disc ana laura ctrodes. This was an extended 2 hours 6 minutes of inpatient video EEG recording. Digital analysis of the EEG was done for spike and seizure detection which revealed no abnormalities. Background: The posterior background rhythm is not observed. Hyperventilation: Not performed. Photic Stimulation: No significant response. Sleep: No stage change is observed. EEG Diagnosis: Occasional sharps which does not evolve seen emanating from left occipital region. Generalized irregular theta delta activity seen during the recording. Absence of posterior background rhythm. Clinical Interpretation: This EEG is consistent interictal expression of epilepsy in the setting of moderate generalized nonspecific cerebral dysfunction. No electrographic seizures captured during the recording. There is interval improvement from the prior study.
--- NOTE | 2020-09-21 14:56 | RAD ---
Exam: 1 view abdomen HISTORY: Status post NG tube placement COMPARISON: 09/21/2020 at 9:12 AM FINDINGS: Dobbhoff feeding tube has been repositioned. Distal tip is now the gastric antrum. Nonspeci fic bowel gas pattern. IMPRESSION: Dobbhoff feeding tube terminates in the gastric antrum. Consider advancement.
[2020-09-21] MEDS: Dextrose 5 %-0.45 % NaCl 1,000 ML IV SCH (16:31)
[2020-09-21 17:57] LABS: SARS-CoV-2 PCR by NAA DETECTED (NotDetected)
--- NOTE | 2020-09-21 19:41 | PRG ---
DATE OF SERVICE: 09/21/2020 SUBJECTIVE: Ms. Thacker is still confused. She is awake though, will mumble things that are not intelligible. Sometimes they are intelligible, though but very short limited answers and the patient's temperature has been normal. She did have some temperature elevation at beginning of admission, but now she has defervesced and she is saturating 100% on room air, not tachycardic, not tachypneic. OBJECTIVE: LUNGS: Clear to auscultation and percussion. HEART: S1 and S2 regular rate. ABDOMEN: Soft, not distended. LABORATORY DATA: White cell count is at 14, probably from steroid effect; platelets 119,000; 79% neutrophils. Potassium 2.8, creatinine 1.3. As part of the procedure to allow transfer, she had SARS-CoV repeated. SARS-CoV RT-PCR at this time was positive, which was somewhat surprising. Her last chest x-ray on this admission was done on September 19, was completely normal without any infiltrates. ASSESSMENT AND DISCUSSION: History of breast cancer, previously in remission and then recurrent episodes of confusional state, some motility disorder with stiffness, waxing and waning. She was admitted for similar presentation last time recovered, pretty much to her baseline according to her [id number] and then has had recrudescence of the symptoms. She has been tested for SARS-CoV two PCR in the recent past, had antibody test oral negative. Her CSF evaluation showed [id number] pleocytosis, neutrophilic. The glucose was within normal limits. Protein was little bit elevated. The assay thus far submitted include Herpes simplex, West Nile, cryptococcus antigen, those were not remarkable. Pending assays include Mycobacterium tuberculosis, histoplasma capsulatum, and coccidioidomycosis, although that is some likely vis-a-vis CSF results and clinical course. I do not think the SARS-CoV has any relationship to her neurological abnormalities in view of her negative antibodies recently, this must be a recent infection acquired in the facility that she had been transferred to. She is at risk for progression. So, at this point, I probably would discontinue corticosteroids. I do not know if this is going to prevent the transfer. I think it is prudent to withhold corticosteroids in view of this new development. Job ID: [id number]
[2020-09-21] MEDS: Atorvastatin Calcium 10 MG TAB PO SCH (21:37)
[2020-09-22] MEDS: CEFAZOLIN 0.5 GM in Sodium Chloride 0.9% 100 ML IVPB SCH ×4 (00:13→21:37)
--- NOTE | 2020-09-22 01:38 | PDOC.EVN ---
Event Note - Event Note Event Note: Nursing called, 21 beats non sustained VT, asymptomatic, VSS. K and Mag low, but replaced yesterday. Will repeat labs in am.
[2020-09-22 05:04] LABS: INR-International Normal Ratio 1.1; Prothrombin Time 13.9 sec (12.0-14.7)
[2020-09-22] MEDS: Labetalol HCl 100 MG/20 ML VIAL SLOW IVP PRN (05:11)
[2020-09-22 05:29] LABS: Anion Gap 17 mmol/L (10-20); BUN (Urea Nitrogen) 22 mg/dL (9.8-20.1); CRP (Inflammatory) 1.13 mg/dL (= or < 0.5); Calc. Creatinine Clearance 43 mL/min (70-130); Carbon Dioxide 17 mmol/L (23-31); Chloride 110 mmol/L (98-107); Glucose 120 mg/dL (83-110); Magnesium 1.9 mg/dL (1.6-2.6); Sodium 141 mmol/L (136-145)
[2020-09-22 05:31] LABS: Potassium 2.7 mmol/L (3.5-5.1)
[2020-09-22 05:50] LABS: Band 2 % (5-11); Hypochromia SLIGHT = 6-15 cells (100X) (0-5/hpf); Lymphocytes 10 % (21-51); MDiff Complete? YES; Mean Corpuscular Hemoglobin 26.7 pg (27.0-31.0); Mean Corpuscular Volume 83.7 fL (78.0-98.0); Mean Platelet Volume 11.1 fL (7.4-10.4); Monocytes 15 % (0-10); Neutrophil 73 % (42-75); Nucleated RBC 2 % (0); Platelet Count 131 thou/uL (130-400); Platelet Morphology Comment Appears Adequate; RBC Distribution Width 16.3 % (11.5-14.5); Red Blood Cell (RBC) Count 3.75 mill/uL (4.20-5.40); White Blood Cell (WBC) Count 16.2 thou/uL (4.8-10.8)
[2020-09-22 06:12] VITALS: BMI 22.4
[2020-09-22] MEDS ORDERED: Magnesium 2 GM/50 ML 2 GM in Premix Bag 1 BAG IVPB SCH (06:15)
[2020-09-22] MEDS: Levothyroxine Sodium 25 MCG TAB PO SCH (06:21)
[2020-09-22] MEDS: Dextrose 5 %-0.45 % NaCl 1,000 ML IV SCH ×2 (06:22→13:31)
[2020-09-22] MEDS: Pantoprazole 40 MG VIAL IVP SCH (09:49)
[2020-09-22] MEDS: Potassium Chloride 20 MEQ TAB PO SCH ×2 (09:49→13:30)
[2020-09-22] MEDS: Anastrozole 1 MG TAB PO SCH (09:50)
[2020-09-22] MEDS: Aspirin 81 mg Enteric Coated Tablet PO SCH (09:50)
[2020-09-22] MEDS: Amlodipine 5 MG TAB PO SCH (09:50)
[2020-09-22] MEDS: levETIRAcetam in NS 1,000 MG in Premix Bag 1 BAG IVPB SCH ×2 (09:51→23:58)
[2020-09-22] MEDS: Sodium Chloride 0.65% Nasal 44 ML BOT EA NARE SCH ×2 (13:33→15:20)
[2020-09-22] MEDS ORDERED: Sodium Bicarbonate Tab 325 MG TAB PER TUBE PRN (13:45)
[2020-09-22] MEDS ORDERED: Pancrelipase DR 12,000 1 CAP FS PRN (13:45)
--- NOTE | 2020-09-22 15:03 | PDOC.HOSPP ---
- Subjective Encounter Date: 09/22/20 Encounter Time: 10:30 Subjective: Up in bed still confused does not follow commands. - Objective Vital Signs & Weight: Vital Signs (12 hours) Temp Pulse Resp BP BP BP Pulse Ox 09/22/20 13:31 97.8 F 94 18 150/72 H 96 09/22/20 09:51 97 09/22/20 09:50 180/77 H 09/22/20 05:11 91 09/22/20 05:04 97.1 F L 91 18 180/77 H 97 Weight Admit Weight 123 lb 9.6 oz Weight 122 lb 6.4 oz I&O: 09/21/20 09/22/20 09/23/20 06:59 06:59 06:59 Intake Total 3305 1520 Output Total 1450 Balance 1855 1520 Result Diagrams: 09/22/20 04:25 09/22/20 04:25 Hospitalist ROS - Review of Systems Other: Unable to obtain - Medication Medications: Active Medications Generic Name Dose Route Start Last Admin Trade Name Freq PRN Reason Stop Dose Admin Acetaminophen 650 mg 09/17/20 04:05 09/17/20 14:22 Acetaminophen 650 Mg Suppository NV 650 mg Q6H PRN Administration Headache/Fever or Pain Amlodipine Besylate 2.5 mg 09/17/20 09:00 09/22/20 09:50 Amlodipine 5 Mg Tab PO 2.5 mg DAILY DARIANA Administration Anastrozole 1 mg 09/17/20 09:00 09/22/20 09:50 Anastrozole 1 Mg Tab PO 1 mg DAILY DARIANA Administration Aspirin 81 mg 09/17/20 09:00 09/22/20 09:50 Aspirin 81 Mg Enteric Coated Tablet PO 81 mg DAILY DARIANA Administration Atorvastatin Calcium 10 mg 09/16/20 21:00 09/21/20 21:37 Atorvastatin Calcium 10 Mg Tab PO 10 mg HS DARIANA Administration Dextrose/Sodium Chloride 1,000 mls @ 75 mls/hr 09/17/20 15:15 09/22/20 13:31 D5 1/2 Ns IV 1,000 mls .[id number] DARIANA Administration Cefazolin Sodium 0.5 gm/ 100 mls @ 200 mls/hr 09/19/20 12:00 09/22/20 13:31 Sodium Chloride IVPB 100 mls Q8H DARIANA Administration Levetiracetam 1,000 mg/ Device 100 mls @ 200 mls/hr 09/20/20 21:00 09/22/20 09:51 IVPB 100 mls BID DARIANA Administration Labetalol HCl 10 mg 09/19/20 07:48 09/22/20 05:11 Labetalol Hcl 100 Mg/20 Ml Vial SLOW IVP 4 ml Q4H PRN Administration SBP GREATER THAN 160 Levothyroxine Sodium 25 mcg 09/17/20 06:00 09/22/20 06:21 Levothyroxine Sodium 25 Mcg Tab PO 25 mcg 0600 DARIANA Administration Metoprolol Succinate 50 mg 09/17/20 09:00 09/22/20 09:50 Metoprolol Succinate Xl 50 Mg Tab PO 50 mg DAILY DARIANA Administration Pantoprazole Sodium 40 mg 09/20/20 21:00 09/22/20 09:49 Pantoprazole 40 Mg Vial IVP 40 mg BID DARIANA Administration Sodium Chloride 10 ml 09/19/20 09:00 09/22/20 09:51 Flush - Normal Saline 10 Ml Syringe IVF Not Given Q12HR DARIANA Sodium Chloride 0 ml 09/19/20 15:00 09/22/20 13:33 Sodium Chloride 0.65% Nasal 44 Ml Bot EA NARE Not Given TID DARIANA Sterile Water 1 ml 09/20/20 09:15 09/20/20 10:25 Bacteriostatic Water 30 Ml Vial FS 1 ml PRN PRN Administration RECONSTITUTION - Exam Heart: negative: RRR, no murmur, no gallops, no rubs, normal peripheral pulses, irregular, diminshed peripheral pulses, murmur present, II/IV, III/IV Respiratory: negative: CTAB, no wheezes, no rales, no ronchi, normal chest expansion, no tachypnea, normal percussion, rales, rhonchi, tachypneic, wheezes Gastrointestinal: negative: soft, non-tender, non-distended, normal bowel sounds, no palpable masses, no hepatomegaly, no splenomegaly, no bruit, no guarding, no rigidity, tender to palpation, distended, diminished bowl sounds, voluntary guarding Extremities: 1+ LE edema Hosp A/P (1) Metabolic encephalopathy Code(s): G93.41 - METABOLIC ENCEPHALOPATHY Status: Acute (2) Seizure Code(s): R56.9 - UNSPECIFIED CONVULSIONS Status: Acute (3) HTN (hypertension) Code(s): I10 - ESSENTIAL (PRIMARY) HYPERTENSION Status: Acute (4) Hx of breast cancer Code(s): Z85.3 - PERSONAL HISTORY OF MALIGNANT NEOPLASM OF BREAST Status: Acute (5) Metastatic breast cancer Code(s): C50.919 - MALIGNANT NEOPLASM OF UNSP SITE OF UNSPECIFIED FEMALE BREAST Status: Acute (6) Metastatic disease Code(s): C79.9 - SECONDARY MALIGNANT NEOPLASM OF UNSPECIFIED SITE Status: Acute - Plan Three 10-year-old female with a history of lobular left breast cancer about 10 years ago status post mastectomy and radiation therapy currently on Arimidex presents to the hospital with change in mental status. Patient was initially hospitalized from August 30 2 September 15 for left arm weakness. At that time her MRI brain was negative. She had atrial tachycardia at this time cardiology was consulted. Patient underwent a cardiac catheterization which indicated normal coronaries. Patient was then discharged. Comes back the following day with change in mental status. Per patient's family prior to her cardiac cath she was talking and walking. LP done x2 - I did speak with MD Judge however they declined the transfer. Try and see if we can transfer this patient to [place] or [facility]. 09/21 will continue steroids for now. she is awake but does not follow commands. will order paraneoplastic syndrome workup. MD Judge refused the transfer will transfer pt to [place] or [facility]. Pt tolerating tube feeds well. 09/22 patient's Covid test is positive. Updated patient's son and patient's hus band. Plans continue to transfer the patient to [facility]. We will continue tube feedings. Steroids were stopped. We will start patient back on DVT prophylaxis with Lovenox. She currently has SCDs on. Her platelets have improved. Patient had some SVT last night however her potassium is low we will replace it we will recheck labs in the morning.
[2020-09-22] MEDS ORDERED: Enoxaparin Sodium 40 MG/0.4 ML SYRINGE SC SCH (21:00)
[2020-09-23] MEDS: Atorvastatin Calcium 10 MG TAB PO SCH (03:27)
[2020-09-23] MEDS: Pantoprazole 40 MG VIAL IVP SCH ×2 (03:27→13:32)
[2020-09-23] MEDS: Sodium Chloride 0.65% Nasal 44 ML BOT EA NARE SCH ×3 (03:27→15:12)
[2020-09-23] MEDS: Dextrose 5 %-0.45 % NaCl 1,000 ML IV SCH ×2 (03:28→11:21)
[2020-09-23] MEDS: CEFAZOLIN 0.5 GM in Sodium Chloride 0.9% 100 ML IVPB SCH ×2 (03:47→18:40)
[2020-09-23 05:59] LABS: ALT (SGPT) 13 U/L (8-55); AST (SGOT) 38 U/L (5-34); Albumin 3.1 g/dL (3.4-4.8); Alkaline Phosphatase 130 U/L (40-110); Anion Gap 16 mmol/L (10-20); BUN (Urea Nitrogen) 12 mg/dL (9.8-20.1); Bilirubin, Total 0.5 mg/dL (0.2-1.2); Calc. Creatinine Clearance 54 mL/min (70-130); Carbon Dioxide 21 mmol/L (23-31); Chloride 109 mmol/L (98-107); Globulin 2.4 g/dL (2.4-3.5); Glucose 97 mg/dL (83-110); Protein, Total 5.5 g/dL (5.8-8.1); Sodium 143 mmol/L (136-145)
[2020-09-23 06:06] LABS: Potassium 2.7 mmol/L (3.5-5.1)
[2020-09-23] MEDS ORDERED: Potassium Chloride 20 MEQ TAB PO SCH (06:30)
[2020-09-23 06:52] LABS: Band 5 % (5-11); Hemoglobin 9.1 g/dL (12.0-16.0); Lymphocytes 10 % (21-51); MDiff Complete? YES; Mean Corpuscular HGB CONC 32.5 g/dL (32.0-36.0); Mean Corpuscular Hemoglobin 27.1 pg (27.0-31.0); Mean Corpuscular Volume 83.4 fL (78.0-98.0); Mean Platelet Volume 10.9 fL (7.4-10.4); Metamyelocyte 2 % (0-0); Monocytes 5 % (0-10); Neutrophil 78 % (42-75); Platelet Count 92 thou/uL (130-400); Platelet Morphology Comment Appears Decreased; RBC Distribution Width 16.3 % (11.5-14.5); Red Blood Cell (RBC) Count 3.36 mill/uL (4.20-5.40); White Blood Cell (WBC) Count 10.8 thou/uL (4.8-10.8)
[2020-09-23] MEDS: Levothyroxine Sodium 25 MCG TAB PO SCH (07:38)
[2020-09-23 09:15] LABS: Lyme IgG/IgM AB <0.91 ISR (0.00-0.90)
[2020-09-23] MEDS: Potassium Chloride 20 MEQ in Premix Bag 1 BAG IVPB SCH ×3 (11:21→18:42)
[2020-09-23] MEDS: levETIRAcetam in NS 1,000 MG in Premix Bag 1 BAG IVPB SCH (11:22)
--- NOTE | 2020-09-23 11:53 | RAD ---
Portable frontal chest radiograph: 09/23/2020 COMPARISON: 09/19/2020 HISTORY: Short of breath FINDINGS: There is mild hazy horizontally oriented increased density within the right lung base/right infrahilar region. No pneumothorax or focal consolidation. No large volume pleural effusion. Punctate sclerotic foci overlie the right humeral head which may signify osseous metastatic disease. IMPRESSION: Hazy new horizontally oriented increased density within the right lung base which may sig nify volume loss or infectious pneumonitis/aspiration. Recommend follow-up imaging to document resolution.
[2020-09-23] MEDS: Aspirin 81 mg Enteric Coated Tablet PO SCH (15:11)
[2020-09-23] MEDS: Anastrozole 1 MG TAB PO SCH (15:11)
[2020-09-23] MEDS: Amlodipine 5 MG TAB PO SCH (15:11)
--- NOTE | 2020-09-23 16:35 | PDOC.HOSPP ---
- Subjective Encounter Date: 09/23/20 Encounter Time: 11:15 Subjective: Patient up in bed appears confused. - Objective Vital Signs & Weight: Vital Signs (12 hours) Temp Pulse Resp BP Pulse Ox 09/23/20 11:22 97.6 F 80 16 143/67 H 97 09/23/20 08:25 98.3 F 82 18 144/77 H 96 09/23/20 07:48 98 Weight Admit Weight 123 lb 9.6 oz Weight 123 lb I&O: 09/22/20 09/23/20 09/24/20 06:59 06:59 06:59 Intake Total 1520 1192 503 Balance 1520 1192 503 Result Diagrams: 09/23/20 05:16 09/23/20 05:16 Hospitalist ROS - Review of Systems Other: Unable to obtain - Medication Medications: Active Medications Generic Name Dose Route Start Last Admin Trade Name Freq PRN Reason Stop Dose Admin Acetaminophen 650 mg 09/17/20 04:05 09/17/20 14:22 Acetaminophen 650 Mg Suppository MS 650 mg Q6H PRN Administration Headache/Fever or Pain Amlodipine Besylate 2.5 mg 09/17/20 09:00 09/23/20 15:11 Amlodipine 5 Mg Tab PO Not Given DAILY DARIANA Anastrozole 1 mg 09/17/20 09:00 09/23/20 15:11 Anastrozole 1 Mg Tab PO Not Given DAILY DARIANA Aspirin 81 mg 09/17/20 09:00 09/23/20 15:11 Aspirin 81 Mg Enteric Coated Tablet PO Not Given DAILY DARIANA Atorvastatin Calcium 10 mg 09/16/20 21:00 09/23/20 03:27 Atorvastatin Calcium 10 Mg Tab PO Not Given HS DARIANA Enoxaparin Sodium 40 mg 09/22/20 21:00 09/22/20 21:37 Enoxaparin Sodium 40 Mg/0.4 Ml Syringe SC 40 mg 2100 DARIANA Administration Dextrose/Sodium Chloride 1,000 mls @ 75 mls/hr 09/17/20 15:15 09/23/20 11:21 D5 1/2 Ns IV Not Given .[id number] DARIANA Cefazolin Sodium 0.5 gm/ 100 mls @ 200 mls/hr 09/19/20 12:00 09/23/20 03:47 Sodium Chloride IVPB 100 mls Q8H ADRIANA Administration Levetiracetam 1,000 mg/ Device 100 mls @ 200 mls/hr 09/20/20 21:00 09/23/20 11:22 IVPB 100 mls BID DARIANA Administration Labetalol HCl 10 mg 09/19/20 07:48 09/22/20 05:11 Labetalol Hcl 100 Mg/20 Ml Vial SLOW IVP 4 ml Q4H PRN Administration SBP GREATER THAN 160 Levothyroxine Sodium 25 mcg 09/17/20 06:00 09/23/20 07:38 Levothyroxine Sodium 25 Mcg Tab PO Not Given 0600 DARIANA Metoprolol Succinate 50 mg 09/17/20 09:00 09/23/20 15:11 Metoprolol Succinate Xl 50 Mg Tab PO Not Given DAILY DARIANA Pantoprazole Sodium 40 mg 09/20/20 21:00 09/23/20 03:27 Pantoprazole 40 Mg Vial IVP 40 mg BID DARIANA Administration Sodium Chloride 10 ml 09/19/20 09:00 09/23/20 13:19 Flush - Normal Saline 10 Ml Syringe IVF Not Given Q12HR DARIANA Sodium Chloride 0 ml 09/19/20 15:00 09/23/20 15:12 Sodium Chloride 0.65% Nasal 44 Ml Bot EA NARE Not Given TID DARIANA Sterile Water 1 ml 09/20/20 09:15 09/20/20 10:25 Bacteriostatic Water 30 Ml Vial FS 1 ml PRN PRN Administration RECONSTITUTION - Exam Heart: negative: RRR, no murmur, no gallops, no rubs, normal peripheral pulses, irregular, diminshed peripheral pulses, murmur present, II/IV, III/IV Respiratory: negative: CTAB, no wheezes, no rales, no ronchi, normal chest expansion, no tachypnea, normal percussion, rales, rhonchi, tachypneic, wheezes Gastrointestinal: negative: soft, non-tender, non-distended, normal bowel sounds, no palpable masses, no hepatomegaly, no splenomegaly, no bruit, no guarding, no rigidity, tender to palpation, distended, diminished bowl sounds, voluntary guarding Neurological - other findings: Patient awake however does not follow commands. Hosp A/P (1) Metabolic encephalopathy Code(s): G93.41 - METABOLIC ENCEPHALOPATHY Status: Acute (2) Seizure Code(s): R56.9 - UNSPECIFIED CONVULSIONS Status: Acute (3) HTN (hypertension) Code(s): I10 - ESSENTIAL (PRIMARY) HYPERTENSION Status: Acute (4) Hx of breast cancer Code(s): Z85.3 - PERSONAL HISTORY OF MALIGNANT NEOPLASM OF BREAST Status: Acute (5) Metastatic breast cancer Code(s): C50.919 - MALIGNANT NEOPLASM OF UNSP SITE OF UNSPECIFIED FEMALE BREAST Status: Acute (6) Metastatic disease Code(s): C79.9 - SECONDARY MALIGNANT NEOPLASM OF UNSPECIFIED SITE Status: Acute - Plan Three 10-year-old female with a history of lobular left breast cancer about 10 years ago status post mastectomy and radiation therapy currently on Arimidex presents to the hospital with change in mental status. Patient was initially hospitalized from August 30 2 September 15 for left arm weakness. At that time her MRI brain was negative. She had atrial tachycardia at this time cardiology was consulted. Patient underwent a cardiac catheterization which indicated normal coronaries. Patient was then discharged. Comes back the following day with change in mental status. Per patient's family prior to her cardiac cath she was talking and walking. LP done x2 - I did speak with MD Judge however they declined the transfer. Try and see if we can transfer this patient to [place] or [facility]. 09/21 will continue steroids for now. she is awake but does not follow commands. will order paraneoplastic syndrome workup. MD Judge refused the transfer will transfer pt to [place] or [facility]. Pt tolerating tube feeds well. 09/22 patient's Covid test is positive. Updated patient's son and patient's hus band. Plans continue to transfer the patient to [facility]. We will continue tube feedings. Steroids were stopped. We will start patient back on DVT prophylaxis with Lovenox. She currently has SCDs on. Her platelets have improved. Patient had some SVT last night however her potassium is low we will replace it we will recheck labs in the morning. 09/23 spoke with [facility] physician and report was given. Awaiting follow-up BMP for hypokalemia. If hypokalemia resolves patient may be transferred tonight. Patient son called and updated. Patient's antigad negative. Patient's chest x-ray indicated some haziness on the right lower lobe. We will add Flagyl she is already on Ancef.
[2020-09-23] MEDS ORDERED: metroNIDAZOLE 500 MG in Premix Bag 1 BAG IVPB SCH (18:00)
[2020-09-23 18:11] LABS: Anion Gap 15 mmol/L (10-20); BUN (Urea Nitrogen) 10 mg/dL (9.8-20.1); Calc. Creatinine Clearance 58 mL/min (70-130); Calcium 8.2 mg/dL (7.8-10.44); Carbon Dioxide 23 mmol/L (23-31); Chloride 108 mmol/L (98-107); Glucose 98 mg/dL (83-110); Sodium 143 mmol/L (136-145)
[2020-09-23] MEDS ORDERED: Magnesium Sulfate 4 GM in Sodium Chloride 0.9% 250 ML 250 ML IVPB SCH (18:15)
[2020-09-23 18:17] LABS: Potassium 2.8 mmol/L (3.5-5.1)
[2020-09-23] MEDS ORDERED: Meropenem 1 GM in Sodium Chloride 0.9% 100 ML IVPB SCH ×2 (20:00→22:00)
[2020-09-23] MEDS ORDERED: Cyanocobalamin 1000 MCG/ML VIAL IM SCH (20:00)
[2020-09-23] MEDS: Potassium Chloride 40 MEQ in Sodium Chloride 0.9% 250 ML 250 ML IVPB SCH (22:30)
[2020-09-23] MEDS: Labetalol HCl 100 MG/20 ML VIAL SLOW IVP PRN (23:53)
[2020-09-24] MEDS: Potassium Chloride 40 MEQ in Sodium Chloride 0.9% 250 ML 250 ML IVPB SCH (02:40)
[2020-09-24] MEDS: MEROPENEM 1 GM/50 ML 1 GM in Premix Bag 1 BAG IVPB SCH ×3 (03:33→11:24)
[2020-09-24] MEDS: Atorvastatin Calcium 10 MG TAB PO SCH (03:33)
[2020-09-24] MEDS: levETIRAcetam in NS 1,000 MG in Premix Bag 1 BAG IVPB SCH (03:33)
[2020-09-24] MEDS: Pantoprazole 40 MG VIAL IVP SCH ×2 (03:33→11:24)
[2020-09-24] MEDS: Sodium Chloride 0.65% Nasal 44 ML BOT EA NARE SCH ×3 (03:34→14:04)
[2020-09-24 05:08] LABS: ALT (SGPT) 9 U/L (8-55); AST (SGOT) 35 U/L (5-34); Albumin 3.2 g/dL (3.4-4.8); Alkaline Phosphatase 135 U/L (40-110); Anion Gap 11 mmol/L (10-20); BUN (Urea Nitrogen) 10 mg/dL (9.8-20.1); Bilirubin, Total 0.8 mg/dL (0.2-1.2); Calc. Creatinine Clearance 57 mL/min (70-130); Calcium 8.3 mg/dL (7.8-10.44); Carbon Dioxide 23 mmol/L (23-31); Chloride 109 mmol/L (98-107); Globulin 2.6 g/dL (2.4-3.5); Glucose 96 mg/dL (83-110); Magnesium 1.5 mg/dL (1.6-2.6); Potassium 3.1 mmol/L (3.5-5.1); Protein, Total 5.8 g/dL (5.8-8.1); Sodium 140 mmol/L (136-145)
[2020-09-24] MEDS: Dextrose 5 %-0.45 % NaCl 1,000 ML IV SCH ×2 (05:16→11:24)
[2020-09-24 05:51] LABS: Band 1 % (5-11); Eosinophils 1 % (0-10); Hemoglobin 9.7 g/dL (12.0-16.0); Lymphocytes 21 % (21-51); MDiff Complete? YES; Mean Corpuscular HGB CONC 32.5 g/dL (32.0-36.0); Mean Corpuscular Hemoglobin 26.9 pg (27.0-31.0); Mean Corpuscular Volume 82.7 fL (78.0-98.0); Metamyelocyte 1 % (0-0); Myelocyte 4 % (0-0); Neutrophil 68 % (42-75); Nucleated RBC 1 % (0); Platelet Count 80 thou/uL (130-400); Platelet Morphology Comment Appears Decreased; RBC Distribution Width 16.3 % (11.5-14.5); RBC Morphology Normal; Reactive Lymphocytes 4 % (0-10); Red Blood Cell (RBC) Count 3.59 mill/uL (4.20-5.40); White Blood Cell (WBC) Count 9.2 thou/uL (4.8-10.8)
[2020-09-24] MEDS ORDERED: Magnesium 2 GM/50 ML 2 GM in Premix Bag 1 BAG IVPB SCH (06:15)
[2020-09-24] MEDS: Levothyroxine Sodium 25 MCG TAB PO SCH (06:31)
[2020-09-24] MEDS ORDERED: Potassium Chloride 20 MEQ TAB PO SCH (06:45)
[2020-09-24] MEDS ORDERED: Magnesium Sulfate 4 GM in Sodium Chloride 0.9% 250 ML 250 ML IVPB SCH (07:00)
[2020-09-24] MEDS: Amlodipine 5 MG TAB PO SCH (07:50)
[2020-09-24] MEDS: Anastrozole 1 MG TAB PO SCH (07:50)
[2020-09-24] MEDS: Aspirin 81 mg Enteric Coated Tablet PO SCH (07:51)
--- NOTE | 2020-09-24 10:26 | CT ---
Head CT without contrast 09/24/2020: COMPARISON: 09/16/2020 HISTORY: Fall, unresponsive patient TECHNIQUE: Axial CT imaging at 2.5 mm intervals from vertex through skull base without contrast FINDINGS: The visualized paranasal sinuses demonstrate mucosal thickening of the left sphenoid sinus and bilateral ethmoid air cells. There is no displaced calvarial fracture seen. No intracranial hemorrhage, midline shift, or mass effect. IMPRESSION: No intracranial hemorrhage or displaced calvarial fracture.
[2020-09-24 13:43] LABS: Anion Gap 14 mmol/L (10-20); BUN (Urea Nitrogen) 11 mg/dL (9.8-20.1); Calc. Creatinine Clearance 57 mL/min (70-130); Calcium 8.3 mg/dL (7.8-10.44); Carbon Dioxide 22 mmol/L (23-31); Chloride 111 mmol/L (98-107); Glucose 103 mg/dL (83-110); Magnesium 2.8 mg/dL (1.6-2.6); Potassium 3.4 mmol/L (3.5-5.1); Sodium 144 mmol/L (136-145)
[2020-09-24] MEDS: Potassium Chloride 20 MEQ in Premix Bag 1 BAG IVPB SCH ×2 (14:04→17:10)
[2020-09-24 16:01] VITALS: BP 157/70; TEMP 99
--- NOTE | 2020-09-24 16:01 | PDOC.DS.DS ---
Provider - Provider Date of Admission: 09/18/20 10:28 Date of Discharge: 09/24/20 Admitting Provider: Arturo Ford MD Consultations: Infectious Disease, Neurology, Oncology Primary Care Physician: Dulce Pinedo Course - Hospital Course Hospital Course: Patient is a 80-year-old female who initially presented to the hospital with change in mental status. However prior to that she had an admission in September 04 when she came in for left arm weakness. Stroke work-up was done including an LP which was negative. She developed atrial tachycardia had a stress test which was abnormal and then underwent a cardiac cath which was normal. 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 She underwent a biopsy which indicated ER positive GA and HER-2 negative. This was different from her previous 2011 cancer which indicated ER/GA positive and HER-2 negative. At that time she underwent radiation and had a mastectomy and was put on Arimidex. She was seen by oncology and was asked to follow-up as an outpatient. [facility]. However the following day when she was seen by her family she was very altered and was brought into the hospital for further evaluation. Patient at this time appeared very stiff and was awake however was not talking. At this time she underwent an MRI with and without contrast of the brain which did not show any acute abnormalities. She also had an EEG that did not indicate any seizures. However she was put on prophylactic seizure medications with Keppra. She was seen by neurology. Patient's mentation really did not change. She did have epistaxis in the hospital she was seen by ENT underwent packing of the left nostril. At this time she was noted to have thrombocytopenia. She was also noted to have anemia and was transfused with 1 unit of PRBC. Her anemia was noted most likely secondary to patient being on Toradol for pain. This was discontinued. The topic of paraneoplastic syndrome and possibly stiff man syndrome was entertained. At this time paraneoplastic antibodies was sent and she was put on steroids. Patient's family wanted patient to be transferred to a higher level of care. At this time a Covid test was done which was positive patient was asymptomatic. Patient continues to just stare would say random words such as okay and yeah. On the day of transfer patient was found to be sitting on the floor of the bathroom. This was unwitnessed. Family was updated. 1 the hospital she also had some SVT her electrolytes were replaced and she had no more events of this. We did start her on tube feedings however patient pulled it out multiple attempts were done to reinserted without success. Patient was noted to be thrombocytopenic which improved after stopping DVT prophylaxis. I restarted the Lovenox and this caused further deterioration of her platelets after 1 dose so I have discontinue the Lovenox. She will be put on SCDs. She is a high risk for DVT and PE given her core morbidities - Labs Lab Results: 09/24/20 04:26 09/24/20 13:10 Abnormal Lab Results - Last 48 hrs 09/19/20 17:55: Crossmatch See Detail 09/23/20 05:16: Potassium 2.7 L*, Chloride 109 H, Carbon Dioxide 21 L, AST 38 H, Alkaline Phosphatase 130 H, Serum Total Protein 5.5 L, Albumin 3.1 L 09/23/20 05:16: RBC 3.36 L, Hgb 9.1 L, Hct 28.0 L, RDW 16.3 H, Plt Count 92 L, MPV 10.9 H, Neutrophils % (Manual) 78 H, Lymphocytes % (Manual) 10 L, Plt Morphology Comment Appears Decreased L 09/23/20 17:40: Potassium 2.8 L*, Chloride 108 H 09/24/20 04:26: Potassium 3.1 L, Chloride 109 H, Magnesium 1.5 L, AST 35 H, Alkaline Phosphatase 135 H, Albumin 3.2 L 09/24/20 04:26: RBC 3.59 L, Hgb 9.7 L, Hct 29.7 L, MCH 26.9 L, RDW 16.3 H, Plt Count 80 L, MPV 12.0 H, Band Neuts % (Manual) 1 L, Myelocytes % 4 H, Nucleated RBCs # (Man) 1 H, Plt Morphology Comment Appears Decreased L 09/24/20 13:10: Potassium 3.4 L, Chloride 111 H, Carbon Dioxide 22 L, Magnesium 2.8 H Microbiology - Entire Visit 09/17/20 08:00 Venous blood - Left Hand Blood Culture - Final NO GROWTH IN 5 DAYS 09/17/20 08:01 Venous blood - Right Arm Blood Culture - Final NO GROWTH IN 5 DAYS 09/17/20 13:13 Spinal Fluid Body Fluid Culture - Final 09/16/20 15:54 Venous blood - Right Arm Blood Culture - Final NO GROWTH IN 5 DAYS 09/16/20 14:57 Venous blood - Right Arm Blood Culture - Final NO GROWTH IN 5 DAYS 09/16/20 15:18 Urine Straight Catheter Urine Culture - Final NO GROWTH AT 48 HOURS 09/17/20 13:13 Spinal Fluid Culture Cryptococcal Antigen - Final - Physical Exam Vitals: Vital Signs (12 hours) Temp Pulse Resp BP BP Pulse Ox 09/24/20 12:00 98.4 F 77 18 144/64 H 100 09/24/20 11:55 98 09/24/20 08:00 98.5 F 79 20 129/65 96 09/24/20 07:50 62 Weight Admit Weight 123 lb 9.6 oz Weight 123 lb Physical Exam: The patient was seen and examined on the day of discharge. Problem - Problem (1) Metabolic encephalopathy Code(s): G93.41 - METABOLIC ENCEPHALOPATHY Status: Acute (2) Seizure Code(s): R56.9 - UNSPECIFIED CONVULSIONS Status: Acute (3) HTN (hypertension) Code(s): I10 - ESSENTIAL (PRIMARY) HYPERTENSION Status: Acute (4) Hx of breast cancer Code(s): Z85.3 - PERSONAL HISTORY OF MALIGNANT NEOPLASM OF BREAST Status: Acute (5) Metastatic breast cancer Code(s): C50.919 - MALIGNANT NEOPLASM OF UNSP SITE OF UNSPECIFIED FEMALE BREAST Status: Acute (6) Metastatic disease Code(s): C79.9 - SECONDARY MALIGNANT NEOPLASM OF UNSPECIFIED SITE Status: Acute Plan - Discharge Medications Home Medications: Medication Instructions Recorded Confirmed Type Levothyroxine Sodium [Synthroid] 25 mcg PO DAILY 08/31/20 09/17/20 History Acetaminophen [Tylenol Regular 650 mg PO Q4H PRN tab 09/13/20 09/17/20 Rx Strength] Anastrozole [Arimidex] 1 mg PO DAILY tab 09/13/20 09/17/20 Rx Atorvastatin Calcium [Lipitor] 40 mg PO HS tab 09/13/20 09/17/20 Rx Calcium Carbonate [Tums] 1,000 mg PO Q4H PRN tab 09/13/20 09/17/20 Rx Gabapentin [Neurontin] 100 mg PO DAILY cap 09/13/20 09/17/20 Rx Loratadine [Claritin] 10 mg PO DAILYPRN PRN tab 09/13/20 09/17/20 Rx Pantoprazole [Protonix] 40 mg PO DAILY tab 09/13/20 09/17/20 Rx Amlodipine [Norvasc] 2.5 mg PO DAILY tab 09/15/20 09/17/20 Rx Aspirin [Aspirin EC] 81 mg PO DAILY #30 tablet. 09/15/20 09/17/20 Rx Metoprolol Succinate [Toprol XL] 50 mg PO DAILY tab 09/15/20 09/17/20 Rx Nitroglycerin [Nitrostat] 0.4 mg SL Q5MIN PRN tab 09/15/20 09/17/20 Rx Meropenem 1 gm/50 ml [Merrem 1 1 gm IVPB 0400,1200,2000 bag 09/24/20 Rx gm/50 ml] Pantoprazole [Protonix] 40 mg IVP BID vial 09/24/20 Rx levETIRAcetam in NS [Keppra] 1,000 mg IVPB BID bag 09/24/20 Rx Allergies: monosodium glutamate Allergy (Mild, Verified 09/16/20 20:03) headache codeine Allergy (Verified 09/16/20 20:03) - Discharge Instructions Activity:: Activity as Tolerated - Follow up Plan Referrals: Theresa Bethea MD [Primary Care Provider] - Disposition: HOME Quality - Care Measures CORE MEASURES:: N/A
== END 2020-09-24 18:00 | disposition short-term general hospital (02) | DRG 70 ==
LOC: ERS 14:26 → 2NO 16:16 → OBSVTOIN 09-18 10:28 → 2SE 09-21 21:32
PROVIDERS: ADMIT Internal Medicine; ATTEND Internal Medicine
PROC: 009U3ZX Drainage of Spinal Canal, Percutaneous Approach, Diagnostic (ICD-10-PCS; 2020-09-17)
PROC: 2Y41X5Z Packing of Nasal Region using Packing Material (ICD-10-PCS; principal; 2020-09-21)
PROC: 30233N1 Transfusion of Nonautologous Red Blood Cells into Peripheral Vein, Percutaneous Approach (ICD-10-PCS; 2020-09-23)
DX: G98.8 Other disorders of nervous system (principal); G93.41 Metabolic encephalopathy; U07.1 COVID-19; C79.51 Secondary malignant neoplasm of bone; N17.9 Acute kidney failure, unspecified; D62 Acute posthemorrhagic anemia; I47.1 Supraventricular tachycardia; G25.82 Stiff-man syndrome; G81.94 Hemiplegia, unspecified affecting left nondominant side; R04.0 Epistaxis; M43.6 Torticollis; E87.6 Hypokalemia; D69.6 Thrombocytopenia, unspecified; G43.909 Migraine, unspecified, not intractable, without status migrainosus; C50.919 Malignant neoplasm of unspecified site of unspecified female breast; I10 Essential (primary) hypertension; E03.9 Hypothyroidism, unspecified; E78.00 Pure hypercholesterolemia, unspecified; F41.9 Anxiety disorder, unspecified; F32.9 Major depressive disorder, single episode, unspecified; D64.9 Anemia, unspecified; Z90.710 Acquired absence of both cervix and uterus; Z90.12 Acquired absence of left breast and nipple; Z88.6 Allergy status to analgesic agent; Z79.82 Long term (current) use of aspirin; Z79.899 Other long term (current) drug therapy; Z79.890 Hormone replacement therapy; Z92.3 Personal history of irradiation; Z98.890 Other specified postprocedural states
CPT/HCPCS: 36415; 62270; 70450; 70553; 71045; 74018; 74176; 80048; 80053; 80306; 81003; 82140; 82533; 82550; 82728; 82746; 82945; 83519; 83605; 83735; 83873; 84100; 84145; 84146; 84157; 84484; 85025; 85060; 85379; 85610; 85730; 86140; 86592; 86618; 86635; 86757; 86788; 86789; 86850; 86900; 86901; 87040; 87070; 87086; 87205; 87255; 87635; 87899; 88112; 89051; 93005; 95712; 95816; 95819; 95957; 96374; 96375; 96376; A9579; C9113; G0378; J0133; J0690; J0780; J1200; J1650; J1885; J1953; J2185; J2930; J3420; J3475; J3480; J3490; J7050; U0003; U0005

== ENCOUNTER 2020-12-27 11:31 | Outpatient (CLI) | payer MEDICARE ==
[2020-12-27] MEDS ORDERED: Iopamidol-370 76% 500 ML 1 ML ONE (11:39)
== END 2020-12-27 11:32 | disposition home or self-care (01) ==
LOC: BICCT 11:31
PROVIDERS: ATTEND Family Medicine
DX: C79.81 Secondary malignant neoplasm of breast (principal); R16.0 Hepatomegaly, not elsewhere classified; C80.1 Malignant (primary) neoplasm, unspecified; J90 Pleural effusion, not elsewhere classified; N13.30 Unspecified hydronephrosis
CPT/HCPCS: 74177; Q9967

== ENCOUNTER 2021-01-04 10:07 | Day surgery (SDC) | payer MEDICARE ==
[2021-01-03 11:42] VITALS: BMI 21.1
[2021-01-04 11:08] LABS: PTT 33.3 sec (22.9-36.1); Prothrombin Time 13.6 sec (12.0-14.7)
[2021-01-04 11:19] LABS: Hemoglobin 9.1 g/dL (12.0-16.0); Mean Corpuscular HGB CONC 32.4 g/dL (32.0-36.0); Mean Corpuscular Hemoglobin 34.6 pg (27.0-31.0); Mean Platelet Volume 9.5 fL (7.4-10.4); Platelet Count 242 thou/uL (130-400); RBC Distribution Width 20.7 % (11.5-14.5); Red Blood Cell (RBC) Count 2.63 mill/uL (4.20-5.40); White Blood Cell (WBC) Count 3.5 thou/uL (4.8-10.8)
[2021-01-04 12:01] LABS: Band 3 % (5-11); Eosinophils 1 % (0-10); Lymphocytes 41 % (21-51); MDiff Complete? YES; Monocytes 13 % (0-10); Neutrophil 39 % (42-75); Platelet Morphology Comment Appears Adequate; Polychromasia SLIGHT = 2-3 cells (100X) (0-2/hpf); Reactive Lymphocytes 1 % (0-10)
[2021-01-04 13:09] VITALS: BP 165/83; TEMP 98.2
[2021-01-04 13:28] LABS: RBC Count-Automated (BF) 1523 /cu.mm; WBC/Nucleated-Auto (BF) 1596 uL
[2021-01-04 13:44] LABS: BF Color Yellow; Body Fluid Source Thoracentesis Fluid; Clarity Clear (Clear); Tube # EDTA
[2021-01-04 13:57] LABS: BF Segmented Neutrophils 2 %; Cell Count Non Hematic 53 %; Lymphocytes 45 %
== END 2021-01-04 12:40 | disposition home or self-care (01) ==
LOC: ULT 10:07
PROVIDERS: ATTEND Family Medicine
PROC: 0W9B3ZZ Drainage of Left Pleural Cavity, Percutaneous Approach (ICD-10-PCS; principal; 2021-01-04)
PROC: BB4BZZZ Ultrasonography of Pleura (ICD-10-PCS; 2021-01-04)
DX: C50.912 Malignant neoplasm of unspecified site of left female breast (principal); J91.0 Malignant pleural effusion; C79.51 Secondary malignant neoplasm of bone; E78.5 Hyperlipidemia, unspecified; I10 Essential (primary) hypertension; E03.9 Hypothyroidism, unspecified; E78.00 Pure hypercholesterolemia, unspecified; Z17.0 Estrogen receptor positive status [ER+]; Z86.73 Personal history of transient ischemic attack (TIA), and cerebral infarction without residual deficits; Z79.02 Long term (current) use of antithrombotics/antiplatelets; Z79.811 Long term (current) use of aromatase inhibitors; Z79.899 Other long term (current) drug therapy; Z88.5 Allergy status to narcotic agent; Z91.02 Food additives allergy status
CPT/HCPCS: 71045; 76942; 85025; 85060; 85610; 85730; 87070; 87205; 88112; 88305; 88313; 88341; 88342; 89051

== ENCOUNTER 2021-02-06 18:25 | Inpatient (IN) | payer MEDICARE ==
[2021-02-06 19:17] LABS: Hemoglobin 8.4 g/dL (12.0-16.0); Mean Corpuscular HGB CONC 33.4 g/dL (32.0-36.0); Mean Corpuscular Hemoglobin 34.9 pg (27.0-31.0); Mean Platelet Volume 9.9 fL (7.4-10.4); Platelet Count 198 thou/uL (130-400); RBC Distribution Width 20.5 % (11.5-14.5); Red Blood Cell (RBC) Count 2.39 mill/uL (4.20-5.40)
[2021-02-06 19:44] LABS: ALT (SGPT) 9 U/L (8-55); AST (SGOT) 42 U/L (5-34); Albumin 4.1 g/dL (3.4-4.8); Alkaline Phosphatase 121 U/L (40-110); Anion Gap 17 mmol/L (10-20); BUN (Urea Nitrogen) 11 mg/dL (9.8-20.1); Bilirubin, Total 0.7 mg/dL (0.2-1.2); CK (CPK) 70 U/L (29-168); Calc. Creatinine Clearance 0 mL/min (70-130); Calcium 8.7 mg/dL (7.8-10.44); Carbon Dioxide 19 mmol/L (23-31); Chloride 105 mmol/L (98-107); Globulin 3.3 g/dL (2.4-3.5); Glucose 96 mg/dL (83-110); Lipase 32 U/L (8-78); Potassium 3.7 mmol/L (3.5-5.1); Protein, Total 7.4 g/dL (5.8-8.1); Sodium 137 mmol/L (136-145)
[2021-02-06] MEDS ORDERED: Dexamethasone 10 MG/ML VIAL ONE (19:45)
[2021-02-06 20:01] LABS: Anisocytosis MODERATE=16-30 cells (100X) (0-5/hpf); Band 10 % (5-11); Eosinophils 1 % (0-10); Lymphocytes 28 % (21-51); MDiff Complete? YES; Macrocytosis SLIGHT = 6-15 cells (100X) (0-5/hpf); Metamyelocyte 1 % (0-0); Monocytes 7 % (0-10); Myelocyte 1 % (0-0); Neutrophil 51 % (42-75); Nucleated RBC 22 % (0); Platelet Morphology Comment Appears Adequate; Polychromasia MARKED = >4 cells (100X) (0-2/hpf); Reactive Lymphocytes 1 % (0-10); White Blood Cell (WBC) Count 3.3 thou/uL (4.8-10.8)
[2021-02-06] MEDS ORDERED: Aspirin 300 MG Suppository ONE (20:34)
[2021-02-06] MEDS ORDERED: Ondansetron PF 4 MG/2 ML Vial IVP PRN (21:09)
[2021-02-06] MEDS ORDERED: Acetaminophen 325 MG TAB PO PRN (21:09)
[2021-02-06] MEDS ORDERED: Ondansetron ODT 4 MG TAB PO PRN (21:09)
[2021-02-06 21:15] LABS: Bilirubin Negative (Negative); Blood, Urine Negative (Negative); Glucose, Urine (Dipstick) Negative (Negative); Ketone, Urine 40 mg/dL (Negative); Leukocyte Negative (Negative); Nitrite Negative (Negative); Protein, Urine (Dipstick) Negative (Neg-Trace); Specific Gravity, Urine 1.015 (1.005-1.030); Urobilinogen 0.2 mg/dL (Less than 2); pH, Urine 6.5 (5.0-9.0)
[2021-02-06 21:16] LABS: Clarity Clear (Clear)
[2021-02-07 00:22] LABS: SARS-CoV-2 NAA Rapid Test Not Detected (NotDetected)
[2021-02-07 06:07] LABS: Anion Gap 18 mmol/L (10-20); BUN (Urea Nitrogen) 13 mg/dL (9.8-20.1); Calc. Creatinine Clearance 50 mL/min (70-130); Calcium 8.2 mg/dL (7.8-10.44); Carbon Dioxide 17 mmol/L (23-31); Chloride 106 mmol/L (98-107); Glucose 123 mg/dL (83-110); Potassium 3.9 mmol/L (3.5-5.1); Sodium 137 mmol/L (136-145)
[2021-02-07 06:08] LABS: Anisocytosis SLIGHT = 6-15 cells (100X) (0-5/hpf); Eosinophils 1 % (0-10); Hemoglobin 8.3 g/dL (12.0-16.0); Lymphocytes 23 % (21-51); MDiff Complete? YES; Macrocytosis SLIGHT = 6-15 cells (100X) (0-5/hpf); Mean Corpuscular HGB CONC 32.4 g/dL (32.0-36.0); Mean Corpuscular Hemoglobin 33.8 pg (27.0-31.0); Mean Platelet Volume 10.4 fL (7.4-10.4); Monocytes 7 % (0-10); Neutrophil 68 % (42-75); Nucleated RBC 18 % (0); Platelet Count 192 thou/uL (130-400); Polychromasia SLIGHT = 2-3 cells (100X) (0-2/hpf); RBC Distribution Width 20.6 % (11.5-14.5); Red Blood Cell (RBC) Count 2.45 mill/uL (4.20-5.40); White Blood Cell (WBC) Count 3.6 thou/uL (4.8-10.8)
[2021-02-07] MEDS: Enoxaparin Sodium 40 MG/0.4 ML SYRINGE SC SCH (09:05)
[2021-02-07] MEDS ORDERED: Dexamethasone 4 mg/ml Vial SLOW IVP SCH (09:30)
[2021-02-07] MEDS ORDERED: Magnevist 469MG/ML 20 ML VIAL ONE (10:37)
[2021-02-07] MEDS: Dexamethasone 4 mg/ml Vial SLOW IVP SCH ×3 (12:06→23:49)
[2021-02-07] MEDS ORDERED: Labetalol HCl 100 MG/20 ML VIAL SLOW IVP PRN (17:44)
[2021-02-07] MEDS ORDERED: hydrALAZINE 25 MG TAB PO PRN (17:44)
[2021-02-07] MEDS ORDERED: Levothyroxine Sodium 25 MCG TAB PO SCH (18:15)
[2021-02-07] MEDS ORDERED: Aspirin Chewable 81 MG TAB PO SCH (18:15)
[2021-02-07] MEDS ORDERED: Amlodipine 5 MG TAB PO SCH (18:15)
[2021-02-07] MEDS ORDERED: levETIRAcetam 100 mg/ml Oral Solution PO SCH (21:00)
[2021-02-08 05:52] LABS: Anion Gap 16 mmol/L (10-20); BUN (Urea Nitrogen) 21 mg/dL (9.8-20.1); Calc. Creatinine Clearance 48 mL/min (70-130); Calcium 7.7 mg/dL (7.8-10.44); Carbon Dioxide 18 mmol/L (23-31); Chloride 105 mmol/L (98-107); Glucose 125 mg/dL (83-110); Magnesium 2.2 mg/dL (1.6-2.6); Potassium 3.8 mmol/L (3.5-5.1); Sodium 135 mmol/L (136-145)
[2021-02-08] MEDS: Dexamethasone 4 mg/ml Vial SLOW IVP SCH ×3 (05:57→17:44)
[2021-02-08] MEDS: Levothyroxine Sodium 25 MCG TAB PO SCH (05:57)
[2021-02-08 06:41] LABS: White Blood Cell (WBC) Count 3.9 thou/uL (4.8-10.8)
[2021-02-08 06:42] LABS: Anisocytosis MODERATE=16-30 cells (100X) (0-5/hpf); Band 5 % (5-11); Hemoglobin 7.8 g/dL (12.0-16.0); Lymphocytes 12 % (21-51); MDiff Complete? YES; Macrocytosis SLIGHT = 6-15 cells (100X) (0-5/hpf); Mean Corpuscular Hemoglobin 35.6 pg (27.0-31.0); Mean Platelet Volume 10.4 fL (7.4-10.4); Monocytes 14 % (0-10); Neutrophil 69 % (42-75); Nucleated RBC 14 % (0); Platelet Count 173 thou/uL (130-400); RBC Distribution Width 22.7 % (11.5-14.5); Red Blood Cell (RBC) Count 2.19 mill/uL (4.20-5.40)
[2021-02-08] MEDS ORDERED: Potassium Chloride 20 MEQ TAB PO SCH (08:15)
[2021-02-08] MEDS: Enoxaparin Sodium 40 MG/0.4 ML SYRINGE SC SCH (09:28)
[2021-02-08] MEDS: Aspirin Chewable 81 MG TAB PO SCH (09:29)
[2021-02-08] MEDS: Amlodipine 5 MG TAB PO SCH (09:29)
[2021-02-08] MEDS: levETIRAcetam in NS 500 MG in Premix Bag 1 BAG IVPB SCH (16:02)
[2021-02-09] MEDS: Dexamethasone 4 mg/ml Vial SLOW IVP SCH ×3 (01:21→11:25)
[2021-02-09] MEDS: levETIRAcetam in NS 500 MG in Premix Bag 1 BAG IVPB SCH ×2 (01:24→13:42)
[2021-02-09] MEDS: Levothyroxine Sodium 25 MCG TAB PO SCH (06:30)
[2021-02-09] MEDS: Aspirin Chewable 81 MG TAB PO SCH (08:21)
[2021-02-09] MEDS: Amlodipine 5 MG TAB PO SCH (08:21)
[2021-02-09] MEDS: Enoxaparin Sodium 40 MG/0.4 ML SYRINGE SC SCH (08:21)
[2021-02-09] MEDS: Sodium Chloride 0.9% 1,000 ML IV SCH ×2 (11:25→21:57)
[2021-02-09 14:47] LABS: Hemoglobin 8.4 g/dL (12.0-16.0); Mean Corpuscular Hemoglobin 33.7 pg (27.0-31.0); Mean Platelet Volume 11.2 fL (7.4-10.4); Platelet Count 163 thou/uL (130-400); RBC Distribution Width 22.8 % (11.5-14.5); Red Blood Cell (RBC) Count 2.48 mill/uL (4.20-5.40)
[2021-02-09 15:11] LABS: MDiff Complete? YES; White Blood Cell (WBC) Count 4.6 thou/uL (4.8-10.8)
[2021-02-09 15:12] LABS: Anisocytosis MODERATE=16-30 cells (100X) (0-5/hpf); Band 3 % (5-11); Lymphocytes 5 % (21-51); Macrocytosis SLIGHT = 6-15 cells (100X) (0-5/hpf); Metamyelocyte 3 % (0-0); Monocytes 23 % (0-10); Myelocyte 1 % (0-0); Neutrophil 65 % (42-75); Nucleated RBC 38 % (0); Platelet Morphology Comment Appears Adequate; Polychromasia MODERATE = 3-4 cells (100X) (0-2/hpf); Schistocytes SLIGHT = 2-5 cells (100X) (0-1/hpf)
[2021-02-09 15:18] LABS: Anion Gap 16 mmol/L (10-20); BUN (Urea Nitrogen) 26 mg/dL (9.8-20.1); Calc. Creatinine Clearance 49 mL/min (70-130); Calcium 7.4 mg/dL (7.8-10.44); Carbon Dioxide 16 mmol/L (23-31); Chloride 110 mmol/L (98-107); Glucose 138 mg/dL (83-110); Sodium 138 mmol/L (136-145)
[2021-02-09] MEDS ORDERED: methylPREDNISolone Sod Succ 40 MG VIAL IVP SCH (21:00)
[2021-02-10] MEDS: levETIRAcetam in NS 500 MG in Premix Bag 1 BAG IVPB SCH ×2 (01:39→15:59)
[2021-02-10 05:14] LABS: Hemoglobin 7.9 g/dL (12.0-16.0); Mean Corpuscular HGB CONC 32.2 g/dL (32.0-36.0); Mean Corpuscular Hemoglobin 33.9 pg (27.0-31.0); Mean Platelet Volume 10.8 fL (7.4-10.4); Platelet Count 169 thou/uL (130-400); Red Blood Cell (RBC) Count 2.34 mill/uL (4.20-5.40); White Blood Cell (WBC) Count 5.9 thou/uL (4.8-10.8)
[2021-02-10 05:35] LABS: Anion Gap 14 mmol/L (10-20); BUN (Urea Nitrogen) 23 mg/dL (9.8-20.1); Calc. Creatinine Clearance 50 mL/min (70-130); Calcium 7.3 mg/dL (7.8-10.44); Carbon Dioxide 17 mmol/L (23-31); Chloride 112 mmol/L (98-107); Glucose 128 mg/dL (83-110); Potassium 3.7 mmol/L (3.5-5.1); Sodium 139 mmol/L (136-145)
[2021-02-10] MEDS: Levothyroxine Sodium 25 MCG TAB PO SCH (06:44)
[2021-02-10] MEDS: Enoxaparin Sodium 40 MG/0.4 ML SYRINGE SC SCH (09:52)
[2021-02-10] MEDS: Aspirin Chewable 81 MG TAB PO SCH (09:52)
[2021-02-10] MEDS: Amlodipine 5 MG TAB PO SCH (09:52)
[2021-02-10] MEDS: Sodium Chloride 0.9% 1,000 ML IV SCH ×2 (09:53→21:07)
[2021-02-10] MEDS ORDERED: methylPREDNISolone Sod Succ 40 MG VIAL IVP SCH (16:00)
[2021-02-11] MEDS: levETIRAcetam in NS 500 MG in Premix Bag 1 BAG IVPB SCH ×2 (03:50→14:47)
[2021-02-11 05:09] LABS: Platelet Count 153 thou/uL (130-400)
[2021-02-11] MEDS: Levothyroxine Sodium 25 MCG TAB PO SCH (06:13)
[2021-02-11 06:41] LABS: Anion Gap 17 mmol/L (10-20); BUN (Urea Nitrogen) 16 mg/dL (9.8-20.1); Calc. Creatinine Clearance 55 mL/min (70-130); Calcium 6.8 mg/dL (7.8-10.44); Carbon Dioxide 15 mmol/L (23-31); Chloride 111 mmol/L (98-107); Glucose 127 mg/dL (83-110); Magnesium 2.1 mg/dL (1.6-2.6); Potassium 3.5 mmol/L (3.5-5.1); Sodium 139 mmol/L (136-145)
[2021-02-11] MEDS: Enoxaparin Sodium 40 MG/0.4 ML SYRINGE SC SCH (09:50)
[2021-02-11] MEDS: Aspirin Chewable 81 MG TAB PO SCH (09:50)
[2021-02-11] MEDS: Amlodipine 5 MG TAB PO SCH (09:50)
[2021-02-11] MEDS: Sodium Chloride 0.9% 1,000 ML IV SCH ×2 (09:51→21:01)
[2021-02-12] MEDS: levETIRAcetam in NS 500 MG in Premix Bag 1 BAG IVPB SCH ×2 (01:27→13:41)
[2021-02-12] MEDS: Sodium Chloride 0.9% 1,000 ML IV SCH ×2 (05:22→17:27)
[2021-02-12] MEDS: Levothyroxine Sodium 25 MCG TAB PO SCH (05:22)
[2021-02-12 05:51] LABS: Hemoglobin 8.1 g/dL (12.0-16.0); Platelet Count 160 thou/uL (130-400)
[2021-02-12] MEDS: Aspirin Chewable 81 MG TAB PO SCH (08:39)
[2021-02-12] MEDS: Amlodipine 5 MG TAB PO SCH (08:40)
[2021-02-12] MEDS: Enoxaparin Sodium 40 MG/0.4 ML SYRINGE SC SCH (08:40)
[2021-02-12] MEDS ORDERED: Magnesium Citrate 300 ML BOT PO SCH (13:15)
[2021-02-12] MEDS ORDERED: Senokot S 8.6-50 MG TAB PO SCH (22:15)
[2021-02-12] MEDS: levETIRAcetam 500 MG TAB PO SCH (22:50)
[2021-02-13] MEDS: Levothyroxine Sodium 25 MCG TAB PO SCH (05:47)
[2021-02-13] MEDS: Enoxaparin Sodium 40 MG/0.4 ML SYRINGE SC SCH (08:45)
[2021-02-13] MEDS: Amlodipine 5 MG TAB PO SCH (08:46)
[2021-02-13] MEDS: Aspirin Chewable 81 MG TAB PO SCH (08:46)
[2021-02-13] MEDS: levETIRAcetam 500 MG TAB PO SCH ×2 (08:46→21:26)
[2021-02-13] MEDS: Senokot S 8.6-50 MG TAB PO SCH ×2 (08:46→21:26)
[2021-02-13] MEDS: Sodium Chloride 0.9% 1,000 ML IV SCH (08:54)
[2021-02-13] MEDS ORDERED: methylPREDNISolone Sod Succ 125 MG in Sodium Chloride 0.9% 100 ML IVPB SCH (16:34)
[2021-02-13] MEDS ORDERED: methylPREDNISolone Sod Succ/PF 125 MG/2 ML VIAL IVP SCH (18:00)
[2021-02-13] MEDS ORDERED: Bisacodyl 10 MG SUPP PR PRN (18:38)
[2021-02-13] MEDS ORDERED: Magnesium Citrate 300 ML BOT PO SCH (18:45)
[2021-02-14] MEDS: Levothyroxine Sodium 25 MCG TAB PO SCH (05:36)
[2021-02-14] MEDS: Enoxaparin Sodium 40 MG/0.4 ML SYRINGE SC SCH (08:53)
[2021-02-14] MEDS: Senokot S 8.6-50 MG TAB PO SCH (08:53)
[2021-02-14] MEDS: levETIRAcetam 500 MG TAB PO SCH (08:54)
[2021-02-14] MEDS: Aspirin Chewable 81 MG TAB PO SCH (08:54)
[2021-02-14] MEDS: Amlodipine 5 MG TAB PO SCH (08:54)
[2021-02-14 12:11] VITALS: BP 147/72; TEMP 98.3
== END 2021-02-14 13:43 | disposition home health service (06) | DRG 70 ==
LOC: ERS 18:25 → 2SE 20:27
PROVIDERS: ADMIT Student in an Organized Health Care Education/Training Program; ATTEND Family Medicine
DX: G98.8 Other disorders of nervous system (principal); G93.41 Metabolic encephalopathy; C79.51 Secondary malignant neoplasm of bone; J91.0 Malignant pleural effusion; I47.1 Supraventricular tachycardia; G40.909 Epilepsy, unspecified, not intractable, without status epilepticus; I10 Essential (primary) hypertension; E03.9 Hypothyroidism, unspecified; C50.912 Malignant neoplasm of unspecified site of left female breast; C50.911 Malignant neoplasm of unspecified site of right female breast; D64.81 Anemia due to antineoplastic chemotherapy; T45.1X5A Adverse effect of antineoplastic and immunosuppressive drugs, initial encounter; D70.2 Other drug-induced agranulocytosis; G43.909 Migraine, unspecified, not intractable, without status migrainosus; R34 Anuria and oliguria; R74.01 Elevation of levels of liver transaminase levels; Z20.822 Contact with and (suspected) exposure to COVID-19; Z88.5 Allergy status to narcotic agent; Z88.8 Allergy status to other drugs, medicaments and biological substances; Z79.899 Other long term (current) drug therapy; Z90.710 Acquired absence of both cervix and uterus; Z90.13 Acquired absence of bilateral breasts and nipples; Z92.21 Personal history of antineoplastic chemotherapy; Z86.16 Personal history of COVID-19
CPT/HCPCS: 36415; 51701; 70450; 70553; 71045; 80048; 80053; 81003; 82550; 83690; 83735; 83880; 84443; 84484; 85014; 85018; 85025; 85027; 85049; 87040; 93005; 95712; 95816; 95819; 95957; 96374; A9579; J1100; J1650; J1953; J2930; J3490; U0002; U0005

== ENCOUNTER 2021-03-01 14:42 | Outpatient (CLI) | payer MEDICARE | END 2021-03-01 14:43 | disposition home or self-care (01) | LOC: BICCT 14:42 | PROVIDERS: ATTEND Internal Medicine | DX: C50.919 Malignant neoplasm of unspecified site of unspecified female breast (principal); J90 Pleural effusion, not elsewhere classified; J98.11 Atelectasis; C79.51 Secondary malignant neoplasm of bone; C78.7 Secondary malignant neoplasm of liver and intrahepatic bile duct; N13.30 Unspecified hydronephrosis | CPT/HCPCS: 71260; 74160 ==

== ENCOUNTER 2021-03-07 08:38 | Day surgery (SDC) | payer MEDICARE ==
[2021-03-07] MEDS ORDERED: diphenhydrAMINE 25 MG CAP PO SCH (09:00)
[2021-03-07] MEDS ORDERED: Acetaminophen 500 MG TAB PO SCH (09:00)
[2021-03-07 14:52] VITALS: BP 149/89; TEMP 98
== END 2021-03-07 15:18 | disposition home or self-care (01) ==
LOC: ONC/OP 08:38
PROVIDERS: ATTEND Internal Medicine Hematology & Oncology
PROC: 30233N1 Transfusion of Nonautologous Red Blood Cells into Peripheral Vein, Percutaneous Approach (ICD-10-PCS; principal; 2021-03-07)
DX: D64.9 Anemia, unspecified (principal); D69.6 Thrombocytopenia, unspecified; Z88.5 Allergy status to narcotic agent; Z91.018 Allergy to other foods
CPT/HCPCS: 36430; 86850; 86900; 86901; P9016; Q0163

== ENCOUNTER 2021-05-07 14:58 | Inpatient (IN) | payer MEDICARE ==
[2021-05-07 20:01] VITALS: BMI 18.0
[2021-05-07] MEDS ORDERED: Ondansetron ODT 4 MG TAB PO PRN (21:49)
[2021-05-07] MEDS ORDERED: Acetaminophen 650 MG Suppository PR PRN (21:49)
[2021-05-07] MEDS ORDERED: Ondansetron PF 4 MG/2 ML Vial IVP PRN (21:49)
[2021-05-07] MEDS ORDERED: Acetaminophen 325 MG TAB PO PRN (21:49)
[2021-05-08] MEDS ORDERED: Furosemide 40 MG/4 ML VIAL SLOW IVP SCH (00:30)
[2021-05-08] MEDS: Cefepime 2 GM in Sodium Chloride 0.9% 100 ML IVPB SCH ×2 (00:44→18:20)
[2021-05-08 00:46] LABS: Hemoglobin 7.5 g/dL (12.0-16.0); Mean Corpuscular HGB CONC 32.8 g/dL (32.0-36.0); Mean Corpuscular Hemoglobin 34.5 pg (27.0-31.0); RBC Distribution Width 25.2 % (11.5-14.5); Red Blood Cell (RBC) Count 2.17 mill/uL (4.20-5.40)
[2021-05-08 01:03] LABS: Band 5 % (5-11); Eosinophils 1 % (0-10); Hypochromia SLIGHT = 6-15 cells (100X) (0-5/hpf); Lymphocytes 17 % (21-51); MDiff Complete? YES; Macrocytosis SLIGHT = 6-15 cells (100X) (0-5/hpf); Mean Platelet Volume 8.3 fL (7.4-10.4); Monocytes 7 % (0-10); Neutrophil 70 % (42-75); Nucleated RBC 42 % (0); Platelet Count 117 thou/uL (130-400); Platelet Morphology Comment Appears Decreased
[2021-05-08 01:04] LABS: White Blood Cell (WBC) Count 9.7 thou/uL (4.8-10.8)
[2021-05-08 01:20] LABS: Anion Gap 15 mmol/L (10-20); BUN (Urea Nitrogen) 17 mg/dL (9.8-20.1); Calc. Creatinine Clearance 43 mL/min (70-130); Calcium 7.8 mg/dL (7.8-10.44); Carbon Dioxide 21 mmol/L (23-31); Chloride 111 mmol/L (98-107); Glucose 73 mg/dL (83-110); Potassium 3.7 mmol/L (3.5-5.1); Sodium 143 mmol/L (136-145)
[2021-05-08] MEDS ORDERED: Lacosamide 50 mg Tablet PO SCH ×2 (02:15→21:00)
[2021-05-08] MEDS ORDERED: Enoxaparin Sodium 40 MG/0.4 ML SYRINGE SC SCH (09:00)
[2021-05-08 14:47] LABS: SARS-CoV-2 PCR by NAA Not Detected (NotDetected)
[2021-05-08] MEDS: Mirtazapine 15 MG Soltab PO SCH (21:04)
[2021-05-08] MEDS: Dronabinol 2.5 MG CAP PO SCH (21:04)
[2021-05-08] MEDS: Lacosamide 50 mg Tablet PO SCH (21:04)
[2021-05-09] MEDS: Cefepime 2 GM in Sodium Chloride 0.9% 100 ML IVPB SCH ×2 (01:12→12:53)
[2021-05-09 04:19] LABS: Anion Gap 20 mmol/L (10-20); BUN (Urea Nitrogen) 20 mg/dL (9.8-20.1); Calc. Creatinine Clearance 38 mL/min (70-130); Carbon Dioxide 19 mmol/L (23-31); Chloride 109 mmol/L (98-107); Potassium 3.7 mmol/L (3.5-5.1); Sodium 144 mmol/L (136-145)
[2021-05-09 04:20] LABS: ALT (SGPT) 18 U/L (8-55); AST (SGOT) 103 U/L (5-34); Albumin 2.9 g/dL (3.4-4.8); Alkaline Phosphatase 252 U/L (40-110); Bilirubin, Total 1.3 mg/dL (0.2-1.2); Calcium 7.8 mg/dL (7.8-10.44); Globulin 2.5 g/dL (2.4-3.5); Glucose 67 mg/dL (83-110); Protein, Total 5.4 g/dL (5.8-8.1)
[2021-05-09 05:08] LABS: Anisocytosis MODERATE=16-30 cells (100X) (0-5/hpf); Band 5 % (5-11); Differential Comment Immature Cell(s); Eosinophils 1 % (0-10); Hemoglobin 7.8 g/dL (12.0-16.0); Lymphocytes 8 % (21-51); MDiff Complete? YES; Mean Corpuscular HGB CONC 30.4 g/dL (32.0-36.0); Mean Corpuscular Hemoglobin 32.3 pg (27.0-31.0); Mean Platelet Volume 9.9 fL (7.4-10.4); Metamyelocyte 3 % (0-0); Monocytes 20 % (0-10); Myelocyte 9 % (0-0); Neutrophil 51 % (42-75); Nucleated RBC 33 % (0); Platelet Count 115 thou/uL (130-400); Platelet Morphology Comment Appears Decreased; Polychromasia SLIGHT = 2-3 cells (100X) (0-2/hpf); RBC Distribution Width 25.2 % (11.5-14.5); Reflex for Review?? YES; Schistocytes MODERATE= 6-15 cells (100X) (0-1/hpf); Spherocytes SLIGHT = 1-5 cells (100X) (None Seen)
[2021-05-09] MEDS ORDERED: Fentanyl 100 MCG/2 ML VIAL ONE ×2 (11:41→11:48)
[2021-05-09] MEDS ORDERED: PROPOFOL 200 MG/20 ML VIAL ONE (11:53)
[2021-05-09] MEDS ORDERED: traMADol HCl 50 MG TAB PO PRN (12:46)
[2021-05-09] MEDS: Dronabinol 2.5 MG CAP PO SCH (21:49)
[2021-05-09] MEDS: Mirtazapine 15 MG Soltab PO SCH (21:49)
[2021-05-09] MEDS: Lacosamide 50 mg Tablet PO SCH (21:49)
[2021-05-10] MEDS: Cefepime 2 GM in Sodium Chloride 0.9% 100 ML IVPB SCH (01:12)
[2021-05-10 07:50] VITALS: TEMP 98.7
[2021-05-10 12:32] VITALS: BP 110/60
== END 2021-05-10 13:06 | disposition home or self-care (01) | DRG 597 ==
LOC: ONC 14:58
PROVIDERS: ADMIT Family Medicine; ATTEND Family Medicine
PROC: 06HY33Z Insertion of Infusion Device into Lower Vein, Percutaneous Approach (ICD-10-PCS; principal; 2021-05-09)
PROC: 0W9B30Z Drainage of Left Pleural Cavity with Drainage Device, Percutaneous Approach (ICD-10-PCS; 2021-05-09)
DX: C50.919 Malignant neoplasm of unspecified site of unspecified female breast (principal); G93.41 Metabolic encephalopathy; J91.0 Malignant pleural effusion; C79.51 Secondary malignant neoplasm of bone; R64 Cachexia; G93.40 Encephalopathy, unspecified; Z68.1 Body mass index [BMI] 19.9 or less, adult; C78.2 Secondary malignant neoplasm of pleura; C79.31 Secondary malignant neoplasm of brain; Z20.822 Contact with and (suspected) exposure to COVID-19; I10 Essential (primary) hypertension; G43.909 Migraine, unspecified, not intractable, without status migrainosus; D64.9 Anemia, unspecified; G40.909 Epilepsy, unspecified, not intractable, without status epilepticus; E03.9 Hypothyroidism, unspecified; F39 Unspecified mood [affective] disorder; Z88.5 Allergy status to narcotic agent; Z88.8 Allergy status to other drugs, medicaments and biological substances; Z79.82 Long term (current) use of aspirin; Z79.899 Other long term (current) drug therapy; Z90.13 Acquired absence of bilateral breasts and nipples; Z90.710 Acquired absence of both cervix and uterus; Z86.16 Personal history of COVID-19
CPT/HCPCS: 36415; 71045; 80048; 80053; 85025; 85060; 87040; 94640; C1729; J0692; J1940; J2704; J3010; J3490; J7620; Q0162; Q0167; U0003; U0005

== ENCOUNTER 2021-05-11 10:24 | Inpatient (IN) | payer MEDICARE ==
[2021-05-11 11:24] LABS: Hemoglobin 6.7 g/dL (12.0-16.0); Mean Corpuscular Hemoglobin 32.1 pg (27.0-31.0); Mean Platelet Volume 7.7 fL (7.4-10.4); Platelet Count 113 thou/uL (130-400); RBC Distribution Width 25.8 % (11.5-14.5); White Blood Cell (WBC) Count 16.5 thou/uL (4.8-10.8)
[2021-05-11 11:31] LABS: Bilirubin Negative (Negative); Blood, Urine Negative (Negative); Glucose, Urine (Dipstick) Negative (Negative); Ketone, Urine 15 mg/dL (Negative); Leukocyte Negative (Negative); Nitrite Negative (Negative); Protein, Urine (Dipstick) Trace mg/dL (Neg-Trace); Urobilinogen 0.2 mg/dL (Less than 2); pH, Urine 5.5 (5.0-9.0)
[2021-05-11 11:35] LABS: Anion Gap 18 mmol/L (10-20); BUN (Urea Nitrogen) 35 mg/dL (9.8-20.1); Calc. Creatinine Clearance 0 mL/min (70-130); Carbon Dioxide 15 mmol/L (23-31); Chloride 114 mmol/L (98-107); Potassium 3.3 mmol/L (3.5-5.1); Sodium 144 mmol/L (136-145)
[2021-05-11 11:36] LABS: ALT (SGPT) 20 U/L (8-55); AST (SGOT) 178 U/L (5-34); Albumin 2.4 g/dL (3.4-4.8); Alkaline Phosphatase 261 U/L (40-110); Bilirubin, Total 1.6 mg/dL (0.2-1.2); Calcium 6.9 mg/dL (7.8-10.44); Glucose 62 mg/dL (83-110); Protein, Total 4.4 g/dL (5.8-8.1)
[2021-05-11] MEDS ORDERED: Dextrose 50% Abboject 50 ML SYRINGE SLOW IVP SCH (11:39)
[2021-05-11] MEDS ORDERED: Cefepime 2 GM in Sodium Chloride 0.9% 100 ML IVPB SCH ×2 (11:40→20:00)
[2021-05-11 11:41] LABS: Clarity Clear (Clear)
[2021-05-11 11:42] LABS: Bacteria/HPF None Seen HPF (None Seen); RBC/HPF None Seen HPF (0-3); Squamous Epithelial 0-3 HPF (0-3); WBC/HPF None Seen HPF (0-3)
[2021-05-11] MEDS ORDERED: Cefepime 2 GM VIAL ONE (11:42)
[2021-05-11] MEDS ORDERED: Dextrose 50% Abboject 50 ML SYRINGE ONE (11:42)
[2021-05-11 11:50] LABS: CKMB 1.4 ng/mL (0-6.6)
[2021-05-11 11:52] LABS: Anisocytosis MODERATE=16-30 cells (100X) (0-5/hpf); Band 16 % (5-11); Eosinophils 3 % (0-10); Hypochromia SLIGHT = 6-15 cells (100X) (0-5/hpf); Lymphocytes 16 % (21-51); MDiff Complete? YES; Metamyelocyte 2 % (0-0); Monocytes 12 % (0-10); Myelocyte 2 % (0-0); Neutrophil 48 % (42-75); Nucleated RBC 35 % (0); Platelet Morphology Comment Appears Decreased; Polychromasia MODERATE = 3-4 cells (100X) (0-2/hpf); Reactive Lymphocytes 1 % (0-10); Schistocytes MODERATE= 6-15 cells (100X) (0-1/hpf)
[2021-05-11] MEDS ORDERED: Vancomycin 1.5 GRAM/300 ML BAG 1.5 GM in Premix Bag 1 BAG IVPB SCH (12:00)
[2021-05-11] MEDS ORDERED: traMADol HCl 50 MG TAB PO PRN (15:16)
[2021-05-11] MEDS ORDERED: Acetaminophen 500 MG TAB PO PRN (15:16)
[2021-05-11] MEDS ORDERED: Ondansetron PF 4 MG/2 ML Vial IVP PRN (15:16)
[2021-05-11] MEDS ORDERED: Benzonatate 100 MG CAP PO PRN (15:16)
[2021-05-11] MEDS ORDERED: Ondansetron ODT 4 MG TAB PO PRN (15:16)
[2021-05-11] MEDS ORDERED: Communication Order-Pharmacy FS ONE (15:16)
[2021-05-11] MEDS ORDERED: Acetaminophen 650 MG Suppository PR PRN (15:16)
[2021-05-11] MEDS: Sodium Chloride 0.9% 1,000 ML IV SCH (17:10)
[2021-05-11] MEDS: Potassium Chloride 10 MEQ TAB PO SCH (17:11)
[2021-05-11] MEDS ORDERED: Guaifenesin DM 100-10/5 ML UDCUP PO PRN (18:35)
[2021-05-11] MEDS ORDERED: Lacosamide 50 mg Tablet PO SCH (21:00)
[2021-05-11] MEDS ORDERED: Mirtazapine 15 MG Soltab PO SCH (21:00)
[2021-05-11] MEDS: Famotidine 20 MG TAB PO SCH (21:00)
[2021-05-11] MEDS ORDERED: Dronabinol 2.5 MG CAP PO SCH (21:00)
[2021-05-12] MEDS ORDERED: Vancomycin HCl 1 GM in Sodium Chloride 0.9% 250 ML 300 ML IVPB SCH (01:00)
[2021-05-12] MEDS: Sodium Chloride 0.9% 1,000 ML IV SCH ×2 (03:37→07:00)
[2021-05-12 04:19] LABS: ALT (SGPT) 18 U/L (8-55); AST (SGOT) 136 U/L (5-34); Albumin 2.2 g/dL (3.4-4.8); Alkaline Phosphatase 236 U/L (40-110); Anion Gap 18 mmol/L (10-20); BUN (Urea Nitrogen) 37 mg/dL (9.8-20.1); Bilirubin, Total 1.5 mg/dL (0.2-1.2); Calc. Creatinine Clearance 36 mL/min (70-130); Carbon Dioxide 15 mmol/L (23-31); Chloride 119 mmol/L (98-107); Globulin 2.2 g/dL (2.4-3.5); Glucose 71 mg/dL (83-110); Potassium 3.7 mmol/L (3.5-5.1); Protein, Total 4.4 g/dL (5.8-8.1); Sodium 148 mmol/L (136-145)
[2021-05-12] MEDS: Levothyroxine Sodium 50 MCG TAB PO SCH (05:34)
[2021-05-12 06:56] LABS: Hemoglobin 6.8 g/dL (12.0-16.0); Mean Corpuscular HGB CONC 30.3 g/dL (32.0-36.0); Mean Corpuscular Hemoglobin 32.1 pg (27.0-31.0); Mean Platelet Volume 9.4 fL (7.4-10.4); Platelet Count 92 thou/uL (130-400); RBC Distribution Width 25.8 % (11.5-14.5); Red Blood Cell (RBC) Count 2.11 mill/uL (4.20-5.40); White Blood Cell (WBC) Count 15.6 thou/uL (4.8-10.8)
[2021-05-12 07:31] LABS: Anisocytosis MODERATE=16-30 cells (100X) (0-5/hpf); Band 18 % (5-11); Eosinophils 2 % (0-10); Lymphocytes 27 % (21-51); MDiff Complete? YES; Macrocytosis MODERATE=16-30 cells (100X) (0-5/hpf); Metamyelocyte 5 % (0-0); Monocytes 3 % (0-10); Myelocyte 1 % (0-0); Neutrophil 44 % (42-75); Nucleated RBC 37 % (0); Platelet Morphology Comment Appears Decreased; Polychromasia MODERATE = 3-4 cells (100X) (0-2/hpf); Schistocytes SLIGHT = 2-5 cells (100X) (0-1/hpf)
[2021-05-12] MEDS: Potassium Chloride 10 MEQ TAB PO SCH ×2 (09:17→17:48)
[2021-05-12] MEDS: Mirtazapine 15 MG Soltab PO SCH (09:17)
[2021-05-12] MEDS: Aspirin Chewable 81 MG TAB PO SCH (09:17)
[2021-05-12] MEDS: Famotidine 20 MG TAB PO SCH ×2 (09:17→21:35)
[2021-05-12] MEDS: Folic Acid 1 MG TAB PO SCH (09:17)
[2021-05-12] MEDS: Cefepime 2 GM in Sodium Chloride 0.9% 100 ML IVPB SCH ×2 (09:18→22:35)
[2021-05-12] MEDS ORDERED: DEXTROSE IV SCH (14:45)
[2021-05-12] MEDS ORDERED: KCL IV SCH (14:45)
[2021-05-12] MEDS ORDERED: SODIUM BICARBONATE IV SCH (14:45)
[2021-05-12] MEDS: POTASSIUM CHLORIDE IV SCH (17:40)
[2021-05-12] MEDS: Vancomycin HCl 500 MG in Sodium Chloride 0.9% 100 ML IVPB SCH (17:40)
[2021-05-12] MEDS: SODIUM BICARBONATE IV SCH (17:40)
[2021-05-12] MEDS: DEXTROSE 5% IV SCH (17:40)
[2021-05-12] MEDS: WATER IV SCH (17:40)
[2021-05-12] MEDS ORDERED: Lacosamide 50 MG in Sodium Chloride 0.9% 50 ML IVPB SCH (18:00)
[2021-05-12] MEDS ORDERED: Morphine 4 MG/ML VIAL SLOW IVP PRN (19:42)
[2021-05-12] MEDS: Morphine 2 MG/ML VIAL SLOW IVP PRN (20:01)
[2021-05-12] MEDS ORDERED: Lacosamide 50 mg Tablet PO SCH (21:00)
[2021-05-12] MEDS: Lacosamide 50 MG in Sodium Chloride 0.9% 50 ML IVPB SCH (22:35)
[2021-05-13 04:40] LABS: ALT (SGPT) 17 U/L (8-55); AST (SGOT) 109 U/L (5-34); Albumin 2.3 g/dL (3.4-4.8); Alkaline Phosphatase 223 U/L (40-110); Anion Gap 18 mmol/L (10-20); BUN (Urea Nitrogen) 43 mg/dL (9.8-20.1); Bilirubin, Total 1.7 mg/dL (0.2-1.2); CRP (Inflammatory) 16.67 mg/dL (= or < 0.5); Calc. Creatinine Clearance 30 mL/min (70-130); Calcium 6.5 mg/dL (7.8-10.44); Carbon Dioxide 13 mmol/L (23-31); Chloride 120 mmol/L (98-107); Globulin 1.8 g/dL (2.4-3.5); Glucose 114 mg/dL (83-110); Iron 134 ug/dL (50-170); Iron Binding Capacity, Total 126 mcg/dL (265-497); Potassium 3.9 mmol/L (3.5-5.1); Protein, Total 4.1 g/dL (5.8-8.1); Sodium 147 mmol/L (136-145)
[2021-05-13 04:55] LABS: Hemoglobin 9.9 g/dL (12.0-16.0); Mean Corpuscular HGB CONC 31.6 g/dL (32.0-36.0); Mean Corpuscular Hemoglobin 32.6 pg (27.0-31.0); Mean Platelet Volume 8.9 fL (7.4-10.4); Platelet Count 84 thou/uL (130-400); RBC Distribution Width 22.5 % (11.5-14.5); Red Blood Cell (RBC) Count 3.03 mill/uL (4.20-5.40)
[2021-05-13] MEDS: Levothyroxine Sodium 50 MCG TAB PO SCH (05:13)
[2021-05-13 05:34] LABS: MDiff Complete? YES; White Blood Cell (WBC) Count 12.8 thou/uL (4.8-10.8)
[2021-05-13 05:35] LABS: Band 17 % (5-11); Lymphocytes 4 % (21-51); Metamyelocyte 2 % (0-0); Monocytes 11 % (0-10); Myelocyte 3 % (0-0); Neutrophil 63 % (42-75); Nucleated RBC 37 % (0); Platelet Morphology Comment Appears Decreased; Polychromasia SLIGHT = 2-3 cells (100X) (0-2/hpf); Schistocytes MODERATE= 6-15 cells (100X) (0-1/hpf)
[2021-05-13] MEDS: Morphine 2 MG/ML VIAL SLOW IVP PRN (05:41)
[2021-05-13] MEDS: Cefepime 2 GM in Sodium Chloride 0.9% 100 ML IVPB SCH ×2 (08:44→21:39)
[2021-05-13] MEDS: Lacosamide 50 MG in Sodium Chloride 0.9% 50 ML IVPB SCH ×2 (09:18→22:18)
[2021-05-13] MEDS: Potassium Chloride 10 MEQ TAB PO SCH ×2 (11:05→17:41)
[2021-05-13] MEDS: Aspirin Chewable 81 MG TAB PO SCH (11:05)
[2021-05-13] MEDS: Mirtazapine 15 MG Soltab PO SCH (11:06)
[2021-05-13] MEDS: Famotidine 20 MG TAB PO SCH (11:06)
[2021-05-13] MEDS: Folic Acid 1 MG TAB PO SCH (11:06)
[2021-05-13] MEDS: Dexamethasone 4 mg/ml Vial SLOW IVP SCH ×2 (13:14→19:28)
[2021-05-13] MEDS ORDERED: SODIUM BICARBONATE IV SCH ×2 (13:15→19:00)
[2021-05-13] MEDS ORDERED: DEXTROSE IV SCH (13:15)
[2021-05-13] MEDS ORDERED: KCL IV SCH (13:15)
[2021-05-13] MEDS: Albumin 25% 25 GM/100 ML BOT IVPB SCH ×2 (13:20→19:31)
[2021-05-13 14:57] LABS: Vancomycin, Trough 16.3 ug/mL
[2021-05-13] MEDS: Vancomycin HCl 500 MG in Sodium Chloride 0.9% 100 ML IVPB SCH (15:23)
[2021-05-13] MEDS: SODIUM BICARBONATE IV SCH ×4 (16:26→19:28)
[2021-05-13] MEDS: WATER IV SCH ×3 (16:26→16:29)
[2021-05-13] MEDS: DEXTROSE 5% IV SCH ×3 (16:26→16:29)
[2021-05-13] MEDS: POTASSIUM CHLORIDE IV SCH ×3 (16:26→16:29)
[2021-05-13] MEDS ORDERED: DEXTROSE 5% IV SCH (19:00)
[2021-05-13] MEDS ORDERED: WATER IV SCH (19:00)
[2021-05-13] MEDS ORDERED: POTASSIUM CHLORIDE IV SCH (19:00)
[2021-05-13] MEDS: DEXTROSE IV SCH (19:28)
[2021-05-13] MEDS: KCL IV SCH (19:28)
[2021-05-14] MEDS: Dexamethasone 4 mg/ml Vial SLOW IVP SCH ×4 (00:50→20:52)
[2021-05-14] MEDS: Albumin 25% 25 GM/100 ML BOT IVPB SCH ×2 (00:50→07:50)
[2021-05-14 02:00] LABS: Lactic Acid 2.2 mmol/L (0.5-2.2)
[2021-05-14 02:08] LABS: Troponin I 0.017 ng/mL (< 0.028)
[2021-05-14 02:13] LABS: ALT (SGPT) 13 U/L (8-55); AST (SGOT) 71 U/L (5-34); Albumin 3.7 g/dL (3.4-4.8); Alkaline Phosphatase 155 U/L (40-110); Anion Gap 17 mmol/L (10-20); BUN (Urea Nitrogen) 50 mg/dL (9.8-20.1); Bilirubin, Total 1.9 mg/dL (0.2-1.2); Calc. Creatinine Clearance 28 mL/min (70-130); Calcium 7.2 mg/dL (7.8-10.44); Carbon Dioxide 15 mmol/L (23-31); Chloride 121 mmol/L (98-107); Globulin 1.5 g/dL (2.4-3.5); Glucose 147 mg/dL (83-110); Protein, Total 5.2 g/dL (5.8-8.1); Sodium 149 mmol/L (136-145)
[2021-05-14 02:18] LABS: Hemoglobin 8.6 g/dL (12.0-16.0); Mean Corpuscular HGB CONC 33.4 g/dL (32.0-36.0); Mean Platelet Volume 8.4 fL (7.4-10.4); Platelet Count 57 thou/uL (130-400); RBC Distribution Width 23.3 % (11.5-14.5); Red Blood Cell (RBC) Count 2.54 mill/uL (4.20-5.40)
[2021-05-14 02:44] LABS: Anisocytosis MODERATE=16-30 cells (100X) (0-5/hpf); Band 9 % (5-11); Lymphocytes 5 % (21-51); MDiff Complete? YES; Metamyelocyte 1 % (0-0); Monocytes 6 % (0-10); Myelocyte 5 % (0-0); Neutrophil 74 % (42-75); Nucleated RBC 69 % (0); Platelet Morphology Comment Appears Decreased; Polychromasia SLIGHT = 2-3 cells (100X) (0-2/hpf); Schistocytes MODERATE= 6-15 cells (100X) (0-1/hpf); White Blood Cell (WBC) Count 9.5 thou/uL (4.8-10.8)
[2021-05-14 02:54] LABS: Magnesium 1.7 mg/dL (1.6-2.6)
[2021-05-14 02:59] LABS: Phosphorus 1.4 mg/dL (2.3-4.7)
[2021-05-14] MEDS ORDERED: Potassium Phosphate 22 MMOL in Sodium Chloride 0.9% 250 ML 250 ML IVPB SCH (04:15)
[2021-05-14 04:35] LABS: ALT (SGPT) 9 U/L (8-55); AST (SGOT) 64 U/L (5-34); Albumin 3.4 g/dL (3.4-4.8); Alkaline Phosphatase 142 U/L (40-110); Anion Gap 18 mmol/L (10-20); BUN (Urea Nitrogen) 46 mg/dL (9.8-20.1); Bilirubin, Total 1.8 mg/dL (0.2-1.2); Calc. Creatinine Clearance 30 mL/min (70-130); Carbon Dioxide 15 mmol/L (23-31); Chloride 120 mmol/L (98-107); Globulin 1.5 g/dL (2.4-3.5); Glucose 133 mg/dL (83-110); Potassium 4.1 mmol/L (3.5-5.1); Protein, Total 4.9 g/dL (5.8-8.1); Sodium 149 mmol/L (136-145)
[2021-05-14] MEDS: DEXTROSE IV SCH ×3 (04:38→21:55)
[2021-05-14] MEDS: SODIUM BICARBONATE IV SCH ×3 (04:38→21:55)
[2021-05-14] MEDS: KCL IV SCH ×3 (04:38→21:55)
[2021-05-14] MEDS: Levothyroxine Sodium 50 MCG TAB PO SCH (06:43)
[2021-05-14] MEDS: Aspirin Chewable 81 MG TAB PO SCH (09:59)
[2021-05-14] MEDS: Mirtazapine 15 MG Soltab PO SCH (09:59)
[2021-05-14] MEDS: Folic Acid 1 MG TAB PO SCH (09:59)
[2021-05-14] MEDS: Potassium Chloride 10 MEQ TAB PO SCH ×2 (09:59→16:27)
[2021-05-14] MEDS: Pantoprazole 40 MG VIAL IVP SCH (10:02)
[2021-05-14 10:47] LABS: Mean Corpuscular HGB CONC 31.8 g/dL (32.0-36.0); Mean Corpuscular Hemoglobin 32.3 pg (27.0-31.0); Mean Platelet Volume 8.8 fL (7.4-10.4); Platelet Count 77 thou/uL (130-400); Red Blood Cell (RBC) Count 2.78 mill/uL (4.20-5.40)
[2021-05-14] MEDS: Cefepime 2 GM in Sodium Chloride 0.9% 100 ML IVPB SCH ×2 (10:59→21:17)
[2021-05-14] MEDS: Lacosamide 50 MG in Sodium Chloride 0.9% 50 ML IVPB SCH ×2 (10:59→20:44)
[2021-05-14 11:33] LABS: Anisocytosis MODERATE=16-30 cells (100X) (0-5/hpf); Band 26 % (5-11); Bite Cells SLIGHT = 2-5 cells (100X) (0-1/hpf); Hypochromia SLIGHT = 6-15 cells (100X) (0-5/hpf); Lymphocytes 14 % (21-51); MDiff Complete? YES; Monocytes 12 % (0-10); Neutrophil 48 % (42-75); Nucleated RBC 33 % (0); Polychromasia MODERATE = 3-4 cells (100X) (0-2/hpf); Schistocytes MODERATE= 6-15 cells (100X) (0-1/hpf)
[2021-05-14 11:36] LABS: White Blood Cell (WBC) Count 13.8 thou/uL (4.8-10.8)
[2021-05-14 12:07] LABS: Phosphorus 2.8 mg/dL (2.3-4.7)
[2021-05-14] MEDS ORDERED: Iopamidol-370 76% 500 ML 1 ML ONE (12:11)
[2021-05-14] MEDS: Morphine 2 MG/ML VIAL SLOW IVP PRN (21:37)
[2021-05-15 00:12] VITALS: BP 109/70
[2021-05-15] MEDS ORDERED: Furosemide 40 MG/4 ML VIAL SLOW IVP SCH (00:15)
[2021-05-15 00:32] LABS: Mean Corpuscular HGB CONC 35.3 g/dL (32.0-36.0); Mean Corpuscular Hemoglobin 35.8 pg (27.0-31.0); RBC Distribution Width 24.2 % (11.5-14.5); Red Blood Cell (RBC) Count 2.51 mill/uL (4.20-5.40)
[2021-05-15 00:53] LABS: Anion Gap 21 mmol/L (10-20); BUN (Urea Nitrogen) 57 mg/dL (9.8-20.1); Calc. Creatinine Clearance 22 mL/min (70-130); Calcium 6.8 mg/dL (7.8-10.44); Carbon Dioxide 13 mmol/L (23-31); Chloride 120 mmol/L (98-107); Glucose 150 mg/dL (83-110); Sodium 149 mmol/L (136-145)
[2021-05-15 01:00] LABS: Anisocytosis SLIGHT = 6-15 cells (100X) (0-5/hpf); Band 17 % (5-11); Lymphocytes 16 % (21-51); MDiff Complete? YES; Mean Platelet Volume 9.5 fL (7.4-10.4); Monocytes 12 % (0-10); Myelocyte 5 % (0-0); Neutrophil 50 % (42-75); Nucleated RBC 33 % (0); Platelet Count 71 thou/uL (130-400); Platelet Morphology Comment Appears Decreased; Schistocytes SLIGHT = 2-5 cells (100X) (0-1/hpf); White Blood Cell (WBC) Count 24.4 thou/uL (4.8-10.8)
[2021-05-15 01:17] LABS: Actual Bicarbonate (HCO3a) 15.7 mEq/L (22-28); Base Excess (BEa) -9.2 mEq/L (-2.0 to +3.0); CO2 Tension 30.6 mmHg (35.0-45.0); Calcium, Ionized (arterial) 0.94 mmol/L (1.12-1.30); Carboxyhemoglobin (COHb) 0.3 gm% (0.0-3.0); O2 Tension (PaO2), arterial 64.1 mmHg (> 60.0); Potassium - ABG Lab 4.74 mmol/L (3.70-5.30); pH, Arterial 7.33 (7.35-7.45)
[2021-05-15 01:19] LABS: Puncture Site RRA
[2021-05-15] MEDS: Dexamethasone 4 mg/ml Vial SLOW IVP SCH ×2 (02:38→10:21)
[2021-05-15] MEDS: DEXTROSE IV SCH (04:25)
[2021-05-15] MEDS: SODIUM BICARBONATE IV SCH (04:25)
[2021-05-15] MEDS: KCL IV SCH (04:25)
[2021-05-15] MEDS: Levothyroxine Sodium 50 MCG TAB PO SCH (05:42)
[2021-05-15 06:40] LABS: Anion Gap 18 mmol/L (10-20); BUN (Urea Nitrogen) 60 mg/dL (9.8-20.1); Calc. Creatinine Clearance 22 mL/min (70-130); Calcium 6.7 mg/dL (7.8-10.44); Carbon Dioxide 16 mmol/L (23-31); Chloride 121 mmol/L (98-107); Glucose 115 mg/dL (83-110); Potassium 4.8 mmol/L (3.5-5.1); Sodium 150 mmol/L (136-145)
[2021-05-15 07:24] LABS: Hemoglobin 9.1 g/dL (12.0-16.0); Mean Corpuscular HGB CONC 32.4 g/dL (32.0-36.0); Mean Corpuscular Hemoglobin 32.8 pg (27.0-31.0); Platelet Count 79 thou/uL (130-400); RBC Distribution Width 24.1 % (11.5-14.5); Red Blood Cell (RBC) Count 2.78 mill/uL (4.20-5.40)
[2021-05-15 07:55] LABS: MDiff Complete? YES
[2021-05-15 07:56] LABS: Anisocytosis SLIGHT = 6-15 cells (100X) (0-5/hpf); Band 21 % (5-11); Lymphocytes 9 % (21-51); Monocytes 16 % (0-10); Neutrophil 54 % (42-75); Nucleated RBC 57 % (0); Platelet Morphology Comment Appears Decreased; Polychromasia SLIGHT = 2-3 cells (100X) (0-2/hpf); Schistocytes SLIGHT = 2-5 cells (100X) (0-1/hpf)
[2021-05-15 08:11] VITALS: TEMP 97.8
[2021-05-15] MEDS: Morphine 2 MG/ML VIAL SLOW IVP PRN (10:09)
[2021-05-15] MEDS: Lacosamide 50 MG in Sodium Chloride 0.9% 50 ML IVPB SCH (10:18)
[2021-05-15] MEDS: Cefepime 2 GM in Sodium Chloride 0.9% 100 ML IVPB SCH (10:19)
[2021-05-15] MEDS: Folic Acid 1 MG TAB PO SCH (10:20)
[2021-05-15] MEDS: Aspirin Chewable 81 MG TAB PO SCH (10:20)
[2021-05-15] MEDS: Potassium Chloride 10 MEQ TAB PO SCH (10:20)
[2021-05-15] MEDS: Mirtazapine 15 MG Soltab PO SCH (10:21)
[2021-05-15] MEDS: Pantoprazole 40 MG VIAL IVP SCH (10:21)
[2021-05-15] MEDS ORDERED: Lorazepam 2 MG/ML VIAL SLOW IVP PRN (12:00)
[2021-05-15] MEDS ORDERED: Morphine 4 MG/ML VIAL SLOW IVP PRN (12:00)
== END 2021-05-15 16:13 | disposition hospice, inpatient (51) | DRG 871 ==
LOC: ERS 10:24 → ONC 13:20 → IMCU/EMU 05-15 04:13
PROVIDERS: ADMIT Family Medicine; ATTEND Family Medicine
PROC: 30233N1 Transfusion of Nonautologous Red Blood Cells into Peripheral Vein, Percutaneous Approach (ICD-10-PCS; principal; 2021-05-12)
PROC: 0DH67UZ Insertion of Feeding Device into Stomach, Via Natural or Artificial Opening (ICD-10-PCS; 2021-05-15)
PROC: 3E0G76Z Introduction of Nutritional Substance into Upper GI, Via Natural or Artificial Opening (ICD-10-PCS; 2021-05-15)
DX: A41.9 Sepsis, unspecified organism (principal); Z66 Do not resuscitate; Z51.5 Encounter for palliative care; G93.41 Metabolic encephalopathy; J96.21 Acute and chronic respiratory failure with hypoxia; J18.9 Pneumonia, unspecified organism; J91.0 Malignant pleural effusion; T80.1XXA Vascular complications following infusion, transfusion and therapeutic injection, initial encounter; E44.0 Moderate protein-calorie malnutrition; N17.9 Acute kidney failure, unspecified; E87.0 Hyperosmolality and hypernatremia; E87.2 Acidosis; C79.51 Secondary malignant neoplasm of bone; E03.9 Hypothyroidism, unspecified; I10 Essential (primary) hypertension; G43.909 Migraine, unspecified, not intractable, without status migrainosus; D53.9 Nutritional anemia, unspecified; E87.6 Hypokalemia; R74.01 Elevation of levels of liver transaminase levels; D64.81 Anemia due to antineoplastic chemotherapy; T45.1X5A Adverse effect of antineoplastic and immunosuppressive drugs, initial encounter; D63.8 Anemia in other chronic diseases classified elsewhere; I80.8 Phlebitis and thrombophlebitis of other sites; Y84.8 Other medical procedures as the cause of abnormal reaction of the patient, or of later complication, without mention of misadventure at the time of the procedure; C50.919 Malignant neoplasm of unspecified site of unspecified female breast; G40.909 Epilepsy, unspecified, not intractable, without status epilepticus; E87.8 Other disorders of electrolyte and fluid balance, not elsewhere classified; E83.51 Hypocalcemia; E83.39 Other disorders of phosphorus metabolism; G98.8 Other disorders of nervous system; Z90.13 Acquired absence of bilateral breasts and nipples; Z99.81 Dependence on supplemental oxygen; Z79.899 Other long term (current) drug therapy; Z79.82 Long term (current) use of aspirin; Z79.890 Hormone replacement therapy; Z88.5 Allergy status to narcotic agent; Z88.8 Allergy status to other drugs, medicaments and biological substances; Z82.49 Family history of ischemic heart disease and other diseases of the circulatory system; Z68.20 Body mass index [BMI] 20.0-20.9, adult; Z90.710 Acquired absence of both cervix and uterus
CPT/HCPCS: 36415; 36416; 36430; 36600; 44500; 51701; 70470; 71045; 71260; 74018; 74340; 76770; 80048; 80053; 80202; 81003; 82553; 82607; 82728; 82746; 82805; 83540; 83550; 83605; 83735; 83880; 84100; 84484; 85025; 86140; 86850; 86900; 86901; 87040; 87086; 93005; 94640; 95712; 95819; 95957; 96365; 96366; 96368; 96375; C9113; C9254; J0692; J1100; J1940; J1956; J2270; J3370; J3480; J3490; J7050; J7070; J7620; P9016; P9047; Q9967

== ENCOUNTER 2021-05-15 16:23 | Inpatient (IN) | payer OTHER ==
[2021-05-15] MEDS ORDERED: Morphine 2 MG/ML VIAL SLOW IVP PRN (17:36)
[2021-05-15] MEDS ORDERED: Bisacodyl 10 MG SUPP PR PRN (17:38)
[2021-05-15] MEDS ORDERED: diphenhydrAMINE 50 MG/ML VIAL IVP PRN (17:45)
[2021-05-15] MEDS ORDERED: Haloperidol Lactate 5 MG/ML VIAL SLOW IVP PRN (17:45)
[2021-05-15] MEDS ORDERED: Acetaminophen 650 MG Suppository PR PRN (17:45)
[2021-05-15] MEDS ORDERED: Ondansetron PF 4 MG/2 ML Vial IVP PRN (17:45)
[2021-05-15 18:28] VITALS: BMI 19.9
[2021-05-15] MEDS: Lorazepam 2 MG/ML VIAL SLOW IVP PRN (21:15)
[2021-05-15] MEDS: Morphine 2 MG/ML VIAL SLOW IVP PRN (21:15)
[2021-05-15 21:18] VITALS: BP 93/50; TEMP 98.1
[2021-05-15] MEDS ORDERED: Scopolamine 1.5 mg/72 hour Patch TOP PRN (22:18)
[2021-05-16] MEDS: Lorazepam 2 MG/ML VIAL SLOW IVP PRN (04:35)
[2021-05-16] MEDS: Morphine 2 MG/ML VIAL SLOW IVP PRN (04:35)
== END 2021-05-17 01:06 | disposition expired | DRG 951 ==
LOC: IMCU/EMU 16:23 → ONC 17:32
PROVIDERS: ADMIT Internal Medicine; ATTEND Internal Medicine
DX: Z51.5 Encounter for palliative care (principal)
CPT/HCPCS: J1200; J1630; J2060; J2270